=== PATIENT | female | born 1975 | race Caucasian/White ===

== ENCOUNTER 2021-08-08 15:51 | Emergency (ER) | payer BC, SELFPAY ==
--- NOTE | 2021-08-08 15:54 | ED.LOWEXIN ---
HPI - Extremity Injury (Lower) General Chief Complaint: Back Pain/Injury Stated Complaint: pain from hip to foot Time Seen by Provider: 08/08/21 15:54 Source: patient Mode of arrival: ambulatory Limitations: no limitations History of Present Illness HPI Narrative: Ms. Connors is a 45-year-old female patient presenting to the clinic today with complaints of left hip pain that is radiating down into her foot x2 weeks. She reports she has tried Advil, chiropractor, massage, and stretches without relief. Reports that the pain is worse today. Reports the pain is sharp from the left posterior hip and radiates into the left foot. Pain is worse with sitting. Most comfortable position she finds a standing. Related Data Home Medications Medication Instructions Recorded Confirmed alprazolam 1 mg tablet tablet 08/08/21 doxepin 50 mg capsule cap 08/08/21 fluoxetine 40 mg capsule cap 08/08/21 linaclotide 290 mcg capsule cap 08/08/21 (Linzess) metformin 1,000 mg tablet tablet 08/08/21 norgestimate 0.18 mg/0.215 mg/0.25 tablet 08/08/21 mg-ethinyl estradiol 25 mcg tablet (Zib-[id number]-[id number]) omeprazole 40 mg capsule,delayed cap 08/08/21 release Allergies Allergy/AdvReac Type Severity Reaction Status Date / Time latex Allergy Mild Swelling Unverified 10/09/13 15:21 erythromycin base Allergy Unknown HIVES Unverified 10/09/13 15:21 Penicillins Allergy Unknown Verified 10/09/13 15:20 prochlorperazine Allergy Unknown Verified 10/09/13 15:20 PROCHLORPERAZINE EDISYLATE AdvReac Severe CONFUSION Uncoded 10/09/13 15:20 PROCHLORPERAZINE MALEATE AdvReac Severe CONFUSION Uncoded 10/09/13 15:20 Review of Systems Review of Systems: Pertinent positives per HPI. Patient denies any fever, chills, rash, headache, visual changes, dizziness, cough, runny nose, sore throat, shortness of breath, chest pain, palpitations, nausea, vomiting, diarrhea, constipation, abdominal pain, or any urinary issues. [facility] Social History Social History Alcohol intake: never Comments At the time of my signature, I reviewed and agree with the nursing past medical, surgical, social, and family history. There is no relevant family history pertinent to the patient complaint. Exam Narrative: General: Well-developed, morbidly obese, in no apparent distress Head: Normocephalic, atraumatic. Cardio: Regular rate and rhythm, s1 and s2 normal, no murmur appreciated. Resp: Clear to auscultation bilaterally, no rhonchi, rales, wheezing or rubs. Musculoskeletal: No deformity, tender to palpation over the left SI joint, pain aggravated with sitting, no pain with flexion or extension of the left leg or internal or external rotation of the left hip, grossly normal range of motion, muscle strength strong and equal, peripheral pulse strong, no edema, no cyanosis, normal gait and station Course Course Emergency Course: Portions of this record may have been created with voice recognition software. Level of Care: Express Care Visit Vital Signs Vital signs: Vital signs reviewed MDM - Extremity Injury (Lower) MDM Narrative Medical decision making narrative: At the time of visit patient was standing in the exam room. Reports that it hurts to sit. She has pain over the left SI joint that is radiating down her leg. I suspect that the patient has left-sided sciatica with SI joint dysfunction and will treat with a course of prednisone. Toradol 60 mg IM given in the clinic today for pain. Supportive measures were discussed with the patient and she voiced understanding of discharge instructions and agrees with the treatment plan. Differential Diagnosis Differential diagnosis: Likely other (Sciatica, SI joint dysfunction, left hip injury) Discharge Plan Discharge Clinical Impression: Left sided sciatica, Sacroiliac joint dysfunction Patient Disposition: Home, Self-Care Condition: Stable Instruc
[2021-08-08 16:07] VITALS: BP 147/93; PULSE 90; RESP 16; TEMP 35.7; O2SAT 100
[2021-08-08] MEDS: KETOROLAC (*BKC) 60 MG/2 ML VIAL IM (16:27)
== END 2021-08-08 16:42 | disposition home or self-care (01) ==
PROVIDERS: Emergency Provider Nurse Practitioner Family
DX: M54.32 Sciatica, left side (principal); M53.3 Sacrococcygeal disorders, not elsewhere classified; I10 Essential (primary) hypertension; K21.9 Gastro-esophageal reflux disease without esophagitis
CPT/HCPCS: 96372; 99203; G0463; J1885

== ENCOUNTER → 2021-09-04 12:58 | Outpatient (CLI) | payer BC, SELFPAY ==
--- NOTE | ~2021-09-04 | MR_ITS ---
EXAMINATION: MR lumbar spine wo con DATE: 09/04/2021 13:37 INDICATION: Low back pain. Lumbar radiculopathy. TECHNIQUE: Magnetic resonance imaging (MRI) of the lumbar spine was performed without intravenous con trast. Sequences included sagittal T2-weighted FSE, sagittal T2-weighted FS FSE, sagittal T1-weighted FSE, and axial T2-weighted FSE. COMPARISON: Chest 2 views 04/19/2008 FINDINGS: S1 is a transitional segment. There is 3 mm anterolisthesis of L5 on S1. Vertebral body hei ghts are normal. There is mildly decreased disc height at L5-S1. The distal spinal cord signal intens ity is normal. The conus medullaris is at T12-L1. The following disc levels are specifically discusse d: L1-L2: The disc does not extend beyond the endplate margin. There is mild bilateral facet joint osteo arthritis. There is no neural foraminal stenosis. There is no central canal stenosis. L2-L3: The disc does not extend beyond the endplate margin. There is mild bilateral facet joint osteo arthritis. There is no neural foraminal stenosis. There is no central canal stenosis. L3-L4: The disc does not extend beyond the endplate margin. There is no facet joint osteoarthritis. T here is no neural foraminal stenosis. There is no central canal stenosis. L4-L5: There is a left foraminal protrusion. There is mild bilateral facet joint osteoarthritis. Ther e is mild left neural foraminal stenosis. There is no central canal stenosis. L5-S1: The disc is bulging and has an annular fissure. There is severe bilateral facet joint osteoart hritis. There is mild bilateral neural foraminal stenosis. There is mild central canal stenosis. IMPRESSION: 1. Mild lumbar spondylosis. Reviewed, dictated and finalized at location A. IMPRESSION: 1. Mild lumbar spondylosis.
== END ==
PROVIDERS: Visit Provider Nurse Practitioner Family
DX: M47.26 Other spondylosis with radiculopathy, lumbar region (principal)
CPT/HCPCS: 72148

== ENCOUNTER 2022-01-07 10:37 | Emergency (ER) | payer BC, SELFPAY ==
--- NOTE | ~2022-01-07 | CT_ITS ---
EXAMINATION: CT abdomen pelvis w con DATE: 01/07/2022 12:07 INDICATION: Left flank pain. TECHNIQUE: Computed tomography (CT) of the abdomen and pelvis was performed with 100 mL Omnipaque 350 intravenous contrast. Automated exposure control and iterative reconstruction technique were employe d. The dose-length product was 896.19 mGy-cm. COMPARISON: CT abdomen and pelvis 03/03/2004 FINDINGS: The visualized portions of the lung bases are clear without pneumonia or pleural effusion. The heart size is normal. No pericardial effusion. The liver, gallbladder, spleen, pancreas, and adre nal glands are normal. There is a 16 mm cyst in right kidney. There is a delayed left-sided contrast nephrogram. There is mild left hydronephrosis and hydroureter. There is a 6 mm stone in distal left u reter. There is a 4.3 cm cyst in left ovary, likely a follicular cyst. There is liquid stool in the c olon suggestive of diarrhea. There are no dilated loops of bowel. The appendix is normal. There are n o pathologically enlarged lymph nodes. There is no free intraperitoneal fluid. There is severe thorac ic spondylosis and mild lumbar spondylosis. IMPRESSION: 1. 6 mm stone in distal left ureter with mild left hydronephrosis and hydroureter. Reviewed, dictated and finalized at location A. IMPRESSION: 1. 6 mm stone in distal left ureter with mild left hydronephrosis and hydrouret er.
--- NOTE | ~2022-01-07 | XR_ITS ---
EXAMINATION: XR abdomen/kub 1V DATE: 01/07/2022 13:16 INDICATION: Left ureteral stone. TECHNIQUE: A supine view of the abdomen on 2 radiographs was obtained. COMPARISON: CT abdomen and pelvis 01/07/2022 FINDINGS: There are no dilated loops of bowel. There are phleboliths in the pelvis. There is contrast in the renal collecting system. There is mild left hydronephrosis and hydroureter. IMPRESSION: 1. Mild left hydronephrosis and hydroureter. Reviewed, dictated and finalized at location A.
[2022-01-07 11:09] VITALS: BP 170/92; PULSE 82; RESP 15; TEMP 36.7; O2SAT 95
[2022-01-07 11:12] LABS: Basophils Absolute Auto 0.1 K/mm3 (0.0-0.1); Basophils Percent Auto 1.3 % (0.2-1.2); Eosinophils Absolute Auto 0.3 K/mm3 (0-0.3); Eosinophils Percent Auto 2.8 % (0-4.4); Hematocrit 38.7 % (37.0-47.0); Hemoglobin 12.4 g/dL (12.0-15.0); Immature Granulocyte Absolute 0.04 K/mm3 (0.00-0.031); Immature Granulocyte Percent A 0.4 % (0-0.5); Lymphocytes Absolute Auto 2.11 K/mm3 (0.9-3.2); Lymphocytes Percent Auto 22.2 % (18.3-44.2); Mean Corpuscular Hemoglobin 28.1 pg (26-34); Mean Corpuscular Volume 87.6 fl (80-100); Mean Platelet Volume 9.6 fl (7.4-10.4); Monocytes Absolute Auto 0.7 K/mm3 (0.1-0.6); Monocytes Percent Auto 7.3 % (2.6-8.5); Neutrophils Absolute Auto 6.3 K/mm3 (1.3-6.7); Platelet Count Result 372 k/mm3 (150-375); Red Blood Count 4.42 M/mm3 (4.2-5.4); Red Cell Distribution Width 14.6 % (11.5-14.5); White Blood Count 9.5 K/mm3 (4.5-10.0)
--- NOTE | 2022-01-07 11:21 | ED.FEMALEGU ---
HPI - Female Genitourinary General Chief complaint: Urogenital-Female Stated complaint: left side pain since September Time Seen by Provider: 01/07/22 10:47 History of Present Illness HPI Narrative: Patient is a 46-year-old female here for evaluation of acute on chronic left-sided pain. Patient states that she first noticed the pain about 6 months ago, where sharp and stabbing in nature, lasted for about 3 days and then resolved without intervention. Pain returned the following week, she was seen in urgent care and diagnosed with a UTI, pain did improve with antibiotics and NSAIDs. Since then, patient has been experiencing similar type pain, coming and going with his triggers. She states the pain is possibly worse with movement of her thorax and with touching the area. The pain returned 3 days ago and has been more persistent than usual, states that she came to the ED to get answers as to what is causing it. She denies any dysuria, urgency, frequency, nausea, vomiting, hematuria. Related Data Home Medications Medication Instructions Recorded Confirmed alprazolam 1 mg tablet tablet 08/08/21 doxepin 50 mg capsule cap 08/08/21 fluoxetine 40 mg capsule cap 08/08/21 linaclotide 290 mcg capsule cap 08/08/21 (Linzess) metformin 1,000 mg tablet tablet 08/08/21 norgestimate 0.18 mg/0.215 mg/0.25 tablet 08/08/21 mg-ethinyl estradiol 25 mcg tablet (Kaj-Ms-Rrrsaxzbi) omeprazole 40 mg capsule,delayed cap 08/08/21 release Allergies Allergy/AdvReac Type Severity Reaction Status Date / Time latex Allergy Mild Swelling Verified 01/07/22 11:13 erythromycin base Allergy Unknown HIVES Verified 01/07/22 11:13 Penicillins Allergy Unknown Unknown Verified 01/07/22 11:13 prochlorperazine AdvReac Severe Confusion Verified 01/07/22 11:25 Review of Systems Review of Systems: Gen.: Denies fevers or chills Eyes: Denies eye pain or visual change ENT: Denies congestion Respiratory: Denies shortness of breath or cough CV: Denies chest pain or palpitations GI: Denies abdominal pain nausea, emesis or diarrhea denies burning, urgency, frequency or hematuria Musculoskeletal: Reports left-sided back pain. Neuro: Denies numbness, tingling, weakness or focal weakness Skin: Denies rash Except as documented, all other systems reviewed and negative PMFSH Social History Social History Alcohol intake: never Exam Narrative: APPEARANCE: Well appearing, no pain in distress, well-nourished. Head: Normocephalic and atraumatic. EYES: PERRLA/EOMI, conjunctivae clear NOSE: No nasal drainage EARS: External ear normal in appearance THROAT: Oropharynx is clear. Mucous membranes are moist. NECK: Supple. No adenopathy, no masses. RESPIRATORY: Airway patent, respirations nonlabored. Clear to auscultation bilaterally, no rales, rhonchi, wheezing. CARDIOVASCULAR: Regular rate and rhythm without murmurs, rubs, or gallops. ABDOMINAL: Normoactive bowel sounds. Soft, nontender, nondistended. No rebound tenderness or guarding. MUSCULOSKELETAL: Tender to palpation over left flank. Extremities are warm and well-perfused. Moves all extremities well. No edema. NEURO: Normal speech. No focal neurologic deficits. SKIN: No rash over flank. Skin is warm and dry. No rashes. PSYCHIATRIC: Normal affect/mood. Course Vital Signs Vital signs: Vital Signs Temperature 98.0 F 01/07/22 11:09 Pulse Rate 82 01/07/22 11:09 Respiratory Rate 15 01/07/22 11:09 Blood Pressure 170/92 H 01/07/22 11:09 Pulse Oximetry 95 01/07/22 11:09 Oxygen Delivery Room Air 01/07/22 11:09 Temperature 98.0 F 01/07/22 11:09 Pulse Rate 95 01/07/22 12:45 Respiratory Rate 18 01/07/22 12:45 Blood Pressure 150/96 H 01/07/22 12:45 Pulse Oximetry 96 01/07/22 12:45 Oxygen Delivery Room Air 01/07/22 11:09 MDM - Female Genitourinary MDM Narrative Medical decision making narrative:
[2022-01-07 11:30] LABS: Alanine Aminotransferase 21 U/L (6-35); Albumin Level 4.3 g/dL (3.5-5.1); Alkaline Phosphatase 101 U/L (38-126); Anion Gap 10 mmol/L (8-16); Aspartate Amino Transferase 24 U/L (14-36); Bilirubin,Total 0.8 mg/dL (0.2-1.3); Blood Urea Nitrogen 10 mg/dL (7-17); Calcium 8.8 mg/dL (8.4-10.2); Carbon Dioxide 26 mmol/L (22-30); Chloride 105 mmol/L (98-107); Estimated CRCL calculation 83 ml/min; Estimated Glomerular Filt Rate > 60; Glucose 109 mg/dL (65-110); Potassium 3.7 mmol/L (3.4-5.0); Sodium 141 mmol/L (137-145)
[2022-01-07] MEDS: KETOROLAC 15 MG/ML VIAL (*BKC) IV PUSH (11:50)
[2022-01-07 12:45] VITALS: BP 150/96; PULSE 95; RESP 18; O2SAT 96
[2022-01-07 12:56] LABS: Add Urine Microscopic? YES; Appearance Urine Cloudy (Clear); Bilirubin Urine Negative (Negative); Blood Urine 3+ (Negative); Color Urine Yellow (Yellow); Glucose Urine UA Negative (Negative); Ketones Urine Negative (Negative); Leukocyte Esterase Ur Negative LEU/UL (Negative); Mucus Urine Few /lpf; Nitrate Urine Negative (Negative); Protein Urine 1+ mg/dL (Negative); RBC Urine >75 /hpf (0-2); Squamous Epithelial Cell Urine Few /hpf (Few); Urobilinogen Urine Negative mg/dL (<2.0)
[2022-01-07 12:57] LABS: Specific Grav Ur > 1.060 (1.001-1.035)
== END 2022-01-07 14:14 | disposition home or self-care (01) ==
PROVIDERS: Physician Assistant; Emergency Provider Emergency Medicine
DX: N13.2 Hydronephrosis with renal and ureteral calculous obstruction (principal)
CPT/HCPCS: 36415; 74018; 74177; 80053; 81001; 81025; 85025; 96374; 99284; J1885; Q9967

== ENCOUNTER 2022-01-09 00:59 | Day surgery (SDC) | payer BC, SELFPAY ==
[2022-01-08 13:10] VITALS: BMI 41.1
--- NOTE | 2022-01-08 13:15 | PC.NURSE ---
Report to the Outpatient Waiting Room, entrance under the green pavilion located off [facility], at time 0815 on date 01/09/22. Planned Procedure Time: 1015. Time changes happen often and if your time is changed the preop area will call you the afternoon before. - You and your visitor will be asked to self-screen and do not enter if you have any COVID symptoms. - We encourage only one visitor and NO visitors under age 16 are allowed at this time. Your visitor will receive communication by the phone number that is given day of service. - The patient visitor is requested to social distance or may leave the building when not with patient due to restrictions. - A mask is required within the hospital. Patients may have clear liquids (water, carbonated beverages, clear teas, apple juice) until 3 hours prior to surgery with a maximum of 20 ounces. - No food from midnight until time of surgery Take the following medications with a SIP of water the morning of surgery: ALPRAZOLAM AND PAIN PILL IF NEEDED, FLUOXETINE Medications to discontinue per physician: N/A Date to take last dose: N/A Please no make-up, nail kosovan, hairspray, perfume, deodorant, or body powder the day of surgery. No jewelry (including any body piercings) or valuables the day of surgery, leave them at home. Please take a shower or bath the night before, or the morning of, surgery with an antibacterial soap. Wear comfortable, loose fitting clothing. - Jewelry must be removed prior to entering the operating room. Rings and piercings that are not removed may be cut off. - The hospital will not accept responsibility for valuables. - Please leave all valuables, including medications, at home the day of surgery. If you are going home after surgery, a licensed local hazmat driver must drive you home. - NO public transportation without another adult. - We recommend that an adult stay with you for 24 hours following discharge. - We also recommend that you do not drive, make important decision, drink alcoholic beverages, or take any drugs that were not prescribed by your health care provider for at least 24 hours after your discharge time. Follow any additional instructions given to you from your surgeon. If you or anyone in your household have experienced Covid symptoms in the past week, please notify your surgeon or the nurse liaison at the phone number below for possible testing. Telephone instructions given to PT - CYNTHIA WONG and asked if any additional questions and then verbalized understanding. Patient advised to call surgeon office or pre surgery nurse liaison [phone] if any additional questions.
--- NOTE | 2022-01-08 14:32 | WPDANESEPPF ---
Anes - Initial Pre Proc Eval Procedure: Operation Date: 01/09/22 10:15 Proposed Procedures p Cystoscopy, Left Ureteroscopy, Possible Left Retrograde Pyelogram, Possible Left Stone Extraction, Possible Left Stent Placement, Possible Holmium Laser Procedure - Ismael Fitch MD Date/Time: 01/08/22 14:32 Surgeon: Ismael Fitch MD Pre Op Diagnosis: left ureteral stone Patient Data Age: 46 Gender: F Height: 1.57 m Weight: 102.06 kg Allergies Allergy/AdvReac Type Severity Reaction Status Date / Time Penicillins Allergy Severe Hives Verified 01/09/22 08:59 latex Allergy Mild Other Verified 01/09/22 08:59 erythromycin base Allergy Unknown HIVES Verified 01/09/22 08:59 prochlorperazine AdvReac Severe Confusion Verified 01/09/22 08:59 Home Medications Medication Instructions Recorded Confirmed Type alprazolam 1 mg tablet 1 tablet PO BID PRN Anxiety 08/08/21 01/08/22 History doxepin 50 mg capsule 1 cap PO HS 08/08/21 01/08/22 History fluoxetine 40 mg capsule 1 cap PO DAILY 08/08/21 01/08/22 History linaclotide 290 mcg capsule 1 cap PO DAILY 08/08/21 01/08/22 History (Linzess) metformin 1,000 mg tablet 1 tablet PO DAILY PCOS 08/08/21 01/08/22 History norgestimate 0.18 mg/0.215 mg/0.25 1 tablet PO HS 08/08/21 01/08/22 History mg-ethinyl estradiol 25 mcg tablet (Yan-Mo-Dtorqpgvj) omeprazole 40 mg capsule,delayed 1 cap PO DAILY 08/08/21 01/08/22 History release hydrocodone 5 mg-acetaminophen 325 1 tablet PO Q8H PRN pain #7 tabs 01/07/22 01/08/22 Rx mg tablet tamsulosin 0.4 mg capsule (Flomax) 0.4 mg PO HS #10 caps 01/07/22 01/08/22 Rx Patient hx anesthesia problems: none Family hx anesthesia problems: none Results Review: All pre-operative results and documents have been reviewed as part of the pre-operative evaluation. [facility] Past Medical History Medical History (Updated 01/08/22 @ 14:34 by Javier Baumann MD) Anxiety Asthma Chronic GERD Interstitial cystitis Kidney stone Morbid obesity with BMI of 40.0-44.9, adult Social History Social History Smoking status: Never smoker Alcohol intake: never Substance use: never Substance use type: does not use Living arrangements: with family Spiritual care concerns: No Anes - Eval Final PreProcedure Day of Procedure 01/08/22 14:32 Patient weight: morbidly obese Heart: regular rate and rhythm Lungs: clear to auscultation and normal air movement Airway: Mallampati scale class II Neurological: alert and oriented Last oral intake: >/= 8 hours ASA classification: III Emergent: no Anesthetic plan: proceed Anesthesia type and monitoring: general LMA Results Review: All pre-operative results and documents have been reviewed as part of the pre-operative evaluation. Informed Consent: The patient's anesthetic plan and its attendant risks and benefits were discussed with the patient/family/POA. Questions were solicited and answers provided to the satisfaction of the patient/family/POA.
[2022-01-09] VITALS (9 sets, daily range): BP systolic 136–164; BP diastolic 78–99; PULSE 85–94; RESP 10–18; TEMP 36.5–36.8; O2SAT 95–100; BMI 41.2
--- NOTE | ~2022-01-09 | XR_ITS ---
EXAM: XR EXAMINATION: XR retrograde pyelo w/stent LT DATE: 01/09/2022 11:12 INDICATION: Left flank pain TECHNIQUE: 6 fluoroscopic images of the abdomen and pelvis were obtained during procedure performed angela Fitch. Radiologist was not present for the imaging or procedure. The amount of fluoroscopy smiley e used during this procedure was 0.4 minutes. COMPARISON: CT and KUB dated 01/07/2022 FINDINGS: The distal left ureteral stone is unable to be identified on the automotive electrician images. Subsequent images demo nstrate a prior enhanced along the right ureter into the collecting system at the upper pole of the r ight kidney. There is some likely residual excreted contrast in the left renal pelvis and calyces at the mid and lower kidney. Final images demonstrate placement of a left internal ureteral stent with d istal loop formed in the bladder and partially formed proximal tip in an upper pole calyx of the left kidney. IMPRESSION: 1. Placement of a left internal ureteral stent in expected position. The previously seen left uretera l stone is unable be identified. Correlate with procedure note with regard to possible stone extracti on. Reviewed, dictated and finalized at location A. IMPRESSION: 1. Placement of a left internal ureteral stent in expected position. The previo usly seen left ureteral stone is unable be identified. Correlate with procedure note with regard to possible stone extraction.
--- NOTE | 2022-01-09 06:49 | WPDHPUPDATE1 ---
History and Physical Update Update Date/Time: 01/09/22 06:49 History and Physical has been reviewed, including an updated exam of the patient. There are NO changes in the patient's condition. Risks, benefits, and alternatives have been discussed and questions answered. Patient agrees to proceed with procedure.
[2022-01-09] MEDS: LACTATED RINGERS 1,000 ML 30 ML IV CONT ×2 (09:05→12:02)
[2022-01-09] MEDS: ceFAZolin 2 GM/D5W 50 ML 2 GM/50 ML BAG IVPB (10:46)
[2022-01-09] MEDS: LIDOCAINE HCL 2% GEL UROJET 10 ML PKG MUCOUS MEM (10:55)
[2022-01-09] MEDS: KETOROLAC 30 MG/ML VIAL (*BKC) IV PUSH (11:05)
--- NOTE | 2022-01-09 11:10 | W.PM.PROC2 ---
Procedure Note - Detailed Date of Procedure 01/09/22 Pre-op Diagnosis Left ureteral stone Post-op Diagnosis Same Procedure Performed Cystoscopy, left ureteroscopy with laser lithotripsy, stone extraction, retrograde pyelogram and stent placement Surgeon Ismael Fitch MD Description of Procedure patient brought the operative suite where she was prepped draped in routine sterile fashion while in dorsal lithotomy position after the uneventful induction of a general LMA anesthetic. Cystoscopy is undertaken with a 19 F rigid cystoscope. The bladder neck and urethra normal. Bladder mucosa is normal without hyperemia. There was no intravesical foreign body or neoplasm. A 0.035 in guidewire wire is advanced into her left renal pelvis and the distal ureter was dilated with an 8 F 10 F dilator. Ureteroscopy was undertaken with a short tapered semi-rigid ureteral scope. Her left mid ureteral stone is impacted around the iliac vessels. Using a 273 micron holmium laser fiber I dusted it into tiny particles and removed the larger pieces with a 1.9 F disposable stone basket. Placed a 4.8 F variable length ureteral stent. Scopes and wires removed the patient was taken recovery room good condition Drains Yes Packing No Pathology None sent Complications No immediate complications Condition Stable
[2022-01-09] MEDS: fentaNYL CITRATE INJ (*CRX) 100 MCG/2 ML VIAL 25 MCG IV PUSH ×4 (11:50→12:05)
[2022-01-09] MEDS: HYOSCYAMINE SULFATE 0.125 MG TABLET PO (12:51)
[2022-01-09] MEDS: oxyCODONE HCL (*CRX) 5 MG TAB IR PO (13:00)
== END 2022-01-09 13:35 | disposition home or self-care (01) ==
PROVIDERS: Visit Provider Urology
PROC: (CPT 52352; principal; 2022-01-09 10:15)
DX: N20.1 Calculus of ureter (principal); K21.9 Gastro-esophageal reflux disease without esophagitis; F41.9 Anxiety disorder, unspecified; E66.01 Morbid (severe) obesity due to excess calories; Z68.41 Body mass index [BMI] 40.0-44.9, adult; Z79.84 Long term (current) use of oral hypoglycemic drugs
CPT/HCPCS: 52356; 74420; 82365; 88300; A9270; C1769; C2617; J0690; J1100; J1885; J2250; J2405; J2704; J3010; J7120; Q9966

== ENCOUNTER 2022-01-17 10:12 | Outpatient (CLI) | payer BC, SELFPAY ==
--- NOTE | ~2022-01-17 | US_ITS ---
US renal BI 01/17/2022 10:49 Procedure: Realtime transabdominal ultrasound of the kidneys and bladder. Indication: Left-sided abdomen pain Comparison: No prior studies for comparison. Findings: Renal echotexture is normal bilaterally without hydronephrosis, contour deforming mass or r enal calculus. The right kidney measures 11.7 cm and left kidney measures 12.1 cm. Bladder within no rmal limits. Incidental note is made of a 2.3 cm left ovarian cyst. Impression: 1: Unremarkable renal ultrasound. No stones, masses or hydronephrosis. 2: Left ovarian cyst measuring 2.3 cm. Reviewed, dictated and finalized at location A. Impression: 1: Unremarkable renal ultrasound. No stones, masses or hydronephrosis. 2: Left ovarian cyst measuring 2.3 cm.
== END 2022-01-17 10:13 | disposition home or self-care (01) ==
PROVIDERS: Visit Provider Urology
DX: N20.1 Calculus of ureter (principal); N83.202 Unspecified ovarian cyst, left side
CPT/HCPCS: 76775

== ENCOUNTER → 2022-12-24 13:00 | Outpatient (CLI) | payer BC, SELFPAY ==
--- NOTE | ~2022-12-24 | MM_ITS ---
EXAMINATION: MM screening kami BI w renetta HISTORY: Screening mammogram TECHNIQUE: Craniocaudal and mediolateral oblique 3-D tomosynthesis images were obtained and synthetic 2-D images were generated. CAD analysis was submitted and interpreted. COMPARISON: No prior mammogram is available for comparison at this institution. BREAST PARENCHYMAL COMPOSITION: FINDINGS: There is no evidence of suspicious mass, calcification, or architectural distortion to sugg est malignancy in either breast. There has been no suspicious interval change. IMPRESSION: 1. No mammographic evidence of malignancy. 2. Recommend routine screening mammography in one year. BI-RADS Category 1: Negative Reviewed, dictated and finalized at location A.
== END ==
PROVIDERS: PCP Obstetrics & Gynecology; Visit Provider Obstetrics & Gynecology
DX: Z12.31 Encounter for screening mammogram for malignant neoplasm of breast (principal)
CPT/HCPCS: 77063; 77067

== ENCOUNTER 2023-03-06 09:30 | Outpatient (CLI) | payer BC, SELFPAY ==
[2023-03-06 09:59] LABS: Basophils Absolute Auto 0.1 K/mm3 (0.0-0.1); Basophils Percent Auto 1.2 % (0.2-1.2); Eosinophils Absolute Auto 0.3 K/mm3 (0-0.3); Eosinophils Percent Auto 3.5 % (0-4.4); Hematocrit 38.6 % (37.0-47.0); Hemoglobin 12.2 g/dL (12.0-15.0); Immature Granulocyte Absolute 0.03 K/mm3 (0.00-0.031); Immature Granulocyte Percent A 0.4 % (0-0.5); Lymphocytes Absolute Auto 2.07 K/mm3 (0.9-3.2); Lymphocytes Percent Auto 28.1 % (18.3-44.2); Mean Corpuscular HGB Conc 31.6 g/dl (32-36); Mean Corpuscular Volume 88.7 fl (80-100); Mean Platelet Volume 9.7 fl (7.4-10.4); Monocytes Absolute Auto 0.4 K/mm3 (0.1-0.6); Monocytes Percent Auto 5.8 % (2.6-8.5); Neutrophils Absolute Auto 4.5 K/mm3 (1.3-6.7); Platelet Count Result 334 k/mm3 (150-375); Red Blood Count 4.35 M/mm3 (4.2-5.4); Red Cell Distribution Width 15.1 % (11.5-14.5); White Blood Count 7.4 K/mm3 (4.5-10.0)
== END 2023-03-06 09:31 | disposition home or self-care (01) ==
LOC: ANHSURGERY 09:34
PROVIDERS: Visit Provider Obstetrics & Gynecology
DX: R10.2 Pelvic and perineal pain (principal); Z01.818 Encounter for other preprocedural examination
CPT/HCPCS: 36415; 85025; 86850; 86900; 86901

== ENCOUNTER 2023-03-07 01:48 | Day surgery (SDC) | payer BC, SELFPAY ==
--- NOTE | 2023-03-03 07:17 | PM.IMHP ---
H&P: HPI History of Present Illness Date/Time: 03/03/23 07:17 Chief Complaint: Pelvic pain Narrative: 47-year-old female with a history of stage IV endometriosis admitted for robotic total vaginal hysterectomy and bilateral salpingo oophorectomy secondary to severe and chronic pelvic pain. She has severe dyspareunia and discomfort. She has a history of stage IV endometriosis. Risks and benefits of this procedure reviewed including but not exclusive of , aspiration pneumonia, bleeding, transfusion, perforation injury to bowel, bladder, ureters, or other internal organs with need for open laparotomy. She received the [employer] handout entitled hysterectomy as well as the [place] handout. She had all questions answered. She asked to proceed PMFSH Past Medical History Medical History Anxiety Asthma Chronic GERD Interstitial cystitis Kidney stone Morbid obesity with BMI of 40.0-44.9, adult Social History Social History Smoking status: Never smoker Alcohol intake: never Substance use: never Substance use type: does not use Living arrangements: with family Spiritual care concerns: No Meds Home Medications and Allergies Home Medications Medication Instructions Recorded Confirmed Type alprazolam 1 mg tablet 1 tablet PO BID PRN Anxiety 08/08/21 01/08/22 History doxepin 50 mg capsule 1 cap PO HS 08/08/21 01/08/22 History fluoxetine 40 mg capsule 1 cap PO DAILY 08/08/21 01/08/22 History linaclotide 290 mcg capsule 1 cap PO DAILY 08/08/21 01/08/22 History (Linzess) metformin 1,000 mg tablet 1 tablet PO DAILY PCOS 08/08/21 01/08/22 History norgestimate 0.18 mg/0.215 mg/0.25 1 tablet PO HS 08/08/21 01/08/22 History mg-ethinyl estradiol 25 mcg tablet (Hfc-Kg-Sxmdoschi) omeprazole 40 mg capsule,delayed 1 cap PO DAILY 08/08/21 01/08/22 History release hydrocodone 5 mg-acetaminophen 325 1 tablet PO Q8H PRN pain #7 tabs 01/07/22 01/08/22 Rx mg tablet ibuprofen 100 mg tablet 200 mg PO Q6H PRN pain 01/09/22 01/09/22 History ketorolac 10 mg tablet 10 mg PO Q6H 5 days #20 tabs 01/09/22 Rx sulfamethoxazole 800 1 tablet PO Q12H #6 tabs 01/09/22 Rx mg-trimethoprim 160 mg tablet Allergies Allergy/AdvReac Type Severity Reaction Status Date / Time Penicillins Allergy Severe Hives Verified 01/09/22 08:59 latex Allergy Mild Other Verified 01/09/22 08:59 erythromycin base Allergy Unknown HIVES Verified 01/09/22 08:59 prochlorperazine AdvReac Severe Confusion Verified 01/09/22 08:59 Exam Const: General: cooperative, healthy appearing and comfortable Nutritional Appearance: average body habitus Orientation/consciousness: oriented to person, oriented to place and oriented to time HENMT: Head: normal to inspection Resp: Effort & Inspection: normal respiratory effort Cardio: Rate: regular rate Rhythm: regular rhythm Heart sounds: S1 normal heart sound present and S2 normal heart sound present GI: Inspection: normal to inspection : External Female Exam: normal external appearance Speculum Exam - Vagina: normal appearance of the vagina Speculum Exam - Cervix: normal appearance of the cervix Bimanual exam- vagina & uterus: enlarged, fixed and Uterine tenderness Bimanual Exam- Adnexa, other: tender bilaterally Assessment and Plan Assessment and plan (1) Pelvic pain: Code(s): R10.2 - Pelvic and perineal pain Status: Acute Plan Robotic total vaginal hysterectomy and bilateral salpingo-oophorectomy
[2023-03-03 14:22] VITALS: BMI 43.9
--- NOTE | 2023-03-03 14:28 | PC.NURSE ---
Report to the Outpatient Waiting Room, entrance under the green pavilion located off [facility], at time 9:30 on date 03/07/23. Planned Procedure Time: 11:30. Time changes happen often and if your time is changed the preop area will call you the afternoon before. - You and your visitor will be asked to self-screen and do not enter if you have any COVID symptoms. - A mask is optional within the hospital at this time. Patients may have clear liquids (water, carbonated beverages, clear teas, apple juice) until 3 hours prior to surgery (8:30) with a maximum of 20 ounces. - No food from midnight until time of surgery Take the following medications with a SIP of water the morning of surgery: FLUOXETINE DO NOT STOP ANY OF YOUR OTHER PRESCRIPTION MEDICATIONS PRIOR TO SURGERY ?EXCEPT THE FOLLOWING Medications to discontinue per physician: VITAMINS/SUPPLEMENTS Date to take last dose: 03/03/[address] LIUDMILA FOURNIER RE: IBUPROFEN Please no make-up, nail latvian, hairspray, perfume, deodorant, or body powder the day of surgery. No jewelry (including any body piercings) or valuables the day of surgery, leave them at home. Please take a shower or bath the night before, or the morning of, surgery with an antibacterial soap. Wear comfortable, loose fitting clothing. - Jewelry must be removed prior to entering the operating room. Rings and piercings that are not removed may be cut off. - The hospital will not accept responsibility for valuables. - Please leave all valuables, including medications, at home the day of surgery. If you are going home after surgery, a licensed winch driver must drive you home. - NO public transportation without another adult if you receive anesthesia. - We recommend that an adult stay with you for 24 hours following discharge. - We also recommend that you do not drive, make important decision, drink alcoholic beverages, or take any drugs that were not prescribed by your health care provider for at least 24 hours after your discharge time. Follow any additional instructions given to you from your surgeon. If you or anyone in your household have experienced Covid symptoms in the past week, please notify your surgeon or the nurse liaison at the phone number below for possible testing. Telephone instructions given to PT - CYNTHIA WONG and asked if any additional questions and then verbalized understanding. Patient advised to call surgeon office or pre surgery nurse liaison [phone] if any additional questions.
--- NOTE | 2023-03-06 10:16 | WPDANESEPPF ---
Anes - Initial Pre Proc Eval Procedure: Operation Date: 03/07/23 11:30 Proposed Procedures p Robotic Assisted Total Vaginal Hysterectomy, with Bilateral Salpingo-oophorectomy - Tera Gipson MD Date/Time: 03/06/23 10:16 Surgeon: Tera Gipson MD Pre Op Diagnosis: enlarged uterus, pain, menorrhagia, dysmen Patient Data Age: 47 Gender: F Height: 1.57 m Weight: 108.9 kg Allergies Allergy/AdvReac Type Severity Reaction Status Date / Time Penicillins Allergy Severe Hives Verified 03/07/23 07:54 latex Allergy Mild Other Verified 03/07/23 07:54 erythromycin base Allergy Unknown HIVES Verified 03/07/23 07:54 prochlorperazine AdvReac Severe Confusion Verified 03/07/23 07:54 Home Medications Medication Instructions Recorded Confirmed Type alprazolam 1 mg tablet 1 tablet PO BID PRN Anxiety 08/08/21 03/03/23 History doxepin 50 mg capsule 1 cap PO HS 08/08/21 03/03/23 History fluoxetine 40 mg capsule 1 cap PO DAILY 08/08/21 03/03/23 History linaclotide 290 mcg capsule 1 cap PO DAILY 08/08/21 03/07/23 History (Linzess) metformin 1,000 mg tablet 1 tablet PO BID PCOS 08/08/21 03/03/23 History norgestimate 0.18 mg/0.215 mg/0.25 1 tablet PO HS 08/08/21 03/03/23 History mg-ethinyl estradiol 25 mcg tablet (Vaa-Yw-Caknjhlaa) omeprazole 40 mg capsule,delayed 1 cap PO DAILY 08/08/21 03/03/23 History release ibuprofen 100 mg tablet 200 mg PO Q6H PRN pain 01/09/22 03/03/23 History biotin 800 mcg tablet 800 mcg PO DAILY 03/03/23 03/07/23 History calcium carbonate 600 mg calcium 600 mg PO DAILY 03/03/23 03/07/23 History (1,500 mg) tablet (Calcium) cholecalciferol (vitamin D3) 125 125 mcg PO DAILY 03/03/23 03/07/23 History mcg (5,000 unit) tablet (Vitamin D3) coQ10 (ubiquinol) 200 mg capsule 200 mg PO DAILY 03/03/23 03/07/23 History elderberry fruit 350 mg capsule 350 mg PO DAILY 03/03/23 03/07/23 History gabapentin 300 mg capsule 300 mg PO HS 03/03/23 03/03/23 History multivitamin 1 tablet PO DAILY 03/03/23 03/07/23 History hydrocodone 5 mg-acetaminophen 325 1 tablet PO Q4H PRN pain #20 tabs 03/07/23 Rx mg tablet Patient hx anesthesia problems: post op nausea/vomiting Family hx anesthesia problems: none Results Review: All pre-operative results and documents have been reviewed as part of the pre-operative evaluation. [facility] Past Medical History Medical History (Updated 03/07/23 @ 08:07 by Chuck Blevins DO) Anxiety Asthma Chronic GERD Interstitial cystitis Kidney stone Morbid obesity with BMI of 40.0-44.9, adult PCOS (polycystic ovarian syndrome) Social History Social History Smoking status: Never smoker Alcohol intake: never Substance use: never Substance use type: does not use Living arrangements: with family Spiritual care concerns: No Anes - Eval Final PreProcedure Day of Procedure 03/06/23 10:16 Patient weight: morbidly obese Heart: regular rate and rhythm Lungs: clear to auscultation Airway: Mallampati scale class 1 Neurological: alert and oriented Last oral intake: 4 hours (2 sips of coffee) ASA classification: III Emergent: no Anesthetic plan: proceed Anesthesia type and monitoring: general ETT and standard monitoring Results Review: All pre-operative results and documents have been reviewed as part of the pre-operative evaluation. Informed Consent: The patient's anesthetic plan and its attendant risks and benefits were discussed with the patient/family/POA. Questions were solicited and answers provided to the satisfaction of the patient/family/POA.
[2023-03-07] VITALS (10 sets, daily range): BP systolic 129–146; BP diastolic 72–91; PULSE 67–94; RESP 14–22; TEMP 36.2–36.6; O2SAT 97–100
--- NOTE | 2023-03-07 06:26 | WPDHPUPDATE1 ---
History and Physical Update Update Date/Time: 03/07/23 06:26 History and Physical has been reviewed, including an updated exam of the patient. There are NO changes in the patient's condition. Risks, benefits, and alternatives have been discussed and questions answered. Patient agrees to proceed with procedure.
[2023-03-07] MEDS: LACTATED RINGERS 1,000 ML 30 ML IV CONT ×2 (08:16→10:50)
[2023-03-07] MEDS: ACETAMINOPHEN 500 MG TABLET 1000 MG PO (08:16)
[2023-03-07] MEDS: SCOPOLAMINE 1 MG PATCH 1 PATCH TRANSDERM (08:16)
[2023-03-07] MEDS: KETOROLAC 15 MG/ML VIAL (*BKC) IV PUSH (08:16)
[2023-03-07] MEDS: ceFAZolin 2 GM/D5W 50 ML 2 GM/50 ML BAG IVPB (09:15)
--- NOTE | 2023-03-07 10:42 | W.PM.PROC2 ---
Procedure Note - Detailed Date of Procedure 03/07/23 Pre-op Diagnosis enlarged uterus, pain, menorrhagia, dysmen Post-op Diagnosis Same Procedure Performed robotic total vaginal hysterectomy bilateral salpingo-oophorectomy Surgeon Tera Gipson MD Anesthesia General Indications this 47-year-old female with pelvic pain enlarged uterus and Findings enlarged uterus. normal appearing ovaries and Tubes Description of Procedure the patient was prepped draped in normal sterile fashion placed dorsal lithotomy position. Excellent general anesthesia weighted speculum placed in posterior fornix of vagina. Anterior lip of the cervix grasped with a single-tooth tenaculum. Uterus sounded to 11cm. Serial dilatation with fragmented dilators performed followed by passage of the 10. LISA and the 3. Cold cup. Next the 16 [place] catheter was placed in the bladder drained clear urine. A weighted was speculum was removed and gloves were changed. A supraumbilical incision made the Veress needle passed in the abdomen. Abdomen filled with CO2 gas [id number]. The 8mm trocar advanced in the abdomen. Downside visualized no injury seen. Patient placed in Trendelenburg and left and right lateral quadrant incisions made. 8mm trocars advanced in the abdomen. Doubt at of no injury seen. Right upper quadrant incision made in the 8mm trocar advanced under direct visualization assuring no injury the robot was docked. Attention was turned the counselor nurses[employer]. There fair amount of adhesions anteriorly these were sharply dissected without difficulty. The left round ligament was grasped, burned, cut. A bladder flap was formed by sharply dissecting peritoneum and cell by cell layer releasing the adhesed bladder from her previous section. This was dissected and the bladder pushed downward to the opposite round ligament which was clamped, burned, cut. Next the infundibulopelvic structure on the left was skeletonized to remove the ovary and tube. This was clamped, burned, cut and serially brought to the level of previously cut round ligament. In similar fashion removing the right ovary and tube the infundibulopelvic structure was skeletonized clamping burning cutting and reaching the previously cut round ligament. The cardinal broad ligaments on the left were then serially skeletonized clamping burning and cutting and bringing this down to the level of uterine vessels. The uterine vessels on the left were large and tortuous these were individually clamped, burned, cut. In similar fashion the cardinal broad ligaments on the right were serially skeletonized clamping burning cutting and bring these down to the level of the uterine vessels. These as well were large and tortuous. These were individually clamped, burned, cut. Excellent blanching of the uterus was noted in a colpotomy incision was made. Cervix uterus ovaries and tubes removed through the vagina. The vagina then closed with continuous running 0V lock from lateral edge to lateral edge back to the midline. Irrigation undertaken until clear. Hemostasis was assured and Custer term was placed over the raw surface area. The robot was undocked the gas removed. The incisions then closed with 4-0 Monocryl and glue. The patient was awakened went to recovery in satisfactory condition. All sponge, needle, instrument counts were correct. There were no immediate complications Estimated Blood Loss 25 Drains No Packing No Pathology Yes Complications No immediate complications Condition Stable Disposition PACU
--- NOTE | 2023-03-07 10:47 | P.DS_ITS ---
DS: Admitting Diagnosis Discharge Date 03/08/2023 Admitting Diagnosis pelvic pain DS: Discharge Diagnosis Discharge Diagnosis (1) Pelvic pain: Code(s): R10.2 - Pelvic and perineal pain Status: Acute DS: Summary Hospital Course Reason for hospitalization: patient was admitted for robotic hysterectomy and bilateral salpingo- oophorectomy Hospital Course: patient underwent robotic hysterectomy bilateral salpingo-oophorectomy on 03/07/2023. Her hospital course unremarkable. Remained afebrile. She was up, voiding without difficulty, eating regular diet, ambulating, Mony without complaints. Time Spent with Patient Time attestation: Total time spent providing and/or coordinating discharge services: Exam Const: General: cooperative, healthy appearing and comfortable Nutritional Appearance: average body habitus Orientation/consciousness: oriented to person, oriented to place and oriented to time HENMT: Head: normal to inspection Chest: Chest palpation & inspection: normal inspection of the chest Resp: Effort & Inspection: normal respiratory effort Cardio: Rate: regular rate Rhythm: regular rhythm Heart sounds: S1 normal heart sound present and S2 normal heart sound present GI: Inspection: normal to inspection and incision ( Clean dry and intact) DS: Data Data Completed and Pending Pending studies at discharge: Pending at discharge 03/07/23 10:12 Surgical [PTH] Routine Discharge Plan Discharge Patient Disposition: Home, Self-Care Discharge Instructions: Remove the Scopolamine patch that was placed behind your ear in 72 hours or less. Wash your hands after touching. Stand Alone Forms: General Discharge Instructions Follow-up/Referrals: Tera Ramirez MD [Physician] - Discharge Medications: New hydrocodone-acetaminophen 5-325 mg tablet 1 tablet PO Q4H PRN (Reason: pain) Qty: 20 0RF No Action fluoxetine 40 mg capsule 1 cap PO DAILY doxepin 50 mg capsule 1 cap PO HS alprazolam 1 mg tablet 1 tablet PO BID PRN (Reason: Anxiety) omeprazole 40 mg capsule,delayed release(DR/EC) 1 cap PO DAILY metformin 1,000 mg tablet 1 tablet PO BID Linzess 290 mcg capsule 1 cap PO DAILY Advil 100 mg Tablet 200 mg PO Q6H PRN (Reason: pain) multivitamin Tablet 1 tablet PO DAILY biotin 800 mcg Tablet 800 mcg PO DAILY calcium carbonate [Calcium 600] 600 mg calcium (1,500 mg) Tablet 600 mg PO DAILY cholecalciferol (vitamin D3) [Vitamin D3] 125 mcg (5,000 unit) Tablet 125 mcg PO DAILY coQ10 (ubiquinol) 200 mg Capsule 200 mg PO DAILY elderberry fruit 350 mg Capsule 350 mg PO DAILY gabapentin 300 mg capsule 300 mg PO HS
[2023-03-07] MEDS: fentaNYL CITRATE INJ (*CRX) 100 MCG/2 ML VIAL 25 MCG IV PUSH ×8 (11:05→11:27)
[2023-03-07] MEDS: HYDROmorphone HCL INJ (*CRX) 1 MG/ML SYR 0.5 MG IV PUSH ×4 (11:30→11:59)
--- NOTE | 2023-03-07 12:21 | PC.NURSE ---
PT arrived on unit via bed accompanied by family and taken to room 282. PT alert and awake with NC on 2 liters. 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 PT and spouse both recipients of such instructions and no barriers to learning identified at this time. PT received such instructions per one to one discussion and demonstrations. PT verbalized understanding of such care.
[2023-03-07] MEDS: KETOROLAC 30 MG/ML VIAL (*BKC) IV PUSH ×2 (12:56→19:30)
[2023-03-07] MEDS: DEXTROSE 5%/LACTATED RINGERS 1,000 ML 125 ML IV CONT (12:56)
[2023-03-07] MEDS: diphenhydrAMINE HCl INJ 50 MG/ML VIAL 25 MG IV PUSH (14:44)
[2023-03-07] MEDS: SIMETHICONE 80 MG TAB.CHEW PO (14:45)
[2023-03-07] MEDS: HYDROcodone/acetaminophen (*CRX) 5-325 MG TABLET 1 TAB PO (14:45)
[2023-03-07] MEDS: PHENAZOPYRIDINE HCL 100 MG TABLET 200 MG PO ×2 (14:52→19:30)
[2023-03-07] MEDS: DOCUSATE SODIUM 100 MG CAPSULE PO (16:48)
[2023-03-07] MEDS: HYDROcodone/acetaminophen (*CRX) 10-325 MG TABLET 1 TAB PO (16:48)
[2023-03-08] MEDS: HYDROcodone/acetaminophen (*CRX) 5-325 MG TABLET 1 TAB PO ×2 (00:28→05:08)
[2023-03-08] MEDS: DOCUSATE SODIUM 100 MG CAPSULE PO (00:28)
[2023-03-08] MEDS: IBUPROFEN 600 MG TABLET PO (05:08)
[2023-03-08 05:10] VITALS: BP 126/78; PULSE 84; RESP 16; TEMP 36.6
[2023-03-08 05:50] LABS: Basophils Absolute Auto 0.1 K/mm3 (0.0-0.1); Basophils Percent Auto 0.7 % (0.2-1.2); Eosinophils Absolute Auto 0.1 K/mm3 (0-0.3); Eosinophils Percent Auto 0.5 % (0-4.4); Hemoglobin 11.9 g/dL (12.0-15.0); Immature Granulocyte Percent A 0.6 % (0-0.5); Lymphocytes Absolute Auto 1.14 K/mm3 (0.9-3.2); Lymphocytes Percent Auto 6.9 % (18.3-44.2); Mean Corpuscular HGB Conc 31.3 g/dl (32-36); Mean Corpuscular Hemoglobin 27.5 pg (26-34); Mean Corpuscular Volume 87.8 fl (80-100); Mean Platelet Volume 9.8 fl (7.4-10.4); Monocytes Absolute Auto 0.9 K/mm3 (0.1-0.6); Monocytes Percent Auto 5.7 % (2.6-8.5); Neutrophils Percent Auto 85.6 % (45.5-73.1); Platelet Count Result 348 k/mm3 (150-375); Red Blood Count 4.33 M/mm3 (4.2-5.4); Red Cell Distribution Width 14.8 % (11.5-14.5); White Blood Count 16.4 K/mm3 (4.5-10.0)
[2023-03-08 07:00] VITALS: BP 122/79; PULSE 81; RESP 16; TEMP 36.7; O2SAT 96
[2023-03-08] MEDS: HYDROcodone/acetaminophen (*CRX) 10-325 MG TABLET 1 TAB PO (08:14)
--- NOTE | 2023-03-08 09:22 | PM.GYNPNOP ---
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 P: Home to f/u 2 weeks. 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 Tolerating diet. Voiding. Would like to go home. Exam Narrative: AVSS I/O OK ABD soft, nontender. Incisions c/d/i. EXT nontender CASTING TRUCKER - PN: Obj Data Vital Signs Vital Signs: Vital Signs - 24 hr 03/07/23 10:50 03/07/23 11:05 03/07/23 11:33 Temperature 36.2 C L Pulse Rate 89 89 Respiratory Rate 22 H 18 Blood Pressure 140/80 141/85 H Pulse Oximetry 100 100 Oxygen Delivery Simple Face Mask Simple Face Mask Nasal Cannula Oxygen Flow Rate 6 6 2 03/07/23 11:35 03/07/23 11:50 03/07/23 12:05 Temperature 36.2 C L Pulse Rate 89 89 94 Respiratory Rate 14 14 14 Blood Pressure 136/86 132/72 146/91 H Pulse Oximetry 97 100 99 Oxygen Delivery Nasal Cannula Nasal Cannula Nasal Cannula Oxygen Flow Rate 2 2 2 03/07/23 11:20 03/07/23 12:40 03/07/23 12:21 Temperature 36.4 C L Pulse Rate 89 86 86 Respiratory Rate 14 16 16 Blood Pressure 139/85 135/82 Pulse Oximetry 100 98 98 Oxygen Delivery Simple Face Mask Nasal Cannula Oxygen Flow Rate 6 2 03/07/23 19:25 03/08/23 05:10 03/08/23 07:00 Temperature 36.6 C 36.6 C 36.7 C Pulse Rate 92 84 81 Respiratory Rate 16 16 16 Blood Pressure 129/76 126/78 122/79 Pulse Oximetry 96 Oxygen Delivery Oxygen Flow Rate 03/08/23 07:00 Temperature Pulse Rate 81 Respiratory Rate 16 Blood Pressure Pulse Oximetry 96 Oxygen Delivery Room Air Oxygen Flow Rate Intake/Output Intake/Output: Intake & Output 03/05/23 03/06/23 03/07/23 03/08/23 23:59 23:59 23:59 23:59 Intake Total 2150 400 Output Total 90 800 Balance 0 -400 Meds/Results Medications: Active Medications Generic Name Dose Route Start Last Admin Trade Name Freq PRN Reason Stop Dose Admin Hydrocodone Bitart/Acetaminophen 1 tab 03/07/23 12:10 03/08/23 05:08 Hydrocodone/Acetaminophen (*Crx) 5-325 Mg Tablet PO 1 tab Q3H PRN Administration Pain Rated 5 or Less Hydrocodone Bitart/Acetaminophen 1 tab 03/07/23 12:10 03/08/23 08:14 Hydrocodone/Acetaminophen (*Crx) 10-325 Mg Tablet PO 1 tab Q3H PRN Administration Pain Rated 6 or Greater Diphenhydramine HCl 25 mg 03/07/23 13:56 03/07/23 14:44 Diphenhydramine Hcl Inj 50 Mg/Ml Vial IV PUSH 25 mg Q4H PRN Administration Itching Docusate Sodium 100 mg 03/07/23 17:00 03/08/23 00:28 Docusate Sodium 100 Mg Capsule PO 100 mg BID JYOTSNA Administration Enoxaparin Sodium 40 mg 03/08/23 09:00 Enoxaparin 40 Mg/0.4 Ml Syringe SUB-Q DAILY JYOTSNA Ibuprofen 600 mg 03/07/23 12:10 03/08/23 05:08 Ibuprofen 600 Mg Tablet PO 600 mg Q6H PRN Administration Cramping Ketorolac Tromethamine 30 mg 03/07/23 12:10 03/07/23 19:30 Ketorolac 30 Mg/Ml Vial (*Bkc) IV PUSH 03/12/23 12:09 30 mg Q6H PRN Administration Pain Rated 4-6 Naloxone HCl 0.1 mg 03/07/23 12:10 Naloxone Hcl 0.4 Mg/Ml Vial IV PUSH Q2M PRN Respiratory rate less than 10 Ondansetron HCl 4 mg 03/07/23 12:10 Ondansetron Inj 4 Mg/2 Ml Vial IV PUSH Q6H PRN Nausea And Vomiting Phenazopyridine HCl 200 mg 03/07/23 12:48 03/07/23 19:30 Phenazopyridine Hcl 100 Mg Tablet PO 200 mg TIDWM PRN Administration Bladder Spasm Simethicone 80 mg 03/07/23 12:10 03/07/23 14:45 Simethicone 80 Mg Tab.Chew PO 80 mg Q2H PRN Administration Gas Labs 03/08/23 05
== END 2023-03-08 10:30 | disposition home or self-care (01) ==
LOC: ANHSURGERY 08:31 → ANHOB2 12:12
PROVIDERS: Visit Provider Obstetrics & Gynecology
PROC: (CPT 58552; principal; 2023-03-07 09:30)
DX: D25.2 Subserosal leiomyoma of uterus (principal); N92.0 Excessive and frequent menstruation with regular cycle; N94.6 Dysmenorrhea, unspecified; R10.2 Pelvic and perineal pain; N88.8 Other specified noninflammatory disorders of cervix uteri; D25.1 Intramural leiomyoma of uterus; N83.8 Other noninflammatory disorders of ovary, fallopian tube and broad ligament; N83.01 Follicular cyst of right ovary; N83.202 Unspecified ovarian cyst, left side; Z79.84 Long term (current) use of oral hypoglycemic drugs; J45.909 Unspecified asthma, uncomplicated; F41.9 Anxiety disorder, unspecified; K21.9 Gastro-esophageal reflux disease without esophagitis; E66.01 Morbid (severe) obesity due to excess calories; Z68.41 Body mass index [BMI] 40.0-44.9, adult
CPT/HCPCS: 58552; S2900; 36415; 85025; 88307; 99199; A9270; J0330; J0690; J1100; J1170; J1200; J1885; J2250; J2405; J2704; J3010; J7030; J7120; J7121

== ENCOUNTER 2023-07-11 11:51 | Emergency (ER) | payer BC, SELFPAY ==
[2023-07-11] VITALS (7 sets, daily range): BP systolic 146–174; BP diastolic 86–105; PULSE 76–83; RESP 15–20; TEMP 36.8; O2SAT 97–100
--- NOTE | ~2023-07-11 | CT_ITS ---
EXAMINATION: CTA chest PE abdomen pel DATE: 07/11/2023 14:59 INDICATION: Left flank pain. TECHNIQUE: Computed tomography angiography (CTA) of the chest was performed with 100 mL Omnipaque-350 intravenous contrast timed to evaluate the pulmonary arteries. Coronal maximum intensity projection 3D-reconstructions were created by the technologist. Computed tomography (CT) of the abdomen and pelv is was performed with intravenous contrast. Automated exposure control and iterative reconstruction t echnique were employed. The dose-length product was 1818.67 mGy-cm. COMPARISON: CT abdomen and pelvis 01/07/2022, Ultrasound kidneys 01/17/2022 FINDINGS: CTA chest: The lungs demonstrate bilateral atelectasis. No pleural effusion. The heart size is normal . No pericardial effusion. There is no pulmonary embolus. There is severe thoracic spondylosis. CT abdomen and pelvis: The liver, gallbladder, spleen, pancreas, and adrenal glands are normal. There is an 18 mm mass in right kidney measuring soft tissue attenuation. Left kidney is normal. There are no dilated loops of bowel. The appendix is not visualized. There are no pathologically enlarged lymp h nodes. There is no free intraperitoneal fluid. There is mild lumbar spondylosis. IMPRESSION: 1. No pulmonary embolus. 2. 18 mm right kidney mass, which may be a hemorrhagic cyst or less likely a neoplasm. Abdomen CT or MRI without and with contrast is recommended. Reviewed, dictated and finalized at location A. IMPRESSION: 1. No pulmonary embolus. 2. 18 mm right kidney mass, which may be a hemorrhagic cyst or less likely a ne oplasm. Abdomen CT or MRI without and with contrast is recommended.
[2023-07-11 12:08] LABS: Appearance Urine Clear (Clear); Bilirubin Urine Negative (Negative); Blood Urine Negative (Negative); Color Urine Yellow (Yellow); Glucose Urine UA Negative (Negative); Ketones Urine Negative (Negative); Leukocyte Esterase Ur Negative LEU/UL (Negative); Nitrate Urine Negative (Negative); Protein Urine Negative (Negative); Specific Grav Ur 1.019 (1.001-1.035); Urobilinogen Urine 0.2 mg/dL (<2.0); pH Urine 5.5 (5.0-9.0)
[2023-07-11 12:11] LABS: Add Urine Microscopic? NO
--- NOTE | 2023-07-11 12:11 | ED.FEMALEGU ---
HPI - Female Genitourinary General Chief complaint: Urogenital-Female Stated complaint: left flank Time Seen by Provider: 07/11/23 12:03 History of Present Illness HPI Narrative: Patient is a 47 year old female with history of PCOS, endometriosis, s/p total hysterectomy in February 2023, on hormone replacement therapy, nephrolithiasis here with left flank pain. She states it began last night, located over her lower ribs in the left side and wraps around a bit to her lateral abdomen on the left side. She notes movement exacerbates symptoms. She rates it at an 8/10 at rest. She does note that when the symptoms began yesterday she was in [place] for a work trip, did fly back today and came to the emergency department for evaluation. Patient notes history of prior nephrolithiasis, follows with Dr. Fitch, Min has needed lithotripsy in the past. She notes that this pain feels quite different from her prior kidney stones and she typically has hematuria when these occur which she does not have now. She denies any dysuria, increased urinary frequency. She no longer has a menstrual cycle since her total hysterectomy. No prior history of PE or DVT. She is on hormone replacement therapy. No recent surgeries. She did recently travel to [place] and back. She denies any chest pain, shortness of breath, cough, congestion, fever, chills. She had a normal bowel movement today which was non bloody. She does have a history of chronic back pain with left-sided sciatica, she denies this being any worse than usual and denies any midline pain. No bowel or bladder incontinence, no saddle anesthesia. Related Data Home Medications Medication Instructions Recorded Confirmed alprazolam 1 mg tablet 1 tablet PO BID PRN Anxiety 08/08/21 03/07/23 doxepin 50 mg capsule 1 cap PO HS 08/08/21 03/07/23 fluoxetine 40 mg capsule 1 cap PO DAILY 08/08/21 03/07/23 linaclotide 290 mcg capsule 1 cap PO DAILY 08/08/21 03/07/23 (Linzess) omeprazole 40 mg capsule,delayed 1 cap PO DAILY 08/08/21 03/07/23 release ibuprofen 100 mg tablet 200 mg PO Q6H PRN pain 01/09/22 03/07/23 biotin 800 mcg tablet 800 mcg PO DAILY 03/03/23 03/07/23 calcium carbonate (Calcium 600) 600 mg PO DAILY 03/03/23 03/07/23 cholecalciferol (vitamin D3) 125 125 mcg PO DAILY 03/03/23 03/07/23 mcg (5,000 unit) tablet (Vitamin D3) coQ10 (ubiquinol) 200 mg capsule 200 mg PO DAILY 03/03/23 03/07/23 elderberry fruit 350 mg capsule 350 mg PO DAILY 03/03/23 03/07/23 gabapentin 300 mg capsule 300 mg PO HS 03/03/23 03/07/23 multivitamin 1 tablet PO DAILY 03/03/23 03/07/23 Allergies Allergy/AdvReac Type Severity Reaction Status Date / Time Penicillins Allergy Severe Hives Verified 07/11/23 11:55 latex Allergy Mild Other Verified 07/11/23 11:55 erythromycin base Allergy Unknown HIVES Verified 07/11/23 11:55 prochlorperazine AdvReac Severe Confusion Verified 07/11/23 11:55 Review of Systems Review of Systems: All systems reviewed & are unremarkable except as noted in HPI and below PMFSH Past Medical History Medical History (Updated 07/11/23 @ 17:35 by Patti Copeland MD) Anxiety Asthma Chronic GERD Interstitial cystitis Kidney stone Morbid obesity with BMI of 40.0-44.9, adult PCOS (polycystic ovarian syndrome) Social History Social History Smoking status: Never smoker Alcohol intake: never Substance use: never Substance use type: does not use Living arrangements: with family Spiritual care concerns: No Exam Narrative: GENERAL: Well-appearing, well-nourished, and in no acute distress. HEAD: Normocephalic, atraumatic. EYES: PERRLA and EOMI. ENT: Nares clear. Mucous membranes moist. NECK: Supple. CHEST: Clear to auscultation. No respiratory distress. HEART: Regular rate and rhythm. Normal peripheral pulses. ABDOMEN: Soft, nontender, nondistended. L CVA tenderness. No R CVA tenderness. EXTREMITIES: Normal range of
[2023-07-11 12:31] LABS: Basophils Absolute Auto 0.1 K/mm3 (0.0-0.1); Basophils Percent Auto 1.1 % (0.2-1.2); Eosinophils Absolute Auto 0.3 K/mm3 (0-0.3); Eosinophils Percent Auto 3.2 % (0-4.4); Hematocrit 39.2 % (37.0-47.0); Hemoglobin 12.2 g/dL (12.0-15.0); Immature Granulocyte Absolute 0.02 K/mm3 (0.00-0.031); Immature Granulocyte Percent A 0.2 % (0-0.5); Lymphocytes Absolute Auto 2.13 K/mm3 (0.9-3.2); Lymphocytes Percent Auto 26.2 % (18.3-44.2); Mean Corpuscular HGB Conc 31.1 g/dl (32-36); Mean Corpuscular Hemoglobin 26.9 pg (26-34); Mean Corpuscular Volume 86.3 fl (80-100); Mean Platelet Volume 9.9 fl (7.4-10.4); Monocytes Absolute Auto 0.5 K/mm3 (0.1-0.6); Monocytes Percent Auto 6.6 % (2.6-8.5); Neutrophils Absolute Auto 5.1 K/mm3 (1.3-6.7); Neutrophils Percent Auto 62.7 % (45.5-73.1); Platelet Count Result 322 k/mm3 (150-375); Red Blood Count 4.54 M/mm3 (4.2-5.4); Red Cell Distribution Width 14.6 % (11.5-14.5); White Blood Count 8.1 K/mm3 (4.5-10.0)
[2023-07-11 12:43] LABS: Alanine Aminotransferase 31 U/L (6-35); Albumin Level 4.3 g/dL (3.5-5.1); Alkaline Phosphatase 103 U/L (38-126); Anion Gap 5 mmol/L (4-12); Aspartate Amino Transferase 30 U/L (14-36); Bilirubin,Total 0.6 mg/dL (0.2-1.3); Blood Urea Nitrogen 13 mg/dL (7-17); Calcium 9.1 mg/dL (8.4-10.2); Carbon Dioxide 25 mmol/L (22-30); Chloride 108 mmol/L (98-107); Estimated CRCL calculation 96 ml/min; Estimated Glomerular Filt Rate > 60; Glucose 87 mg/dL (65-110); Potassium 3.9 mmol/L (3.4-5.0); Sodium 138 mmol/L (137-145)
--- NOTE | 2023-07-11 12:46 | ECG_ITS ---
SEE SCANNED COPY FOR CONFIRMED REPORT MTDD
[2023-07-11] MEDS: ONDANSETRON INJ 4 MG/2 ML VIAL IV PUSH (13:03)
[2023-07-11] MEDS: CYCLOBENZAPRINE HCL 10 MG TABLET PO (13:03)
[2023-07-11] MEDS: MORPHINE SULFATE (*CRX) 4 MG/ML INJ IV PUSH (13:03)
[2023-07-11 13:30] LABS: NT Pro B Type Natriuretic Pept 45 pg/mL (19.9-100); Troponin I < 0.012 ng/mL (0.000-0.034)
[2023-07-11 14:35] LABS: D Dimer 0.79 ug/mL (<0.48)
[2023-07-11] MEDS: KETOROLAC 15 MG/ML VIAL (*BKC) IV PUSH (15:43)
== END 2023-07-11 18:37 | disposition home or self-care (01) ==
PROVIDERS: Student in an Organized Health Care Education/Training Program; Emergency Provider Student in an Organized Health Care Education/Training Program; PCP Obstetrics & Gynecology
DX: J45.909 Unspecified asthma, uncomplicated (principal); N28.89 Other specified disorders of kidney and ureter; N30.10 Interstitial cystitis (chronic) without hematuria; E28.2 Polycystic ovarian syndrome; E66.01 Morbid (severe) obesity due to excess calories; Z68.41 Body mass index [BMI] 40.0-44.9, adult; K21.9 Gastro-esophageal reflux disease without esophagitis; F41.9 Anxiety disorder, unspecified; Z90.710 Acquired absence of both cervix and uterus; Z87.442 Personal history of urinary calculi; Z79.890 Hormone replacement therapy
CPT/HCPCS: 36415; 71275; 74177; 80053; 81003; 83880; 84484; 85025; 85380; 93005; 96374; 96375; 99284; A9270; J1885; J2270; J2405; Q9967

== ENCOUNTER 2023-07-23 09:44 | Outpatient (CLI) | payer BC, SELFPAY ==
--- NOTE | ~2023-07-23 | CT_ITS ---
EXAMINATION: CT abdomen wo/w con DATE: 07/23/2023 10:28 INDICATION: Right kidney mass. TECHNIQUE: Computed tomography (CT) of the abdomen was performed without and with 100 mL Omnipaque 35 0 intravenous contrast. Automated exposure control and iterative reconstruction technique were employ ed. The dose-length product was 1311.25 mGy-cm. COMPARISON: CT abdomen and pelvis 07/11/2023 FINDINGS: The visualized portions of the lung bases demonstrate mild atelectasis. No pleural effusion . The heart size is normal. No pericardial effusion. The liver, gallbladder, spleen, pancreas, adrena l glands, and left kidney are normal. There is a 19 mm mass in right kidney that measures 24 HU on pr econtrast images and 41 HU on postcontrast images. There is no urolithiasis. There are no dilated loo ps of bowel. There is severe thoracic spondylosis and moderate lumbar spondylosis. IMPRESSION: 1. 19 mm right kidney mass, which is indeterminate for contrast enhancement. This finding may be a he morrhagic cyst or renal cell carcinoma. Reviewed, dictated and finalized at location A. IMPRESSION: 1. 19 mm right kidney mass, which is indeterminate for contrast enhancement. Th is finding may be a hemorrhagic cyst or renal cell carcinoma.
== END 2023-07-23 09:45 ==
PROVIDERS: PCP Nurse Practitioner Family
DX: N28.89 Other specified disorders of kidney and ureter (principal)
CPT/HCPCS: 74170; Q9967

== ENCOUNTER 2023-08-09 23:17 | Emergency (ER) | payer BC, SELFPAY ==
--- NOTE | ~2023-08-09 | CT_ITS ---
EXAMINATION: CTA brain carotid DATE: 08/10/2023 01:51 INDICATION: Transient ischemic attack. TECHNIQUE: Computed tomographic angiography (CTA) of the head was performed without and with 100 mL O mnipaque-350 intravenous contrast. CTA of the neck was performed with intravenous contrast. Automated exposure control and iterative reconstruction technique were employed. The dose-length product was 1 008.24 mGy-cm. Maximum intensity projection and volume rendered 3D-reconstructions were created by brent akhtar technologist on a separate workstation. COMPARISON: None. FINDINGS: HEAD CTA: There is no intracranial hemorrhage, acute infarction, or abnormal intracranial mass lesion . The ventricles are normal in size. There is mild mucosal thickening in the paranasal sinuses. The o rbits are normal. The mastoid air cells are normal. The vertebral arteries are codominant. There is n o significant stenosis of basilar artery or the posterior cerebral arteries. The posterior communicat ing arteries are normal. There is no significant stenosis of the intracranial internal carotid arteri es or anterior or middle cerebral arteries. Anterior communicating artery is normal. There is no aneu rysm. NECK CTA: There is a 6 mm nodule in right thyroid lobe, likely not clinically significant. There are no pathologically enlarged lymph nodes. There is no significant stenosis of the vertebral arteries. T here is no significant plaque in the proximal internal carotid arteries. There is 0% stenosis of the proximal right internal carotid artery relative to normal distal artery lumen diameter (NASCET criter ia). There is 0% stenosis of the proximal left internal carotid artery relative to normal distal fernando ry lumen diameter. There is mild cervical spondylosis. IMPRESSION: 1. Normal brain. No aneurysm or significant intracranial arterial stenosis. 2. 0% stenosis of the proximal internal carotid arteries relative to normal distal artery lumen diame ters (NASCET criteria). Reviewed, dictated and finalized at location E. IMPRESSION: 1. Normal brain. No aneurysm or significant intracranial arterial stenosis. 2. 0% stenosis of the proximal internal carotid arteries relative to normal dis britney artery lumen diameters (NASCET criteria).
[2023-08-09 23:19] VITALS: BP 153/90; PULSE 87; RESP 27; TEMP 36.8; O2SAT 97
[2023-08-09 23:24] VITALS: BP 153/90; PULSE 87; RESP 27; O2SAT 98
[2023-08-09 23:31] VITALS: BP 150/91; PULSE 80; RESP 27; O2SAT 97
--- NOTE | 2023-08-09 23:31 | ECG_ITS ---
SEE SCANNED COPY FOR CONFIRMED REPORT MTDD
[2023-08-09 23:39] VITALS: BP 146/94; PULSE 81; RESP 28; O2SAT 97
[2023-08-09 23:43] VITALS: PULSE 84; O2SAT 100
[2023-08-09 23:46] VITALS: BP 147/90; PULSE 81; RESP 30; O2SAT 96
[2023-08-09 23:48] LABS: Basophils Absolute Auto 0.1 K/mm3 (0.0-0.1); Basophils Percent Auto 0.8 % (0.2-1.2); Eosinophils Absolute Auto 0.2 K/mm3 (0-0.3); Eosinophils Percent Auto 2.1 % (0-4.4); Hematocrit 39.4 % (37.0-47.0); Hemoglobin 12.7 g/dL (12.0-15.0); Immature Granulocyte Absolute 0.03 K/mm3 (0.00-0.031); Immature Granulocyte Percent A 0.3 % (0-0.5); Lymphocytes Absolute Auto 3.08 K/mm3 (0.9-3.2); Lymphocytes Percent Auto 28.6 % (18.3-44.2); Mean Corpuscular HGB Conc 32.2 g/dl (32-36); Mean Corpuscular Hemoglobin 27.2 pg (26-34); Mean Corpuscular Volume 84.4 fl (80-100); Monocytes Absolute Auto 0.9 K/mm3 (0.1-0.6); Monocytes Percent Auto 8.1 % (2.6-8.5); Neutrophils Absolute Auto 6.5 K/mm3 (1.3-6.7); Neutrophils Percent Auto 60.1 % (45.5-73.1); Platelet Count Result 324 k/mm3 (150-375); Red Blood Count 4.67 M/mm3 (4.2-5.4); White Blood Count 10.8 K/mm3 (4.5-10.0)
--- NOTE | 2023-08-09 23:53 | PC.NURSE ---
upon xray computer service technician arrival to scan patient, pt stated, I do not want the radiation due to having a ct scan not too long ago . xray computer service technician explained the benefits of having x ray preformed. pt refused xray at this time.
[2023-08-09 23:56] LABS: Alanine Aminotransferase 23 U/L (6-35); Albumin Level 4.2 g/dL (3.5-5.1); Alkaline Phosphatase 95 U/L (38-126); Anion Gap 6 mmol/L (4-12); Aspartate Amino Transferase 24 U/L (14-36); Bilirubin,Total 0.5 mg/dL (0.2-1.3); Blood Urea Nitrogen 15 mg/dL (7-17); Calcium 9.2 mg/dL (8.4-10.2); Carbon Dioxide 27 mmol/L (22-30); Chloride 108 mmol/L (98-107); Estimated CRCL calculation 76 ml/min; Estimated Glomerular Filt Rate > 60; Glucose 87 mg/dL (65-110); Potassium 3.7 mmol/L (3.4-5.0); Sodium 141 mmol/L (137-145)
[2023-08-09 23:57] LABS: Lactic Acid Reflex 0.8 mmol/L (0.7-2.0)
[2023-08-10] VITALS (7 sets, daily range): BP systolic 141–150; BP diastolic 85–97; PULSE 78–84; RESP 17–29; O2SAT 97–98
[2023-08-10 00:27] LABS: Influenza A QL RT-PCR Negative (Negative); Influenza B QL RT-PCR Negative (Negative); RSV RNA, RT-PCR Negative (Negative); SARS-CoV-2 RNA PCR Negative (Negative)
--- NOTE | 2023-08-10 00:52 | ED.WEAKNESS ---
HPI - Weakness General Chief complaint: Weakness Stated complaint: weakness Time Seen by Provider: 08/10/23 00:03 Source: patient Limitations: no limitations History of Present Illness HPI Narrative: Patient is a 47-year-old female presents to the emergency department complaining of a episode in which she could not speak and could move the lasted approximately 1 hour prior to arrival in the emergency department and has been resolved for the past approximately 30 minutes. Patient denies a history is the past. Patient states she was upstairs and family was downstairs and she woke up and felt like she could not speak or move her arms or legs. Patient denies any new or change medications. Patient also states that at that time she was feeling dizzy which is also resolved. Patient also states that she has been having intermittent bilateral lower quadrant pain and has upcoming surgery for surgical removal of a renal mass on the left side and she has been having pain in the left side which is more chronic and the pain on her right lower quadrant seems to be 1 new over the past 1-2 days. Patient denies discomfort when she pees. Patient denies nausea, vomiting, diarrhea, chest pain, difficulty breathing. patient denies history of getting a sleep study. Patient notes that when she was going to the episode she also felt like her head was numb. Related Data Home Medications Medication Instructions Recorded Confirmed linaclotide 290 mcg capsule 1 cap PO DAILY 08/08/21 07/30/23 (Linzess) omeprazole 40 mg capsule,delayed 1 cap PO DAILY 08/08/21 07/30/23 release biotin 800 mcg tablet 800 mcg PO DAILY 03/03/23 07/30/23 calcium carbonate (Calcium 600) 600 mg PO DAILY 03/03/23 07/30/23 coQ10 (ubiquinol) 200 mg capsule 200 mg PO DAILY 03/03/23 07/30/23 elderberry fruit 350 mg capsule 350 mg PO DAILY 03/03/23 07/30/23 gabapentin 300 mg capsule 300 mg PO HS 03/03/23 07/30/23 multivitamin 1 tablet PO DAILY 03/03/23 07/30/23 alprazolam 1 mg tablet 0.5 mg PO BID PRN Anxiety 07/30/23 07/30/23 doxepin 50 mg capsule 25 mg PO HS 07/30/23 07/30/23 estradiol valerate 4 ml IM 07/30/23 07/30/23 mg-testosterone enanth 90 mg/mL intramuscular oil ferrous sulfate 325 mg (65 mg 325 mg PO DAILY 07/30/23 07/30/23 iron) tablet levothyroxine 44 mcg capsule 40 mcg PO DAILY 07/30/23 07/30/23 liothyronine 5 mcg tablet 10 mcg PO DAILY 07/30/23 07/30/23 magnesium oxide 400 mg PO DAILY 07/30/23 07/30/23 meloxicam 15 mg tablet 15 mg PO DAILY 07/30/23 07/30/23 prasterone (dhea) 25 mg tablet 25 mg PO DAILY 07/30/23 07/30/23 (DHEA) progesterone micronized 200 mg 200 mg PO QHS 07/30/23 07/30/23 capsule vitamin D3 250 mcg (10,000 1 cap PO DAILY 07/30/23 07/30/23 unit)-vitamin K2 45 mcg capsule Allergies Allergy/AdvReac Type Severity Reaction Status Date / Time Penicillins Allergy Severe Hives Verified 07/30/23 09:36 latex Allergy Mild Other Verified 07/30/23 09:36 erythromycin base Allergy Unknown HIVES Verified 07/30/23 09:36 prochlorperazine AdvReac Severe Confusion Verified 07/30/23 09:36 Review of Systems Review of Systems: All systems reviewed & are unremarkable except as noted in HPI and below PMFSH Past Medical History Medical History (Updated 08/10/23 @ 04:14 by Gerson Bolivar DO) Anemia Anxiety Asthma Chronic GERD Constipation History of kidney stones Hypothyroid Interstitial cystitis Kidney stone Low back pain radiating to both legs Morbid obesity with BMI of 40.0-44.9, adult Pain, joint, multiple sites PCOS (polycystic ovarian syndrome) Recurrent kidney stones Surgical History Surgical History H/O total hysterectomy Feb 2023 History of 2000 Family History Family History Father Heart disease Sibling Alcoholism Grandparent Cancer Social History Social History (Reviewed 07/30/23 @ 09:44 by Mario
[2023-08-10] MEDS: SODIUM CHLORIDE 0.9% IV 1,000 ML 999 ML IV CONT (01:13)
[2023-08-10 01:20] LABS: Appearance Urine Clear (Clear); Bilirubin Urine Negative (Negative); Blood Urine Negative (Negative); Color Urine Yellow (Yellow); Glucose Urine UA Negative (Negative); Ketones Urine Negative (Negative); Leukocyte Esterase Ur Negative LEU/UL (Negative); Nitrate Urine Negative (Negative); Protein Urine Negative (Negative)
[2023-08-10 01:25] LABS: Specific Grav Ur 1.034 (1.001-1.035)
[2023-08-10 01:26] LABS: Add Urine Microscopic? NO
[2023-08-10 01:30] LABS: Troponin I < 0.012 ng/mL (0.000-0.034)
== END 2023-08-10 04:53 | disposition home or self-care (01) ==
PROVIDERS: Emergency Provider Student in an Organized Health Care Education/Training Program; PCP Nurse Practitioner Family
DX: R53.1 Weakness (principal); N28.89 Other specified disorders of kidney and ureter; J45.909 Unspecified asthma, uncomplicated; N30.10 Interstitial cystitis (chronic) without hematuria; E66.01 Morbid (severe) obesity due to excess calories; Z68.41 Body mass index [BMI] 40.0-44.9, adult; E28.2 Polycystic ovarian syndrome; K21.9 Gastro-esophageal reflux disease without esophagitis; F41.9 Anxiety disorder, unspecified; Z87.442 Personal history of urinary calculi; Z86.2 Personal history of diseases of the blood and blood-forming organs and certain disorders involving the immune mechanism; Z90.710 Acquired absence of both cervix and uterus; Z79.899 Other long term (current) drug therapy; R94.31 Abnormal electrocardiogram [ECG] [EKG]
CPT/HCPCS: 36415; 70496; 70498; 80053; 81003; 81025; 83605; 83735; 84443; 84484; 85025; 87637; 93005; 96360; 96361; 99284; J7030; Q9967

== ENCOUNTER 2023-12-25 16:02 | Emergency (ER) | payer BC, SELFPAY ==
--- NOTE | ~2023-12-25 | CT_ITS ---
CTA brain carotid Ordering provider: Mina Vann MD History: Persistent vertigo . Comparison: None Technique: CT angiogram head and neck was performed following timed intravenous injection of contrast . Thin slice axial images and reformatted coronal images were obtained. Three dimensional reformatted images of the brain were also obtained using a [employer] workstation. DLP: 1561.6 mGy-cm FINDINGS: HEAD: --ANTERIOR AND MIDDLE CEREBRAL ARTERIES AND BRANCHES: Normal caliber and contour. --INTERNAL CAROTID ARTERIES: No stenosis. No occlusion. --BASILAR ARTERY AND BRANCHES: Normal caliber and contour. No atheromatous disease. --POSTERIOR CEREBRAL ARTERIES: Normal caliber and contour --POSTERIOR COMMUNICATING ARTERIES: Not well visualized, likely secondary to congenital absence or sm all size. --ANEURYSM: None visualized. --BRAIN: No acute intracranial hemorrhage or suspicious mass effect. --BONES AND SUPERFICIAL SOFT TISSUES: No acute or subacute fracture within the overlying cranium. --PARANASAL SINUSES AND MASTOIDS: The paranasal sinuses are clear. The mastoid air cells are well aer ated. NECK: --RIGHT CERVICAL CAROTID SYSTEM: No stenosis is visualized within the right internal carotid artery. Percent stenosis per NASCET criteria is 0. No carotid dissection. --LEFT CERVICAL CAROTID SYSTEM: No significant stenosis. Percent stenosis per NASCET criteria is 0 N o carotid dissection. No stenosis of the cervical carotid system. --VERTEBRAL ARTERIES: Normal caliber and contour. --VISUALIZED AORTIC ARCH AND BRANCHING VESSELS: Normal caliber and contour. No significant atheromato us disease. --SOFT TISSUES: Unremarkable --CERVICAL SPINE: Straightening of the normal curvature of the cervical spine is identified. No signi ficant degenerative disease. IMPRESSION: 1. Normal CTA head and neck. Percent stenosis per NASCET criteria is 0 1. 0% stenosis of the proximal right internal carotid artery relative to normal distal artery lumen d iameter (NASCET criteria). 2. 0% stenosis of the proximal left internal carotid artery relative to normal distal artery lumen di ameter. Reviewed, dictated and finalized at location A. IMPRESSION: 1. Normal CTA head and neck. Percent stenosis per NASCET criteria is 0 1. 0% stenosis of the proximal right internal carotid artery relative to normal distal artery lumen diameter (NASCET criteria). 2. 0% stenosis of the proximal left internal carotid artery relative to normal distal artery lumen diameter.
[2023-12-25 16:09] VITALS: BP 162/114; PULSE 89; RESP 16; TEMP 36.4; O2SAT 98
[2023-12-25 17:37] LABS: Basophils Absolute Auto 0.1 K/mm3 (0.0-0.1); Basophils Percent Auto 1.1 % (0.2-1.2); Eosinophils Absolute Auto 0.3 K/mm3 (0-0.3); Eosinophils Percent Auto 3.1 % (0-4.4); Hematocrit 42.6 % (37.0-47.0); Hemoglobin 14.2 g/dL (12.0-15.0); Immature Granulocyte Absolute 0.03 K/mm3 (0.00-0.031); Immature Granulocyte Percent A 0.3 % (0-0.5); Lymphocytes Absolute Auto 2.43 K/mm3 (0.9-3.2); Lymphocytes Percent Auto 23.8 % (18.3-44.2); Mean Corpuscular HGB Conc 33.3 g/dl (32-36); Mean Corpuscular Hemoglobin 29.3 pg (26-34); Mean Corpuscular Volume 87.8 fl (80-100); Mean Platelet Volume 9.9 fl (7.4-10.4); Monocytes Absolute Auto 0.7 K/mm3 (0.1-0.6); Monocytes Percent Auto 6.4 % (2.6-8.5); Neutrophils Absolute Auto 6.7 K/mm3 (1.3-6.7); Neutrophils Percent Auto 65.3 % (45.5-73.1); Platelet Count Result 307 k/mm3 (150-375); Red Blood Count 4.85 M/mm3 (4.2-5.4); Red Cell Distribution Width 13.9 % (11.5-14.5); White Blood Count 10.2 K/mm3 (4.5-10.0)
[2023-12-25] MEDS: MECLIZINE HCL 25 MG TABLET 50 MG PO (17:58)
[2023-12-25 18:01] LABS: Alanine Aminotransferase 28 U/L (6-35); Albumin Level 4.2 g/dL (3.5-5.1); Alkaline Phosphatase 102 U/L (38-126); Anion Gap 9 mmol/L (4-12); Aspartate Amino Transferase 26 U/L (14-36); Bilirubin,Total 0.5 mg/dL (0.2-1.3); Blood Urea Nitrogen 13 mg/dL (7-17); Calcium 9.1 mg/dL (8.4-10.2); Carbon Dioxide 26 mmol/L (22-30); Chloride 107 mmol/L (98-107); Estimated CRCL calculation 83 ml/min; Estimated Glomerular Filt Rate > 60; Glucose 114 mg/dL (65-110); Sodium 142 mmol/L (137-145)
--- NOTE | 2023-12-25 19:19 | ED.DIZZY ---
HPI - Dizziness General Chief Complaint: Dizziness Stated Complaint: vertigo Time Seen by Provider: 12/25/23 16:31 Source: patient Mode of arrival: ambulatory Limitations: no limitations History of Present Illness HPI Narrative: This is a 48-year-old female, with history of vertigo for the past 3 weeks, presents emergency department stating her symptoms not improved and have somewhat worsened. The patient states he was seen by primary care provider who diagnosed BPPV and prescribed her on meclizine. She does states despite taking 25 mg she has not had any improvement. She denies weakness/ numbness, change/loss of vision/hearing and has no other complaints at this time. Related Data Home Medications Medication Instructions Recorded Confirmed omeprazole 40 mg capsule,delayed 1 cap PO DAILY 08/08/21 10/29/23 release biotin 800 mcg tablet 800 mcg PO DAILY 03/03/23 10/29/23 calcium carbonate (Calcium 600) 600 mg PO DAILY 03/03/23 10/29/23 coQ10 (ubiquinol) 200 mg capsule 200 mg PO DAILY 03/03/23 10/29/23 elderberry fruit 350 mg capsule 350 mg PO DAILY 03/03/23 10/29/23 multivitamin 1 tablet PO DAILY 03/03/23 10/29/23 estradiol valerate 4 ml IM 07/30/23 10/29/23 mg-testosterone enanth 90 mg/mL intramuscular oil ferrous sulfate 325 mg (65 mg 325 mg PO DAILY 07/30/23 10/29/23 iron) tablet levothyroxine 44 mcg capsule 40 mcg PO DAILY 07/30/23 10/29/23 liothyronine 5 mcg tablet 10 mcg PO DAILY 07/30/23 10/29/23 prasterone (dhea) 25 mg tablet 25 mg PO DAILY 07/30/23 10/29/23 (DHEA) progesterone micronized 200 mg 200 mg PO QHS 07/30/23 10/29/23 capsule vitamin D3 250 mcg (10,000 1 cap PO DAILY 07/30/23 10/29/23 unit)-vitamin K2 45 mcg capsule turmeric PO 10/29/23 10/29/23 Allergies Allergy/AdvReac Type Severity Reaction Status Date / Time Penicillins Allergy Severe Hives Verified 12/25/23 16:13 erythromycin base Allergy Unknown HIVES Verified 12/25/23 16:13 prochlorperazine AdvReac Severe Confusion Verified 12/25/23 16:13 Review of Systems Review of Systems: All systems reviewed & are unremarkable except as noted in HPI and below PMFSH Past Medical History Medical History Anemia Anxiety Asthma Chronic GERD Constipation History of kidney stones Hypothyroid Interstitial cystitis Kidney stone Low back pain radiating to both legs Low back pain radiating to left lower extremity Morbid obesity with BMI of 40.0-44.9, adult Pain, joint, multiple sites PCOS (polycystic ovarian syndrome) Recurrent kidney stones Thoracic back pain Vertigo Surgical History Surgical History H/O total hysterectomy Feb 2023 History of 2000 Family History Family History Father Heart disease Sibling Alcoholism Grandparent Cancer Social History Social History Smoking status: Never smoker Alcohol intake: never Substance use: never Substance use type: does not use Living arrangements: with family Spiritual care concerns: No Exam Narrative: GENERAL: Well-developed, well-nourished, and in no acute distress. HEAD: Normocephalic, atraumatic. EYES: PERRLA and EOMI. ENT: Nares clear, no rhinorrhea or epistaxis. Mucous membranes moist. Oropharynx without tonsillar hypertrophy exudate or other lesions. Mild bulging of the left TM. Right TM pearly jackson and nonbulging. NECK: Supple. CHEST: Clear to auscultation. No respiratory distress. No wheezes rales or rhonchi HEART: Regular rate and rhythm. No murmur heard. Normal peripheral pulses. ABDOMEN: Soft, nontender, nondistended, normal active bowel sounds. EXTREMITIES: Normal range of motion. No edema. SKIN: Warm, dry, no rash. NEURO: Alert and oriented x3. No focal deficit. Moving all 4 limbs spontaneously. Sensation
[2023-12-25 19:27] VITALS: BP 162/89; PULSE 90; RESP 16; TEMP 36.7; O2SAT 97
== END 2023-12-25 19:29 | disposition home or self-care (01) ==
PROVIDERS: Emergency Provider Preventive Medicine Aerospace Medicine; PCP Nurse Practitioner Family
DX: R42 Dizziness and giddiness (principal); J45.909 Unspecified asthma, uncomplicated; E66.01 Morbid (severe) obesity due to excess calories; Z68.41 Body mass index [BMI] 40.0-44.9, adult; E28.2 Polycystic ovarian syndrome; K21.9 Gastro-esophageal reflux disease without esophagitis; Z87.442 Personal history of urinary calculi; Z86.2 Personal history of diseases of the blood and blood-forming organs and certain disorders involving the immune mechanism; Z90.710 Acquired absence of both cervix and uterus; Z79.899 Other long term (current) drug therapy
CPT/HCPCS: 36415; 70496; 70498; 80053; 85025; 99284; A4565; A9270; Q9967

== ENCOUNTER 2023-12-29 15:18 | Outpatient (CLI) | payer BC, SELFPAY ==
--- NOTE | ~2023-12-29 | MM_ITS ---
EXAMINATION: MM screening kami BI w renetta HISTORY: Screening TECHNIQUE: Craniocaudal and mediolateral oblique 3-D tomosynthesis images were obtained and synthetic 2-D images were generated. CAD analysis was submitted and interpreted. COMPARISON: 12/24/2022 BREAST PARENCHYMAL COMPOSITION: Not dense: There are scattered areas of fibroglandular density. FINDINGS: There is no evidence of suspicious mass, calcification, or architectural distortion to sugg est malignancy in either breast. There has been no suspicious interval change. IMPRESSION: 1. No mammographic evidence of malignancy. 2. Recommend routine screening mammography in one year. BI-RADS Category 1: Negative Reviewed, dictated and finalized at location B.
== END 2023-12-29 15:19 | disposition home or self-care (01) ==
LOC: MICIMG 15:19
PROVIDERS: PCP Nurse Practitioner Family; Visit Provider Obstetrics & Gynecology
DX: Z12.31 Encounter for screening mammogram for malignant neoplasm of breast (principal)
CPT/HCPCS: 77063; 77067

== ENCOUNTER 2024-01-14 14:44 | Outpatient (CLI) | payer BC, SELFPAY ==
--- NOTE | ~2024-01-14 | MR_ITS ---
EXAMINATION: MR brain/brain stem wo/w con DATE: 01/14/2024 INDICATION: Multiple sclerosis. TECHNIQUE: Magnetic resonance imaging (MRI) of the brain and brainstem was performed without and with 20 mL MultiHance intravenous contrast. COMPARISON: Head CT 12/25/2023 FINDINGS: There is no intracranial hemorrhage, acute infarction, or abnormal intracranial mass lesion . There is a focus of increased T2-weighted signal intensity in the right frontal lobe deep white mat ter, which is normal as an isolated finding. The ventricles are normal in size. The orbits are normal . There is mild mucosal thickening in sphenoid sinus. The mastoid air cells are normal. IMPRESSION: 1. Normal aging brain. Reviewed, dictated and finalized at location B. IMPRESSION: 1. Normal aging brain.
== END 2024-01-14 14:45 | disposition home or self-care (01) ==
LOC: ANHIMG 14:47
PROVIDERS: PCP Nurse Practitioner Family; Visit Provider Psychiatry & Neurology Neurology
DX: G35 Multiple sclerosis (principal)
CPT/HCPCS: 70553; A9577

== ENCOUNTER 2024-01-24 07:40 | Outpatient (CLI) | payer BC, SELFPAY ==
--- NOTE | ~2024-01-24 | MR_ITS ---
EXAMINATION: MR cervical spine wo con DATE: 01/24/2024 08:15 INDICATION: Neck pain. Dizziness and giddiness. TECHNIQUE: Magnetic resonance imaging (MRI) of the cervical spine was performed without intravenous c ontrast. COMPARISON: None FINDINGS: Alignment is normal. Vertebral body heights and intervertebral disc heights are normal. The spinal cord signal intensity is normal. The following disc levels are specifically discussed: C2-C3: The disc does not extend beyond the endplate margin. There is no uncovertebral joint osteoarth ritis. There is mild right facet joint osteoarthritis. There is no neural foraminal stenosis. There i s no central canal stenosis. C3-C4: The disc does not extend beyond the endplate margin. There is no uncovertebral joint osteoarth ritis. There is no facet joint osteoarthritis. There is no neural foraminal stenosis. There is no balbina tral canal stenosis. C4-C5: The disc does not extend beyond the endplate margin. There is no uncovertebral joint osteoarth ritis. There is mild left facet joint osteoarthritis. There is no neural foraminal stenosis. There is no central canal stenosis. C5-C6: The disc does not extend beyond the endplate margin. There is mild bilateral uncovertebral bernadette nt osteoarthritis. There is mild right and moderate left facet joint osteoarthritis. There is no neur al foraminal stenosis. There is no central canal stenosis. C6-C7: There is a central protrusion. There is no uncovertebral joint osteoarthritis. There is mild b ilateral facet joint osteoarthritis. There is no neural foraminal stenosis. There is no central canal stenosis. C7-T1: The disc does not extend beyond the endplate margin. There is no uncovertebral joint osteoarth ritis. There is severe right and moderate left facet joint osteoarthritis. There is mild right neural foraminal stenosis. There is no central canal stenosis. IMPRESSION: 1. Mild cervical spondylosis. Reviewed, dictated and finalized at location A. DESIGNER
== END 2024-01-24 07:41 | disposition home or self-care (01) ==
PROVIDERS: PCP Nurse Practitioner Family; Visit Provider Nurse Practitioner Family
DX: M47.812 Spondylosis without myelopathy or radiculopathy, cervical region (principal); R42 Dizziness and giddiness
CPT/HCPCS: 72141

== ENCOUNTER 2024-02-11 16:15 | Outpatient (CLI) | payer BC, SELFPAY ==
--- NOTE | ~2024-02-11 | XR_ITS ---
XR shoulder RT min 2V Ordering provider: Shalom Adan MD History: . M25.511 - Pain in right shoulder . Comparison: None. FINDINGS: BONES: No acute fracture or dislocation. A bone island seen in the humeral head area. JOINT SPACES: The acromioclavicular joint is normal. The glenohumeral joint shows cystic changes in t he glenoid cavity suggestive of degenerative changes. SOFT TISSUES: Normal. IMPRESSION: No acute osseous abnormality right shoulder. Mild osteoarthritic changes. Reviewed, dictated and finalized at location A. 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
--- NOTE | ~2024-02-11 | XR_ITS ---
XR sacroiliac joints min 3V Ordering provider: Shalom Adan MD History: . M46.1 - Sacroiliitis, not elsewhere classified . Comparison: None. FINDINGS: BONES: Attempt of of sacralization of L5 with pseudoarthrosis process on the left side. No acute frac ture or dislocation. Sclerotic lesion most likely bone island seen in the right iliac bone near to th e acetabulum. Degenerative changes of the spine. JOINTS: The bilateral sacroiliac joint spaces appear well maintained. No bony fusion of the sacroilia c joints or bony erosions. SOFT TISSUES: Unremarkable. IMPRESSION: NO ACUTE OSSEOUS ABNORMALITY. NORMAL SACROILIAC JOINTS. Reviewed, dictated and finalized at location A. GER DIVISION
--- NOTE | ~2024-02-11 | XR_ITS ---
XR hip BI 2V w AP pelvis Ordering provider: Shalom Adan MD History: . M46.1 - Sacroiliitis, not elsewhere classified . Comparison: The FINDINGS: BONES: No acute fracture or dislocation. HIP JOINT SPACES: Normal. SACROILIAC JOINT SPACES/LUMBAR SPINE: The sacroiliac joint spaces are normal. Mild degenerative boucher es of the visualized lower lumbar spine. Attempt of sacralization of L5 with left pseudoarthrosis. PUBIC SYMPHYSIS: Normal. SOFT TISSUES: Normal. IMPRESSION: No acute osseous abnormality of the bilateral hips and pelvis. Reviewed, dictated and finalized at location A. DRY OPERATOR FINISHING
== END 2024-02-11 16:16 | disposition home or self-care (01) ==
PROVIDERS: PCP Nurse Practitioner Family; Visit Provider Anesthesiology Pain Medicine
DX: M19.011 Primary osteoarthritis, right shoulder (principal); M46.1 Sacroiliitis, not elsewhere classified
CPT/HCPCS: 72202; 73030; 73521

== ENCOUNTER 2024-04-19 00:47 | Day surgery (SDC) | payer BC, SELFPAY ==
[2024-04-07 13:13] VITALS: BMI 42.5
--- NOTE | 2024-04-07 13:21 | PC.NURSE ---
Addendum entered by Harinder Alcala RN 04/07/24 13:34: Informed patient since this is a local procedure that she may drive herself if she wishes. Original Note: Report to the Outpatient Waiting Room, entrance under the green pavilion located off [facility], at time _1145_ on date _[id number]_. Planned Procedure Time: _1245_.? Time changes happen often and if your time is changed the preop area will call you the afternoon before. - You and your visitor will be asked to self-screen and do not enter if you have any COVID symptoms. Please call surgeon if you need to reschedule. - A mask is optional within the hospital at this time. Ok for light breakfast. Nothing to eat or drink after 1045. Take only the following medications with a SIP of water on the morning of surgery: ___All medications OK.____ DO NOT STOP ANY OF YOUR OTHER PRESCRIPTION MEDICATIONS PRIOR TO SURGERY EXCEPT THE FOLLOWING Medications to discontinue per physician ___Follow pain clinic instructions regarding Meloxicam. Date to take last dose Please no make-up, nail chinese, hairspray, perfume, deodorant, or body powder the day of surgery.? No jewelry (including any body piercings) or valuables the day of surgery, leave them at home.? Please take a shower or bath the night before, or the morning of, surgery with an antibacterial soap.? Wear comfortable, loose fitting clothing.? - Jewelry must be removed prior to entering the operating room.? Rings and piercings that are not removed may be cut off. - The hospital will not accept responsibility for valuables.? - Please leave all valuables, including medications, at home the day of surgery. If you are going home after surgery, a licensed service parts driver must drive you home.? - NO public transportation without another adult if you receive anesthesia. - We recommend that an adult stay with you for 24 hours following discharge. - We also recommend that you do not drive, make important decision, drink alcoholic beverages, or take any drugs that were not prescribed by your health care provider for at least 24 hours after your discharge time. Follow any additional instructions given to you from your surgeon. Telephone instructions given to __Sana___and asked if any additional questions and then verbalized understanding. Patient advised to call surgeon office or pre surgery nurse liaison [phone] if any additional questions.
--- NOTE | ~2024-04-19 | XR_ITS ---
EXAMINATION: XR fluoroscopy no charge DATE: 04/19/2024 12:40 CORN SHELLER OPERATOR INDICATION: BILATERAL L3, L4, L5 MEDIAL BRANCH/DORSAL RAMUS BLOCK . TECHNIQUE: 5 fluoroscopic images of the lumbar spine were obtained during bilateral L3-L5 medial bran ch/dorsal ramus block, performed by Shalom Adan MD. I was not present during the procedure. Fluo roscopy exposure time was 51.5 seconds. Air Kerma 41.806 mGy. DAP 8.2877 mGym2. COMPARISON: None FINDINGS/IMPRESSION: Fluoroscopic documentation of bilateral L3-L5 medial branch/dorsal ramus block. Please refer to the o perative note for complete procedural details . Reviewed, dictated and finalized at location K. SHELLER OPERATOR
--- OUTSIDE RECORDS SUMMARY | 2024-04-19 00:52 | XMS_ITS | Clinical Summary ---
Author Organization [facility] Address [address] [place] [address] Care Team Providers Care Hand Inserter Operator Name Role Phone Kishan Eden FLORENCIA Primary Care Provider [phone] Allergies Active Allergy Reactions Criticality Noted Date Comments Erythromycin Urticaria,Edema Medium 10/30/2021 Penicillins Urticaria,Hives Medium 10/30/2021 Prochlorperazine Other (See comments),Unknown Low 10/30/2021 Agitation, restless Medications meloxicam (MOBIC) 15 mg tablet Take 1 tablet (15 mg total) by mouth nightly 4 Active ALPRAZolam (XANAX) 0.5 mg tablet Take 2 tablets (1 mg total) by mouth nightly as needed for sleep 4 Active ferrous sulfate 325 mg (65 mg of elemental iron) tablet Take 1 tablet (325 mg total) by mouth every morning 4 Active gabapentin (NEURONTIN) 300 mg capsuleIndicati ons:Neuropathic Pain Take 1 capsule (300 mg total) by mouth Medrol Dose Pack Scheduling ONLY 4 Active Linzess 290 mcg capsule Take 1 capsule (290 mcg total) by mouth every morning 2 Active magnesium oxide (MAG-OX) 400 mg (241.3 mg elemental magnesium) tablet Take 1 tablet (400 mg total) by mouth daily after dinner 4 Active omeprazole (PriLOSEC) 40 mg capsule Take 1 capsule (40 mg total) by 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 before breakfast 2 Active coenzyme [id number] E 100-5 mg-unit capsule Take 100 mg by mouth every morning Active albuterol HFA (PROVENTIL HFA,VENTOLIN HFA,PROAIR HFA) 90 mcg/actuation inhaler Inhale as needed for shortness of breath or wheezing Active doxepin (SINEquan) 25 mg capsuleIndicati ons:sleep Take 1 capsule (25 mg total) by mouth nightly Active BIOTIN ORAL Take by mouth every morning Active cholecalciferol , vitD3,/vit K2 (VITAMIN D3-VITAMIN K2 ORAL) Take by mouth every morning Active ELDERBERRY FRUIT ORAL Take by mouth every morning Active multivitamin tabletIndicatio ns:Vitamin Deficiency Prevention Take 1 tablet by mouth every morning Active calcium carbonate (CALCIUM 600 ORAL) Take by mouth every morning Active omega-3 fatty acids-fish oil 300-1,000 mg capsule Take 2 capsules (2 g total) by mouth every morning Active UNABLE TO FIND Apply topically every morning Estradiol/ Testosterone cream Active PROGESTERONE MICRONIZED ORAL Take by mouth nightly Active UNABLE TO FIND Take by mouth every morning T3/ T4 Liothy/Levothy Active acetaminophen (TylenoL) 325 mg tablet Take 2 tablets (650 mg total) by mouth every 6 (six) hours as needed for pain Active polyethylene glycol (MIRALAX) 17 gram/dose bulk powder Take 17 g by mouth daily for 10 days 170 g 4 Active naloxone (NARCAN) 4 mg/actuation spray,non-aeros ol Administer 1 spray into affected nostril(s) as needed for opioid reversal or respiratory depression Call 911. Administer a single spray in one nostril. Repeat every 3 minutes as needed if no or minimal response. 1 each 1 4 Active Active Problems Problem Noted Date Diagnosed Date Thyroid nodule 08/22/2023 Right renal mass 08/15/2023 Renal mass, right 08/14/2023 Renal mass 07/25/2023 Surgical History Surgery Date Site/Laterality Comments HYSTERECTOMY SECTION KIDNEY STONE SURGERY Medical History Medical History Date Comments Kidney stone Sleep disorder Interstitial cystitis PONV (postoperative nausea and vomiting) GERD (gastroesophageal reflux disease) Family History Medical History Relation Name Comments Anesthesia problems Neg Hx Social History Tobacco Use Types Packs/Day Years Used Date Smoking Tobacco: Never Tobacco Cessation:Counseling Given: Not Answered AUDIT-C Answer Date Recorded Q1: How often do you have a drink containing alcohol? Never 08/14/2023 Q2: How many drinks containi ng alcohol do you have on a typical day when you are drinking? Patient does not drink Q3: How often do you have si x or more drinks on one occasion? Never 08/14/2023 Personal Safety Answer Date Recorded Have you ever been in or are you currently in a harmful physical or emotional relationship or is someone making you feel afraid or unsafe? 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 Gender Identity Not on file Sexual Orientation Not on file Obstetrics History Last Filed Vital Signs Vital Sign Reading Time Taken Comments Blood Pressure 132/75 08/15/2023 8:19 AM CDT Pulse 65 08/15/2023 8:19 AM CDT Temperature 36.4 ??C (97.6 ??F) 08/15/2023 8:19 AM CD T Respiratory Rate 18 08/15/2023 8:19 AM CDT Oxygen Saturation 98% 08/15/2023 8:19 AM CDT Inhaled Oxygen Concentration - - Weight 103.5 kg (228 lb 3.2 oz) 08/14/2023 5:33 AM CDT Height 158.8 cm (5' 2.5 ) 08/14/2023 5:33 AM CDT Body Mass Index 41.07 08/14/2023 5:33 AM CDT Plan of Treatment Health Maintenance Due Date Last Done Comments Breast Cancer Screening-Mammogram 1973 Colon Cancer Screening-Colonoscopy 1973 Depression Screening 1973 Hepatitis C Screening 1973 DTaP/Tdap/Td Vaccine (1 - Tdap) 1984 Hepatitis B Screening 10/15/1991 Regular Well Visit/Exam 18-64 10/15/1991 Zoster Vaccine (1 of 2) 10/15/2023 Influenza Vaccine (#1) 2023 Pneumococcal vaccine <65 Aged Out No longer eligible based on patient's age to complete this topic Insurance BLUE ACCESS OOS BLUE ACCESS OOS Advance Directives For more information, please contact: [phone] * Full Code (Latest Code Status on File) Date Activated Date Inactivated Comments 08/14/2023 11:04 AM 08/15/2023 3:19 PM Care Teams Hand Inserter Operator Relationship Specialty Start Date End Date Eden Holley NP [address] [id number] PCP - General Family Medicine 07/25/23
--- OUTSIDE RECORDS SUMMARY | 2024-04-19 00:52 | XMS_ITS | Referral Summary ---
Author Organization [facility] Address [address] [place] [address] Care Team Providers Care Automation/Controls Manager Name Role Phone Kishan Eden FLORENCIA Primary Care Provider [phone] Allergies Active Allergy Reactions Criticality Noted Date [...] 1 capsule (40 mg total) by mouth efficiency clerk before breakfast 2 Active coenzyme [id number] E 100-5 mg-unit capsule Take 100 mg [...] Renal mass, right 08/14/2023 Renal mass 07/25/2023 Social History Tobacco Use Types Packs/Day Years Used Date Smoking Tobacco: Never Tobacco Cessation:Counseling Given: Not Answered AUDIT-C Answer Date Recorded Q1: How often do you have a drink containing alcohol? Never 08/14/2023 Q2: How many drinks containi ng alcohol do you have on a typical day when you are drinking? 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
--- OUTSIDE RECORDS SUMMARY | 2024-04-19 00:52 | XMS_ITS | Patient Health Summary ---
Author Organization [facility] Address [address] [place] [address] Care Team Providers Care Gas Leak Inspector Helper Name Role Phone Tera Bernard MD Unavailable [phone] Eden Holley APRN-MECHANICAL REPAIR WORKER Primary Care Provider Note from [facility],non-owned Affiliates and Associated Physician Practices is amultiple site organization consisting of ambulatory clinics and hospital sitesin [place], [place], [place] and [place]. This disclosure is being madepursuant to the Care Everywhere program and may not contain all information available regarding this patient. Last updated 17.[facility] Allergies * Prochlorperazine(Other) * Erythromycin(Urticaria) -Medium Criticality * Penicillins(Urticaria) -Medium Criticality Medications * Be aware that medications may not be up to date on this document. Alwaysverify current medications with the patient. * Linzess 290 MCG capsule(Started 10/10/2021) Take 1 (one) capsule by mouth once daily * ALPRAZolam (Xanax) 1 MG tablet(Started 04/04/2023) Take 1 (one) tablet by mouth at bedtime * Magnesium Oxide -Mg Supplement 400 (240 Mg) MG(Started 05/30/2023) Take 1 (one) tablet by mouth once daily * omeprazole (PriLOSEC) 40 MG capsule Take 1 (one) capsule by mouth every morning * Coenzyme Q10 (CoQ10) 100 MG Take 100 (one hundred) mg by mouth once daily * gabapentin (Neurontin) 300 MG capsule(Started 07/17/2023) Take 1 (one) capsule by mouth at bedtime 1 refill by 07/16/2024 * doxepin (SINEquan) 25 MG capsule Take 1 (one) capsule by mouth once daily * cyclobenzaprine (Flexeril) 10 MG tablet(Started 02/05/2024) Take 1 (one) tablet by mouth at bedtime * meclizine (Antivert) 25 MG tablet(Started 12/15/2023) Take 1 (one) tablet by mouth 2 times daily as needed For dizziness. * Vitamin D-Vitamin K (VITAMIN K2-VITAMIN D3 PO) * Thyroid (LEVOTHYROXINE-LIOTHYRONINE PO) * PROGESTERONE-DHEA cream 120-10 MG/GM CREA compound Apply to affected area once daily * kchuobu-iohdfnzra-hokyczvrwkqk (Biest With Testosterone) 0.125-0.5mg/mL cmpd cream Apply to affected area once daily * TURMERIC PO * GLUTATHIONE PO * meloxicam (Mobic) 15 MG tablet(Started 02/19/2024) Take 1 (one) tablet by mouth at bedtime * escitalopram (Lexapro) 10 MG tablet(Started 03/04/2024) Take 1 (one) tablet by mouth once daily * predniSONE (Deltasone) 5 MG tablet(Started 03/26/2024) Please take 15 mg PO x 5 days, 10 mg PO x 5 days and 5 mg PO x 5 days Active Problems Problem Noted Date Diagnosed Date Contact dermatitis 03/04/2024 Gastritis 03/04/2024 Insomnia 03/04/2024 Mood disorder 03/04/2024 Thyroid nodule 08/22/2023 Renal mass 07/25/2023 Social History Tobacco Use Types Packs/Day Years Used Date Smoking Tobacco: Never Smokeless Tobacco: Never PHQ-2 Answer Date Recorded Patient Health Questionnaire-2 Score 0 10/20/2023 Sex and Gender Information Value Date Recorded Sex Assigned at Not on file Gender Identity Not on file Sexual Orientation Not on file Last Filed Vital Signs Vital Sign Reading Time Taken Comments Blood Pressure 122/76 02/19/2024 9:46 AM [facility] Pulse 86 02/19/2024 9:46 AM [facility] Temperature - - Respiratory Rate 18 10/20/2023 2:51 PM CDT Oxygen Saturation 96% 10/20/2023 2:51 PM CDT Inhaled Oxygen Concentration - - Weight 106.1 kg (234 lb) 03/04/2024 10:56 AM [facility] Height 157.5 cm (5' 2 ) 03/04/2024 10:56 AM [facility] Body Mass Index 42.8 03/04/2024 10:56 AM [facility] Procedures * DNA ANTIBODY DOUBLE STRANDED(Performed 03/16/2024) Performed for Iron deficiency, Neuropathy, Osteoarthritis of multiple joints, unspecified osteoarthritis type, Medication monitoring encounter, Polyarthralgia, Fibromyalgia, Myofascial pain * COMPLEMENT C3 C4 PANEL(Performed 03/16/2024) Performed for Iron deficiency, Neuropathy, Osteoarthritis of multiple joints, unspecified osteoarthritis type, Medication monitoring encounter, Polyarthralgia, Fibromyalgia, Myofascial pain * SS-A/SS-B (SJOGREN'S) ANTIBODY PANEL(Performed 03/16/2024) Performed for Iron deficiency, Neuropathy, Osteoarthritis of multiple joints, unspecified osteoarthritis type, Medication monitoring encounter, Polyarthralgia, Fibromyalgia, Myofascial pain * FERRITIN(Performed 03/16/2024) Performed for Iron deficiency, Neuropathy, Osteoarthritis of multiple joints, unspecified osteoarthritis type, Medication monitoring encounter, Polyarthralgia, Fibromyalgia, Myofascial pain * IRON + TIBC PANEL(Performed 03/16/2024) Performed for Iron deficiency, Neuropathy, Osteoarthritis of multiple joints, unspecified osteoarthritis type, Medication monitoring encounter, Polyarthralgia, Fibromyalgia, Myofascial pain * C-REACTIVE PROTEIN(Performed 03/16/2024) Performed for Iron deficiency, Neuropathy, Osteoarthritis of multiple joints, unspecified osteoarthritis type, Medication monitoring encounter, Polyarthralgia, Fibromyalgia, Myofascial pain * ERYTHROCYTE SEDIMENTATION RATE(Performed 03/16/2024) Performed for Iron deficiency, Neuropathy, Osteoarthritis of multiple joints, unspecified osteoarthritis type, Medication monitoring encounter, Polyarthralgia, Fibromyalgia, Myofascial pain * COMPREHENSIVE METABOLIC PANEL(Performed 03/16/2024) Performed for Iron deficiency, Neuropathy, Osteoarthritis of multiple joints, unspecified osteoarthritis type, Medication monitoring encounter, Polyarthralgia, Fibromyalgia, Myofascial pain * CBC W AUTO DIFFERENTIAL(Performed 03/16/2024) Performed for Iron deficiency, Neuropathy, Osteoarthritis of multiple joints, unspecified osteoarthritis type, Medication monitoring encounter, Polyarthralgia, Fibromyalgia, Myofascial pain * DE REMOVE CERUMEN IMPACTED W INSTR BAYRON(Performed 03/04/2024) Performed for Bilateral impacted cerumen * AUDIOLOGY/TYMPANOMETRY ORDER(Performed 03/03/2024) * MRI THORACIC SPINE WO CONTRAST(Performed 10/28/2023) Performed for Polyarthralgia, Neuropathy, Osteoarthritis of multiple joints, unspecified osteoarthritis type, Medication monitoring encounter, Iron deficiency, Myofascial pain, Fibromyalgia * MRI LUMBAR SPINE WO CONTRAST(Performed 10/28/2023) Performed for Polyarthralgia, Neuropathy, Osteoarthritis of multiple joints, unspecified osteoarthritis type, Medication monitoring encounter, Iron deficiency, Myofascial pain, Fibromyalgia * C-REACTIVE PROTEIN(Performed 09/25/2023) * CBC W AUTO DIFFERENTIAL(Performed 09/25/2023) * ERYTHROCYTE SEDIMENTATION RATE(Performed 09/25/2023) * COMPREHENSIVE METABOLIC PANEL(Performed 09/25/2023) * IRON + TIBC PANEL(Performed 09/25/2023) * CYCLIC CITRULLINATED PEPTIDE(CCP) AB IGG(Performed 06/19/2023) Performed for Polyarthralgia, Elevated sedimentation rate, Other fatigue, Myofascial pain, Lumbar radicular pain * IRON + TIBC PANEL(Performed 06/19/2023) Performed for Polyarthralgia, Elevated sedimentation rate, Other fatigue, Myofascial pain, Lumbar radicular pain * FERRITIN(Performed 06/19/2023) Performed for Polyarthralgia, Elevated sedimentation rate, Other fatigue, Myofascial pain, Lumbar radicular pain * OMAYRA BLOOD SCREEN W/REFLEX TITER(Performed 06/19/2023) Performed for Polyarthralgia, Elevated sedimentation rate, Other fatigue, Myofascial pain, Lumbar radicular pain * RHEUMATOID FACTOR BLOOD QUANTITATIVE(Performed 06/19/2023) Performed for Polyarthralgia, Elevated sedimentation rate, Other fatigue, Myofascial pain, Lumbar radicular pain * VITAMIN D 25-HYDROXY(Performed 06/19/2023) Performed for Polyarthralgia, Elevated sedimentation rate, Other fatigue, Myofascial pain, Lumbar radicular pain * URIC ACID BLOOD(Performed 06/19/2023) Performed for Polyarthralgia, Elevated sedimentation rate, Other fatigue, Myofascial pain, Lumbar radicular pain * CK BLOOD(Performed 06/19/2023) Performed for Polyarthralgia, Elevated sedimentation rate, Other fatigue, Myofascial pain, Lumbar radicular pain * ERYTHROCYTE SEDIMENTATION RATE(Performed 06/19/2023) Performed for Polyarthralgia, Elevated sedimentation rate, Other fatigue, Myofascial pain, Lumbar radicular pain * C-REACTIVE PROTEIN(Performed 06/19/2023) Performed for Polyarthralgia, Elevated sedimentation rate, Other fatigue, Myofascial pain, Lumbar radicular pain * COMPREHENSIVE METABOLIC PANEL(Performed 06/19/2023) Performed for Polyarthralgia, Elevated sedimentation rate, Other fatigue, Myofascial pain, Lumbar radicular pain * CBC W AUTO DIFFERENTIAL(Performed 06/19/2023) Performed for Polyarthralgia, Elevated sedimentation rate, Other fatigue, Myofascial pain, Lumbar radicular pain * XR THORACIC SPINE 2VW(Performed 06/19/2023) Performed for Polyarthralgia, Elevated sedimentation rate, Other fatigue, Myofascial pain, Lumbar radicular pain * XR LUMBAR SPINE 2 OR 3VW(Performed 06/19/2023) Performed for Polyarthralgia, Elevated sedimentation rate, Other fatigue, Myofascial pain, Lumbar radicular pain * XR HAND BILAT 3VW OR MORE(Performed 06/19/2023) Performed for Polyarthralgia, Elevated sedimentation rate, Other fatigue, Myofascial pain, Lumbar radicular pain * URINALYSIS W/MICROSCOPIC NO CULTURE(Performed 10/31/2021) Performed for Dysuria, Cervical cancer screening * PAP IMAGE-GUIDED W HPV(Performed 10/30/2021) Performed for Cervical cancer screening * HPV DETECTION HIGH RISK LOY(Performed 10/30/2021) Performed for Cervical cancer screening * CULTURE URINE(Performed 10/30/2021) Performed for Dysuria Results * C-REACTIVE PROTEIN (CRP) (03/16/2024 1:46 PM [facility]) Only the most recent of3 resultswithin the time period is included. C-Reactive Protein 5.6 <8.0 mg/L [facility] Comment: Test Performed at: [employer] [facility] [address] ??[id number] MIREYA CATALAN MD Blood BLOOD SPECIMEN / Unknown 03/16/2024 1:46 PM [facility] 03/16/2024 1:53 PM [facility] Terrie Lancaster TECHNOLOGY INTERN-MECHANICAL REPAIR WORKER LAB - CHEMI STRY ORDERABLES Performing Organization Address [facility] de Phone Number [facility] [phone] [place] [id number] * SS-A/SS-B (SJOGREN'S) ANTIBODY PANEL (03/16/2024 1:46 PM [facility]) Sjogren's Antibodies (SSA) <1.0 NEG <1.0 NEG AI [facility] Sjogren's Antibodies (SSB) <1.0 NEG <1.0 NEG AI [facility] Comment: Test Performed at: [employer] [address] [place] [address] ??[phone] MIREYA CATALAN MD Blood BLOOD SPECIMEN / Unknown 03/16/2024 1:46 PM [facility] 03/16/2024 1:53 PM [facility] Terrie Lancaster TECHNOLOGY INTERN-MECHANICAL REPAIR WORKER LAB - CHEMI STRY ORDERABLES Performing Organization Address [facility] de Phone Number [place] [phone] * DNA ANTIBODY DOUBLE STRANDED (03/16/2024 1:46 PM [facility]) dsDNA Antibody <1 IU/mL [facility] Comment: ? IU/mL ? Interpretation ? < or = 4 ?Negative ? 5-9 ? Indeterminate ? > or = 10 ?? Positive Test Performed at: [employer] [address] [place] [address] ??[phone] MIREYA CATALAN MD Blood BLOOD SPECIMEN / Unknown 03/16/2024 1:46 PM [facility] 03/16/2024 1:53 PM [facility] Terrie Khanjohn Lancaster APRN-[facility] LAB - HEMAT OLOGY ORDERABLES Performing Organization Address [facility] Co de Phone Number [address] [address] * (ABNORMAL) SED RATE AUTO (ESR) (03/16/2024 1:46 PM [facility]) Only the most recent of3 resultswithin the time period is included. Pathologist [facility] Erythrocyte Sedimentation Rate Westergren 22(H) < OR = 20 mm/h [facility] Comment: Test Performed at: [employer] ??[id number] MIREYA CATALAN MD Blood BLOOD SPECIMEN / Unknown 03/16/2024 1:46 PM [facility] 03/16/2024 1:53 PM [facility] Terrie Khanjohn Lancaster [facility] LAB - HEMAT OLOGY ORDERABLES Performing Organization Address [facility] de Phone Number [address] [address] * CBC WITH DIFFERENTIAL (03/16/2024 1:46 PM [facility]) Only the most recent of3 resultswithin the time period is included. White Blood Cell Count 8.3 3.8 - 10.8 Thousand/u L [facility] RBC 4.80 3.80 - 5.10 Million/uL [facility] Hemoglobin 14.1 11.7 - 15.5 g/dL [facility] Hematocrit 43.3 35.0 - 45.0 % [facility] MCV 90.2 80.0 - 100.0 fL [facility] MCH 29.4 27.0 - 33.0 pg [facility] MCHC 32.6 32.0 - 36.0 g/dL [facility] Comment: For adults, a slight decrease in the calculated MCHC value (in the range of 30 to 32 g/dL) is most likely not clinically significant; however, it should be interpreted with caution in correlation with other red cell parameters and the patient's clinical condition. RDW 12.9 11.0 - 15.0 % [facility] Platelet Count 331 140 - 400 Thousand/u L [facility] MPV 10.2 7.5 - 12.5 fL [facility] Neutrophil Absolute 5154 1500 - 7800 cells/uL [facility] Lymphocytes Absolute 2108 850 - 3900 cells/uL [facility] Absolute Monocytes 730 200 - 950 cells/uL [facility] Eosinophils Absolute 199 15 - 500 cells/uL [facility] Basophils Absolute 108 0 - 200 cells/uL [facility] Granulocytes % 62.1 % [facility] Lymphocytes % 25.4 % [facility] Monocytes % 8.8 % [facility] Eosinophils % 2.4 % [facility] Basophils % 1.3 % [facility] Comment: Test Performed at: [employer] ??[phone] MIREYA CATALAN MD Blood BLOOD SPECIMEN / Unknown 03/16/2024 1:46 PM [facility] 03/16/2024 1:53 PM [facility] Terrie Lancaster TECHNOLOGY INTERN-MECHANICAL REPAIR WORKER LAB - HEMAT OLOGY ORDERABLES [address] [address] * COMPREHENSIVE METABOLIC PANEL (03/16/2024 1:46 PM [facility]) Only the most recent of3 resultswithin the time period is included. Glucose 87 65 - 99 mg/dL [facility] Comment: ? Fasting reference interval BUN 18 7 - 25 mg/dL [facility] Creatinine 0.72 0.50 - 1.03 mg/dL [facility] eGFR by Cystatin C 102 > OR = 60 mL/min/1. 73m2 [facility] BUN/Creatinine Ratio SEE NOTE: 6 (calc) [facility] Comment: ?? Not Reported: BUN and Creatinine are within ?? reference range. ? Sodium 142 135 - 146 mmol/L [facility] Potassium 4.5 3.5 - 5.3 mmol/L [facility] Chloride 106 98 - 110 mmol/L [facility] CO2 27 20 - 32 mmol/L [facility] Calcium 9.4 8.6 - 10.4 mg/dL [facility] Protein Total 6.9 6.1 - 8.1 g/dL [facility] Albumin 4.3 3.6 - 5.1 g/dL [facility] Globulin Total 2.6 1.9 - 3.7 g/dL (calc) [facility] Albumin/Globulin Ratio 1.7 1.0 - 2.5 (calc) [facility] Bilirubin Total 0.4 0.2 - 1.2 mg/dL [facility] Alkaline Phosphatase 117 37 - 153 U/L [facility] AST 16 10 - 35 U/L [facility] ALT 19 6 - 29 U/L [facility] Comment: Test Performed at: [employer] ??[phone] MIREYA CATALAN MD Blood BLOOD SPECIMEN / Unknown 03/16/2024 1:46 PM [facility] 03/16/2024 1:53 PM [facility] Terrie Lancaster APRN-MECHANICAL REPAIR WORKER LAB - CHEMI STRY ORDERABLES Performing Organization Address [facility] de Phone Number [address] [address] * IRON + TIBC PANEL (03/16/2024 1:46 PM [facility]) Only the most recent of3 resultswithin the time period is included. Pathologist [facility] Iron 70 45 - 160 mcg/dL [facility] TIBC 362 250 - 450 mcg/dL (calc) [facility] % Saturation 19 16 - 45 % (calc) [facility] Comment: Test Performed at: [employer] [facility] [place], [place] ??[phone] MIREYA CATALAN MD Blood BLOOD SPECIMEN / Unknown 03/16/2024 1:46 PM [facility] 03/16/2024 1:53 PM [facility] Terrie Lancaster APRNMECHANICAL REPAIR WORKER LAB - CHEMI STRY ORDERABLES Performing Organization Address [facility] Co de Phone Number [address] [address] * (ABNORMAL) COMPLEMENT C3 C4 PANEL (03/16/2024 1:46 PM [facility]) Pathologist [facility] Complement C3 205(H) 83 - 193 mg/dL [facility] Complement C4 34 15 - 57 mg/dL [facility] Comment: Test Performed at: [employer] [facility] [place] [place] ??[phone] MIREYA CATALAN MD Blood BLOOD SPECIMEN / Unknown 03/16/2024 1:46 PM [facility] 03/16/2024 1:53 PM [facility] Terrie Lancaster APRN-MECHANICAL REPAIR WORKER LAB - CHEMI STRY ORDERABLES Performing Organization Address [facility] de Phone Number [facility] [phone] [place] [phone] * FERRITIN (03/16/2024 1:46 PM [facility]) Only the most recent of2 resultswithin the time period is included. Ferritin 35 16 - 232 ng/mL [facility] Comment: Test Performed at: [employer] [facility] ??[phone] MIREYA CATALAN MD Blood BLOOD SPECIMEN / Unknown 03/16/2024 1:46 PM [facility] 03/16/2024 1:53 PM [facility] Terrie Lancaster APRN-MECHANICAL REPAIR WORKER LAB - CHEMI STRY ORDERABLES Performing Organization Address [facility] de Phone Number [facility] [phone] [place] [address] * DE REMOVE CERUMEN IMPACTED W INSTR BAYRON (03/04/2024 2:02 PM [facility]) Narrative Tatianna Stovall APRN-MECHANICAL REPAIR WORKER - 03/04/2024 2:02 PM [facility] Tatianna Stovall APRN-MAURILIO ? 03/04/2024 ??2:03 PM Procedure: Bilateral Micro-otoscopy Indication: Cerumen impaction Procedure Note: Verbal consent for the procedure was obtained. Patient was placed under the ear microscope and bilateral ear(s) examined. All cerumen and excess hair was removed using a combination of cerumen loops, suction,and alligator forceps. Findings: After the cerumen was removed, the ear canal was normal and the tympanic membrane on the left had normal landmarks and mobility. ??The right had normal landmarks and mobility. Tatianna Stovall APRN-MECHANICAL REPAIR WORKER PROCEDURE/MINOR SURGICAL ORDERABLES * AUDIOLOGY/TYMPANOMETRY ORDER (03/03/2024 12:25 PM [facility]) Radha Rapp Amanuel AUDIOLOGY SERVICES O RDERABLES * MRI Thoracic Spine Wo Contrast (10/28/2023 4:13 PM CDT) Anatomical Region Laterality Modality Chest Magnetic Resonan ce 10/28/2023 4:34 PM CDT Impressions 10/28/2023 4:50 PM CDT IMPRESSION: Multilevel degenerative disc and joint disease without evidence of high-grade central canal or neural foraminal stenosis. > Interpreting Provider: Jerome Turcios MD on 10/28/2023 4:50 PM Narrative 10/28/2023 4:50 PM CDT PROCEDURE: ??MRI THORACIC SPINE WO CONTRAST DATE/TIME OF EXAM: ??10/28/2023 4:13 PM CLINICAL INFORMATION: None relevant/not provided if blank. Indication: M25.50: Pain in unspecified joint G62.9: Polyneuropathy, unspecified M15.9: Polyosteoarthritis, unspecified Z51.81: Encounter for therapeutic drug level monitoring E61.1: Iron deficiency M79.18: Myalgia, other site M79.7: Fibromyalgia Additional History: COMPARISON: Radiographs performed 06/19/2023 TECHNIQUE: Thoracic spine MRI was performed without contrast. FINDINGS: The vertebral alignment is normal. The vertebral body heights are maintained. Other than multilevel Modic endplate changes, the marrow signal intensity is within normal limits. No cord signal abnormality is identified. Multilevel degenerative disc disease with at most mild central canal stenosis. Mild multilevel facet osteoarthritis. No high-grade neural foraminal stenoses are identified. Procedure Note Jerome Turcios MD - 10/28/2023 PROCEDURE: MRI THORACIC SPINE WO CONTRAST DATE/TIME OF EXAM: 10/28/2023 4:13 PM CLINICAL INFORMATION: None relevant/not provided if blank. Indication: M25.50: Pain in unspecified joint G62.9: Polyneuropathy, unspecified M15.9: Polyosteoarthritis, unspecified Z51.81: Encounter for therapeutic drug level monitoring E61.1: Iron deficiency M79.18: Myalgia, other site M79.7: Fibromyalgia Additional History: COMPARISON: Radiographs performed 06/19/2023 TECHNIQUE: Thoracic spine MRI was performed without contrast. FINDINGS: The vertebral alignment is normal. The vertebral body heights are maintained. Other than multilevel Modic endplate changes, the marrowsignal intensity is within normal limits. No cord signal abnormality is identified. Multilevel degenerative disc disease with at most mildcentral canal stenosis. Mild multilevel facet osteoarthritis. No high-gradeneural foraminal stenoses are identified. IMPRESSION: Multilevel degenerative disc and joint disease without evidence of high-grade central canal or neural foraminal stenosis. > Interpreting Provider: Jerome Turcios MD on 10/28/2023 4:50 PM Keyshawn Mota MD MR ORDERABLES * MRI Lumbar Spine Wo Contrast (10/28/2023 4:10 PM CDT) Anatomical Region Laterality Modality Spine Magnetic Resonan ce 10/28/2023 4:38 PM CDT Impressions 10/28/2023 4:46 PM CDT IMPRESSION: 1. Multilevel degenerative disc and joint disease, as detailed above. Please note the counting scheme including a partially lumbarized S1 segment. 2. Marrow edema in the left L5 inferior articular process where there is severe facet osteoarthritis, and without definite pars defect (though this would be better evaluated by CT). 3. Right renal posttreatment changes, otherwise not well evaluated. > Interpreting Provider: Jerome Turcios MD on 10/28/2023 4:46 PM Narrative 10/28/2023 4:46 PM CDT PROCEDURE: ??MRI LUMBAR SPINE WO CONTRAST DATE/TIME OF EXAM: ??10/28/2023 4:11 PM CLINICAL INFORMATION: None relevant/not provided if blank. Indication: M25.50: Pain in unspecified joint G62.9: Polyneuropathy, unspecified M15.9: Polyosteoarthritis, unspecified Z51.81: Encounter for therapeutic drug level monitoring E61.1: Iron deficiency M79.18: Myalgia, other site M79.7: Fibromyalgia Additional History: COMPARISON: None. TECHNIQUE: Lumbar spine MRI was performed without contrast. FINDINGS: There are 6 nonrib-bearing lumbar type vertebral bodies, the most caudal of which will be considered a partially lumbarized S1 segment. There is grade 1 anterolisthesis of L5 on S1. Vertebral bodies are normal in height without evidence of compression fractures. Marrow signal intensity is normal. The conus medullaris terminates at the level of L1 and the distal spinal cord signal intensity is normal. Multilevel disc desiccation and height loss. Right interpolar renal scarring/posttreatment changes, otherwise not well evaluated due to technique. L1-L2: There is no disc bulge. There is no central canal stenosis. There is no facet osteoarthritis. There is no neural foraminal stenosis. L2-L3: There is no disc bulge. There is no central canal stenosis. There is mild facet osteoarthritis. There is no neural foraminal stenosis. L3-L4: There is no disc bulge. There is no central canal stenosis. There is mild facet osteoarthritis. There is no neural foraminal stenosis. L4-L5: There is minimal diffuse disc bulge. There is no central canal stenosis. There is mild facet osteoarthritis. There is no neural foraminal stenosis. L5-S1: There is diffuse disc bulge and ligamentum flavum thickening. There is no central canal stenosis. There is severe facet osteoarthritis with edema in the inferior articular process of L5 on the left on image 3 of series 501. There is moderate neural foraminal stenosis. Procedure Note Jerome Turcios MD - 10/28/2023 PROCEDURE: MRI LUMBAR SPINE WO CONTRAST DATE/TIME OF EXAM: 10/28/2023 4:11 PM CLINICAL INFORMATION: None relevant/not provided if blank. Indication: M25.50: Pain in unspecified joint G62.9: Polyneuropathy, unspecified M15.9: Polyosteoarthritis, unspecified Z51.81: Encounter for therapeutic drug level monitoring E61.1: Iron deficiency M79.18: Myalgia, other site M79.7: Fibromyalgia Additional History: COMPARISON: None. TECHNIQUE: Lumbar spine MRI was performed without contrast. FINDINGS: There are 6 nonrib-bearing lumbar type vertebral bodies, the most caudalof which will be considered a partially lumbarized S1 segment. There isgrade 1 anterolisthesis of L5 on S1. Vertebral bodies are normal in height without evidence of compression fractures. Marrow signal intensity is normal. The conus medullaris terminates at the level of L1 and thedistal spinal cord signal intensity is normal. Multilevel disc desiccation and height loss. Right interpolar renal scarring/posttreatment changes, otherwise not well evaluated due to technique. L1-L2: There is no disc bulge. There is no central canal stenosis. Thereis no facet osteoarthritis. There is no neural foraminal stenosis. L2-L3: There is no disc bulge. There is no central canal stenosis. Thereis mild facet osteoarthritis. There is no neural foraminal stenosis. L3-L4: There is no disc bulge. There is no central canal stenosis. Thereis mild facet osteoarthritis. There is no neural foraminal stenosis. L4-L5: There is minimal diffuse disc bulge. There is no central canal stenosis. There is mild facet osteoarthritis. There is no neuralforaminal stenosis. L5-S1: There is diffuse disc bulge and ligamentum flavum thickening.There is no central canal stenosis. There is severe facet osteoarthritis with edema in the inferior articular process of L5 on the left on image 3 of series 501. There is moderate neural foraminal stenosis. IMPRESSION: 1. Multilevel degenerative disc and joint disease, as detailed above. Please note the counting scheme including a partially lumbarized S1 segment. 2. Marrow edema in the left L5 inferior articular process where there is severe facet osteoarthritis, and without definite pars defect (thoughthis would be better evaluated by CT). 3. Right renal posttreatment changes, otherwise not well evaluated. > Interpreting Provider: Jerome Turcios MD on 10/28/2023 4:46 PM Keyshawn Mota MD MR ORDERABLES * CYCLIC CITRULLINATED PEPTIDE(CCP) AB IGG (06/19/2023 2:58 PM CDT) Pathologist [facility] Cyclic Citrullinated Peptide Antibody IgG <16 UNITS [facility] Comment: Reference Range Negative: ?<20 Weak Positive: ? 20-39 Moderate Positive: ?? 40-59 Strong Positive: ? >59 Test Performed at: [facility] [address] [place], [place] ??[phone] MIREYA CATALAN MD Blood BLOOD SPECIMEN / Unknown 06/19/2023 2:58 PM CDT 06/19/2023 2:58 PM CDT Keyshawn Mota MD LAB - CHEMISTRY DAMARI HUBER [facility] Organization Address City/State/ZIP Co de Phone Number [facility] [employer] [address] [place] [address] * URIC ACID BLOOD (06/19/2023 2:55 PM CDT) [facility] Uric Acid 2.9 2.5 - 7.0 mg/dL [facility] Comment: Therapeutic target for gout patients: <6.0 mg/dL ?? Test Performed at: [employer] [address] [place], [place] ??[address] MIREYA CATALAN MD Blood BLOOD SPECIMEN / Unknown 06/19/2023 2:55 PM CDT 06/19/2023 2:56 PM CDT Keyshawn Mota MD LAB - CHEMISTRY ORDE IVONNENÉSTOR Performing Organization Address [facility]/ZIP Co de Phone Number [facility] [address] [place] [address] * RHEUMATOID FACTOR BLOOD QUANTITATIVE (06/19/2023 2:55 PM CDT) [facility] Rheumatoid Factor <14 <14 IU/mL [facility] Comment: Test Performed at: [facility] [address] [place] [address] ??[phone] MIREYA CATALAN MD Blood BLOOD SPECIMEN / Unknown 06/19/2023 2:55 PM CDT 06/19/2023 2:56 PM CDT Keyshawn Mota MD LAB - CHEMISTRY ORDE MAYO Performing Organization Address [facility]/ZIP Co de Phone Number [facility] [phone] [place] [address] * OMAYRA BLOOD SCREEN W/REFLEX TITER (06/19/2023 2:55 PM CDT) [facility] OMAYRA Screen NEGATIVE NEGATIVE [facility] Comment: OMAYRA IFA is a first line screen for detecting the presence of up to approximately 150 autoantibodies in various autoimmune diseases. A negative OMAYRA IFA result suggests an OMAYRA-associated autoimmune disease is not present at this time, but is not definitive. If there is high clinical suspicion for Sjogren's syndrome, testing for anti-SS-A/Ro antibody should be considered. Anti-Bel-1 antibody should be considered for clinically suspected inflammatory myopathies. AC-0: Negative International Consensus on OMAYRA Patterns (https://doi.org/10.1515/hbsi-5344-1729) For additional information, please refer to http://ezeep.Brisk.io/faq/TMK302 (This link is being provided for informational/ educational purposes only.) ?? Test Performed at: [facility] [address] [place] ??[phone] MIREYA CATALAN MD Blood BLOOD SPECIMEN / Unknown 06/19/2023 2:55 PM CDT 06/19/2023 2:56 PM CDT Keyshawn Mota MD LAB - CHEMISTRY DAMARI HUBER [facility] [address] [place] [address] * VITAMIN D 25-HYDROXY (06/19/2023 2:55 PM CDT) Pathologist [facility] Vitamin D, 25 Hydroxy 69 30 - 100 ng/mL [facility] Comment: Vitamin D Status ? 25-OH Vitamin D: Deficiency: ?<20 ng/mL Insufficiency: ? 20 - 29 ng/mL Optimal: ? > or = 30 ng/mL For 25-OH Vitamin D testing on patients on D2-supplementation and patients for whom quantitation of D2 and D3 fractions is required, the QuestAssureD() 25-OH VIT D, (D2,D3), LC/MS/MS is recommended: order code 67430 (patients >2yrs). See Note 1 Note 1 For additional information, please refer to http://ezeep.Brisk.io/faq/VXY987 (This link is being provided for informational/ educational purposes only.) Test Performed at: [facility] [address] [place], [place] ??[address] MIREYA CATALAN MD Blood BLOOD SPECIMEN / Unknown 06/19/2023 2:55 PM CDT 06/19/2023 2:56 PM CDT Keyshawn Mota MD LAB - CHEMISTRY DAMARI HUBER Performing Organization Address City/[facility]/ZIP Co de Phone Number [facility] [address] [place] [address] * CK BLOOD (06/19/2023 2:55 PM CDT) CK 84 29 - 143 U/L [facility] Comment: Test Performed at: [employer] [facility] [address] [place], [place] ??[address] MIREYA CATALAN MD Blood BLOOD SPECIMEN / Unknown 06/19/2023 2:55 PM CDT 06/19/2023 2:56 PM CDT Keyshawn Mota MD LAB - CHEMISTRY DAMARI HUBER Performing Organization Address [facility] Co de Phone Number [facility] [address] [place] [address] * XR HAND BILAT 3VW OR MORE (06/19/2023 2:45 PM CDT) Anatomical Region Laterality Modality Upper Extremity, Wrist / Hand Ra diographic Imaging 06/19/2023 3:48 PM CDT Narrative 06/19/2023 3:52 PM CDT PROCEDURE(s): XR LUMBAR SPINE 2 OR 3VW, XR HAND BILAT 3VW OR MORE; DATE AND TIME OF EXAM(s): 06/19/2023 2:46 PM; LOCATION: [facility] INDICATION(s): M25.50: Pain in unspecified joint R70.0: Elevated erythrocyte sedimentation rate R53.83: Other fatigue M79.18: Myalgia, other site M54.16: Radiculopathy, lumbar region COMPARISON(s): None available. Findings/Impression: Lumbar: 5 nonrib-bearing lumbar segments in the lumbosacral transitional segment considered to be partially lumbarized S1. Per to the at the S1 transverse process which pseudoarticulating within the remaining sacral ala. 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 There is no compression fracture. No aggressive bone or endplate destruction. Moderate disc space narrowing at L5-S1 with milder disc disease elsewhere. There is advanced lower lumbar facet arthropathy. Paraspinous soft tissues are unremarkable. Bilateral hands: No acute fracture or dislocation is identified. There is normal mineralization. Joint spaces are maintained. No hypertrophic or erosive abnormality is identified. The soft tissues are unremarkable. > Interpreting Provider: Bennie Sandoval DO on 06/19/2023 3:52 PM Procedure Note OctaviaBennie de leon - 06/19/2023 PROCEDURE(s): XR LUMBAR SPINE 2 OR 3VW, XR HAND BILAT 3VW OR MORE; DATEAND TIME OF EXAM(s): 06/19/2023 2:46 PM; LOCATION: [facility] INDICATION(s): M25.50: Pain in unspecified joint R70.0: Elevated erythrocyte sedimentation rate R53.83: Other fatigue M79.18: Myalgia, other site M54.16: Radiculopathy, lumbar region COMPARISON(s): None available. Findings/Impression: Lumbar: 5 nonrib-bearing lumbar segments in the lumbosacral transitional segment considered to be partially lumbarized S1. Per to the at the I7quxedpcxuh process which pseudoarticulating within the remaining sacral ala. Suspected L5 spondylolysis with grade 1 L5-S1 spondylolisthesisestimated at 10 mm. There is no compression fracture. No aggressive bone orendplate destruction. Moderate disc space narrowing at L5-S1 with milder disc diseaseelsewhere. There is advanced lower lumbar facet arthropathy. Paraspinous softtissues are unremarkable. Bilateral hands: No acute fracture or dislocation is identified. There is normal mineralization. Joint spaces are maintained. No hypertrophic or erosive abnormality is identified. The soft tissues are unremarkable. > Interpreting Provider: Bennie Sandoval DO on 06/19/2023 3:52 PM Keyshawn Mota MD DIAGNOSTIC IMAGING O RDERABLES * XR LUMBAR SPINE 2 OR 3VW (06/19/2023 2:45 PM CDT) Anatomical Region Laterality Modality Spine Radiographic Glenna ging 06/19/2023 3:48 PM CDT Narrative 06/19/2023 3:52 PM CDT PROCEDURE(s): XR LUMBAR SPINE 2 OR 3VW, XR HAND BILAT 3VW OR MORE; DATE AND TIME OF EXAM(s): 06/19/2023 2:46 PM; LOCATION: [facility] INDICATION(s): M25.50: Pain in unspecified joint R70.0: Elevated erythrocyte sedimentation rate R53.83: Other fatigue M79.18: Myalgia, other site M54.16: Radiculopathy, lumbar region COMPARISON(s): None available. Findings/Impression: Lumbar: 5 nonrib-bearing lumbar segments in the lumbosacral transitional segment considered to be partially lumbarized S1. Per to the at the S1 transverse process which pseudoarticulating within the remaining sacral ala. 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 There is no compression fracture. No aggressive bone or endplate destruction. Moderate disc space narrowing at L5-S1 with milder disc disease elsewhere. There is advanced lower lumbar facet arthropathy. Paraspinous soft tissues are unremarkable. Bilateral hands: No acute fracture or dislocation is identified. There is normal mineralization. Joint spaces are maintained. No hypertrophic or erosive abnormality is identified. The soft tissues are unremarkable. > Interpreting Provider: Bennie Sandoval DO on 06/19/2023 3:52 PM Procedure Note Bennie Sandoval DO - 06/19/2023 PROCEDURE(s): XR LUMBAR SPINE 2 OR 3VW, XR HAND BILAT 3VW OR MORE; DATEAND TIME OF EXAM(s): 06/19/2023 2:46 PM; LOCATION: [facility] INDICATION(s): M25.50: Pain in unspecified joint R70.0: Elevated erythrocyte sedimentation rate R53.83: Other fatigue M79.18: Myalgia, other site M54.16: Radiculopathy, lumbar region COMPARISON(s): None available. Findings/Impression: Lumbar: 5 nonrib-bearing lumbar segments in the lumbosacral transitional segment considered to be partially lumbarized S1. Per to the at the [id number] process which pseudoarticulating within the remaining sacral ala. Suspected L5 spondylolysis with grade 1 L5-S1 spondylolisthesisestimated at 10 mm. There is no compression fracture. No aggressive bone orendplate destruction. Moderate disc space narrowing at L5-S1 with milder disc diseaseelsewhere. There is advanced lower lumbar facet arthropathy. Paraspinous softtissues are unremarkable. Bilateral hands: No acute fracture or dislocation is identified. There is normal mineralization. Joint spaces are maintained. No hypertrophic or erosive abnormality is identified. The soft tissues are unremarkable. > Interpreting Provider: Bennie Sandoval DO on 06/19/2023 3:52 PM Keyshawn Mota MD DIAGNOSTIC IMAGING O RDERABLES * XR THORACIC SPINE 2VW (06/19/2023 2:45 PM CDT) Anatomical Region Laterality Modality Spine Radiographic Glenna ging 06/19/2023 2:49 PM CDT Impressions 06/19/2023 2:50 PM CDT IMPRESSION: No compression or other fracture deformity Disc space narrowing and osteophytosis in the mid thoracic spine > Interpreting Provider: Shayy Alba MD on 06/19/2023 2:50 PM Narrative 06/19/2023 2:50 PM CDT PROCEDURE: ??XR THORACIC SPINE 2VW DATE/TIME OF EXAM: ??06/19/2023 2:46 PM CLINICAL INFORMATION: None relevant/not provided if blank. Indication: M25.50: Pain in unspecified joint R70.0: Elevated erythrocyte sedimentation rate R53.83: Other fatigue M79.18: Myalgia, other site M54.16: Radiculopathy, lumbar region Additional History: COMPARISON: None. FINDINGS: Alignment of the thoracic spine is normal. No compression or other fracture deformity is seen. There is disc space narrowing and osteophytosis in the mid thoracic spine. Paraspinous soft tissues are unremarkable. Procedure Note Shayy lAba MD - 06/19/2023 PROCEDURE: XR THORACIC SPINE 2VW DATE/TIME OF EXAM: 06/19/2023 2:46 PM CLINICAL INFORMATION: None relevant/not provided if blank. Indication: M25.50: Pain in unspecified joint R70.0: Elevated erythrocyte sedimentation rate R53.83: Other fatigue M79.18: Myalgia, other site M54.16: Radiculopathy, lumbar region Additional History: COMPARISON: None. FINDINGS: Alignment of the thoracic spine is normal. No compression or otherfracture deformity is seen. There is disc space narrowing and osteophytosis inthe mid thoracic spine. Paraspinous soft tissues are unremarkable. IMPRESSION: No compression or other fracture deformity Disc space narrowing and osteophytosis in the mid thoracic spine > Interpreting Provider: Shayy Alba MD on 06/19/2023 2:50 PM Keyshawn Mota MD DIAGNOSTIC IMAGING O RDERABLES * (ABNORMAL) URINALYSIS W/MICROSCOPIC NO CULTURE (10/31/2021 4:00 AM CDT) Color UA DARK YELLOW YELLOW [facility] Appearance TURBID(A) CLEAR [facility] Specific Merritt UA 1.027 1.001 - 1.035 [facility] pH UA 5.5 5.0 - 8.0 [facility] Glucose UA NEGATIVE NEGATIVE [facility] Bilirubin UA NEGATIVE NEGATIVE [facility] Ketone UA TRACE(A) NEGATIVE [facility] Blood UA NEGATIVE NEGATIVE [facility] Protein UA TRACE(A) NEGATIVE [facility] Nitrite UA NEGATIVE NEGATIVE [facility] Leukocyte UA TRACE(A) NEGATIVE [facility] WBC UA 0-5 < OR = 5 /HPF [facility] RBC UA 0-2 < OR = 2 /HPF [facility] Epithelial Cell UA NONE SEEN < OR = 5 /HPF [facility] Bacteria UA NONE SEEN NONE SEEN /HPF [facility] Amorphous UA MODERATE(A) NONE OR FEW /HPF [facility] Hyaline Casts NONE SEEN NONE SEEN /LPF [facility] Comment: NO COLLECTION DATE RECEIVED. WE HAVE USED THE DATE THE SPECIMEN WAS RECEIVED BY THIS LABORATORY THE COLLECTION DATE. IF THIS IS INCORRECT, PLEASE CONTACT CLIENT SERVICES. PHONE NUMBER: [phone] Test Performed at: [facility] ??[address] MIREYA CATALAN MD Urine URINE SPECIMEN OBTAINED BY CLEAN CATCH PROCEDURE / Unknown 10/30/2021 11:46 PM CDT Jovita Arteaga MD LAB - URINALYSIS O RDERABLES [address] [address] * HPV DETECTION HIGH RISK LOY (10/30/2021 11:31 AM CDT) High Risk Human Papilloma Result Not detected Not detected 11/02/2021 4:49 PM CDT [facility] High Risk Human Papilloma Interp 11/02/2021 4:49 PM CDT [facility] Comment:High Risk Human Narinder lloma Virus was Not Detected. Pathology/Cytolo gy VAGINA AND CERVIX, CS / Unknown 10/30/2021 11:31 AM CDT 10/31/2021 12:13 PM CDT Narrative [facility] - 11/02/2021 4:49 PM CDT Nucleic acid isolated from the specimen was analyzed with a nucleic acid amplification test (FDA approved Gen-Probe HPV Assay) to detect high risk human papilloma virus (Types: 16, 18, 31, 33, 35, 39, 45, 51, 52, 56, 58, 59, 66, and 68). ??The reference range is Not Detected . Comment: These test results should not be used as the sole basis for clinical assessment and treatment of patients. ??These results should always be correlated with other available data (cytology, histology, and clinical information). Jovita Arteaga MD LAB - MICROBIOLOGY ORDERABLES Performing Organization Address City/State/[facility] Co de Phone Number [facility] [address] [phone] * PAP IMAGE-GUIDED W HPV (10/30/2021 11:31 AM CDT) Case Report Gynecologic Cytology Report ? Case: [id number] ? Authorizing Provider: ??Jovita Arteaga MD ?Collected: ? 10/30/2021 11:31 AM ? Ordering Location: ? [facility] ? Received: ?10/31/2021 12:13 PM ? Gynecology and Women's ? Health ? First Screen: ?Terry Forrester ? Specimen: ?THINPREP - IMAGE GUIDED, Cervicovaginal ? 11/05/2021 9:19 AM CDT [facility] LMP 10/15/21 11/05/2021 9:19 AM CDT [facility] Menstrual Status Oral Contraceptives 11/05/2021 9:19 AM CDT [facility] Specimen Adequacy Satisfactory for evaluation, endocervical/trans formation zone component absent. 11/05/2021 9:19 AM CDT [facility] Categorization Negative for intraepithelial lesion or malignancy. 11/05/2021 9:19 AM CDT [facility] Interpretation INSTITUTIONAL ASSET MANAGER Negative for intraepithelial lesion or malignancy. 11/05/2021 9:19 AM CDT [facility] Pap Footnote The Pap Smear is a screening test. False positive and false negative results occur. Negative results do not preclude abnormalities, thus clinical correlation is required. This specimen was evaluated by the ThinPrep Imaging System along with an additional manual rescreening by a director of entertainment and/or pathologist. 11/05/2021 9:19 AM CDT [facility] Embedded Images 9:19 AM CDT [facility] Pathology/Cytolo gy VAGINA AND CERVIX, CS / Unknown 10/30/2021 11:31 AM CDT 10/31/2021 12:13 PM CDT Jovita Arteaga MD LAB - PATHOLOGY/CY TOLOGY ORDERABLES Performing Organization Address [facility]/ZIP Co de Phone Number [facility] [address] [place], [place] [address] [phone] * CULTURE URINE (10/30/2021 11:16 AM CDT) Culture [facility] Comment: ??CULTURE, URINE, ROUTINE ?Micro Number: ?[id number] ??Test Status: ? Final ??Specimen Source: ?? Urine ??Specimen Quality: ??Adequate ??Result: ?No Growth Test Performed at: [facility] ??[phone] MIREYA CATALAN MD Urine URINE SPECIMEN OBTAINED BY CLEAN CATCH PROCEDURE / Unknown 10/30/2021 11:16 AM CDT 10/31/2021 2:37 AM CDT Jovita Arteaga MD LAB - MICROBIOLOGY ORDERABLES [address] [address] Care Teams Gas Leak Inspector Helper Relationship Specialty Start Date End Date Eden Holley, TECHNOLOGY INTERN-MECHANICAL REPAIR WORKER [address] [place] [address] PCP - General Nurse Practitioner 10/20/23 Tera Bernard MD [address] [place] [address] Obstetrics and Gynecology 06/19/23
--- OUTSIDE RECORDS SUMMARY | 2024-04-19 00:52 | XMS_ITS | Encounter Summary ---
Author Organization [facility] Address [address] [facility] [place] [address] Care Team Providers Care Dry Yard Worker Name Role Phone Tera Bernard MD Unavailable [phone] Eden Holley APRN-HERB DIGGER Primary Care Provider Reason for Visit * Reason Onset Date Comments Procedure Prior Auth Request 04/13/2024 CT Thoracic Spine Encounter Details Date Type Department Care Team (Late st Contact Info) Description 04/13/2024 Telephone [facility] - Rheumatology [address] [facility] [address] [place] [address] [place] [address] [facility]NOTE 3[facility] [address] [place] [address] Procedure Prior Auth Request (CT Thoracic Spine ) Social History Tobacco Use Types Packs/Day Years Used Date Smoking Tobacco: Never Smokeless Tobacco: Never PHQ-2 Answer Date Recorded Patient Health Questionnaire-2 Score 0 10/20/2023 Sex and Gender Information Value Date Recorded Sex Assigned at Not on file Gender Identity Not on file Sexual Orientation Not on file documented as of this encounter Miscellaneous Notes * Telephone Encounter - Alisson Leach - 04/15/2024 1:32 PM CST Spoke to patient and informed her to cancel the currently scheduled CT scan and we will continue towork on the PA. Will attempt to reach that number received online with [employer] for the [facility] plans #[phone]. Facility is [address], [address] Tax ID# [id number] NPI# [id number] LER GUIDE * Telephone Encounter - Alisson Leach - 04/15/2024 11:59 AM CST Images from the original note were not included. Ran benefits through [employer] and this is what was received back: Shows NO PA required for in network facilities. Attempted to perform PA through [employer] and the PA request was Automatically cancelled. Imported to Media LER GUIDE * Telephone Encounter - Leilani Lopez RN - 04/15/2024 9:05 AM CST Call placed to pt insurance company twice, hold times were 29 min and 30 min, unable to speak with anyone. Calls placed to [employer] [phone], [facility] [phone] , Outside [facility] [phone] and [employer] [phone]. CPT code does not work with [employer]. [place] automatedlines all saying to submit under [employer] web site. Call place to pt, informed of the above, will escalate to Alisson Chang for assistance. LER GUIDE * Telephone Encounter - Leilani Lopez RN - 04/15/2024 8:47 AM CST Received call from triage, pt calling upset regarding PA for CT Scan that is schedule today. Informed pt that we will call her insurance and attempt to obtain today, we need the name, address,Tax Id and NPI number for the scheduled facility in order to submit the PA. Pt verbalized understanding, but is upset this hasn't been done as the order was placed 04/09/24. LER GUIDE * Telephone Encounter - Brooklyn Nuñez - 04/14/2024 9:08 AM CST This needs to be done by 3:00 pm today LER GUIDE * Telephone Encounter - Alisson Leach - 04/13/2024 11:49 AM CST Patient is going to [facility] for [facility] Scan of Spine and they require us to get the PA for the procedure. Patient has number to get the information from facility for the PA # [phone]. Will need to to bet PA for CT scan done and is scheduled 04/15/24 due to having a Spinal block the following Friday. LER GUIDE documented in this encounter Plan of Treatment Upcoming Encounters Date Type Department Care Team (Late st Contact Info) Description 05/06/2024 8:30 AM TODDLER GUIDE Office Visit [facility] [place] [address] [facility] , [address] [place] [phone] Sonali Alexander THIRD SHIFT LIEUTENANT-HERB DIGGER [address] [facility] [place] [address] [place] [phone] 06/03/2024 9:30 AM CDT Office Visit [facility] - ENT [address] , [address] [address] Tatianna Stovall THIRD SHIFT LIEUTENANT-HERB DIGGER [address] [address] 06/21/2024 9:30 AM CDT Office Visit [facility] - Rheumatology [address] [place] [address] Terrie Lancaster APRN-HERB DIGGER [address] [place], [place] [id number] documented as of this encounter Visit Diagnoses Not on filedocumented in this encounter Care Teams Dry Yard Worker Relationship Specialty Start Date End Date Eden Holley, THIRD SHIFT LIEUTENANT-HERB DIGGER [address] [place] [phone] PCP - General Nurse Practitioner 10/20/23 Tera Bernard MD [address] [place], [place] [id number] Obstetrics and Gynecology 06/19/23 documented as of this encounter
--- OUTSIDE RECORDS SUMMARY | 2024-04-19 00:52 | XMS_ITS | Clinical Summary ---
Author Organization [facility] Address [address] [place] [address]. [place], [place] [id number] [place] [address] Care Team Providers Care Data Systems Manager Name Role Phone Unavailable Primary Care Provider Unavailabl e Social History Tobacco Use Types Packs/Day Years Used Date Smoking Tobacco: Never Assessed Comments Unknown Sex and Gender Information Value Date Recorded Sex Assigned at Not on file Legal Sex Female 7:16 PM CDT Gender Identity Not on file Sexual Orientation Not on file Plan of Treatment Health Maintenance Due Date Last Done Comments Cervical Cancer Screening Pa p Smear (Age 30 to 64) Every 3 Years 1973 Colorectal Cancer Screening Colonoscopy (10 Years) 1973 Annual Physical 1976 Hepatitis C 10/15/1991 DTaP, Tdap and Td Vaccines ( 1 - Tdap) 1992 Hepatitis B Vaccines (1 of 3 - 19+ 3-dose series) 1992 Cervical Cancer Screening Pa p with HPV Testing (Age 30 to 64) Every 5 Years 10/15/2003 Cervical Cancer Screening with HPV 10/15/2003 Mammogram Screening 2013 Zoster Vaccines (1 of 2) 10/15/2023 COVID-19 Vaccine ( - 2023-2 5 season) 2023 Influenza Adult (#1) 2023 Meningococcal B Vaccine Aged Out No l onger eligible based on patient's age to complete this topic Meningococcal Vaccine Aged Out No carleen radhames eligible based on patient's age to complete this topic Pneumococcal Vaccine: Pediat rics (0 to 5 Years) and At-Risk Patients (6 to 64 Years) Aged Out No longer eligible b ased on patient's age to complete this topic RSV Immunizations Under 20 Months Aged Out No longer eligible based on patient's age to complete this topic
--- OUTSIDE RECORDS SUMMARY | 2024-04-19 00:52 | XMS_ITS | Data Portability ---
Author Organization [place] - [facility], autoContract Address [address] [place] [address] Care Team Providers Care Hospital Admissions Officer Name Role Phone MYNOR ENGLE Primary Care Provider LAMBERTO VAUGHAN Wire Tester Assessment Encounter Date Assessment Date Assessment LastModified by Organization Details LastModified Time 02/22/2016 02/22/2016 Patient with patchy localized pruritic dermatitis symptoms, etiology unclear as to whether allergy playing a role. [email or web address] Not available 02/03/2019 13:56:09 02/26/2016 02/26/2016 Patient with patchy pruritic dermatitis symptoms, etiology unclear; here for allergy patch testing. Labs pending. kstabile Not available 02/03/2019 14:00:07 02/28/2016 02/28/2016 Patient with pruritic dermatitis symptoms, etiology unclear although positive patch results at 48 hours to fragrance and lanolin suggests contact allergy playing a role if clinically correlated. Otherwise lab results unremarkable to food, environmental panels along with negative latex thyroid studies. kstabile Not available 02/03/2019 14:06:52 02/29/2016 02/29/2016 Patient with localized pruritic dermatitis symptoms, etiology unclear although positive test result (fragrance and lanolin) indicates contact allergy playing a role if clinically correlated. kstabile Not available 02/03/2019 14:13:05 Plan of Treatment Reminders Order Date Submit Date Provider Last Modified By Organization Details Last Modified Time Details Appointments None record ed. Lab None record ed. Referral None record ed. Procedures None record ed. Surgeries None record ed. Imaging None record ed. Medication Orders None record ed. Patient TargetsNo targets recorded. Patient Instructions Encounter Date Encounter Id Patient Instructions Last Modified By Organization Details Last Modified Time 02/22/2016 [id number] Diagnosis and treatment discussed with patient. Recommend allergy testing to a panel of foods/env to help establish diagnosis and guide treatment; unable to perform skin testing due to current use of antihistamines (on nightly dose of doxepin for sleep) so will order lab tests for above. Given her previous history of certain metals (costume jewelry) giving rash problems advised that allergy patch testing available to help identify if current skin rashes related to identifiable contactant(70 item test). Lastly, advised that skin rashes can develop from adverse drug reaction in some people however allergy tests not available except in some select cases (penicillins for example). kstabile Not available 02/03/2019 14:20:01 02/26/2016 [id number] The patches applied to your back will help provide specific information regarding the substance(s) that could be the source of your repeated rash. In order for the test to be accurate the patches need to stay dry and stay in place for 48 hours at which time they will be removed at the follow up visit. Avoid direct sun exposure to patches. If some of the areas began to itch during this time the patches must not be scratched as it could interfere with ability to determine results. A second follow up visit at 72 hours will be needed (and possibly a 3rd visit the following week) since a positive result may take place after the patches are removed. With the exception of oral steroids like medrol or prednisone taken recently, medications will not affect test results. Please call us during office hours if you have any questions or concerns. kstabile Not available 02/26/2016 11:09:04 Patch testing to a panel of common contact allergens was recommended to help establish diagnosis and guide treatment. Testing procedure was reviewed with patient including leaving adhesive test panels on skin for 48 hours and keeping them dry. Patient advised that at least 2 follow up days would be needed to read and remove patch test panels(48 hours later) and read again at 72 hours. Patch testing to a panel of contact allergens was applied. kstabile Not available 02/03/2019 14:00:22 02/28/2016 [id number] Reviewed lab results and patch test reading at 48 hours with patient who was advised of positive patch reaction to fragrance mix and amerchol (lanolin); avoidance of these products and reading product labels was advised. Keep follow up appointment tomorrow for final reading at 72 hours. kstabile Not available 02/03/2019 14:04:32 02/29/2016 [id number] Patch testing to a panel of common contact allergens was performed with results read at 48, 72 hours. Test results were reviewed with the patient Written info provided regarding avoidance of fragrance and lanolin (read labels). Vanicream products recommended. Lastly advised tests at this time (those that are negative) do not preclude future development of allergic sensitivities. Follow up with dermatology if rash changes/worsens despite avoidance measures. kstabile Not available 02/03/2019 14:16:48 Reason for Referral None Reported. Results Created Date Observation Date Name Description Value Unit Range Abnormal Flag Note LastModifiedBy Organization Detail LastModifiedTime 02/22/20 16 02/22/2016 aller gy panel , serum or plasm a mulberry (T70) IgE <0.35 kU/L 0-0.35 normal Not Available [address], [address], 02/26/2016 14:06:08 02/22/20 16 02/22/2016 aller gy panel , serum or plasm a oak (T7) IgE <0.35 kU/L 0-0.35 normal Not Available [address], [address], 02/26/2016 14:06:08 02/22/20 16 02/22/2016 aller gy panel , serum or plasm a bermuda grass (g2) IgE <0.35 kU/L 0-0.35 normal Not Available [address], [address], 02/26/2016 14:06:08 02/22/20 16 02/22/2016 aller gy panel , serum or plasm a sammi grass (g6) IgE <0.35 kU/L 0-0.35 normal Not Available [address], [address], 02/26/2016 14:06:08 02/22/20 16 02/22/2016 aller gy panel , serum or plasm a common ragweed weed <0.35 kU/L 0-0.35 normal Not Available [address], [address], 02/26/2016 14:06:08 02/22/20 16 02/22/2016 aller gy panel , serum or plasm a mugwort (W6) IgE <0.35 kU/L 0-0.35 normal Not Available [address], [address], 02/26/2016 14:06:08 02/22/20 16 02/22/2016 aller gy panel , serum or plasm a rough pigweed (W14) IgE <0.35 kU/L 0-0.35 normal Not Available [address], [address], 02/26/2016 14:06:08 02/22/20 16 02/22/2016 aller gy panel , serum or plasm a dermatophago ides farinae <0.35 kU/L 0-0.35 normal Not Available [address], [address], 02/26/2016 14:06:08 02/22/20 16 02/22/2016 aller gy panel , serum or plasm a CAT epithel. <0.35 kU/L 0-0.35 normal Not Available [address], [address], 02/26/2016 14:06:08 02/22/20 16 02/22/2016 aller gy panel , serum or plasm a dog dander (E5) IgE <0.35 kU/L 0-0.35 normal Not Available [address], [address], 02/26/2016 14:06:08 02/22/20 16 02/22/2016 aller gy panel , serum or plasm a cockroach (I6) IgE <0.35 kU/L 0-0.35 normal Not Available [facility] - [address], [address], 02/26/2016 14:06:08 02/22/20 16 02/22/2016 aller gy panel , serum or plasm a penicillium notatum (M1) <0.35 kU/L 0-0.35 normal Not Available [facility] - [address], [address], 02/26/2016 14:06:08 02/22/20 16 02/22/2016 aller gy panel , serum or plasm a cladosporium herbarum(M2) IgE <0.35 kU/L 0-0.35 normal Not Available [facility] - [address], [address], 02/26/2016 14:06:08 02/22/20 16 02/22/2016 aller gy panel , serum or plasm a aspergillus fumigatus (M3 <0.35 kU/L 0-0.35 normal Not Available [facility] - [address], [address], 02/26/2016 14:06:08 02/22/20 16 02/22/2016 aller gy panel , serum or plasm a alternaria alternata (M6) <0.35 kU/L 0-0.35 normal Not Available [facility] - [address], [address], 02/26/2016 14:06:08 02/22/20 16 02/22/2016 aller gy panel , serum or plasm a maple (box eleder)(T1)I gE <0.35 kU/L 0-0.35 normal Not Available [address], [address], 02/26/2016 14:06:08 02/22/20 16 02/22/2016 aller gy panel , serum or plasm a birch (T3) IgE <0.35 kU/L 0-0.35 normal Not Available [facility] - [address], [address], 02/26/2016 14:06:08 02/22/20 16 02/22/2016 aller gy panel , serum or plasm a mountain cedar (T6) IgE <0.35 kU/L 0-0.35 normal Not Available [facility] - [address], [address], 02/26/2016 14:06:08 02/22/20 16 02/22/2016 aller gy panel , serum or plasm a elm (T8) IgE <0.35 kU/L 0-0.35 normal Not Available [facility] - [address], [address], 02/26/2016 14:06:08 02/22/20 16 02/22/2016 aller gy panel , serum or plasm a walnut tree (T10) IgE <0.35 kU/L 0-0.35 normal Not Available [facility] - [address], [address], 02/26/2016 14:06:08 02/22/20 16 02/22/2016 aller gy panel , serum or plasm a sycamore (T11) IgE <0.35 kU/L 0-0.35 normal Not Available [facility] - [address], [address], 02/26/2016 14:06:08 02/22/20 16 02/22/2016 aller gy panel , serum or plasm a cottonwood (T14) IgE <0.35 kU/L 0-0.35 normal Not Available [facility] - [address], [address], 02/26/2016 14:06:08 02/22/20 16 02/22/2016 aller gy panel , serum or plasm a white pati (T15) IgE <0.35 kU/L 0-0.35 normal Not Available [facility] - [address], [address], 02/26/2016 14:06:08 02/22/20 16 02/22/2016 aller gy panel , serum or plasm a D. pteronys sinus(D1) IgE <0.35 kU/L 0-0.35 normal Not Available [facility] - [address], [address], 02/26/2016 14:06:08 02/22/20 16 02/22/2016 aller gy panel , serum or plasm a sheep sorrel (W18) IgE <0.35 kU/L 0-0.35 normal Not Available [address], [address], 02/26/2016 14:06:08 02/22/20 16 02/22/2016 aller gy panel , serum or plasm a mouse ur prot (E72) IgE <0.35 kU/L 0-0.35 normal Not Available [address], [address], 02/26/2016 14:06:08 02/22/20 16 02/22/2016 aller gy panel , serum or plasm a total IgE 7.61 kU/L 0-25.0 normal Not Available [facility] - [address], [address], 02/26/2016 14:06:08 02/22/20 16 02/22/2016 food aller gen panel , serum egg white (F1) IgE <0.35 kU/L 0-0.35 normal Not Available [address], [address], 02/26/2016 14:06:09 02/22/20 16 02/22/2016 food aller gen panel , serum milk (F2) IgE <0.35 kU/L 0-0.35 normal Not Available [address], [address], 02/26/2016 14:06:09 02/22/20 16 02/22/2016 food aller gen panel , serum codfish (F3) IgE <0.35 kU/L 0-0.35 normal Not Available [address], [address], 02/26/2016 14:06:09 02/22/20 16 02/22/2016 food aller gen panel , serum wheat (F4) IgE <0.35 kU/L 0-0.35 normal Not Available [address], [address], 02/26/2016 14:06:09 02/22/20 16 02/22/2016 food aller gen panel , serum maize / corn (F8) IgE <0.35 kU/L 0-0.35 normal Not Available [address], [address], 02/26/2016 14:06:09 02/22/20 16 02/22/2016 food aller gen panel , serum sesame seed (F10) IgE <0.35 kU/L 0-0.35 normal Not Available [address], [address], 02/26/2016 14:06:09 02/22/20 16 02/22/2016 food aller gen panel , serum peanut (F13) IgE <0.35 kU/L 0-0.35 normal Not Available [address], [address], 02/26/2016 14:06:09 02/22/20 16 02/22/2016 food aller gen panel , serum soybean (F14) IgE <0.35 kU/L 0-0.35 normal Not Available [address], [address], 02/26/2016 14:06:09 02/22/20 16 02/22/2016 food aller gen panel , serum shrimp (F24) IgE <0.35 kU/L 0-0.35 normal Not Available [address], [address], 02/26/2016 14:06:09 02/22/20 16 02/22/2016 food aller gen panel , serum walnut (F256) IgE <0.35 kU/L 0-0.35 normal Not Available [address], [address], 02/26/2016 14:06:09 02/22/20 16 02/22/2016 food aller gen panel , serum scallop (F338) IgE <0.35 kU/L 0-0.35 normal Speci fic IgE(k U/L) Level Class <0.35 Absen t/Und etect able 0 0.35- 0.70 Low 1 0.71- 3.50 Moder ate 2 3.51- 17.5 High 3 17.6- 50.0 Very High 4 51.0- 100.0 Very High 5 >100. 0 Very High 6 Not Available [address], [address], 02/26/2016 14:06:09 02/22/20 16 02/22/2016 food aller gen panel , serum salmon (F41) IgE <0.35 kU/L 0-0.35 normal Not Available [address], [address], 02/26/2016 14:06:09 02/22/20 16 02/22/2016 food aller gen panel , serum tuna (F40) IgE <0.35 kU/L 0-0.35 normal Not Available [facility] - [address], [address], 02/26/2016 14:06:09 02/22/20 16 02/22/2016 food aller gen panel , serum hazelnut(F17 ) IgE <0.35 kU/L 0-0.35 normal Not Available [address], [address], 02/26/2016 14:06:09 02/22/20 16 02/22/2016 food aller gen panel , serum cashew nut(F202) IgE <0.35 normal Not Available [address], [address], 02/26/2016 14:06:09 02/22/20 16 02/22/2016 food aller gen panel , serum almond (F20)IgE <0.35 0-0.35 normal Not Available [address], [address], 02/26/2016 14:06:09 02/22/20 16 02/22/2016 thyro globu henry Ab, serum thyroglobuli n IgG Ab <20.0 IU/mL <=40.0 normal Not Available [address], [address], 02/26/2016 14:06:10 02/22/20 16 02/22/2016 thyro id perox idase (tpo) Ab, serum thyroid peroxidase antibody <10.0 IU/mL <35 normal Not Available [address], [address], 02/26/2016 14:06:10 02/22/20 16 02/22/2016 TSH, ultra -sens itive , serum TSH,3rd generation 1.038 uIU/m L 0.35-5 .50 normal Pregn shay: First Trime ster: 0.30- 4.50 uIU/m L Secon d Trime ster: 0.50- 4.60 uIU/m L Third Trime ster: 0.80- 5.20 uIU/m L Not Available [facility] - [address], [address], 02/26/2016 14:06:11 02/22/20 16 02/22/2016 latex (H.br azili ensis ) latex (H.brazilien sis) <0.35 kU/L 0-0.35 normal Not Available [facility] [address] [place] [address], [address], 02/26/2016 14:06:11 Result Notes None recorded. Problems Name Problem SNOMED Code Status Onset Date Resolution Date Notes Provider Name and Address Organization Details Recorded Time Contact dermatitis 13980773 Active as per history rita Wilde MD [address] [place] [address] Rd,[address], [address], [facility] 6 12:30:40 Polycystic ovaries Active Todd Wilde MD [address] [place] [address] Rd,[facility], [place], [address], [facility] 6 12:32:31 Gastritis 3705825 Active Todd Wilde MD [address] [place] [address] Rd,[facility] [address], [place], [address], [facility] 6 12:32:49 Mood disorder 19157494 Active Todd Wilde MD [address] [place] [address] Rd,[facility] [address], [place], [address], [facility] 6 12:32:58 Insomnia 886942961 Active Todd Wilde MD [address] [place] [address] Rd,[address], [address], [facility] 6 12:33:08 Problem Notes None recorded. Procedures Surgical History Date Name Laterality Status Provider Name and Address Organization Details Recorded Time 02/29/2016 Patch Test completed Todd Wilde MD [address] [facility] [address],[facility] [address], [address], [facility] 02/03/2019 14:10:42 02/28/2016 Patch Test completed Todd Wilde MD [address] [place] [address] Rd,[facility] [address], [place], [address], [facility] 02/03/2019 14:02:31 02/26/2016 Patch Test completed Todd Wilde MD [address],[facility] [address], [place], [address], [facility] 02/03/2019 13:58:56 Imaging Results None recorded. Procedure Notes None recorded. Medical Equipment None Reported. Allergies Allergen ID Allergen Name Allergen Category Reaction Reaction Severity Criticality Documentation Date Start Date Code Code System Note Provider Name and Address Organization Details Recorded Time 6270 Product containin g penicilli n and antibioti c (product) medicatio n hives Not available Not available 02/22/2016 55893 05 SNOMED Todd Wilde MD [address] [place] [address] Rd,[facility] [address], [place], [address], [facility] 6 13:49:54 6271 erythromy yuly medicatio n edema Not available Not available 02/22/2016 4053 RxNorm Todd Wilde MD [address] [place] [address] Rd,[facility] [address], [address], [facility] 6 13:50:03 6272 Compazine medicatio n Not available Not available Not available 02/22/2016 32109 6 RxNorm Todd Wilde MD [address],[facility] [address], [address], [facility] 6 13:50:12 Medications Name Sig Start Date Stop Date Status Note LastModified by Organization Details LastModified Time fluoxetine 40 mg capsule TAKE ONE CAPSULE BY MOUTH ONE TIME DAILY active Not Available Not Available No t Available doxepin 50 mg capsule TAKE ONE CAPSULE BY MOUTH EVERY DAY active Not Available Not Available No t Available alprazolam 1 mg tablet TAKE ONE TABLET BY MOUTH AT BEDTIME NEEDED active Not Available Not Available No t Available phentermine 37.5 mg tablet TAKE ONE TABLET BY MOUTH EVERY MORNING 10/03 completed Not Available Not Available Not Available omeprazole 40 mg capsule,del ayed release TAKE ONE CAPSULE BY MOUTH EVERY MORNING active Not Available Not Available No t Available pantoprazol e 40 mg tablet,kong yed release 02/03 completed Not Available Not Available Not Available metformin 1,000 mg tablet TAKE ONE TABLET BY MOUTH TWICE A DAY WITH MEAL(S) active Not Available Not Available No t Available hydrocortis one 2.5 % topical cream 09/03 completed Not Available Not Available Not Available prednisone 5 mg tablets in a dose pack 02/13 completed Not Available Not Available Not Available polyethylen e glycol 3350 17 gram/dose oral powder USE 34 GM TWO TIMES A DAY DIRECTED 12/17 completed Not Available Not Available Not Available Jublia 10 % topical solution with applicator BALAJI TO AFFECTED NAILS QD FOR 48 WKS 06/03 completed Not Available Not Available Not Available Vitals Date Recorded Body height Body weight Body mass index (BMI) Heart rate Oxygen saturation Oxygen saturation in Arterial blood by Pulse oximetry Respiratory rate Body temperature Systolic blood pressure Diastolic blood pressure Provider Name and Address Organization Details Last Updated DateTime 6 157.48 cm 79356.5 4 g 39.7 kg/m2 74 /min 99 % 99 % 14 /min 98.5 [degF] 122 mm[Hg] 75 mm[Hg] Todd Wilde MD [address] [facility],[address], [address] 6 18:10:01 Date Recorded Body height Body weight Body mass index (BMI) Heart rate Respiratory rate Systolic blood pressure Diastolic blood pressure Provider Name and Address Organization Details Last Updated DateTime 6 157.48 cm 65274.5 4 g 39.7 kg/m2 78 /min 14 /min 124 mm[Hg] 77 mm[Hg] Todd Wilde MD [address] [facility],[address], [place], [address] 6 11:08:28 Date Recorded Body height Body weight Body mass index (BMI) Heart rate Respiratory rate Systolic blood pressure Diastolic blood pressure Provider Name and Address Organization Details Last Updated DateTime 6 157.48 cm 24790.5 4 g 39.7 kg/m2 70 /min 14 /min 122 mm[Hg] 75 mm[Hg] Todd Wilde MD [address], [place], [address] 6 18:00:22 Date Recorded Body height Body weight Body mass index (BMI) Heart rate Respiratory rate Systolic blood pressure Diastolic blood pressure Provider Name and Address Organization Details Last Updated DateTime 6 157.48 cm 61166.5 4 g 39.7 kg/m2 76 /min 14 /min 121 mm[Hg] 74 mm[Hg] Todd Wilde MD [address], [place], [address] 6 17:03:26 Social History Question Answer Notes LastModified by Organizat ion Details LastModified Time Tobacco Smoking Status Never Smoker Todd Wilde MD [address], [place], [address], [facility] 02/03/2019 13:29:39 What Is Your Level Of Alcohol Consumption? None Information not available 02/03/2019 Animal Exposure? 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 No Information not available 02/03/2019 How Much Tobacco Do You Smoke? No Information not available 02/03/2019 Sex: Unknown Functional Status None recorded. Mental Status None recorded. Family History Relationship Description Onset Age of this Age Resolved Age Notes LastModified by Organization Details LastModified Time Mother Disorder of thyroid gland kstabile Not available 2018 13:29:28 Medical History Condition Response Kidney Stones Y Reflux/GERD Y Sleep Disorder Y Gynecological HistoryNo gynecological history recorded. Obstetrics History GPAL:G 0 P 0 0 0 0 Past Encounters Encounter ID Performer Location Encounter Start Date Encounter Closed Date Diagnosis/Indication Diagnosis SNOMED-CT Code Diagnosis ICD10 Code Diagnosis Note [id number] Todd Wilde MD Main Office [address] [place] [address] 9 02/22/2016 13:38:18 02/22/2016 14:35:44 Contact dermatitis 76316707 L23.9 Urticaria 627882894 L50. 8 Pruritic disorder 383298 002 L20.89 [id number] Todd Wilde MD Main Office [address] [place] [address] 9 02/26/2016 10:01:03 02/26/2016 10:53:35 Contact dermatitis 71875026 L23.9 Urticaria 838057031 L50. 8 Pruritic disorder 313577 002 L20.89 [id number] Todd Wilde MD Main Office [address] [place] [address] 9 02/28/2016 16:43:04 02/28/2016 17:08:34 Contact dermatitis 88678528 L23.9 [id number] Todd Wilde MD Main Office [address] [place] [address] 9 02/29/2016 16:38:37 02/29/2016 17:02:08 Contact dermatitis 53434119 L23.9 Health Concerns Section Related Observation LastModified by Organization Detai ls LastModified Time None Recorded Concern Status LastModified by Organization Details LastModified Time None Recorded Advance Directives Directive None Recorded Payers Encounter Date Sequence Insurance Name Policy Number Policy Laurent Covered Member ID Laurent Member ID Guarantor Name 02/22/2016 1 [place] [id number] Giancarlo Connors [id number] Sana Connors 02/26/2016 1 [place] [id number] Giancarlo Connors [id number] Sana Connors 02/28/2016 1 [place] [id number] Giancarlo Connors [id number] Sana Connors 02/29/2016 1 [place] [id number] Giancarlo Connors [id number] 21 Sana Connors Notes Date Note Type Note Provider Name and Address Organization Details Recorded Time 02/22/2016 text/html Patient describe s ongoing problems with localized pruritic rashes over the last year characterized as redness on face (today along sides of nose and behind ears) and concerned if allergy playing a role. Rashes can affect eyelids and she has seen a shipmaster who recommended using Cetaphil and to discontinue using nail lithuanian. Upon review no apparent relationship to seasonal exposures or pets. At one time she developed hive-like rash last year while using Splenda which she discontinued; no apparent association with food with current symptoms which can occur randomly. No new medications or use of new OTC supplements or vitamins. Upon review she recalls having localized rashes in past to certain jewelry (costume type) and avoids. No past childhood eczema or past testing. Todd Wilde MD [address] [place] [address] Rd,[address], [place], [address], [facility] 02/03/2019 14:20:16 02/26/2016 text/html Patient went to lab for blood tests; here for contact allergy patch testing. Todd Wilde MD [address], [place], [address], [facility] 02/03/2019 14:18:46 02/28/2016 text/html Some mild itch a t patch test area; here for 48 hour reading of contact allergy test and review lab result. Todd Wilde MD [address], [place], [address], [facility] 02/03/2019 14:18:09 02/29/2016 text/html Here for 72 hour patch reading; itchy at a couple areas on test sites. Todd Wilde MD [address], [place], [address], [facility] 02/03/2019 14:17:28 OBGyn Episode No OBEpisode recorded.
--- OUTSIDE RECORDS SUMMARY | 2024-04-19 00:52 | XMS_ITS | Referral Summary ---
Author Organization [facility] Address [address] [place] [address] Care Team Providers Care Jacquard Loom Heddles Tier Name Role Phone Tera Bernard MD Unavailable Eden Holley Primary Care Provider Source Comments [facility],non-owned Affiliates and Associated Physician Practices is amultiple site organization consisting of ambulatory clinics and hospital sitesin [place], [place], [place] and [place]. This disclosure is being madepursuant to the Care Everywhere program and may not contain all information available regarding this patient. Last updated 17.[facility] Encounters Date Type Department Care Team Description 04/13/2024 Telephone [facility] - Rheumatology [id number] [place] [address] Keyshawn Mota MD Procedure Prior Auth Request (CT Thoracic Spine ) 04/09/2024 Telephone [facility]ology [address] [place] [address] Terrie Lancaster APRN-CNP General 03/16/2024 Telephone [facility] - [facility]umatology [address] [place], [place] [id number] Terrie Lancaster APRN-CNP Order 03/13/2024 Refill [facility] - ENT [address] [place] [phone] Tatianna Stovall APRN-CNP Refill Request 03/04/2024 Travel 03/04/2024 10:45 AM GRADE TEACHER Office Visit [facility] - ENT [address] [place] [address] Tatianna Stovall APRN-CNP Bilateral impacted cerumen (Primary Dx); Dizziness; Vestibular migraine 02/27/2024 Travel 02/27/2024 3:00 PM GRADE TEACHER Testing Visit [facility] - ENT [address] [place] [address] Radha Rapp AuD Examination of ears and hearing 02/25/2024 [place]phone [facility] [place] [address] [address] [place] [address] Sonali Alexander APRN-MAURILIO Referral 02/19/2024 9:30 AM GRADE TEACHER Office Visit [facility] - Rheumatology [address] [place] [address] Terrie Lancaster APRN-CNP Polyarthralgia (Primary Dx); Iron deficiency; Neuropathy; Osteoarthritis of multiple joints, unspecified osteoarthritis type; Medication monitoring encounter; Generalized abdominal pain; Abdominal bloating; Myofascial pain; Fibromyalgia from Last 3 Months Allergies Active Allergy Reactions Criticality Noted Date Comments Prochlorperazine Other 10/30/2021 Agitation, restless Erythromycin Urticaria Medium 10/30/2021 Penicillins Urticaria Medium 10/30/2021 Medications * Be aware that medications may not be up to date on this document. Alwaysverify current medications with the patient. Medication Sig Dispensed Refills Start Date End Date Status Linzess 290 MCG capsule Take 1 (one) capsule by mouth once daily 10/10/2021 Active ALPRAZolam (Xanax) 1 MG tablet Take 1 (one) tablet by mouth at bedtime 04/04/2023 Active Magnesium Oxide -Mg Supplement 400 (240 Mg) MG Take 1 (one) tablet by mouth once daily 05/30/2023 Active omeprazole (PriLOSEC) 40 MG capsule Take 1 (one) capsule by mouth every morning Active Coenzyme Q10 (CoQ10) 100 MG Take 100 (one hundred) mg by mouth once daily Active gabapentin (Neurontin) 300 MG capsuleIndications:Iro n deficiency,Neuropathy, Osteoarthritis of multiple joints, unspecified osteoarthritis type,Medication monitoring encounter Take 1 (one) capsule by mouth at bedtime 90 capsule 1 07/17/2023 Active doxepin (SINEquan) 25 MG capsule Take 1 (one) capsule by mouth once daily Active cyclobenzaprine (Flexeril) 10 MG tablet Take 1 (one) tablet by mouth at bedtime 02/05/2024 Active meclizine (Antivert) 25 MG tablet Take 1 (one) tablet by mouth 2 times daily as needed For dizziness. 12/15/2023 Active Vitamin D-Vitamin K (VITAMIN K2-VITAMIN D3 PO) Active Thyroid (LEVOTHYROXINE-LIOTHYR ONINE PO) Active PROGESTERONE-DHEA cream 120-10 MG/GM CREA compound Apply to affected area once daily Active ynzezkg-flsxibwlq-tyfk osterone (Biest With Testosterone) 0.125-0.5mg/mL cmpd cream Apply to affected area once daily Active TURMERIC PO Active GLUTATHIONE PO Active meloxicam (Mobic) 15 MG tabletIndications:Iron deficiency,Neuropathy, Osteoarthritis of multiple joints, unspecified osteoarthritis type,Medication monitoring encounter Take 1 (one) tablet by mouth at bedtime 90 tablet 02/19/2024 Active escitalopram (Lexapro) 10 MG tablet Take 1 (one) tablet by mouth once daily 30 tablet 03/04/2024 Active predniSONE (Deltasone) 5 MG tablet Please take 15 mg PO x 5 days, 10 mg PO x 5 days and 5 mg PO x 5 days 30 tablet 03/26/2024 Active Active Problems Problem Noted Date Diagnosed Date Contact dermatitis 03/04/2024 Overview (03/04/2024): as per history costume jewelry Gastritis 03/04/2024 Insomnia 03/04/2024 Mood disorder 03/04/2024 [...] Comments Blood Pressure 122/76 02/19/2024 9:46 AM GRADE TEACHER Pulse 86 02/19/2024 9:46 AM GRADE TEACHER Temperature - - Respiratory Rate 18 10/20/2023 2:51 PM CDT Oxygen Saturation 96% 10/20/2023 2:51 PM CDT Inhaled Oxygen Concentration - - Weight 106.1 kg (234 lb) 03/04/2024 10:56 AM GRADE TEACHER Height 157.5 cm (5' 2 ) 03/04/2024 10:56 AM GRADE TEACHER Body Mass Index 42.8 03/04/2024 10:56 AM GRADE TEACHER Plan of Treatment Upcoming Encounters Date Type Department Care Team (Late st Contact Info) Description 05/06/2024 8:30 AM GRADE TEACHER Office [place] [facility] [place] [address] [address] [place] [phone] Sonali Alexander, FEED CRUSHER-CONSUMER LOAN SPECIALIST [address] [facility] [address] [place] [phone] 06/03/2024 9:30 AM CDT Office Visit [facility] - ENT [address] , [address] [address] Tatianna Stovall, FEED CRUSHER-CONSUMER LOAN SPECIALIST [address] [address] 06/21/2024 9:30 AM CDT Office Visit [facility] - Rheumatology [address] [place] [id number] Terrie Lancaster, FEED CRUSHER-CONSUMER LOAN SPECIALIST [address] [place] [address] Procedures Procedure Name Priority Date/Time Associated Diagnosis Comments DNA ANTIBODY DOUBLE STRANDED Routine 03/16/2024 1:46 PM GRADE TEACHER Iron deficiency Neuropathy Osteoarthritis of multiple joints, unspecified osteoarthritis type Medication monitoring encounter Polyarthralgia Fibromyalgia Myofascial pain COMPLEMENT C3 C4 PANEL Routine 03/16/2024 1:46 PM GRADE TEACHER Iron deficiency Neuropathy Osteoarthritis of multiple joints, unspecified osteoarthritis type Medication monitoring encounter Polyarthralgia Fibromyalgia Myofascial pain SS-A/SS-B (SJOGREN'S) ANTIBODY PANEL Routine 03/16/2024 1:46 PM GRADE TEACHER Iron deficiency Neuropathy Osteoarthritis of multiple joints, unspecified osteoarthritis type Medication monitoring encounter Polyarthralgia Fibromyalgia Myofascial pain FERRITIN Routine 03/16/2024 1:46 PM GRADE TEACHER Iron deficiency Neuropathy Osteoarthritis of multiple joints, unspecified osteoarthritis type Medication monitoring encounter Polyarthralgia Fibromyalgia Myofascial pain IRON + TIBC PANEL Routine 03/16/2024 1:4 6 PM GRADE TEACHER Iron deficiency Neuropathy Osteoarthritis of multiple joints, unspecified osteoarthritis type Medication monitoring encounter Polyarthralgia Fibromyalgia Myofascial pain C-REACTIVE PROTEIN Routine 03/16/2024 1: 46 PM GRADE TEACHER Iron deficiency Neuropathy Osteoarthritis of multiple joints, unspecified osteoarthritis type Medication monitoring encounter Polyarthralgia Fibromyalgia Myofascial pain ERYTHROCYTE SEDIMENTATION RATE Routine 03/16/2024 1:46 PM GRADE TEACHER Iron deficiency Neuropathy Osteoarthritis of multiple joints, unspecified osteoarthritis type Medication monitoring encounter Polyarthralgia Fibromyalgia Myofascial pain COMPREHENSIVE METABOLIC PANEL Routine 03/16/2024 1:46 PM GRADE TEACHER Iron deficiency Neuropathy Osteoarthritis of multiple joints, unspecified osteoarthritis type Medication monitoring encounter Polyarthralgia Fibromyalgia Myofascial pain CBC W AUTO DIFFERENTIAL Routine 03/16/2024 1:46 PM GRADE TEACHER Iron deficiency Neuropathy Osteoarthritis of multiple joints, unspecified osteoarthritis type Medication monitoring encounter Polyarthralgia Fibromyalgia Myofascial pain SC REMOVE CERUMEN IMPACTED W INSTR BAYRON Routine 03/04/2024 2:02 PM GRADE TEACHER Bilateral impacted cerumen AUDIOLOGY/TYMPANOMETR Y ORDER Routine 03/03/2024 12:25 PM GRADE TEACHER HPV DETECTION HIGH RISK LOY Routine 10/30/2021 11:31 AM CDT Cervical cancer screening from Last 3 Months or Most Recently Relevant to Health Maintenance Results * C-REACTIVE PROTEIN (CRP) (03/16/2024 1:46 PM GRADE TEACHER) C-Reactive Protein 5.6 <8.0 mg/L [facility] Comment: Test Performed at: [facility] (Closed) [place] [address] [place], [place] ??[phone] MIREYA CATALAN MD Blood BLOOD SPECIMEN / Unknown 03/16/2024 1:46 PM GRADE TEACHER 03/16/2024 1:53 PM GRADE TEACHER Terrie Lancaster FEED CRUSHER-CONSUMER LOAN SPECIALIST LAB - CHEMI Rebel MonkeyY ORDERABLES Performing Organization Address [facility] de Phone Number [facility] [address] [place] [address] * SS-A/SS-B (SJOGREN'S) ANTIBODY PANEL (03/16/2024 1:46 PM GRADE TEACHER) Sjogren's Antibodies (SSA) <1.0 NEG <1.0 NEG AI [facility] Sjogren's Antibodies (SSB) <1.0 NEG <1.0 NEG AI [facility] Comment: Test Performed at: [facility] (Closed) [place] [address] [place], [place] ??[phone] MIREYA CATALAN MD Blood BLOOD SPECIMEN / Unknown 03/16/2024 1:46 PM GRADE TEACHER 03/16/2024 1:53 PM GRADE TEACHER Terrie Lancaster FEED CRUSHER-Comecer LAB - CHEMI Ethonova ORDERABLES Performing Organization Address [facility] de Phone Number [facility] [id number] [place] [address] * DNA ANTIBODY DOUBLE STRANDED (03/16/2024 1:46 PM GRADE TEACHER) dsDNA Antibody <1 IU/mL [facility] Comment: ? IU/mL ? Interpretation ? < or = 4 ?Negative ? 5-9 ? Indeterminate ? > or = 10 ?? Positive Test Performed at: [facility] (Closed) [facility] [address] [place], [place] ??[phone] MIREYA CATALAN MD Blood BLOOD SPECIMEN / Unknown 03/16/2024 1:46 PM GRADE TEACHER 03/16/2024 1:53 PM GRADE TEACHER Terrie CANO LAB - HEMAT OLOGY ORDERABLES Performing Organization Address [facility] de Phone Number [address] [address] * (ABNORMAL) SED RATE AUTO (ESR) (03/16/2024 1:46 PM GRADE TEACHER) Pathologist [facility] Erythrocyte Sedimentation Rate Westergren 22(H) < OR = 20 mm/h [facility] Comment: Test Performed at: [facility] (Closed)[address] ??[phone] MIREYA CATALAN MD Blood BLOOD SPECIMEN / Unknown 03/16/2024 1:46 PM GRADE TEACHER 03/16/2024 1:53 PM GRADE TEACHER Terrie CANO LAB - HEMAT OLOGY ORDERABLES Performing Organization Address [facility] de Phone Number [address] [address] * CBC WITH DIFFERENTIAL (03/16/2024 1:46 PM GRADE TEACHER) Pathologist [facility] White Blood Cell Count 8.3 3.8 - [...] 1.3 % [facility] Comment: Test Performed at: [facility] (Closed)[address] ??[phone] MIREYA CATALAN MD Blood BLOOD SPECIMEN / Unknown 03/16/2024 1:46 PM GRADE TEACHER 03/16/2024 1:53 PM GRADE TEACHER Terrie Lancaster FEED CRUSHER-CONSUMER LOAN SPECIALIST LAB - HEMAT OLOGY ORDERABLES [address] [address] * COMPREHENSIVE METABOLIC PANEL (03/16/2024 1:46 PM GRADE TEACHER) Glucose 87 65 - 99 mg/dL [facility] Comment: ? Fasting reference interval BUN 18 7 - 25 mg/dL [facility] Creatinine 0.72 0.50 - 1.03 mg/dL [facility] eGFR by Cystatin C 102 > OR = 60 mL/min/1. 73m2 [facility] BUN/Creatinine Ratio SEE NOTE: (calc) [facility] Comment: ?? Not Reported: BUN [...] 29 U/L [facility] Comment: Test Performed at: [facility] (Closed)[address] ??[phone] MIREYA CATALAN MD Blood BLOOD SPECIMEN / Unknown 03/16/2024 1:46 PM GRADE TEACHER 03/16/2024 1:53 PM GRADE TEACHER Terrie Lancaster APRN-CONSUMER LOAN SPECIALIST LAB - CHEMI STRY ORDERABLES Performing Organization Address [facility] Co de Phone Number [address] [address] * IRON + TIBC PANEL (03/16/2024 1:46 PM GRADE TEACHER) Pathologist [facility] Iron 70 45 - 160 mcg/dL [facility] TIBC 362 250 - 450 mcg/dL (calc) [facility] % Saturation 19 16 - 45 % (calc) [facility] Comment: Test Performed at: [facility] (Closed) [address] ??[phone] MIREYA CATALAN MD Blood BLOOD SPECIMEN / Unknown 03/16/2024 1:46 PM GRADE TEACHER 03/16/2024 1:53 PM GRADE TEACHER Terrie Lancaster FEED CRUSHER-CONSUMER LOAN SPECIALIST LAB - CHEMI STRY ORDERABLES Performing Organization Address [facility] Co de Phone Number [address] [address] * (ABNORMAL) COMPLEMENT C3 C4 PANEL (03/16/2024 1:46 PM GRADE TEACHER) Pathologist [facility] Complement C3 205(H) 83 - 193 mg/dL [facility] Complement C4 34 15 - 57 mg/dL [facility] Comment: Test Performed at: [facility] (Closed) [facility] [address] [place], [place] ??[phone] MIREYA CATALAN MD Blood BLOOD SPECIMEN / Unknown 03/16/2024 1:46 PM GRADE TEACHER 03/16/2024 1:53 PM GRADE TEACHER Terrie Lancaster FEED CRUSHER-CONSUMER LOAN SPECIALIST LAB - CHEMI STRY ORDERABLES Performing Organization Address [facility] [place] [address] * FERRITIN (03/16/2024 1:46 PM GRADE TEACHER) Ferritin 35 16 - 232 ng/mL [facility] Comment: Test Performed at: [facility] [address] [place], [place] ??[phone] MIREYA CATALAN MD Blood BLOOD SPECIMEN / Unknown 03/16/2024 1:46 PM GRADE TEACHER 03/16/2024 1:53 PM GRADE TEACHER Terrie Rebeccajohn Lancaster APRN-CONSUMER LOAN SPECIALIST LAB - CHEMI STRY ORDERABLES Performing Organization Address [facility] [place] [address] * SC REMOVE CERUMEN IMPACTED W INSTR BAYRON (03/04/2024 2:02 PM GRADE TEACHER) Narrative Tatianna Stovall APRN-CONSUMER LOAN SPECIALIST - 03/04/2024 2:02 PM GRADE TEACHER Tatianna Stovall APRN-MAURILIO ? 03/04/2024 ??2:03 PM [...] had normal landmarks and mobility. Tatianna Stovall APRN-CONSUMER LOAN SPECIALIST PROCEDURE/MINOR SURGICAL ORDERABLES * AUDIOLOGY/TYMPANOMETRY ORDER (03/03/2024 12:25 PM GRADE TEACHER) Radha Dionte Amanuel [facility] * HPV DETECTION HIGH RISK LOY (10/30/2021 11:31 AM CDT) High Risk Human Papilloma Result Not detected Not detected 11/02/2021 4:49 PM CDT [facility] High Risk Human Papilloma Interp 11/02/2021 4:49 PM CDT [facility] Comment:High Risk Human Narinder lloma Virus was Not Detected. Pathology/Cytolo gy VAGINA AND CERVIX, CS / Unknown 10/30/2021 11:31 AM CDT 10/31/2021 12:13 PM CDT Narrative [facility] PATH[facility]Y LAB - 11/02/2021 4:49 PM [...] Jovita Arteaga MD LAB - MICROBIOLOGY ORDERABLES [facility]Y LAB [address] [id number] [phone] from Last 3 Months or Most Recently Relevant to Health Maintenance Care Teams Jacquard Loom Heddles Tier Relationship Specialty Start Date End Date Eden Holley, FEED CRUSHER-CONSUMER LOAN SPECIALIST [address] [place] [phone] PCP - General Nurse Practitioner 10/20/23 Tera Bernard MD [address] [place] [address] Obstetrics and Gynecology 06/19/23
--- OUTSIDE RECORDS SUMMARY | 2024-04-19 00:52 | XMS_ITS | Clinical Summary ---
Author Organization [facility] Address [address] [place] [address] Care Team Providers Care Engraved Roller Inspector Name Role Phone Tera Bernard MD Unavailable [phone] Eden Holley APRN-VISION REHABILITATION THERAPIST Primary Care Provider Source Comments [facility],non-owned Affiliates and Associated Physician Practices is amultiple site organization consisting of ambulatory clinics and hospital sitesin [place], [place], [place] and [place]. This disclosure is being madepursuant to the Care Everywhere program and may not contain all information available regarding this patient. Last updated 17.[facility] Allergies Active Allergy Reactions Criticality Noted Date [...] Apply to affected area once daily Active yjmoheq-guxzednmq-elhw osterone (Biest With Testosterone) 0.125-0.5mg/mL cmpd cream [...] 03/04/2024 Thyroid nodule 08/22/2023 Renal mass 07/25/2023 Encounters Date Type Department Care Team Description 04/13/2024 Telephone [facility] - Rheumatology [address] [facility] [employer] [address] [address] Keyshawn Mota MD Procedure Prior Auth Request (CT Thoracic Spine ) 04/09/2024 Telephone [facility] - Rhe[facility]ology [id number] [address] [place] [address] Terrie Lancaster APRN-CNP General 03/16/2024 Telephone [facility] - Rheumatology [address] [place] [address] [address] [place] [address] Terrie Lancaster APRN-MAURILIO Order 03/13/2024 Refill [facility] - ENT [address] [place] [phone] Tatianna Stovall, LEARNING DEVELOPMENT SPECIALIST-VISION REHABILITATION THERAPIST Refill Request 03/04/2024 10:45 AM MICROBIOLOGY INSTRUCTOR Office Visit [facility] - ENT [address] [place] [address] Tatianna Stovall, LEARNING DEVELOPMENT SPECIALIST-MAURILIO Bilateral impacted cerumen (Primary Dx); Dizziness; Vestibular migraine 03/04/2024 Travel 02/27/2024 3:00 PM MICROBIOLOGY INSTRUCTOR Testing Visit [facility] - ENT [address] [place] [address] Radha Rapp AuD Examination of ears and hearing 02/27/2024 Travel 02/25/2024 Telephone [facility] [address] [place] [phone] Sonali Alexander, LEARNING DEVELOPMENT SPECIALIST-VISION REHABILITATION THERAPIST Referral 02/19/2024 9:30 AM MICROBIOLOGY INSTRUCTOR Office Visit [facility] - Rheumatology [address] [place] [address] [address] [place] [address] Terrie Lancaster APRN-MAURILIO Polyarthralgia (Primary Dx); Iron deficiency; Neuropathy; Osteoarthritis of multiple joints, unspecified osteoarthritis type; Medication monitoring encounter; Generalized abdominal pain; Abdominal bloating; Myofascial pain; Fibromyalgia from Last 3 Months Family History Medical History Relation Name Comments Cancer Maternal Great-Grandmother ? sales analyst Relation Name Status Comments Maternal Great-Grandmother Alive Social History Tobacco Use Types Packs/Day Years [...] Comments Blood Pressure 122/76 02/19/2024 9:46 AM MICROBIOLOGY INSTRUCTOR Pulse 86 02/19/2024 9:46 AM MICROBIOLOGY INSTRUCTOR Temperature - - Respiratory Rate 18 10/20/2023 2:51 PM CDT Oxygen Saturation 96% 10/20/2023 2:51 PM CDT Inhaled Oxygen Concentration - - Weight 106.1 kg (234 lb) 03/04/2024 10:56 AM MICROBIOLOGY INSTRUCTOR Height 157.5 cm (5' 2 ) 03/04/2024 10:56 AM MICROBIOLOGY INSTRUCTOR Body Mass Index 42.8 03/04/2024 10:56 AM MICROBIOLOGY INSTRUCTOR Plan of Treatment Upcoming Encounters Date Type Department Care Team (Late st Contact Info) Description 05/06/2024 8:30 AM MICROBIOLOGY INSTRUCTOR Office Visit [facility] [place] [address] [facility], [address] [place] [phone] Sonali Alexander, LEARNING DEVELOPMENT SPECIALIST-VISION REHABILITATION THERAPIST [address] [facility] [address] [place] [phone] 06/03/2024 9:30 AM CDT Office Visit [facility] - ENT [address], [address] [address] Tatianna Stovall LEARNING DEVELOPMENT SPECIALIST-VISION REHABILITATION THERAPIST [address] [facility] [address] [place] [address] 06/21/2024 9:30 AM CDT Office Visit [facility] - Rheumatology [address] [facility] [address] [place] [address] Terrie Lancaster LEARNING DEVELOPMENT SPECIALIST-VISION REHABILITATION THERAPIST [address] [facility] [address] [place] [address] Health Maintenance Due Date Last Done Comments COLOGUARD (AGES 45-75) - COL ON CA SCREENING 1973 COLON MONITORING 1973 COLONOSCOPY - COLON CA SCREENING 1973 CT COLONOGRAPHY - COLON CA SCREENING 1973 Colorectal Cancer Screening 1973 FIT - COLON CA SCREENING 1973 FLEX SIG - COLON CA SCREENING 1973 LIPID TESTING 1973 HIV SCREENING 1988 HEPATITIS C SCREENING 10/10/1991 DTAP/TDAP/TD VACCINES (1 - Tdap) 1992 HEPATITIS B VACCINE (1 of 3 - 19+ 3-dose series) 1992 PNEUMOCOCCAL VACCINE 50+ (1 of 1 - PCV) 10/15/2023 ZOSTER VACCINE (1 of 2) 10/15/2023 COVID-19 VACCINE (1 - 2023-2 5 season) 2023 INFLUENZA VACCINE (#1) 2023 DEPRESSION SCREENING 03/17/2024 10/20/2023 MAMMOGRAM 07/25/2025 07/26/2023 PAP with HPV 10/30/2026 10/30/2021 SCREENING FOR DIABETES 03/16/2027 , 09/25/2023, 06/19/2023 HIB VACCINE Aged Out No longer eligi ble based on patient's age to complete this topic HPV VACCINE Aged Out No longer eligi ble based on patient's age to complete this topic MENINGOCOCCAL (Group B) VACCINE Aged Out No longer eligible b ased on patient's age to complete this topic MENINGOCOCCAL VACCINE Aged Out No carleen radhames eligible based on patient's age to complete this topic Procedures Procedure Name Priority Date/Time Associated Diagnosis Comments DNA ANTIBODY DOUBLE STRANDED Routine 03/16/2024 1:46 PM MICROBIOLOGY INSTRUCTOR Iron deficiency Neuropathy Osteoarthritis of multiple joints, unspecified osteoarthritis type Medication monitoring encounter Polyarthralgia Fibromyalgia Myofascial pain COMPLEMENT C3 C4 PANEL Routine 03/16/2024 1:46 PM MICROBIOLOGY INSTRUCTOR Iron deficiency Neuropathy Osteoarthritis of multiple joints, unspecified osteoarthritis type Medication monitoring encounter Polyarthralgia Fibromyalgia Myofascial pain SS-A/SS-B (SJOGREN'S) ANTIBODY PANEL Routine 03/16/2024 1:46 PM MICROBIOLOGY INSTRUCTOR Iron deficiency Neuropathy Osteoarthritis of multiple joints, unspecified osteoarthritis type Medication monitoring encounter Polyarthralgia Fibromyalgia Myofascial pain FERRITIN Routine 03/16/2024 1:46 PM MICROBIOLOGY INSTRUCTOR Iron deficiency Neuropathy Osteoarthritis of multiple joints, unspecified osteoarthritis type Medication monitoring encounter Polyarthralgia Fibromyalgia Myofascial pain IRON + TIBC PANEL Routine 03/16/2024 1:4 6 PM MICROBIOLOGY INSTRUCTOR Iron deficiency Neuropathy Osteoarthritis of multiple joints, unspecified osteoarthritis type Medication monitoring encounter Polyarthralgia Fibromyalgia Myofascial pain C-REACTIVE PROTEIN Routine 03/16/2024 1: 46 PM MICROBIOLOGY INSTRUCTOR Iron deficiency Neuropathy Osteoarthritis of multiple joints, unspecified osteoarthritis type Medication monitoring encounter Polyarthralgia Fibromyalgia Myofascial pain ERYTHROCYTE SEDIMENTATION RATE Routine 03/16/2024 1:46 PM MICROBIOLOGY INSTRUCTOR Iron deficiency Neuropathy Osteoarthritis of multiple joints, unspecified osteoarthritis type Medication monitoring encounter Polyarthralgia Fibromyalgia Myofascial pain COMPREHENSIVE METABOLIC PANEL Routine 03/16/2024 1:46 PM MICROBIOLOGY INSTRUCTOR Iron deficiency Neuropathy Osteoarthritis of multiple joints, unspecified osteoarthritis type Medication monitoring encounter Polyarthralgia Fibromyalgia Myofascial pain CBC W AUTO DIFFERENTIAL Routine 03/16/2024 1:46 PM MICROBIOLOGY INSTRUCTOR Iron deficiency Neuropathy Osteoarthritis of multiple joints, unspecified osteoarthritis type Medication monitoring encounter Polyarthralgia Fibromyalgia Myofascial pain [place] REMOVE CERUMEN IMPACTED W INSTR BAYRON Routine 03/04/2024 2:02 PM MICROBIOLOGY INSTRUCTOR Bilateral impacted cerumen AUDIOLOGY/TYMPANOMETR Y ORDER Routine 03/03/2024 12:25 PM MICROBIOLOGY INSTRUCTOR HPV DETECTION HIGH RISK LOY Routine 10/30/2021 11:31 AM CDT Cervical cancer screening from Last 3 Months or Most Recently Relevant to Health Maintenance Results * C-REACTIVE PROTEIN (CRP) (03/16/2024 1:46 PM MICROBIOLOGY INSTRUCTOR) C-Reactive Protein 5.6 <8.0 mg/L [facility] Comment: Test Performed at: [email or web address] [place] [address] [place] ??[phone] MIREYA CATALAN MD Blood BLOOD SPECIMEN / Unknown 03/16/2024 1:46 PM MICROBIOLOGY INSTRUCTOR 03/16/2024 1:53 PM MICROBIOLOGY INSTRUCTOR Terrie Lancaster LEARNING DEVELOPMENT SPECIALIST-VISION REHABILITATION THERAPIST LAB - [employer] ORDERABLES Performing Organization Address [facility] Phone Number [address] [address] * SS-A/SS-B (SJOGREN'S) ANTIBODY PANEL (03/16/2024 1:46 PM MICROBIOLOGY INSTRUCTOR) Sjogren's Antibodies (SSA) <1.0 NEG <1.0 NEG AI [facility] Sjogren's Antibodies (SSB) <1.0 NEG <1.0 NEG AI [facility] Comment: Test Performed at: [email or web address] [place], [place] ??[phone] MIREYA CATALAN MD Blood BLOOD SPECIMEN / Unknown 03/16/2024 1:46 PM MICROBIOLOGY INSTRUCTOR 03/16/2024 1:53 PM MICROBIOLOGY INSTRUCTOR Terrie Lancaster LEARNING DEVELOPMENT SPECIALIST-VISION REHABILITATION THERAPIST LAB [employer] ORDERABLES Performing Organization Address [facility] Phone Number [address] [address] * DNA ANTIBODY DOUBLE STRANDED (03/16/2024 1:46 PM MICROBIOLOGY INSTRUCTOR) Pathologist [facility] dsDNA Antibody <1 IU/mL [facility] Comment: ? IU/mL ? Interpretation ? < or = 4 ?Negative ? 5-9 ? Indeterminate ? > or = 10 ?? Positive Test Performed at: [email or web address] [place], [place] ??[phone] MIREYA CATALAN MD Blood BLOOD SPECIMEN / Unknown 03/16/2024 1:46 PM MICROBIOLOGY INSTRUCTOR 03/16/2024 1:53 PM MICROBIOLOGY INSTRUCTOR Terrie Lancaster [facility]EBL[facility] LAB - HEMAT OLOGY ORDERABLES Performing Organization Address [facility] Co de Phone Number [address] [address] * (ABNORMAL) SED RATE AUTO (ESR) (03/16/2024 1:46 PM MICROBIOLOGY INSTRUCTOR) Pathologist [facility] Erythrocyte Sedimentation Rate Westergren 22(H) < OR = 20 mm/h [facility] Comment: Test Performed at: [email or web address] ??[phone] MIREYA CATALAN MD Blood BLOOD SPECIMEN / Unknown 03/16/2024 1:46 PM MICROBIOLOGY INSTRUCTOR 03/16/2024 1:53 PM MICROBIOLOGY INSTRUCTOR Terrie Lancaster [facility] LAB - HEMAT OLOGY ORDERABLES Performing Organization Address [facility] Co de Phone Number [address] [address] * CBC WITH DIFFERENTIAL (03/16/2024 1:46 PM MICROBIOLOGY INSTRUCTOR) Pathologist [facility] White Blood Cell Count 8.3 3.8 - [...] 1.3 % [facility] Comment: Test Performed at: [email or web address] ??[phone] MIREYA CATALAN MD Blood BLOOD SPECIMEN / Unknown 03/16/2024 1:46 PM MICROBIOLOGY INSTRUCTOR 03/16/2024 1:53 PM MICROBIOLOGY INSTRUCTOR Terrie Lancaster LEARNING DEVELOPMENT SPECIALIST-VISION REHABILITATION THERAPIST LAB - HEMAT OLOGY ORDERABLES [address] [address] * COMPREHENSIVE METABOLIC PANEL (03/16/2024 1:46 PM MICROBIOLOGY INSTRUCTOR) Glucose 87 65 - 99 mg/dL [facility] Comment: ? Fasting reference interval BUN 18 7 - 25 mg/dL [facility] Creatinine 0.72 0.50 - 1.03 mg/dL [facility] eGFR by Cystatin C 102 > OR = 60 mL/min/1. 73m2 [facility] BUN/Creatinine Ratio SEE NOTE: - (calc) [facility] Comment: ?? Not Reported: BUN [...] 29 U/L [facility] Comment: Test Performed at: [email or web address] ??[phone] MIREYA CATALAN MD Blood BLOOD SPECIMEN / Unknown 03/16/2024 1:46 PM MICROBIOLOGY INSTRUCTOR 03/16/2024 1:53 PM MICROBIOLOGY INSTRUCTOR Terrie Fernandez Anisha ESPARZAN-VISION REHABILITATION THERAPIST LAB - CHEMI STRY ORDERABLES Performing Organization Address [facility]/ZIP Co de Phone Number [address] [address] * IRON + TIBC PANEL (03/16/2024 1:46 PM MICROBIOLOGY INSTRUCTOR) Iron 70 45 - 160 mcg/dL [facility] TIBC 362 250 - 450 mcg/dL (calc) [facility] % Saturation 19 16 - 45 % (calc) [facility] Comment: Test Performed at: [email or web address] [place], [place] ??[phone] MIREYA CATALAN MD Blood BLOOD SPECIMEN / Unknown 03/16/2024 1:46 PM MICROBIOLOGY INSTRUCTOR 03/16/2024 1:53 PM MICROBIOLOGY INSTRUCTOR Terrie Rebecca Lancaster APRN-VISION REHABILITATION THERAPIST LAB - CHEMI STRY ORDERABLES Performing Organization Address [facility] Co de Phone Number [address] [address] * (ABNORMAL) COMPLEMENT C3 C4 PANEL (03/16/2024 1:46 PM MICROBIOLOGY INSTRUCTOR) Complement C3 205(H) 83 - 193 mg/dL [facility] Complement C4 34 15 - 57 mg/dL [facility] Comment: Test Performed at: [employer] [id number] [place], [place] ??[phone] MIREYA CATALAN MD Blood BLOOD SPECIMEN / Unknown 03/16/2024 1:46 PM MICROBIOLOGY INSTRUCTOR 03/16/2024 1:53 PM MICROBIOLOGY INSTRUCTOR Terrie Lancaster APRN-VISION REHABILITATION THERAPIST LAB - CHEMI STRY ORDERABLES Performing Organization Address [facility]/ZIP Co de Phone Number [facility] [address] [place] [address] * FERRITIN (03/16/2024 1:46 PM MICROBIOLOGY INSTRUCTOR) Ferritin 35 16 - 232 ng/mL [facility] Comment: Test Performed at: [email or web address] [place] [address] [facility] [place] ??[phone] MIREYA CATALAN MD Blood BLOOD SPECIMEN / Unknown 03/16/2024 1:46 PM MICROBIOLOGY INSTRUCTOR 03/16/2024 1:53 PM MICROBIOLOGY INSTRUCTOR Terrie Lancaster LEARNING DEVELOPMENT SPECIALIST-VISION REHABILITATION THERAPIST LAB - CHEMI STRY ORDERABLES Performing Organization Address [facility] Co de Phone Number [facility] [address] [place] [address] * [place] REMOVE CERUMEN IMPACTED W INSTR BAYRON (03/04/2024 2:02 PM MICROBIOLOGY INSTRUCTOR) Narrative Tatianna Stovall APRN-CNP - 03/04/2024 2:02 PM MICROBIOLOGY INSTRUCTOR Tatianna Stovall APRN-CNP ? 03/04/2024 ??2:03 PM Procedure: Bilateral Micro-otoscopy [...] had normal landmarks and mobility. Tatianna Stovall APRN-VISION REHABILITATION THERAPIST PROCEDURE/MINOR SURGICAL ORDERABLES * AUDIOLOGY/TYMPANOMETRY ORDER (03/03/2024 12:25 PM MICROBIOLOGY INSTRUCTOR) [employer] O RDERABLES * HPV DETECTION HIGH RISK LOY (10/30/2021 11:31 AM CDT) High Risk Human Papilloma Result Not detected Not detected 11/02/2021 4:49 PM CDT [facility] High Risk Human Papilloma Interp 11/02/2021 4:49 PM CDT [facility] Comment:High Risk Human Narinder lloma Virus was Not Detected. Pathology/Cytolo gy VAGINA AND CERVIX, CS / Unknown 10/30/2021 11:31 AM CDT 10/31/2021 12:13 PM CDT Narrative [facility] - 11/02/2021 4:49 PM [...] LAB - MICROBIOLOGY ORDERABLES Performing Organization Address City/State/[facility] Co de Phone Number [facility] LAB [address] [facility] [phone] from Last 3 Months or Most Recently Relevant to Health Maintenance Care Teams Engraved Roller Inspector Relationship Specialty Start Date End Date Eden Holley, LEARNING DEVELOPMENT SPECIALIST-VISION REHABILITATION THERAPIST [address] [phone] PCP - General Nurse Practitioner 10/20/23 Tera Bernard MD [address] [facility] [address] [place] [address] Obstetrics and Gynecology 06/19/23
[2024-04-19 12:14] VITALS: BP 149/101; PULSE 77; TEMP 36.1; O2SAT 95; BMI 42.0
--- NOTE | 2024-04-19 12:27 | P.HP_ITS ---
History of Present Illness History of Present Illness Consent: Risks, benefits, and alternatives have been discussed and questions answered. Patient agrees to proceed with procedure. Chief complaint: spondylosis w/o radiculopathy lumbosacral region, Narrative: Sana Connors is a 48 year old female with chronic, recalcitrant and disabling bilateral lumbosacral back pain secondary to degenerative spondylosis with failure to respond to aggressive conservative measures including PT, oral and topical analgesics, opioid and nonopioid analgesics, rest, time and activity/behavioral modification over the past 1-2 years who presents for diagnostic/prognostic medial branch blocks of the bilateral L3, L4, L5 medial branches/dorsal ramus(#1) addressing the bilateral L4-5, L5-S1 facet joints under fluoroscopic guidance and with contrast control. Review of Systems Review of Systems: Patient denies any new infectious, allergic, cardiopulmonary, neurologic or co nstitutional symptoms or changes in activity tolerance or exercise capacity including new or progressive SOB/MORIN, peripheral edema, productive cough, dysuria, nausea/vomiting, diarrhea, weight change, fevers/chills/night sweats, new or progressive neurologic deficit, cognitive or mood changes since last seen, except as documented in the HPI. All systems reviewed & are unremarkable except as noted in HPI and below PMFSH Past Medical History Medical History Myalgia Otitis media Elevated BP without diagnosis of hypertension Pain of toe of left foot Ataxia Vertigo Thoracic back pain Low back pain radiating to left lower extremity Hypothyroid Constipation Pain, joint, multiple sites Low back pain radiating to both legs Anemia Recurrent kidney stones History of kidney stones PCOS (polycystic ovarian syndrome) Morbid obesity with BMI of 40.0-44.9, adult Anxiety Interstitial cystitis Chronic GERD Asthma Kidney stone Surgical History Surgical History H/O total hysterectomy Feb 2023 History of 2000 Family History Family History Father Heart disease Sibling Alcoholism Grandparent Cancer Social History Social History Smoking status: Never smoker Alcohol intake: never Substance use: never Substance use type: does not use Do You Feel Safe in your Home?: Yes Lack of Transportation: No Lack of Food: Never True Current Housing: I Have Housing Concerned About Future Housing: No Difficulty Paying Gas/Electric Bills: No Difficulty Paying for Meds: No Currently Unemployed: No Education: High School Diploma/GED Difficulty w/ Childcare or Family Care: No Living arrangements: with family Spiritual care concerns: No Meds Home Medications and Allergies Home Medications ?Medication ?Instructions ?Recorded ?Confirmed ?Type levothyroxine 44 mcg capsule 40 mcg PO DAILY 07/30/23 04/07/24 History vitamin D3 250 mcg (10,000 1 cap PO DAILY 07/30/23 04/07/24 History unit)-vitamin K2 45 mcg capsule gabapentin 300 mg capsule 300 mg PO HS #90 caps 10/29/23 04/07/24 Rx linaclotide 290 mcg capsule 290 mcg PO DAILY #90 caps 10/29/23 04/07/24 Rx (Linzess) meclizine 25 mg tablet 25 mg PO BID PRN dizziness #60 tabs 12/15/23 04/07/24 Rx alprazolam 1 mg tablet 0.5 mg (1/2 x 1 mg) PO BID PRN 02/05/24 04/07/24 Rx Anxiety #60 tabs cyclobenzaprine 10 mg tablet 5 - 10 mg (0.5 - 1 x 10 mg) PO BID 02/05/24 04/07/24 Rx PRN muscle spasm #60 tabs doxepin 25 mg capsule 25 mg PO QHS #90 caps 02/05/24 04/07/24 Rx omeprazole 40 mg capsule,delayed 40 mg PO BID #180 caps 02/05/24 04/07/24 Rx release coQ10 (ubiquinol) 200 mg capsule 100 mg PO DAILY 02/23/24 04/07/24 History meloxicam 15 mg tablet 15 mg PO DAILY 02/23/24 04/07/24 History progesterone micronized 200 mg 350 mg PO DAILY 02/23/24 04/07/24 History capsule Boswellia kai extract 307 mg 614 mg PO BID 04/05/24 04/07/24 History tablet catalyn 3 cap PO DAILY 04/07/24 04/07/24 History estradiol 1 mg/gram (0.1 %) 1 packet topical DAILY 04/07/24 04/07/24 History transdermal gel packet melatonin 5 mg capsule 5 mg PO HS 04/07/24 04/07/24 History turmeric 400 mg capsule 800 mg PO DAILY 04/07/24 04/07/24 History Allergies Allergy/AdvReac Type Severity Reaction Status Date / Time Penicillins Allergy Severe Hives Verified 04/07/24 13:00 erythromycin base Allergy Unknown HIVES Verified 04/07/24 13:00 prochlorperazine AdvReac Severe Confusion Verified 04/07/24 13:00 Vital Signs Vital Signs - 24 hr 04/19/24 12:14 Temperature 97 F L Pulse Rate 77 Blood Pressure 149/101 H Pulse Oximetry 95 Oxygen Delivery Room Air Exam Narrative: The patient's physical exam is essentially unchanged from prior examination on 02/10/24. Specifically, patient demonstrates normal lung capacity, tidal volume and respiratory rate without wheezes, crackles, rales or rubs. Heart rate and rhythm are regular without murmurs, gallops or rubs. No JVD. Pulses 2+ globally without increasing peripheral edema. AAOx3 with no evidence of confusion, intox ication or altered mental state, NC/AT without acute distress or altered consciousness. Speech, cognition, mood, insight and judgment at baseline and within normal limits. Assessment and Plan Assessment and plan (1) Lumbosacral spondylosis: Code(s): M47.817 - Spondylosis without myelopathy or radiculopathy, lumbosacral region Status: Acute Assessment and Plan: Proceed as planned with diagnostic/prognostic medial branch blocks of the bilateral L3, L4, L5 medial branches/dorsal ramus(#1) addressing the bilateral L4-5, L5-S1 facet joints under fluoroscopic guidance and with contrast control. (2) Dorsalgia of lumbosacral region: Code(s): M54.50 - Low back pain, unspecified Status: Acute (3) Chronic pain: Code(s): G89.29 - Other chronic pain Status: Acute
--- NOTE | 2024-04-19 12:29 | WPDHPUPDATE1 ---
History and Physical Update Update Date/Time: 04/19/24 12:29 History and Physical has been reviewed, including an updated exam of the patient. There are NO changes in the patient's condition. Risks, benefits, and alternatives have been discussed and questions answered. Patient agrees to proceed with procedure.
--- NOTE | 2024-04-19 12:30 | P.OP_ITS ---
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 (4 levels blocked). Surgeon Shalom Adan MD Environment Friendly Landscape Designer None. Anesthesia Local Description of Procedure INFORMED CONSENT: Risks, benefits and alternatives to the procedure were discussed in detail with the patient who expressed explicit understanding and consent to proceed. Patient was informed verbally and in written form regarding the risks associated with the procedure including the low risk of serious infection, bleeding/bruising, allergic reaction, nerve or organ injury, paralysis, procedural site pain or discomfort, worsening pain and/or mobility, failure to treat and/or disfigurement. The patient expressed explicit understanding and consent to proceed. All materials required for the procedure were available prior to procedure start. Site and side were marked prior to procedure and confirmed in the presence of the patient. PROCEDURE IN DETAIL: The patient was brought to the procedural suite and placed in the prone position. Patient was made comfortable with use of pillows under the head/chest, hips and ankles. Skin overlying the injection site on the affected side(s) was prepared broadly with ChloraPrep applicator and draped in a sterile manner. Aseptic technique was used throughout. The endplates of the vertebral bodies at the site(s) of interest were aligned in the AP view. Ips ilateral oblique angulation was utilized to optimize visualization of the intersection between the superior articulating process and transverse process at each target site. Local anesthesia was established by infiltration with approximately 5 mL of 1% lidocaine via a 1-1/2 inch 27-gauge needle. A 25-gauge 5.0 inch Quincke spinal needle was advanced until the needle tip contacted periosteum at the target site, right L3. Lateral view was utilized to confirm the appropriate placement of the needle tip just anterior to the facet line and superior to the pedicle. In the Lateral view, 0.25 mL of Omnipaque 300 contrast medium was injected after negative aspiration for CSF, blood or other bodily fluid, showing appropriate extra-articular spread of contrast without evidence of intravascular, foraminal or intrathecal placement. A 0.5 mL solution of 0.5% PF bupivacaine was injected after negative repeat aspiration. Appropriate spread of the injectate was confirmed with washout of previously injected contrast. No parasthesias were elicited. Needle was removed completely intact without difficulty. The same exact procedure was repeated for all remaining levels on the ipsilateral side, right L4, L5 medial branches/dorsal ramus, modified as necessary to accommodate for the new target location with identical findings and results and no evidence of complication. The same exact procedure was repeated for all remaining levels on the contralateral side, left L3, L4, L5 medial branches/dorsal ramus, modified as necessary to accommodate for the new target location with identical findings and results and no evidence of complication. Images were saved and documented in the patient chart. Patient's skin was cleaned and sterile bandage applied. The patient tolerated the procedure well. The patient was transported to the recovery area in stable condition where they were observed for an appropriate amount of time prior to discharge, without evidence of complication. Patient was instructed on the appropriate completion of a pain diary over the next 12-24 hours. The patient was instructed to avoid excessive activity for the next 48 hours, including climbing and frequent use of stairs. Showers only for 48 hours. They were instructed not to drive or operate heavy machinery for 24 hours. They are to monitor for severe headaches, fevers, chills, night sweats, erythema/swelling at the site or any other signs of infection, bleeding/bruising, bowel or bladder changes as well as new pain, weakness or numbness in the upper or lower extremity. Should they notice these changes, they are instructed to call our office immediately or report directly to the nearest Emergency Department if no answer or if after posted office hours. COMPLICATIONS: None COMMENTS: None CONTRAST WASTED: 28.5mL Omnipaque 300. Complications No immediate complications Condition Stable Disposition Same day [facility] Billing Surgery - Charge Forward: Surgery Billing
[2024-04-19 12:45] VITALS: BP 156/92; PULSE 63; RESP 16; O2SAT 100
[2024-04-19] MEDS: BUPivacaine HCL 0.5% PF 30 ML VIAL INFILTRATE (12:48)
[2024-04-19 12:50] VITALS: BP 153/92; PULSE 70; RESP 16; O2SAT 100
[2024-04-19 12:55] VITALS: BP 150/93; PULSE 70; RESP 16; O2SAT 100
[2024-04-19 13:07] VITALS: BP 150/100; PULSE 77; RESP 16; O2SAT 100
== END 2024-04-19 13:25 | disposition home or self-care (01) ==
PROVIDERS: PCP Nurse Practitioner Family; Visit Provider Anesthesiology Pain Medicine
PROC: (CPT 64493; principal; 2024-04-19 12:45)
DX: M47.817 Spondylosis without myelopathy or radiculopathy, lumbosacral region (principal); G89.29 Other chronic pain; R03.0 Elevated blood-pressure reading, without diagnosis of hypertension; E03.9 Hypothyroidism, unspecified; D64.9 Anemia, unspecified; Z87.442 Personal history of urinary calculi; E28.2 Polycystic ovarian syndrome; F41.9 Anxiety disorder, unspecified; K21.9 Gastro-esophageal reflux disease without esophagitis; J45.909 Unspecified asthma, uncomplicated; Z98.890 Other specified postprocedural states; Z80.9 Family history of malignant neoplasm, unspecified; Z82.49 Family history of ischemic heart disease and other diseases of the circulatory system
CPT/HCPCS: 64493; 64494; 64495; 99199; Q9965

== ENCOUNTER 2024-05-21 14:48 | Emergency (ER) | payer BC, SELFPAY ==
--- NOTE | ~2024-05-21 | CT_ITS ---
CT abdomen pelvis w con Ordering provider: Sandra Barbosa APRN History: 48 years Female with . hx kidney cancer, R flank pain . Comparison: July 23, 2023 Technique: CT abdomen and pelvis with IV and without oral contrast. Automated exposure control and it erative reconstruction technique were employed. The dose-length product was 1010.15 mGy-cm. 100 mL Om nipaque 350 was given IV. Findings: VISUALIZED LOWER CHEST: Focal areas of groundglass appearance are seen in the right lung base which m ay be atelectasis versus focal pneumonia. UPPER ABDOMINAL ORGANS: Liver: Normal. Gallbladder: Normal. Spleen: Normal. Stomach/duodenum: Normal. Pancreas: Normal. Adrenals: Normal. Kidneys: No definite enhancing masses seen. Postoperative changes seen in the right kidney midpole. PELVIC ORGANS: The bladder is normal. BOWEL AND MESENTERY: Colon: No evidence of diverticulitis.. Appendix is not demonstrated. Small Bowel: Normal. No obstruction. Peritoneum/mesentery: No free air or free fluid. No mesenteric lymphadenopathy. RETROPERITONEUM: Normal aorta. No retroperitoneal lymphadenopathy. MUSCULOSKELETAL: Superficial soft tissues: The superficial soft tissues are normal. Bones: Age appropriate degenerative changes of the spine. Sclerotic area seen in the right acetabulum most likely benign. Follow-up advised. IMPRESSION: 1. No evidence of recurrence seen in the right kidney. Postoperative changes are seen in the right k idney midpole. 2. No evidence of appendicitis, diverticulitis or intestinal obstruction. Reviewed, dictated and finalized at location A. AIR CONDITIONING MECHANIC IMPRESSION: 1. No evidence of recurrence seen in the right kidney. Postoperative changes a re seen in the right kidney midpole. 2. No evidence of appendicitis, diverticulitis or intestinal obstruction.
--- OUTSIDE RECORDS SUMMARY | 2024-05-21 14:51 | XMS_ITS | Encounter Summary ---
Author Organization [facility] Address [address] [facility] [place] [address] Care Team Providers Care Senior Java Web Developer Name Role Phone Tera Bernard MD Unavailable [phone] Eden Holley APRN-HOME HEALTH OCCUPATIONAL THERAPIST Primary Care Provider Reason for Visit * Reason Onset Date Comments Procedure Prior Auth Request 04/13/2024 CT Thoracic Spine Encounter Details Date Type Department Care Team (Late st Contact Info) Description 04/13/2024 Telephone [facility] - Rheumatology [id number] [address] [place] [address] [facility] [address] [place] [address] Procedure Prior Auth Request (CT [...] * Telephone Encounter - Alisson Leach - 04/29/2024 5:13 PM CST Attempted to contact [facility] again and sat on phone for another 45 min with no answer. Attempted to reach patient and LM informing patient that we are having much trouble getting through to someone to help with the online PA because we can not get it through our [employer] login. Recommended to the patient to call her insurance and put in a Grievance with the insurance carrier regarding the issues we are having with getting approval. ER TENDER * Telephone Encounter - Megan Suarez. - 04/29/2024 2:45 PM CST Patient would appreciate a call back. ER TENDER * Telephone Encounter - Megan Suarez. - 04/26/2024 2:41 PM CST Patient is calling back about the status. Please call patient ER TENDER * Telephone Encounter - Alisson Leach - 04/19/2024 11:16 AM CST Attempted to reach number with [employer]ity and spoke to Mary 15 min on hold. Was trying to figure out the issue and then was sent to the line to do a survey like the call was completed which it was not. Will attempt to call again at a later time. ER TENDER * Telephone Encounter - Alisson Leach - 04/15/2024 1:32 PM CST Spoke to patient and informed her to cancel the currently scheduled CT scan and we will continue towork on the PA. Will attempt to reach that number received online with [employer] for the [facility] plans #[phone]. Facility is [place] [address] [place] [address], [facility] Tax ID# [id number] NPI# [id number] ER TENDER * Telephone Encounter - Alisson Leach - 04/15/2024 11:59 AM CST Images from the original note were not included. Ran benefits through [employer] and this is what was received back: Shows NO PA required for in network facilities. Attempted to perform PA through [employer] and the PA request was Automatically cancelled. Imported to Media ER TENDER * Telephone Encounter - Leilani Lopez RN - 04/15/2024 9:05 AM CST Call placed to pt insurance company twice, hold times were 29 min and 30 min, unable to speak with anyone. Calls placed to Kelton Manuel [phone], [employer] [phone] , [employer] [place] [phone] and [employer] [phone]. CPT code does not work with [employer]. Kelton automatedlines all saying to submit under [employer] web site. Call place to pt, informed of the above, will escalate to Alisson Chang for assistance. ER TENDER * Telephone Encounter - Leilani Lopez RN [...] done as the order was placed 04/09/24. ER TENDER * Telephone Encounter - Brooklyn Nuñez - 04/14/2024 9:08 AM CST This needs to be done by 3:00 pm today ER TENDER * Telephone Encounter - Alisson Leach - 04/13/2024 11:49 AM CST Patient is going to [facility] for Ct Scan of Spine and they require us to get the PA for the procedure. Patient has number to get the information from facility for the PA # [phone]. Will need to to bet PA for CT scan done and is scheduled 04/15/24 due to having a Spinal block the following Friday. ER TENDER documented in this encounter Plan of Treatment Upcoming Encounters Date Type Department Care Team (Late st Contact Info) Description 06/03/2024 9:30 AM CDT Office Visit [facility] - ENT [address], [facility] [address] [place] [address] Tatianna Stovall, SOLID WASTE MANAGER-HOME HEALTH OCCUPATIONAL THERAPIST [address] [facility] [address] [place] [address] 06/21/2024 9:30 AM CDT Office Visit [facility] - Rheumatology [address] [facility] [address] [place] [address] Terrie Lancaster, SOLID WASTE MANAGER-HOME HEALTH OCCUPATIONAL THERAPIST [address] [facility] [address] [place], [place] [id number] 07/22/2024 9:00 AM CDT Office [place] [facility] [place] [address] [facility], [facility] [address] [place] [address] Sonali Alexander, SOLID WASTE MANAGER-HOME HEALTH OCCUPATIONAL THERAPIST [id number] [place] [address] documented as of this encounter Visit Diagnoses Not on filedocumented in this encounter Care Teams Senior Java Web Developer Relationship Specialty Start Date End Date Eden Holley, SOLID WASTE MANAGER-HOME HEALTH OCCUPATIONAL THERAPIST [address] [facility] [address] [place] [address] PCP - General Nurse Practitioner 10/20/23 Tera Bernard MD [address] [place] [address] Obstetrics and Gynecology 06/19/23 documented as of this encounter
--- OUTSIDE RECORDS SUMMARY | 2024-05-21 14:51 | XMS_ITS | Patient Health Record ---
Author Organization [facility] Address [address] [address] Care Team Providers Care Internet Researcher Name Role Phone Yasir Ward MD Primary Care Provider Elia Fournier MD, Beau Unavailable [phone] Allergies Allergen (clinical drug ingredient) Drug/Non Drug Allergy documented on EMR Reaction Allergy Type Onset Date Status PCN (uncoded) Unknown Allergy Active Reason For Referral No Information Medications Medication SIG (Take, Route, Frequency, Duration) Notes Start Date End Date Status metFORMIN HCl *please review f or potential update for e-prescription and drug interaction check* Active Linzess 290 MCG TAKE ONE CAPSULE BY MOUTH ONE TIME DAILY for 30 Active Omeprazole 40 MG 1 capsule Orally Once a day Active Xanax *please review f or potential update for e-prescription and drug interaction check* Active Linzess 145 MCG 1 capsule Orally Once a day for 30 day(s) 07/29/2018 Active Problems Problem Type SNOMED Code ICD Code Onset Dates Problem Status W/U Status Risk Notes Problem 18250452 Chronic idiopathic constipation (K59.04) Active confirmed Plan Of Treatment No Information Insurance Providers Payer Name Payer Address Payer Phone Subscriber Number Group Number Insured Name Patient Relationship to Insured Coverage Start Date Coverage End Date [facility] [employer] PPO [address] [place], [place] [id number] Giancarlo Connors Spouse - patient is the spouse of the insured Medical (General) History Medical History History ICD Code PCOS GERD Surgical History Surgery Date(Month/Year) cystoscopy for kidney stones Section hemorrhoidectomy
--- OUTSIDE RECORDS SUMMARY | 2024-05-21 14:51 | XMS_ITS | Clinical Summary ---
Author Organization [facility] Address [address] [facility] [place] [address] Care Team Providers Care Cable Television Installer Name Role Phone Tera Bernard MD Unavailable [phone] Eden Holley APRN-RECREATION FACILITY MANAGER Primary Care Provider Source Comments [facility],non-owned Affiliates and Associated Physician Practices is amultiple site organization consisting of ambulatory clinics and hospital sitesin [place], [place], [place] and [place]. This disclosure is being madepursuant to the Care Everywhere program and may not contain all information available regarding this patient. Last updated 17.[facility] Allergies Active Allergy Reactions Criticality Noted [...] Apply to affected area once daily Active itsdasb-rxxqybpwc-nlmz osterone (Biest With Testosterone) 0.125-0.5mg/mL cmpd cream [...] Type Department Care Team Description 04/13/2024 Telephone [facility] - Rheumatology [address] [facility] [place] [address] [address] Keyshawn Mota MD Procedure Prior Auth Request (CT Thoracic Spine ) 04/09/2024 Telephone [facility] - Rheumatology [address] [address] [place] [address] Terrie Lancaster APRN-MAURILIO General 03/16/2024 Telephone [facility] - [facility]ology [address] [facility] [address] [place] [address] Terrie Lancaster APRN-RECREATION FACILITY MANAGER Order 03/13/2024 Refill [facility] - ENT [address] [place] [address] Tatianna Stovall, LAB CLERK-RECREATION FACILITY MANAGER Refill Request 03/04/2024 10:45 AM ANALYTICAL CHEMIST Office Visit [facility] - ENT [address] [place] [address] Tatianna Stovall, LAB CLERK-MAURILIO Bilateral impacted cerumen (Primary Dx); Dizziness; Vestibular migraine 03/04/2024 Travel 02/27/2024 3:00 PM ANALYTICAL CHEMIST Testing Visit [facility] - ENT [address] [place] [address] Radha Rapp AuD Examination of ears and hearing 02/27/2024 Travel 02/25/2024 Telephone [facility] [place] [address] Kevin Morse, [facility] [address] [place] [id number] Sonali Alexander, LAB CLERK-RECREATION FACILITY MANAGER Referral from Last 3 Months Family History Medical History Relation Name Comments Cancer Maternal Great-Grandmother ? stock pitcher Relation Name Status Comments Maternal Great-Grandmother Alive [...] Comments Blood Pressure 122/76 02/19/2024 9:46 AM ANALYTICAL CHEMIST Pulse 86 02/19/2024 9:46 AM ANALYTICAL CHEMIST Temperature - - Respiratory Rate 18 10/20/2023 2:51 PM CDT Oxygen Saturation 96% 10/20/2023 2:51 PM CDT Inhaled Oxygen Concentration - - Weight 106.1 kg (234 lb) 03/04/2024 10:56 AM ANALYTICAL CHEMIST Height 157.5 cm (5' 2 ) 03/04/2024 10:56 AM ANALYTICAL CHEMIST Body Mass Index 42.8 03/04/2024 10:56 AM ANALYTICAL CHEMIST Plan of Treatment Upcoming Encounters Date Type Department Care Team (Late st Contact Info) Description 06/03/2024 9:30 AM CDT Office Visit [facility] - ENT [address] [place] [address] Tatianna Stovall, LAB CLERK-RECREATION FACILITY MANAGER [address] [place] [address] 06/21/2024 9:30 AM CDT Office Visit [facility] - Rheumatology [address] [facility] [address] [place] [address] Terrie Lancaster LAB CLERK-RECREATION FACILITY MANAGER [address] [facility] [address] [place], [place] [id number] 07/22/2024 9:00 AM CDT Office [place] [facility] [place] [address] [facility] [place] [address] Sonali Alexander, LAB CLERK-RECREATION FACILITY MANAGER [address] [facility] [address] [place] [address] Health Maintenance Due Date Last Done Comments [...] ANTIBODY DOUBLE STRANDED Routine 03/16/2024 1:46 PM ANALYTICAL CHEMIST Iron deficiency Neuropathy Osteoarthritis of multiple joints, unspecified osteoarthritis type Medication monitoring encounter Polyarthralgia Fibromyalgia Myofascial pain COMPLEMENT C3 C4 PANEL Routine 03/16/2024 1:46 PM ANALYTICAL CHEMIST Iron deficiency Neuropathy Osteoarthritis of multiple joints, unspecified osteoarthritis type Medication monitoring encounter Polyarthralgia Fibromyalgia Myofascial pain SS-A/SS-B (SJOGREN'S) ANTIBODY PANEL Routine 03/16/2024 1:46 PM ANALYTICAL CHEMIST Iron deficiency Neuropathy Osteoarthritis of multiple joints, unspecified osteoarthritis type Medication monitoring encounter Polyarthralgia Fibromyalgia Myofascial pain FERRITIN Routine 03/16/2024 1:46 PM ANALYTICAL CHEMIST Iron deficiency Neuropathy Osteoarthritis of multiple joints, unspecified osteoarthritis type Medication monitoring encounter Polyarthralgia Fibromyalgia Myofascial pain IRON + TIBC PANEL Routine 03/16/2024 1:4 6 PM ANALYTICAL CHEMIST Iron deficiency Neuropathy Osteoarthritis of multiple joints, unspecified osteoarthritis type Medication monitoring encounter Polyarthralgia Fibromyalgia Myofascial pain C-REACTIVE PROTEIN Routine 03/16/2024 1: 46 PM ANALYTICAL CHEMIST Iron deficiency Neuropathy Osteoarthritis of multiple joints, unspecified osteoarthritis type Medication monitoring encounter Polyarthralgia Fibromyalgia Myofascial pain ERYTHROCYTE SEDIMENTATION RATE Routine 03/16/2024 1:46 PM ANALYTICAL CHEMIST Iron deficiency Neuropathy Osteoarthritis of multiple joints, unspecified osteoarthritis type Medication monitoring encounter Polyarthralgia Fibromyalgia Myofascial pain COMPREHENSIVE METABOLIC PANEL Routine 03/16/2024 1:46 PM ANALYTICAL CHEMIST Iron deficiency Neuropathy Osteoarthritis of multiple joints, unspecified osteoarthritis type Medication monitoring encounter Polyarthralgia Fibromyalgia Myofascial pain CBC W AUTO DIFFERENTIAL Routine 03/16/2024 1:46 PM ANALYTICAL CHEMIST Iron deficiency Neuropathy Osteoarthritis of multiple joints, unspecified osteoarthritis type Medication monitoring encounter Polyarthralgia Fibromyalgia Myofascial pain NM REMOVE CERUMEN IMPACTED W INSTR BAYRON Routine 03/04/2024 2:02 PM ANALYTICAL CHEMIST Bilateral impacted cerumen AUDIOLOGY/TYMPANOMETR Y ORDER Routine 03/03/2024 12:25 PM ANALYTICAL CHEMIST HPV DETECTION HIGH RISK LOY Routine 10/30/2021 11:31 AM CDT Cervical cancer screening from Last 3 Months or Most Recently Relevant to Health Maintenance Results * C-REACTIVE PROTEIN (CRP) (03/16/2024 1:46 PM ANALYTICAL CHEMIST) C-Reactive Protein 5.6 <8.0 mg/L [facility] Comment: Test Performed at: [facility] [place] [address] [place] [address] MIREYA CATALAN MD Blood BLOOD SPECIMEN / Unknown 03/16/2024 1:46 PM ANALYTICAL CHEMIST 03/16/2024 1:53 PM ANALYTICAL CHEMIST Terrierina Lancaster LAB CLERK-RECREATION FACILITY MANAGER LAB - CHEMI STRY ORDERABLES [facility] [address] [place] [address] * SS-A/SS-B (SJOGREN'S) ANTIBODY PANEL (03/16/2024 1:46 PM ANALYTICAL CHEMIST) Pathologist [facility] Sjogren's Antibodies (SSA) <1.0 NEG <1.0 NEG AI [facility] Sjogren's Antibodies (SSB) <1.0 NEG <1.0 NEG AI [facility] Comment: Test Performed at: [facility] [address] [facility] [place] [address] MIREYA CATALAN MD Blood BLOOD SPECIMEN / Unknown 03/16/2024 1:46 PM ANALYTICAL CHEMIST 03/16/2024 1:53 PM ANALYTICAL CHEMIST Terrie CANO LAB - CHEMI STRY ORDERABLES Performing Organization Address [facility] Co de Phone Number [address] [address] * DNA ANTIBODY DOUBLE STRANDED (03/16/2024 1:46 PM ANALYTICAL CHEMIST) Pathologist [facility] dsDNA Antibody <1 IU/mL [facility] Comment: IU/mL Interpretation < or = 4 Negative 5-9 Indeterminate > or = 10 Positive Test Performed at: [facility] [address] [facility] [place] [address] MIREYA CATALAN MD Blood BLOOD SPECIMEN / Unknown 03/16/2024 1:46 PM ANALYTICAL CHEMIST 03/16/2024 1:53 PM ANALYTICAL CHEMIST Terrie CANO LAB - HEMAT OLOGY ORDERABLES Performing Organization Address [facility] Co de Phone Number [address] [address] * (ABNORMAL) SED RATE AUTO (ESR) (03/16/2024 1:46 PM ANALYTICAL CHEMIST) Pathologist [facility] Erythrocyte Sedimentation Rate Westergren 22(H) < OR = 20 mm/h [facility] Comment: Test Performed at: [facility] [address] MIREYA CATALAN MD Blood BLOOD SPECIMEN / Unknown 03/16/2024 1:46 PM ANALYTICAL CHEMIST 03/16/2024 1:53 PM ANALYTICAL CHEMIST Terrie Lancastre LAB CLERK-RECREATION FACILITY MANAGER LAB - HEMAT OLOGY ORDERABLES Performing Organization Address [facility]/ZIP Co de Phone Number [address] [address] * CBC WITH DIFFERENTIAL (03/16/2024 1:46 PM ANALYTICAL CHEMIST) White Blood Cell Count 8.3 3.8 - [...] 1.3 % [facility] Comment: Test Performed at: [facility] [address] MIREYA CATALAN MD Blood BLOOD SPECIMEN / Unknown 03/16/2024 1:46 PM ANALYTICAL CHEMIST 03/16/2024 1:53 PM ANALYTICAL CHEMIST Terrie Lancaster LAB CLERK-RECREATION FACILITY MANAGER LAB - HEMAT OLOGY ORDERABLES Performing Organization Address [facility] Co de Phone Number [address] [address] * COMPREHENSIVE METABOLIC PANEL (03/16/2024 1:46 PM ANALYTICAL CHEMIST) Glucose 87 65 - 99 mg/dL [facility] Comment: Fasting reference interval BUN 18 7 - 25 mg/dL [facility] Creatinine 0.72 0.50 - 1.03 mg/dL [facility] eGFR by Cystatin C 102 > OR = 60 mL/min/1. 73m2 [facility] BUN/Creatinine Ratio SEE NOTE: 6 - 22 (calc) [facility] Comment: Not Reported: BUN and Creatinine are within reference range. Sodium 142 135 - 146 mmol/L [facility] [...] 29 U/L [facility] Comment: Test Performed at: [facility] [address] MIREYA CATALAN MD Blood BLOOD SPECIMEN / Unknown 03/16/2024 1:46 PM ANALYTICAL CHEMIST 03/16/2024 1:53 PM ANALYTICAL CHEMIST Terrie Lancaster LAB CLERK-RECREATION FACILITY MANAGER LAB - CHEMI STRY ORDERABLES [address] [address] * IRON + TIBC PANEL (03/16/2024 1:46 PM ANALYTICAL CHEMIST) Pathologist [facility] Iron 70 45 - 160 mcg/dL [facility] TIBC 362 250 - 450 mcg/dL (calc) [facility] % Saturation 19 16 - 45 % (calc) [facility] Comment: Test Performed at: [facility] [place] [address] [place] [address] MIREYA CATALAN MD Blood BLOOD SPECIMEN / Unknown 03/16/2024 1:46 PM ANALYTICAL CHEMIST 03/16/2024 1:53 PM ANALYTICAL CHEMIST Terrie Lancaster LAB CLERK-RECREATION FACILITY MANAGER LAB - CHEMI STRY ORDERABLES Performing Organization Address [facility] Co de Phone Number [facility] [id number] [place], [place] [id number] * (ABNORMAL) COMPLEMENT C3 C4 PANEL (03/16/2024 1:46 PM ANALYTICAL CHEMIST) Pathologist [facility] Complement C3 205(H) 83 - 193 mg/dL [facility] Complement C4 34 15 - 57 mg/dL [facility] Comment: Test Performed at: [facility] [address] MIREYA CATALAN MD Blood BLOOD SPECIMEN / Unknown 03/16/2024 1:46 PM ANALYTICAL CHEMIST 03/16/2024 1:53 PM ANALYTICAL CHEMIST Terrie Lancaster LAB CLERK-RECREATION FACILITY MANAGER LAB - CHEMI STRY ORDERABLES Performing Organization Address [facility] [place] [address] * FERRITIN (03/16/2024 1:46 PM ANALYTICAL CHEMIST) Pathologist [facility] Ferritin 35 16 - 232 ng/mL [facility] Comment: Test Performed at: [facility] [employer] [place] [place] [address] MIREYA CATALAN MD Blood BLOOD SPECIMEN / Unknown 03/16/2024 1:46 PM ANALYTICAL CHEMIST 03/16/2024 1:53 PM ANALYTICAL CHEMIST Terrie Lancaster LAB CLERK-RECREATION FACILITY MANAGER LAB - CHEMI STRY ORDERABLES Performing Organization Address [facility] [place] [address] * NM REMOVE CERUMEN IMPACTED W INSTR BAYRON (03/04/2024 2:02 PM ANALYTICAL CHEMIST) Narrative Tatianna Stovall APRN-RECREATION FACILITY MANAGER - 03/04/2024 2:02 PM ANALYTICAL CHEMIST Tatianna Stovall APRN-RECREATION FACILITY MANAGER 03/04/2024 2:03 PM Procedure: Bilateral Micro-otoscopy Indication: Cerumen impaction [...] the left had normal landmarks and mobility. The right had normal landmarks and mobility. Tatianna Stovall LAB CLERK-RECREATION FACILITY MANAGER PROCEDURE/MINOR SURGICAL ORDERABLES * AUDIOLOGY/TYMPANOMETRY ORDER (03/03/2024 12:25 PM ANALYTICAL CHEMIST) [facility] * HPV DETECTION HIGH RISK LOY (10/30/2021 11:31 AM CDT) High Risk Human Papilloma Result Not detected Not detected 11/02/2021 4:49 PM CDT [facility] High Risk Human Papilloma Interp 11/02/2021 4:49 PM CDT [facility] Comment:High Risk Human Narinder [...] 52, 56, 58, 59, 66, and 68). The reference range is Not Detected . Comment: These test results should not be used as the sole basis for clinical assessment and treatment of patients. These results should always be correlated with other available data (cytology, histology, and clinical information). Jovita Arteaga MD LAB - MICROBIOLOGY ORDERABLES [facility] [address] [place], [place] [id number] [place] [address] from Last 3 Months or Most Recently Relevant to Health Maintenance Care Teams Cable Television Installer Relationship Specialty Start Date End Date Eden Holley, LAB CLERK-RECREATION FACILITY MANAGER [address] [facility] [address] [place] [address] PCP - General Nurse Practitioner 10/20/23 Tera Bernard MD [address] [place], [place] [id number] Obstetrics and Gynecology 06/19/23
--- OUTSIDE RECORDS SUMMARY | 2024-05-21 14:51 | XMS_ITS | Clinical Summary ---
Author Organization [facility] Address [address] [place] [address] Care Team Providers Care Pharmacist Technician Name Role Phone Unavailable Primary Care Provider [...] Vaccines (1 of 2) 10/15/2023 COVID-19 Vaccine (2023-2 5 season) 2023 Influenza Adult (#1) 2023 [...]
--- OUTSIDE RECORDS SUMMARY | 2024-05-21 14:51 | XMS_ITS | Referral Summary ---
Author Organization [facility] Address [address] [place] [address] Care Team Providers Care Furniture Inspector Name Role Phone Tear Bernard MD Unavailable [phone] Eden Holley Primary Care Provider Source Comments [facility],non-owned Affiliates and Associated Physician Practices is amultiple site organization consisting of ambulatory clinics and hospital sitesin [place], [place], [place] and [place]. This disclosure is being madepursuant to the Care Everywhere program and may not contain all information available regarding this patient. Last updated 17.[facility] Encounters Date Type Department Care Team Description 04/13/2024 Telephone [facility] - Rheumatology [address] [place] [address] Keyshawn Mota MD Procedure Prior Auth Request (CT Thoracic Spine ) 04/09/2024 Telephone [facility] - Rheumatology [address] [place] [address] Terrie Lancaster APRN-CNP General 03/16/2024 Telephone [facility] - Rheumatology [address] [place], [place] [id number] Terrie Lancaster APRN-CNP Order 03/13/2024 Refill [facility] - ENT [address] [place] [id number] Tatianna Stovall APRN-CNP Refill Request 03/04/2024 Travel 03/04/2024 10:45 AM TECHNICAL TRAINER Office Visit [facility] - ENT [address] [place] [address] Tatianna Stovall APRN-MAURILIO Bilateral impacted cerumen (Primary Dx); Dizziness; Vestibular migraine 02/27/2024 Travel 02/27/2024 3:00 PM TECHNICAL TRAINER Testing Visit [facility] - ENT [address] [place] [address] Radha Rapp AuD Examination of ears and hearing 02/25/2024 [place]phone [facility] [place] [address] [address] [place] [address] Sonali Alexander APRN-MAURILIO Referral from Last 3 Months Allergies Active Allergy [...] Apply to affected area once daily Active dhqdyyw-xolalpttw-phcz osterone (Biest With Testosterone) 0.125-0.5mg/mL cmpd cream [...] Comments Blood Pressure 122/76 02/19/2024 9:46 AM TECHNICAL TRAINER Pulse 86 02/19/2024 9:46 AM TECHNICAL TRAINER Temperature - - Respiratory Rate 18 10/20/2023 2:51 PM CDT Oxygen Saturation 96% 10/20/2023 2:51 PM CDT Inhaled Oxygen Concentration - - Weight 106.1 kg (234 lb) 03/04/2024 10:56 AM TECHNICAL TRAINER Height 157.5 cm (5' 2 ) 03/04/2024 10:56 AM TECHNICAL TRAINER Body Mass Index 42.8 03/04/2024 10:56 AM TECHNICAL TRAINER Plan of Treatment Upcoming Encounters Date Type Department Care Team (Late st Contact Info) Description 06/03/2024 9:30 AM CDT Office Visit [facility] - ENT [address] [place] [address] Tatianna Stovall, SWITCHBOARD RECEPTIONIST-ELECTRONIC INDUSTRIAL CONTROLS MECHANIC [address] [place] [address] 06/21/2024 9:30 AM CDT Office Visit [facility] - Rheumatology [address] [place] [address] Terrie Lancaster SWITCHBOARD RECEPTIONIST-ELECTRONIC INDUSTRIAL CONTROLS MECHANIC [address] [place] [address] 07/22/2024 9:00 AM CDT [place] [facility] [place] [address] [address] [place] [address] Sonali Alexander, SWITCHBOARD RECEPTIONIST-ELECTRONIC INDUSTRIAL CONTROLS MECHANIC [address] [place] [address] Procedures Procedure Name Priority Date/Time Associated Diagnosis Comments DNA ANTIBODY DOUBLE STRANDED Routine 03/16/2024 1:46 PM TECHNICAL TRAINER Iron deficiency Neuropathy Osteoarthritis of multiple joints, unspecified osteoarthritis type Medication monitoring encounter Polyarthralgia Fibromyalgia Myofascial pain COMPLEMENT C3 C4 PANEL Routine 03/16/2024 1:46 PM TECHNICAL TRAINER Iron deficiency Neuropathy Osteoarthritis of multiple joints, unspecified osteoarthritis type Medication monitoring encounter Polyarthralgia Fibromyalgia Myofascial pain SS-A/SS-B (SJOGREN'S) ANTIBODY PANEL Routine 03/16/2024 1:46 PM TECHNICAL TRAINER Iron deficiency Neuropathy Osteoarthritis of multiple joints, unspecified osteoarthritis type Medication monitoring encounter Polyarthralgia Fibromyalgia Myofascial pain FERRITIN Routine 03/16/2024 1:46 PM TECHNICAL TRAINER Iron deficiency Neuropathy Osteoarthritis of multiple joints, unspecified osteoarthritis type Medication monitoring encounter Polyarthralgia Fibromyalgia Myofascial pain IRON + TIBC PANEL Routine 03/16/2024 1:4 6 PM TECHNICAL TRAINER Iron deficiency Neuropathy Osteoarthritis of multiple joints, unspecified osteoarthritis type Medication monitoring encounter Polyarthralgia Fibromyalgia Myofascial pain C-REACTIVE PROTEIN Routine 03/16/2024 1: 46 PM TECHNICAL TRAINER Iron deficiency Neuropathy Osteoarthritis of multiple joints, unspecified osteoarthritis type Medication monitoring encounter Polyarthralgia Fibromyalgia Myofascial pain ERYTHROCYTE SEDIMENTATION RATE Routine 03/16/2024 1:46 PM TECHNICAL TRAINER Iron deficiency Neuropathy Osteoarthritis of multiple joints, unspecified osteoarthritis type Medication monitoring encounter Polyarthralgia Fibromyalgia Myofascial pain COMPREHENSIVE METABOLIC PANEL Routine 03/16/2024 1:46 PM TECHNICAL TRAINER Iron deficiency Neuropathy Osteoarthritis of multiple joints, unspecified osteoarthritis type Medication monitoring encounter Polyarthralgia Fibromyalgia Myofascial pain CBC W AUTO DIFFERENTIAL Routine 03/16/2024 1:46 PM TECHNICAL TRAINER Iron deficiency Neuropathy Osteoarthritis of multiple joints, unspecified osteoarthritis type Medication monitoring encounter Polyarthralgia Fibromyalgia Myofascial pain NC REMOVE CERUMEN IMPACTED W INSTR BAYRON Routine 03/04/2024 2:02 PM TECHNICAL TRAINER Bilateral impacted cerumen AUDIOLOGY/TYMPANOMETR Y ORDER Routine 03/03/2024 12:25 PM TECHNICAL TRAINER HPV DETECTION HIGH RISK LOY Routine 10/30/2021 11:31 AM CDT Cervical cancer screening from Last 3 Months or Most Recently Relevant to Health Maintenance Results * C-REACTIVE PROTEIN (CRP) (03/16/2024 1:46 PM TECHNICAL TRAINER) C-Reactive Protein 5.6 <8.0 mg/L [facility] Comment: Test Performed at: [facility] [place] [address] [address] MIREYA CATALAN MD Blood BLOOD SPECIMEN / Unknown 03/16/2024 1:46 PM TECHNICAL TRAINER 03/16/2024 1:53 PM TECHNICAL TRAINER Terrie Rebecca Lancaster APRN-ELECTRONIC INDUSTRIAL CONTROLS MECHANIC LAB - CHEMI STRY ORDERABLES Performing Organization Address [facility] Co de Phone Number [facility] [phone] [place] [address] * SS-A/SS-B (SJOGREN'S) ANTIBODY PANEL (03/16/2024 1:46 PM TECHNICAL TRAINER) Sjogren's Antibodies (SSA) <1.0 NEG <1.0 NEG AI [facility] Sjogren's Antibodies (SSB) <1.0 NEG <1.0 NEG AI [facility] Comment: Test Performed at: [facility] [place] [address] MIREYA CATALAN MD Blood BLOOD SPECIMEN / Unknown 03/16/2024 1:46 PM TECHNICAL TRAINER 03/16/2024 1:53 PM TECHNICAL TRAINER Terrie Lancaster APRN-ELECTRONIC INDUSTRIAL CONTROLS MECHANIC LAB - CHEMI STRY ORDERABLES Performing Organization Address [facility] [place] [address] * DNA ANTIBODY DOUBLE STRANDED (03/16/2024 1:46 PM TECHNICAL TRAINER) dsDNA Antibody <1 IU/mL [facility] Comment: IU/mL Interpretation < or = 4 Negative 5-9 Indeterminate > or = 10 Positive Test Performed at: [facility] [address] MIREYA CATALAN MD Blood BLOOD SPECIMEN / Unknown 03/16/2024 1:46 PM TECHNICAL TRAINER 03/16/2024 1:53 PM TECHNICAL TRAINER Terrie Lancaster APRN-ELECTRONIC INDUSTRIAL CONTROLS MECHANIC LAB - HEMAT OLOGY ORDERABLES Performing Organization Address [facility] Co de Phone Number [address] [address] * (ABNORMAL) SED RATE AUTO (ESR) (03/16/2024 1:46 PM TECHNICAL TRAINER) Pathologist [facility] Erythrocyte Sedimentation Rate Westergren 22(H) < OR = 20 mm/h [facility] Comment: Test Performed at: [facility] [address] MIREYA CATALAN MD Blood BLOOD SPECIMEN / Unknown 03/16/2024 1:46 PM TECHNICAL TRAINER 03/16/2024 1:53 PM TECHNICAL TRAINER Terrie Lancaster SWITCHBOARD RECEPTIONIST-ELECTRONIC INDUSTRIAL CONTROLS MECHANIC LAB - HEMAT OLOGY ORDERABLES [address] [address] * CBC WITH DIFFERENTIAL (03/16/2024 1:46 PM TECHNICAL TRAINER) [facility] White Blood Cell Count 8.3 3.8 - [...] 1.3 % [facility] Comment: Test Performed at: [facility] [address] MIREYA CATALAN MD Blood BLOOD SPECIMEN / Unknown 03/16/2024 1:46 PM TECHNICAL TRAINER 03/16/2024 1:53 PM TECHNICAL TRAINER Terrie Rebecca Lancaster APRN-ELECTRONIC INDUSTRIAL CONTROLS MECHANIC LAB - HEMAT OLOGY ORDERABLES Performing Organization Address [facility] Co de Phone Number [facility] [address] [place] [address] * COMPREHENSIVE METABOLIC PANEL (03/16/2024 1:46 PM TECHNICAL TRAINER) Pathologist [facility] Glucose 87 65 - 99 mg/dL [facility] [...] 29 U/L [facility] Comment: Test Performed at: [facility] [address] [place] [address] MIREYA CATALAN MD Blood BLOOD SPECIMEN / Unknown 03/16/2024 1:46 PM TECHNICAL TRAINER 03/16/2024 1:53 PM TECHNICAL TRAINER Terrie Rebecca Lancaster APRN-ELECTRONIC INDUSTRIAL CONTROLS MECHANIC LAB - CHEMI STRY ORDERABLES Performing Organization Address [facility]/[place] [address] * IRON + TIBC PANEL (03/16/2024 1:46 PM TECHNICAL TRAINER) Pathologist [facility] Iron 70 45 - 160 mcg/dL [facility] TIBC 362 250 - 450 mcg/dL (calc) [facility] % Saturation 19 16 - 45 % (calc) [facility] Comment: Test Performed at: [facility] [address] [facility] [place] [address] MIREYA CATALAN MD Blood BLOOD SPECIMEN / Unknown 03/16/2024 1:46 PM TECHNICAL TRAINER 03/16/2024 1:53 PM TECHNICAL TRAINER Terrie AGUSTINELECTRONIC INDUSTRIAL CONTROLS MECHANIC LAB - CHEMI STRY ORDERABLES Performing Organization Address [facility] [place] [address] * (ABNORMAL) COMPLEMENT C3 C4 PANEL (03/16/2024 1:46 PM TECHNICAL TRAINER) [facility] Complement C3 205(H) 83 - 193 mg/dL [facility] Complement C4 34 15 - 57 mg/dL [facility] Comment: Test Performed at: [facility] [address] [employer] [place] [address] MIREYA CATALAN MD Blood BLOOD SPECIMEN / Unknown 03/16/2024 1:46 PM TECHNICAL TRAINER 03/16/2024 1:53 PM TECHNICAL TRAINER Terrie CANO LAB - CHEMI STRY ORDERABLES Performing Organization Address City/[facility] Co de Phone Number [place] [phone] * FERRITIN (03/16/2024 1:46 PM TECHNICAL TRAINER) Pathologist [facility] Ferritin 35 16 - 232 ng/mL [facility] Comment: Test Performed at: [facility] [place] [address] MIREYA CATALAN MD Blood BLOOD SPECIMEN / Unknown 03/16/2024 1:46 PM TECHNICAL TRAINER 03/16/2024 1:53 PM TECHNICAL TRAINER Terrie Lancaster [facility] LAB - CHEMI STRY ORDERABLES [facility] [address] [place] [address] * NC REMOVE CERUMEN IMPACTED W INSTR BAYRON (03/04/2024 2:02 PM TECHNICAL TRAINER) Narrative Tatianna Stovall, RACHAEL - 03/04/2024 2:02 PM TECHNICAL TRAINER Tatianna Stovall APRN-CNP 03/04/2024 2:03 PM Procedure: Bilateral Micro-otoscopy Indication: [...] had normal landmarks and mobility. Tatianna Stovall SWITCHBOARD [facility] PROCEDURE/MINOR SURGICAL ORDERABLES * AUDIOLOGY/TYMPANOMETRY ORDER (03/03/2024 12:25 PM TECHNICAL TRAINER) [facility] O RDERABLES * HPV DETECTION HIGH RISK LOY (10/30/2021 11:31 AM CDT) High Risk Human Papilloma Result Not detected Not detected 11/02/2021 4:49 PM CDT [facility] High Risk Human Papilloma Interp 11/02/2021 4:49 PM CDT [facility] Comment:High Risk Human Narinder lloma Virus was Not Detected. Pathology/Cytolo gy VAGINA AND CERVIX, CS / Unknown 10/30/2021 11:31 AM CDT 10/31/2021 12:13 PM CDT Narrative [facility] - 11/02/2021 4:49 [...] Arteaga MD LAB - MICROBIOLOGY ORDERABLES [facility] [address] [facility] [place] [address], [facility] [phone] from Last 3 Months or Most Recently Relevant to Health Maintenance Care Teams Furniture Inspector Relationship Specialty Start Date End Date Eden Holley, SWITCHBOARD RECEPTIONIST-ELECTRONIC INDUSTRIAL CONTROLS MECHANIC [address] [address] [place] [id number] PCP - General Nurse Practitioner 10/20/23 Tera Bernard MD [address] [place], [place] [id number] Obstetrics and Gynecology 06/19/23
--- OUTSIDE RECORDS SUMMARY | 2024-05-21 14:51 | XMS_ITS | Patient Health Summary ---
Author Organization [facility] Address [address] [place] [address] Care Team Providers Care County Attorney Name Role Phone Tera Bernard MD Unavailable [phone] Eden Holley APRN-DIRECTOR DATA MANAGEMENT Primary Care Provider Note from [facility],non-owned Affiliates and Associated Physician Practices is amultiple site organization consisting of ambulatory clinics and hospital sitesin [place], [place], [place] and [place]. This disclosure is being madepursuant to the Care Everywhere program and may not contain all information available regarding this patient. Last updated 17.[facility] Allergies * Prochlorperazine(Other) * Erythromycin(Urticaria) -Medium Criticality [...] Apply to affected area once daily * xiignts-qzvnpoouw-xfpjjutevczn (Biest With Testosterone) 0.125-0.5mg/mL cmpd cream Apply [...] Comments Blood Pressure 122/76 02/19/2024 9:46 AM BOTTLE HOUSE QUALITY CONTROL TECHNICIAN Pulse 86 02/19/2024 9:46 AM BOTTLE HOUSE QUALITY CONTROL TECHNICIAN Temperature - - Respiratory Rate 18 10/20/2023 2:51 PM CDT Oxygen Saturation 96% 10/20/2023 2:51 PM CDT Inhaled Oxygen Concentration - - Weight 106.1 kg (234 lb) 03/04/2024 10:56 AM BOTTLE HOUSE QUALITY CONTROL TECHNICIAN Height 157.5 cm (5' 2 ) 03/04/2024 10:56 AM BOTTLE HOUSE QUALITY CONTROL TECHNICIAN Body Mass Index 42.8 03/04/2024 10:56 AM BOTTLE HOUSE QUALITY CONTROL TECHNICIAN Procedures * DNA ANTIBODY DOUBLE STRANDED(Performed 03/16/2024) [...] monitoring encounter, Polyarthralgia, Fibromyalgia, Myofascial pain * NE REMOVE CERUMEN IMPACTED W INSTR BAYRON(Performed 03/04/2024) [...] * C-REACTIVE PROTEIN (CRP) (03/16/2024 1:46 PM BOTTLE HOUSE QUALITY CONTROL TECHNICIAN) Only the most recent of3 resultswithin the time period is included. C-Reactive Protein 5.6 <8.0 mg/L [facility] Comment: Test Performed at: [facility] [place] [address] [place] [address] MIREYA CATALAN MD Blood BLOOD SPECIMEN / Unknown 03/16/2024 1:46 PM BOTTLE HOUSE QUALITY CONTROL TECHNICIAN 03/16/2024 1:53 PM BOTTLE HOUSE QUALITY CONTROL TECHNICIAN Terrie Lancaster LINDA-DIRECTOR DATA MANAGEMENT LAB - CHEMI STRY ORDERABLES Performing Organization Address [facility] Co de Phone Number [place] [phone] * SS-A/SS-B (SJOGREN'S) ANTIBODY PANEL (03/16/2024 1:46 PM BOTTLE HOUSE QUALITY CONTROL TECHNICIAN) Sjogren's Antibodies (SSA) <1.0 NEG <1.0 NEG AI [facility] Sjogren's Antibodies (SSB) <1.0 NEG <1.0 NEG AI [facility] Comment: Test Performed at: [place] [address] MIREYA CATALAN MD Blood BLOOD SPECIMEN / Unknown 03/16/2024 1:46 PM BOTTLE HOUSE QUALITY CONTROL TECHNICIAN 03/16/2024 1:53 PM BOTTLE HOUSE QUALITY CONTROL TECHNICIAN Terrierina Fernandez Anisha MCKEON-DIRECTOR DATA MANAGEMENT LAB - CHEMI STRY ORDERABLES Performing Organization Address [facility] [place] [address] * DNA ANTIBODY DOUBLE STRANDED (03/16/2024 1:46 PM BOTTLE HOUSE QUALITY CONTROL TECHNICIAN) dsDNA Antibody <1 IU/mL [facility] Comment: IU/mL Interpretation < or = 4 Negative 5-9 Indeterminate > or = 10 Positive Test Performed at: [facility] [place] [address] MIREYA CATALAN MD Blood BLOOD SPECIMEN / Unknown 03/16/2024 1:46 PM BOTTLE HOUSE QUALITY CONTROL TECHNICIAN 03/16/2024 1:53 PM BOTTLE HOUSE QUALITY CONTROL TECHNICIAN Terrie Fernandez Anisha MCKEON-DIRECTOR DATA MANAGEMENT LAB - HEMAT OLOGY ORDERABLES Performing Organization Address [facility] [place] [address] * (ABNORMAL) SED RATE AUTO (ESR) (03/16/2024 1:46 PM BOTTLE HOUSE QUALITY CONTROL TECHNICIAN) Only the most recent of3 resultswithin the time period is included. Erythrocyte Sedimentation Rate Westergren 22(H) < OR = 20 mm/h [facility] Comment: Test Performed at: [facility] [address] [address] MIREYA CATALAN MD Blood BLOOD SPECIMEN / Unknown 03/16/2024 1:46 PM BOTTLE HOUSE QUALITY CONTROL TECHNICIAN 03/16/2024 1:53 PM BOTTLE HOUSE QUALITY CONTROL TECHNICIAN Terrie Lancaster QUANTITATIVE RESEARCHER-DIRECTOR DATA MANAGEMENT LAB - HEMAT OLOGY ORDERABLES [address] [address] * CBC WITH DIFFERENTIAL (03/16/2024 1:46 PM BOTTLE HOUSE QUALITY CONTROL TECHNICIAN) Only the most recent of3 resultswithin the [...] 1.3 % [facility] Comment: Test Performed at: [facility] [address] MIREYA CATALAN MD Blood BLOOD SPECIMEN / Unknown 03/16/2024 1:46 PM BOTTLE HOUSE QUALITY CONTROL TECHNICIAN 03/16/2024 1:53 PM BOTTLE HOUSE QUALITY CONTROL TECHNICIAN Terrie Lancaster QUANTITATIVE RESEARCHER-DIRECTOR DATA MANAGEMENT LAB - HEMAT OLOGY ORDERABLES [address] [address] * COMPREHENSIVE METABOLIC PANEL (03/16/2024 1:46 PM BOTTLE HOUSE QUALITY CONTROL TECHNICIAN) Only the most recent of3 resultswithin the [...] 29 U/L [facility] Comment: Test Performed at: [facility] [address] MIREYA CATALAN MD Blood BLOOD SPECIMEN / Unknown 03/16/2024 1:46 PM BOTTLE HOUSE QUALITY CONTROL TECHNICIAN 03/16/2024 1:53 PM BOTTLE HOUSE QUALITY CONTROL TECHNICIAN Terrie Lancaster QUANTITATIVE RESEARCHER-DIRECTOR DATA MANAGEMENT LAB - CHEMI STRY ORDERABLES Performing Organization Address [facility] [place] [address] * IRON + TIBC PANEL (03/16/2024 1:46 PM BOTTLE HOUSE QUALITY CONTROL TECHNICIAN) Only the most recent of3 resultswithin the time period is included. Iron 70 45 - 160 mcg/dL [facility] TIBC 362 250 - 450 mcg/dL (calc) [facility] % Saturation 19 16 - 45 % (calc) [facility] Comment: Test Performed at: re3D eriQoo [facility] ([place]) [place] [address] MIREYA CATALAN MD Blood BLOOD SPECIMEN / Unknown 03/16/2024 1:46 PM BOTTLE HOUSE QUALITY CONTROL TECHNICIAN 03/16/2024 1:53 PM BOTTLE HOUSE QUALITY CONTROL TECHNICIAN Terrie Lancaster QUANTITATIVE RESEARCHER-Mixertech LAB - CHEMI STRY ORDERABLES Performing Organization Address [facility] [place] [address] * (ABNORMAL) COMPLEMENT C3 C4 PANEL (03/16/2024 1:46 PM BOTTLE HOUSE QUALITY CONTROL TECHNICIAN) Pathologist [facility] Complement C3 205(H) 83 - 193 mg/dL [facility] Complement C4 34 15 - 57 mg/dL [facility] Comment: Test Performed at: [facility] [place] [address] MIREYA CATALAN MD Blood BLOOD SPECIMEN / Unknown 03/16/2024 1:46 PM BOTTLE HOUSE QUALITY CONTROL TECHNICIAN 03/16/2024 1:53 PM BOTTLE HOUSE QUALITY CONTROL TECHNICIAN Terrie Lancaster QUANTITATIVE RESEARCHER-[employer]er[employer] LAB - CHEMI STRY ORDERABLES Performing Organization Address [facility] [place] [address] * FERRITIN (03/16/2024 1:46 PM BOTTLE HOUSE QUALITY CONTROL TECHNICIAN) Only the most recent of2 resultswithin the time period is included. Pathologist [facility] Ferritin 35 16 - 232 ng/mL [facility] Comment: Test Performed at: re3D eriQoo [place] [address] MIREYA CATALAN MD Blood BLOOD SPECIMEN / Unknown 03/16/2024 1:46 PM BOTTLE HOUSE QUALITY CONTROL TECHNICIAN 03/16/2024 1:53 PM BOTTLE HOUSE QUALITY CONTROL TECHNICIAN Terrie Lancaster QUANTITATIVE RESEARCHER-DIRECTOR DATA MANAGEMENT LAB - CHEMI STRY ORDERABLES [facility] [address] [place] [address] * NE REMOVE CERUMEN IMPACTED W INSTR BAYRON (03/04/2024 2:02 PM BOTTLE HOUSE QUALITY CONTROL TECHNICIAN) Narrative Tatianna Stovall APRN-CNP - 03/04/2024 2:02 PM BOTTLE HOUSE QUALITY CONTROL TECHNICIAN Tatianna Stovall APRN-CNP 03/04/2024 2:03 PM Procedure: [...] had normal landmarks and mobility. Tatianna Stovall APRN-DIRECTOR DATA MANAGEMENT PROCEDURE/MINOR SURGICAL ORDERABLES * AUDIOLOGY/TYMPANOMETRY ORDER (03/03/2024 12:25 PM BOTTLE HOUSE QUALITY CONTROL TECHNICIAN) [facility] AUDIOLOGY SERVICES O RDERABLES * MRI Thoracic [...] PM Narrative 10/28/2023 4:50 PM CDT PROCEDURE: MRI THORACIC SPINE WO CONTRAST DATE/TIME [...] PM Narrative 10/28/2023 4:46 PM CDT PROCEDURE: MRI LUMBAR SPINE WO CONTRAST DATE/TIME [...] PEPTIDE(CCP) AB IGG (06/19/2023 2:58 PM CDT) [facility] Cyclic Citrullinated Peptide Antibody IgG <16 UNITS [facility] Comment: Reference Range Negative: <20 Weak Positive: 20-39 Moderate Positive: 40-59 Strong Positive: >59 Test Performed at: [place] [address] MIREYA CATALAN MD Blood BLOOD SPECIMEN / Unknown 06/19/2023 2:58 PM CDT 06/19/2023 2:58 PM CDT Keyshawn Mota MD LAB - CHEMISTRY ORDRyan UHBER Performing Organization Address [facility] Co de Phone Number [facility] [address] [place] [address] * URIC ACID BLOOD (06/19/2023 2:55 PM CDT) [facility] Uric Acid 2.9 2.5 - 7.0 mg/dL [facility] Comment: Therapeutic target for gout patients: <6.0 mg/dL Test Performed at: [facility] NOE [facility] [place] [address] MIREYA CATALAN MD Blood BLOOD SPECIMEN / Unknown 06/19/2023 2:55 PM CDT 06/19/2023 2:56 PM CDT Keyshawn Mota MD LAB - CHEMISTRY ORDRyan HUBER Performing Organization Address [facility] Co de Phone Number [facility] [address] [place] [address] * RHEUMATOID FACTOR BLOOD QUANTITATIVE (06/19/2023 2:55 PM CDT) [facility] Rheumatoid Factor <14 <14 IU/mL [facility] Comment: Test Performed at: iPointer JOR[place] AAmazonSaji [address] [place] [address] MIREYA CATALAN MD Blood BLOOD SPECIMEN / Unknown 06/19/2023 2:55 PM CDT 06/19/2023 2:56 PM CDT Keyshawn Mota MD LAB - CHEMISTRY DAMARI HUBER Performing Organization Address [facility] de Phone Number [facility] [address] [place] [address] * OMAYRA BLOOD SCREEN W/REFLEX TITER (06/19/2023 2:55 PM CDT) [facility] OMAYRA Screen NEGATIVE NEGATIVE [facility] Comment: OMAYRA [...] AC-0: Negative International Consensus on OMAYRA Patterns (https://doi.org/10.1515/gwen-5883-6671) For additional information, please refer to http://education.Chasm.io (formerly Wahooly).Massive Analytic/faq/GSM853 (This link is being provided for informational/ educational purposes only.) Test Performed at: iPointer JORGE ABloggerce Quintin [place] [address] MIREYA CATALAN MD Blood BLOOD SPECIMEN / Unknown 06/19/2023 2:55 PM CDT 06/19/2023 2:56 PM CDT Keyshawn Mota MD LAB - CHEMISTRY DAMARI HUBER Performing Organization Address [facility] Co de Phone Number [facility] [address] [place] [address] * VITAMIN D 25-HYDROXY (06/19/2023 2:55 PM CDT) [facility] Vitamin D, 25 Hydroxy 69 30 - 100 ng/mL [facility] Comment: Vitamin D Status 25-OH Vitamin D: Deficiency: <20 ng/mL Insufficiency: 20 - 29 ng/mL Optimal: > or = 30 ng/mL For 25-OH Vitamin D testing on patients on D2-supplementation and patients for whom quantitation of D2 and D3 fractions is required, the QuestAssureD(TM) 25-OH VIT D, (D2,D3), LC/MS/MS is recommended: order code 63630 (patients >2yrs). See Note 1 Note 1 For additional information, please refer to http://education.[place]/faq/KWX741 (This link is being provided for informational/ educational purposes only.) Test Performed at: [place] Sign[place]HAN [place] [facility]Gas [address] MIREYA CATALAN MD Blood BLOOD SPECIMEN / Unknown 06/19/2023 2:55 PM CDT 06/19/2023 2:56 PM CDT Keyshawn Mota MD LAB - CHEMISTRY DAMARI HUBER Performing Organization Address [facility] Co de Phone Number [facility] [address] [place] [address] * CK BLOOD (06/19/2023 2:55 PM CDT) CK 84 29 - 143 U/L [facility] Comment: Test Performed at: [facility] [place] [address] MIREYA CATALAN MD Blood BLOOD SPECIMEN / Unknown 06/19/2023 2:55 PM CDT 06/19/2023 2:56 PM CDT Keyshawn Mota MD LAB - CHEMISTRY DAMARI HUBER Performing Organization Address [facility] Co de Phone Number [facility] [address] [place] [address] * XR HAND BILAT 3VW OR MORE (06/19/2023 2:45 PM CDT) Anatomical Region Laterality Modality Upper Extremity, Wrist / Hand Ra diographic Imaging 06/19/2023 3:48 PM CDT Narrative 06/19/2023 3:52 PM CDT PROCEDURE(s): XR LUMBAR SPINE 2 OR 3VW, XR HAND BILAT 3VW OR MORE; DATE AND TIME OF EXAM(s): 06/19/2023 2:46 PM; LOCATION: [facility] INDICATION(s): M25.50: Pain in unspecified joint [...] TIME OF EXAM(s): 06/19/2023 2:46 PM; LOCATION: [facility] INDICATION(s): M25.50: Pain in unspecified joint R70.0: Elevated erythrocyte sedimentation rate R53.83: Other fatigue M79.18: Myalgia, other site M54.16: Radiculopathy, lumbar region COMPARISON(s): None available. Findings/Impression: Lumbar: 5 nonrib-bearing lumbar segments in the lumbosacral transitional segment considered to be partially lumbarized S1. Per to the at the M3znailbvvjv process which pseudoarticulating within the remaining sacral [...] TIME OF EXAM(s): 06/19/2023 2:46 PM; LOCATION: [facility] INDICATION(s): M25.50: Pain in unspecified joint [...] TIME OF EXAM(s): 06/19/2023 2:46 PM; LOCATION: [facility] INDICATION(s): M25.50: Pain in unspecified joint R70.0: Elevated erythrocyte sedimentation rate R53.83: Other fatigue M79.18: Myalgia, other site M54.16: Radiculopathy, lumbar region COMPARISON(s): None available. Findings/Impression: Lumbar: 5 nonrib-bearing lumbar segments in the lumbosacral transitional segment considered to be partially lumbarized S1. Per to the at the X7wtkgkpbjzy process which pseudoarticulating within the remaining sacral [...] PM Narrative 06/19/2023 2:50 PM CDT PROCEDURE: XR THORACIC SPINE 2VW DATE/TIME OF [...] soft tissues are unremarkable. Procedure Note Shayy Alba MD - 06/19/2023 PROCEDURE: XR THORACIC SPINE [...] YELLOW [facility] Appearance TURBID(A) CLEAR [facility] Specific [place] UA 1.027 1.001 - 1.035 [facility] pH [...] INCORRECT, PLEASE CONTACT CLIENT SERVICES. PHONE NUMBER: [phone] Test Performed at: [facility] [address] MIREYA CATALAN MD Urine URINE SPECIMEN OBTAINED BY CLEAN CATCH PROCEDURE / Unknown 10/30/2021 11:46 PM CDT Jovita Arteaga MD LAB - URINALYSIS O RDERABLES Performing Organization Address [facility] Co de Phone Number [facility] [address] [place] [address] * HPV DETECTION HIGH RISK LOY (10/30/2021 11:31 AM CDT) High Risk Human Papilloma Result Not detected Not detected 11/02/2021 4:49 PM CDT [facility] High Risk Human Papilloma Interp 11/02/2021 4:49 PM CDT [facility] Comment:High Risk Human Narinder lloma Virus was Not Detected. Pathology/Cytolo gy VAGINA AND CERVIX, CS / Unknown 10/30/2021 11:31 AM CDT 10/31/2021 12:13 PM CDT Narrative [facility] - 11/02/2021 4:49 PM CDT [...] LAB - MICROBIOLOGY ORDERABLES Performing Organization Address [facility]/ZIP Co de Phone Number [facility] [place], [place] [address] [place] [address] * PAP IMAGE-GUIDED W HPV (10/30/2021 11:31 AM CDT) Case Report Gynecologic Cytology Report Case: [id number] Authorizing Provider: Jovita Arteaga MD Collected: 10/30/2021 11:31 AM Ordering Location: [facility] Obstetrics Received: 10/31/2021 12:13 PM [facility] Screen: Terry Forrester Specimen: THINPREP - IMAGE GUIDED, Cervicovaginal 11/05/2021 9:19 AM CDT [facility] LMP 10/15/21 11/05/2021 9:19 AM CDT [facility] Menstrual Status Oral Contraceptives 11/05/2021 9:19 AM CDT [facility] Specimen Adequacy Satisfactory for evaluation, endocervical/trans formation zone component absent. 11/05/2021 9:19 AM CDT [facility] Categorization Negative for intraepithelial lesion or malignancy. 11/05/2021 9:19 AM CDT [facility] Interpretation LONG TERM CARE PHARMACIST Negative for intraepithelial lesion or malignancy. 11/05/2021 9:19 AM CDT [facility] Pap Footnote The Pap Smear is a screening test. False positive and false negative results occur. Negative results do not preclude abnormalities, thus clinical correlation is required. This specimen was evaluated by the ThinPrep Imaging System along with an additional manual rescreening by a media marketing manager and/or pathologist. 11/05/2021 9:19 AM CDT [facility] Embedded Images 9:19 AM CDT [facility] Pathology/Cytolo gy VAGINA AND CERVIX, CS / Unknown 10/30/2021 11:31 AM CDT 10/31/2021 12:13 PM CDT Jovita Arteaga MD LAB - PATHOLOGY/CY TOLOGY ORDERABLES [facility] [address] [phone] * CULTURE URINE (10/30/2021 11:16 AM CDT) Culture [facility] Comment: CULTURE, URINE, ROUTINE Micro Number: [id number] Test Status: Final Specimen Source: Urine Specimen Quality: Adequate Result: No Growth Test Performed at: [place] [address] [place] [address] MIREYA CATALAN MD Urine URINE SPECIMEN OBTAINED BY CLEAN CATCH PROCEDURE / Unknown 10/30/2021 11:16 AM CDT 10/31/2021 2:37 AM CDT Jovita Arteaga MD LAB - MICROBIOLOGY ORDERABLES [place] [id number] [place] [address] Care Teams County Attorney Relationship Specialty Start Date End Date Eden Holley, QUANTITATIVE RESEARCHER-DIRECTOR DATA MANAGEMENT [address] [facility] [address] [facility] [address] [place] [id number] PCP - General Nurse Practitioner 10/20/23 Tera Bernard MD [address] [place] [address] Obstetrics and Gynecology 06/19/23
--- OUTSIDE RECORDS SUMMARY | 2024-05-21 14:52 | XMS_ITS | Patient Health Record ---
Author Organization [facility] [place], [facility] Address [address] [place] [address] Care Team Providers Care Restaurant Kitchen Manager Name Role Phone Jessica Avila Primary Care Provider ALLERGIES Allergen (clinical drug ingredient) Drug/Non Drug Allergy documented on EMR Reaction Allergy Type Onset Date Status erythromycin Erythromycin Unknown Drug Allergy A ctive penicillin Unknown Drug Allergy Active Compazine Unknown Drug Allergy Active Clindamycin Unknown Drug Allergy Activ e REASON FOR REFERRAL No Information MEDICATIONS Medication SIG (Take, Route, Frequency, Duration) Notes Start Date End Date Status Linzess Active metFORMIN HCl 1000mg Active Nystatin 334464 UNIT/GM 1 application Ex ternally Twice a day for 10 days 10/19/2019 Active Norgestim-Eth Estrad Triphasic 0.18/0.215/0.25 MG-25 MCG 1 tablet Orally Once a day for 30 days Active Doxepin HCl Active PROzac Active SOCIAL HISTORY Tobacco Use: Social History Observation Description Date Details (start date - stop date) Never Smoker NA - NA Sex Assigned At : Social History Observation Description Sex Assigned At Unknown Alcohol Structured Question Answer Notes Did you have a drink containing alcohol in the p ast year? No Points 0 Interpretation Negative Smoking Question Answer Notes Are you a: non smoker PROBLEMS Problem Type ICD Code Onset Dates Problem Status W/U Status Risk SNOMED Code Notes Problem Morbid (severe) obesity due to excess calories (E66.01) Active confirmed 48849325484503 Problem Cervical high risk human papillomavirus (HPV) DNA test positive (R87.810) Active confirmed 578469365 Problem Body mass index (BMI) 40.0-44.9, adult (Z68.41) Active confirmed 740795881 Problem Menorrhagia with regular cycle (N92.0) Active confirmed 547192650 Problem Endometriosis (N80.9) Active confirmed 645086720 Problem PCO (polycystic ovaries) (E28.2) Active confirmed 621268419 Problem Dysmenorrhea (N94.6) Active confirmed 125666544 PLAN OF TREATMENT Pending Test Test Name Order Date Screening Mammography Bilateral 02/25/20 19 Screening Mammography Bilateral 03/23/19 21 cervical biopsy 04/26/2019 ECC 04/26/2019 Surepath w/Reflex HPV High Risk if ASCU or CHACHO 02/24/2019 Transvaginal Pelvic and Transabdominal U ltrasounds 02/24/2019 Insurance Providers Payer Name Payer Address Payer Phone Subscriber Number Group Number Insured Name Patient Relationship to Insured Coverage Start Date Coverage End Date [facility] [address] [place] [address] [id number] Sana Connors Self - patient is the insured 9 MEDICAL (GENERAL) HISTORY Medical History History ICD Code PCO endometriosis, biopsy proven interstitail cystitis kidney stones Surgical History Surgery Date(Month/Year) D&C x3 c/section 2000
--- OUTSIDE RECORDS SUMMARY | 2024-05-21 14:52 | XMS_ITS | Clinical Summary ---
Author Organization [facility] Address [address] [place] [address] Care Team Providers Care Email Marketing Specialist Name Role Phone Kishan Eden FLORENCIA Primary Care Provider [phone] Allergies Active Allergy Reactions Criticality Noted Date [...] 1 capsule (40 mg total) by mouth roll hauler before breakfast 2 Active coenzyme H65-ddxgwhe E 100-5 mg-unit capsule Take 100 mg [...] on file Legal Sex Female 10:22 PM MANAGER REGISTRATION Gender Identity Not on file Sexual Orientation Not on file Obstetrics History Last Filed Vital Signs Vital Sign Reading Time Taken Comments Blood Pressure 132/75 08/15/2023 8:19 AM CDT Pulse 65 08/15/2023 8:19 AM CDT Temperature 36.4 C (97.6 F) 08/15/2023 8:19 AM CDT Respiratory Rate 18 08/15/2023 8:19 AM CDT [...] complete this topic Insurance BLUE ACCESS OOS Cardback ACCESS OOS Advance Directives For more information, please contact: [phone] * Full Code (Latest Code Status on File) Date Activated Date Inactivated Comments 08/14/2023 11:04 AM 08/15/2023 3:19 PM Care Teams Email Marketing Specialist Relationship Specialty Start Date End Date Eden Holley NP [address] [address] PCP - General Family Medicine 07/25/23
--- OUTSIDE RECORDS SUMMARY | 2024-05-21 14:52 | XMS_ITS | Referral Summary ---
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 [address] [place] [address] PCP - General Family Medicine 07/25/23
[2024-05-21 14:53] VITALS: BP 163/111; PULSE 127; RESP 25; TEMP 36.6; O2SAT 98
--- NOTE | 2024-05-21 17:10 | ECG_ITS ---
Test Date: 2024-05-21 19:32:40 Measurements Intervals [place] Rate: 93 P: 34 [place]: 150 QRS: -14 QRSD: 83 T: 30 QT: 346 QTc: 430 Interpretive Statements SINUS RHYTHM LOW QRS VOLTAGE IN PRECORDIAL LEADS [QRS DEFLECTION < 1.0 mV IN CHEST LEADS] POOR R-WAVE PROGRESSION ABNORMAL ECG No previous ECG available for comparison Electronically Signed On 05-22-2024 15:39:16 CHIEF INFORMATICS OFFICER by Jerome Ortiz M.D.
--- NOTE | 2024-05-21 17:12 | ED.BACK ---
HPI - Back Pain/Injury General Chief Complaint: Back Pain/Injury <Sandra McdermottWale Barbosa, AUDIO TAPE LIBRARIAN - Last Filed: 05/21/24 17:14> Stated Complaint: right flank pain <Sandraserina Barbosa, AUDIO TAPE LIBRARIAN - Last Filed: 05/21/24 17:14> Time Seen by Provider: 05/21/24 17:00 <Sandra McdermottWale Barbosa, AUDIO TAPE LIBRARIAN - Last Filed: 05/21/24 17:14> Focused HPI: Patient is a 48-year-old female who presents to the ER with right flank pain this started approximately 2 days ago. She reports she has a history of kidney cancer and had a partial nephrectomy approximately 1 year ago. Over the past 24 hours patient endorses headache, significant right flank pain that radiates to her back. Patient denies any recent fevers, blood in her urine, chest pain, shortness of breath. She endorses a history hysterectomy, partial nephrectomy, high blood pressure. GENERAL: Well-appearing, well-nourished, and in mild distress d/t pain. HEAD: Normocephalic, atraumatic. CHEST: Clear to auscultation. ?No respiratory distress. + CVA tenderness HEART: Regular rate and rhythm.? NEURO: ?Alert and oriented x3. Patient screened in triage and initial orders placed.? ?Additional care and disposition to be based upon?diagnostic testing and treatment. <Sandra McdermottWale Barbosa, AUDIO TAPE LIBRARIAN - Last Filed: 05/21/24 17:14> Focused HPI: Patient is a 48-year-old female who presents to the ER with right flank pain this started approximately 2 days ago. She reports she has a history of kidney cancer and had a partial nephrectomy approximately 1 year ago. Over the past 24 hours patient endorses headache, significant right flank pain that radiates to her back. Patient denies any recent fevers, blood in her urine, chest pain, shortness of breath. She endorses a history hysterectomy, partial nephrectomy, high blood pressure. GENERAL: Well-appearing, well-nourished, and in mild distress d/t pain. HEAD: Normocephalic, atraumatic. CHEST: Clear to auscultation. ?No respiratory distress. + CVA tenderness HEART: Regular rate and rhythm.? NEURO: ?Alert and oriented x3. Patient screened in triage and initial orders placed.? ?Additional care and disposition to be based upon?diagnostic testing and treatment. <Candice Joyce PA-C - Last Filed: 05/22/24 02:29> Source: patient <Candice Joyce PA-C - Last Filed: 05/22/24 02:29> Mode of arrival: ambulatory <Candice Joyce PA-C - Last Filed: 05/22/24 02:29> Limitations: no limitations <Candice Joyce PA-C - Last Filed: 05/22/24 02:29> History of Present Illness HPI Narrative: Agree with above HPI. Does note urinary frequency, denies dysuria or hematuria. Has not taken anything for pain. Does take meloxicam daily. States she is currently being worked up for an autoimmune disorder and has chronic pain daily. <Candice Joyce PA-C - Last Filed: 05/22/24 02:29> Related Data Home Medications: Home Medications ?Medication ?Instructions ?Recorded ?Confirmed ?Last Taken ?Type vitamin D3 250 mcg (10,000 1 cap PO DAILY 07/30/23 04/07/24 Unknown History unit)-vitamin K2 45 mcg capsule coQ10 (ubiquinol) 200 mg capsule 100 mg PO DAILY 02/23/24 04/07/24 Unknown History meloxicam 15 mg tablet 15 mg PO DAILY 02/23/24 04/07/24 Unknown History progesterone micronized 200 mg 350 mg PO DAILY 02/23/24 04/07/24 Unknown History capsule Boswellia kai extract 307 mg 614 mg PO BID 04/05/24 04/07/24 Unknown History tablet catalyn 3 cap PO DAILY 04/07/24 04/07/24 Unknown History estradiol 1 mg/gram (0.1 %) 1 packet topical DAILY 04/07/24 04/07/24 Unknown History transdermal gel packet melatonin 5 mg capsule 5 mg PO HS 04/07/24 04/07/24 Unknown History turmeric 400 mg capsule 800 mg PO DAILY 04/07/24 04/07/24 Unknown History <Sandra Barbosa APRN - Last Filed: 05/21/24 17:14> Allergies/Adverse Reactions: Allergies Allergy/AdvReac Type Severity Reaction Status Date / Time Penicillins Allergy Severe Hives Verified 05/21/24 15:00 erythromycin base Allergy Unknown HIVES Verified 05/21/24 15:00 prochlorperazine AdvReac Severe Confusion Verified 05/21/24 15:00 <Sandra Barbosa APRN - Last Filed: 05/21/24 17:14> Review of Systems Review of Systems: All systems reviewed & are unremarkable except as noted in HPI. <Candice Joyce PA-C - Last Filed: 05/22/24 02:29> All systems reviewed & are unremarkable except as noted in HPI and below <Candice Joyce PA-C - Last Filed: 05/22/24 02:29> [facility] Past Medical History Medical History: Medical History Myalgia Otitis media Elevated BP without diagnosis of hypertension Pain of toe of left foot Ataxia Vertigo Thoracic back pain Low back pain radiating to left lower extremity Hypothyroid Constipation Pain, joint, multiple sites Low back pain radiating to both legs Anemia Recurrent kidney stones History of kidney stones PCOS (polycystic ovarian syndrome) Morbid obesity with BMI of 40.0-44.9, adult Anxiety Interstitial cystitis Chronic GERD Asthma Kidney stone <Sandra Barbosa APRN - Last Filed: 05/21/24 17:14> Surgical History Surgical History: Surgical History H/O total hysterectomy Feb 2023 History of 2000 <Sandra Barbosa APRN - Last Filed: 05/21/24 17:14> Family History Family History: Family History Father Heart disease Sibling Alcoholism Grandparent Cancer <Sandra Barbosa APRN - Last Filed: 05/21/24 17:14> Social History Social History: Social History Smoking status: Never smoker Alcohol intake: never Substance use: never Substance use type: does not use Do You Feel Safe in your Home?: Yes Lack of Transportation: No Lack of Food: Never True Current Housing: I Have Housing Concerned About Future Housing: No Difficulty Paying Gas/Electric Bills: No Difficulty Paying for Meds: No Currently Unemployed: No Education: High School Diploma/GED Difficulty w/ Childcare or Family Care: No Living arrangements: with family Spiritual care concerns: No <Sandra Barbosa, LINDA - Last Filed: 05/21/24 17:14> Exam Narrative: GENERAL: Well appearing, morbidly obese with BMI of 41.9, non-toxic, in no acute distress. HEAD: Normocephalic, atraumatic. RESPIRATORY: Airway patent, respirations nonlabored. Clear to auscultation bilaterally, no rales, rhonchi, wheezing. CARDIOVASCULAR: Regular rate and rhythm without murmurs, rubs, or gallops. ABDOMINAL: Soft, tenderness to palpation along right lateral abdomen/flank region. Nondistended. Normoactive BS. MUSCULOSKELETAL: Moves all extremities. No gross deformities. SKIN: Warm, dry, normal color. NEURO: A&O X3. Speech clear. PSYCHIATRIC: Appropriate mood and affect. Normal interaction. <Candice Joyce PA-C - Last Filed: 05/22/24 02:29> Course Vital Signs Vital signs: Vital Signs Temperature 97.9 F 05/21/24 14:53 Pulse Rate 127 H 05/21/24 14:53 Respiratory Rate 25 H 05/21/24 14:53 Blood Pressure 163/111 H 05/21/24 14:53 Pulse Oximetry 98 05/21/24 14:53 Oxygen Delivery Room Air 05/21/24 14:53 Temperature 97.9 F 05/21/24 14:53 Pulse Rate 80 05/22/24 01:29 Respiratory Rate 18 05/22/24 01:29 Blood Pressure 136/88 05/22/24 01:29 Pulse Oximetry 100 05/22/24 01:29 Oxygen Delivery Room Air 05/21/24 14:53 <Sandra Barbosa, LINDA - Last Filed: 05/21/24 17:14> Vital Signs Temperature 97.9 F 05/21/24 14:53 Pulse Rate 127 H 05/21/24 14:53 Respiratory Rate 25 H 05/21/24 14:53 Blood Pressure 163/111 H 05/21/24 14:53 Pulse Oximetry 98 05/21/24 14:53 Oxygen Delivery Room Air 05/21/24 14:53 Temperature 97.9 F 05/21/24 14:53 Pulse Rate 80 05/22/24 01:29 Respiratory Rate 18 05/22/24 01:29 Blood Pressure 136/88 05/22/24 01:29 Pulse Oximetry 100 05/22/24 01:29 Oxygen Delivery Room Air 05/21/24 14:53 <Candice Joyce PA-C - Last Filed: 05/22/24 02:29> MDM - Back Pain/Injury MDM Narrative Medical decision making narrative: Patient presented to ED with right flank pain over the past couple days. History of right-sided partial nephrectomy last year. Patient was initially tachycardic and tachypneic upon arrival. This was improved by the time of my evaluation. Patient was still reporting mild pain, but declined pain medicine. Cbc with blood cell count of 10.7. This appears consistent with previous records. CMP is unremarkable. Stable kidney function. Creatinine today 0.7. UA is clear, no signs of infection. CT scan of abdomen/pelvis was obtained and showing stable postoperative changes of right kidney, no recurrence of mass, no other significant findings. Patient was updated on lab and imaging results. She feels very reassured by the workup. Was most concerned that the mass had returned. Feel she is safe for discharge home at this time with outpatient follow-up. Discussed further management of pain at home. Recommended close follow-up with PCP for further evaluation. Given return precautions. Discharged in stable condition. <Candice Joyce PA-C - Last Filed: 05/22/24 02:29> Medical Records Attestation: I reviewed the patient's medical records. <Candice Joyce PA-C - Last Filed: 05/22/24 02:29> Lab Data Attestation: I reviewed the patient's lab results. <Candice Joyce PA-C - Last Filed: 05/22/24 02:29> Result diagrams: 05/21/24 18:19 05/21/24 18:19 <Sandra Barbosa APRN - Last Filed: 05/21/24 17:14> Labs: Lab Results 05/21/24 05/22/24 Range/Units 18:19 00:01 WBC 10.7 H (4.5-10.0) K/mm3 RBC 5.06 (4.2-5.4) M/mm3 Hgb 15.0 (12.0-15.0) g/dL Hct 45.8 (37.0-47.0) % MCV 90.5 (80-100) fl MCH 29.6 (26-34) pg MCHC 32.8 (32-36) g/dl RDW 13.8 (11.5-14.5) % Plt Count 280 (150-375) k/mm3 MPV 9.5 (7.4-10.4) fl Immature Gran % (Auto) 0.5 (0-0.5) % Neut % (Auto) 62.6 (45.5-73.1) % Lymph % (Auto) 25.0 (18.3-44.2) % [place] % (Auto) 8.4 (2.6-8.5) % Eos % (Auto) 2.5 (0-4.4) % Baso % (Auto) 1.0 (0.2-1.2) % Lymph # (Auto) 2.67 (0.9-3.2) K/mm3 [place] # (Auto) 0.9 H (0.1-0.6) K/mm3 Eos # (Auto) 0.3 (0-0.3) K/mm3 Baso # (Auto) 0.1 (0.0-0.1) K/mm3 Abs Immat Gran (auto) 0.05 H (0.00-0.031) K/mm3 Absolute Neuts (auto) 6.7 (1.3-6.7) K/mm3 Absolute Nucleated RBC 0.000 (0.0-0.012) K/mm3 Nucleated RBC % 0.0 (0.0-0.2) % PT 12.6 (11.1-14.7) Seconds INR 0.9 APTT 22.2 L (22.3-36.8) Seconds Sodium 143 (137-145) mmol/L Potassium 4.0 (3.4-5.0) mmol/L Chloride 106 (98-107) mmol/L Carbon Dioxide 29 (22-30) mmol/L Anion Gap 8 (4-12) mmol/L BUN 18 H (7-17) mg/dL Creatinine 0.73 (0.7-1.0) mg/dL Estim Creat Clear Calc 90 ml/min Estimated GFR > 60 (59 - ) Glucose 109 (65-110) mg/dL Calcium 9.9 (8.4-10.2) mg/dL Total Bilirubin 0.6 (0.2-1.3) mg/dL AST 23 (14-36) U/L ALT 27 (6-35) U/L Alkaline Phosphatase 90 (38-126) U/L Troponin I < 0.012 (0.000-0.034) ng/mL Total Protein 8.0 (6.3-8.2) g/dL Albumin 4.7 (3.5-5.1) g/dL Urine Color Yellow (Yellow) Urine Appearance Clear (Clear) Urine pH 5.0 (5.0-9.0) Ur Specific [place] > 1.045 H (1.001-1.035) Urine Protein Negative (Negative) mg/dL Urine Glucose (UA) Negative (Negative) mg/dL Urine Ketones Negative (Negative) mg/dL Ur Blood (Man) Negative (Negative) Urine Nitrate Negative (Negative) Urine Bilirubin Negative (Negative) Urine Urobilinogen 0.2 (<2.0) mg/dL Leukocyte Esterase Rfl Negative (Negative) [place]/UL <Sandra Micheline Barbosa, AUDIO TAPE LIBRARIAN - Last Filed: 05/21/24 17:14> Lab Results 05/21/24 05/22/24 Range/Units 18:19 00:01 WBC 10.7 H (4.5-10.0) K/mm3 RBC 5.06 (4.2-5.4) M/mm3 Hgb 15.0 (12.0-15.0) g/dL Hct 45.8 (37.0-47.0) % MCV 90.5 (80-100) fl MCH 29.6 (26-34) pg MCHC 32.8 (32-36) g/dl RDW 13.8 (11.5-14.5) % Plt Count 280 (150-375) k/mm3 MPV 9.5 (7.4-10.4) fl Immature Gran % (Auto) 0.5 (0-0.5) % Neut % (Auto) 62.6 (45.5-73.1) % Lymph % (Auto) 25.0 (18.3-44.2) % [place] % (Auto) 8.4 (2.6-8.5) % Eos % (Auto) 2.5 (0-4.4) % Baso % (Auto) 1.0 (0.2-1.2) % Lymph # (Auto) 2.67 (0.9-3.2) K/mm3 [place] # (Auto) 0.9 H (0.1-0.6) K/mm3 Eos # (Auto) 0.3 (0-0.3) K/mm3 Baso # (Auto) 0.1 (0.0-0.1) K/mm3 Abs Immat Gran (auto) 0.05 H (0.00-0.031) K/mm3 Absolute Neuts (auto) 6.7 (1.3-6.7) K/mm3 Absolute Nucleated RBC 0.000 (0.0-0.012) K/mm3 Nucleated RBC % 0.0 (0.0-0.2) % PT 12.6 (11.1-14.7) Seconds INR 0.9 APTT 22.2 L (22.3-36.8) Seconds Sodium 143 (137-145) mmol/L Potassium 4.0 (3.4-5.0) mmol/L Chloride 106 (98-107) mmol/L Carbon Dioxide 29 (22-30) mmol/L Anion Gap 8 (4-12) mmol/L BUN 18 H (7-17) mg/dL Creatinine 0.73 (0.7-1.0) mg/dL Estim Creat Clear Calc 90 ml/min Estimated GFR > 60 (59 - ) Glucose 109 (65-110) mg/dL Calcium 9.9 (8.4-10.2) mg/dL Total Bilirubin 0.6 (0.2-1.3) mg/dL AST 23 (14-36) U/L ALT 27 (6-35) U/L Alkaline Phosphatase 90 (38-126) U/L Troponin I < 0.012 (0.000-0.034) ng/mL Total Protein 8.0 (6.3-8.2) g/dL Albumin 4.7 (3.5-5.1) g/dL Urine Color Yellow (Yellow) Urine Appearance Clear (Clear) Urine pH 5.0 (5.0-9.0) Ur Specific [place] > 1.045 H (1.001-1.035) Urine Protein Negative (Negative) mg/dL Urine Glucose (UA) Negative (Negative) mg/dL Urine Ketones Negative (Negative) mg/dL Ur Blood (Man) Negative (Negative) Urine Nitrate Negative (Negative) Urine Bilirubin Negative (Negative) Urine Urobilinogen 0.2 (<2.0) mg/dL Leukocyte Esterase Rfl Negative (Negative) [place]/UL <Candice Joyce PA-C - Last Filed: 05/22/24 02:29> Imaging Data Attestation: I personally reviewed and interpreted this imaging study as follows: <Candice Joyce PA-C - Last Filed: 05/22/24 02:29> Radiologist's impression: ITS Impressions Abdomen/Pelvis CT 05/21/24 19:04 IMPRESSION: 1. No evidence of recurrence seen in the right kidney. Postoperative changes are seen in the right kidney midpole. 2. No evidence of appendicitis, diverticulitis or intestinal obstruction. <LATOYA Mcclain Last Filed: 05/22/24 02:29> Discharge Plan Discharge Clinical Impression: Right flank pain, History of partial nephrectomy <Sandra Barbosa APRN - Last Filed: 05/21/24 17:14> Patient Disposition: Home, Self-Care <Sandra Barbosa APRN - Last Filed: 05/21/24 17:14> Condition: Stable <Sandra Barbosa APRN - Last Filed: 05/21/24 17:14> Instructions: Antibiotic Form, Acute Low Back Pain (ED), Flank Pain (ED) <Sandra Barbosa APRN - Last Filed: 05/21/24 17:14> Additional Instructions: Continue Tylenol as needed for pain. Continue home medications. Follow-up with your primary care doctor for further evaluation. Return to the ED if you experience worsening or severe pain, difficulty urinating, blood in urine, unable to keep down food or drink, persistent fevers, or any other symptoms of concern. <Sandra Barbosa APRN - Last Filed: 05/21/24 17:14> Patient Language: Andorran <Sandra Barbosa APRN - Last Filed: 05/21/24 17:14> Prescriptions: No Action vitamin D3-vitamin K2 250 mcg (10,000 unit)-45 mcg capsule 1 cap PO DAILY progesterone micronized 200 mg capsule 350 mg PO DAILY gabapentin 300 mg capsule 300 mg PO HS Qty: 90 3RF Patient Comments: Says is taking bid. Linzess 290 mcg capsule 290 mcg PO DAILY Qty: 90 3RF omeprazole 40 mg capsule,delayed release(DR/EC) 40 mg PO BID Qty: 180 3RF Patient Comments: Says only takes once a day. cyclobenzaprine 10 mg tablet 5 - 10 mg PO BID PRN (Reason: muscle spasm) Qty: 60 5RF alprazolam 1 mg tablet 0.5 mg PO BID PRN (Reason: Anxiety) Qty: 60 5RF Patient Comments: Says takes at night to sleep. doxepin 25 mg capsule 25 mg PO QHS Qty: 90 3RF meloxicam 15 mg tablet 15 mg PO DAILY Boswellia kai extract 307 mg tablet 614 mg PO BID coQ10 (ubiquinol) 200 mg capsule 100 mg PO DAILY estradiol 1 mg/gram (0.1 %) gel in packet 1 packet topical DAILY catalyn 3 cap PO DAILY turmeric 400 mg capsule 800 mg PO DAILY melatonin 5 mg capsule 5 mg PO HS meclizine 25 mg tablet 25 mg PO BID PRN (Reason: dizziness) Qty: 60 5RF losartan 50 mg tablet 50 mg PO DAILY Qty: 30 5RF <Sandra Barbosa APRN - Last Filed: 05/21/24 17:14> Follow-up/Referrals: UNKNOWN,DOCTOR [Primary Care Provider] - <Sandra Barbosa APRN - Last Filed: 05/21/24 17:14> Time of Disposition: 01:11 <Sandra Barbosa APRN - Last Filed: 05/21/24 17:14> 01:11 <Candice Joyce PA-C - Last Filed: 05/22/24 02:29>
--- NOTE | 2024-05-21 17:49 | PC.NURSE ---
Patient did not answer for vital signs
[2024-05-21 18:27] LABS: Basophils Absolute Auto 0.1 K/mm3 (0.0-0.1); Eosinophils Absolute Auto 0.3 K/mm3 (0-0.3); Eosinophils Percent Auto 2.5 % (0-4.4); Hematocrit 45.8 % (37.0-47.0); Immature Granulocyte Absolute 0.05 K/mm3 (0.00-0.031); Immature Granulocyte Percent A 0.5 % (0-0.5); Lymphocytes Absolute Auto 2.67 K/mm3 (0.9-3.2); Mean Corpuscular HGB Conc 32.8 g/dl (32-36); Mean Corpuscular Hemoglobin 29.6 pg (26-34); Mean Corpuscular Volume 90.5 fl (80-100); Mean Platelet Volume 9.5 fl (7.4-10.4); Monocytes Absolute Auto 0.9 K/mm3 (0.1-0.6); Monocytes Percent Auto 8.4 % (2.6-8.5); Neutrophils Absolute Auto 6.7 K/mm3 (1.3-6.7); Neutrophils Percent Auto 62.6 % (45.5-73.1); Platelet Count Result 280 k/mm3 (150-375); Red Blood Count 5.06 M/mm3 (4.2-5.4); Red Cell Distribution Width 13.8 % (11.5-14.5); White Blood Count 10.7 K/mm3 (4.5-10.0)
[2024-05-21 18:36] LABS: Alanine Aminotransferase 27 U/L (6-35); Albumin Level 4.7 g/dL (3.5-5.1); Alkaline Phosphatase 90 U/L (38-126); Anion Gap 8 mmol/L (4-12); Aspartate Amino Transferase 23 U/L (14-36); Bilirubin,Total 0.6 mg/dL (0.2-1.3); Blood Urea Nitrogen 18 mg/dL (7-17); Calcium 9.9 mg/dL (8.4-10.2); Carbon Dioxide 29 mmol/L (22-30); Chloride 106 mmol/L (98-107); Estimated CRCL calculation 90 ml/min; Estimated Glomerular Filt Rate > 60; Glucose 109 mg/dL (65-110); Sodium 143 mmol/L (137-145)
[2024-05-21 18:39] LABS: INR 0.9; Partial Thromboplastin Time 22.2 Seconds (22.3-36.8); Prothrombin Time 12.6 Seconds (11.1-14.7)
[2024-05-21 18:48] LABS: Troponin I < 0.012 ng/mL (0.000-0.034)
[2024-05-21 22:52] VITALS: BP 152/104; PULSE 88
--- OUTSIDE RECORDS SUMMARY | 2024-05-21 23:05 | XMS_ITS | Encounter Summary ---
Author Organization [facility] Address [address] [place] [address] Care Team Providers Care Supervisor Chassis Assembly Name Role Phone Tera Bernard MD Unavailable [phone] Eden Holley APRN-DIE KEEPER Primary Care Provider Reason for Visit * Reason Onset Date Comments Procedure Prior Auth Request 04/13/2024 CT Thoracic Spine Encounter Details Date Type Department Care Team (Late st Contact Info) Description 04/13/2024 Telephone [facility] - Rheumatology [id number] [address] [place] [address] [facility] [address] [place] [address] Procedure Prior Auth Request (CT [...] 04/29/2024 5:13 PM CST Attempted to contact [facility] again and sat on phone for another 45 min with no answer. Attempted to reach patient and LM informing patient that we are having much trouble getting through to someone to help with the online PA because we can not get it through our [employer] login. Recommended to the patient to call her insurance and put in a Grievance with the insurance carrier regarding the issues we are having with getting approval. DATION CONSULTANT * Telephone Encounter - Megan Suarez. - 04/29/2024 2:45 PM CST Patient would appreciate a call back. DATION CONSULTANT * Telephone Encounter - Megan Suarez. - 04/26/2024 2:41 PM CST Patient is calling back about the status. Please call patient DATION CONSULTANT * Telephone Encounter - Alisson Leach - 04/19/2024 11:16 AM CST Attempted to reach number with availity and spoke to Mary 15 min on hold. Was trying to figure out the issue and then was sent to the line to do a survey like the call was completed which it was not. Will attempt to call again at a later time. DATION CONSULTANT * Telephone Encounter - Alisson Leach - 04/15/2024 1:32 PM CST Spoke to patient and informed her to cancel the currently scheduled CT scan and we will continue towork on the PA. Will attempt to reach that number received online with [employer] for the [employer] [facility] plans #[phone]. Facility is [place] [id number] [place] [address], [facility] Tax ID# [id number] NPI# [id number] DATION CONSULTANT * Telephone Encounter - Alisson Leach - 04/15/2024 11:59 AM CST Images from the original note were not included. Ran benefits through [employer] and this is what was received back: Shows NO PA required for in network facilities. Attempted to perform PA through [employer] and the PA request was Automatically cancelled. Imported to Media DATION CONSULTANT * Telephone Encounter - Leilani Lopez RN - 04/15/2024 9:05 AM CST Call placed to pt insurance company twice, hold times were 29 min and 30 min, unable to speak with anyone. Calls placed to [employer] Manuel [phone], [employer] [phone] , [employer] [place] [phone] and [employer] [phone]. CPT code does not work with [employer]. [place] automatedlines all saying to submit under [employer] web site. Call place to pt, informed of the above, will escalate to Alisson Chang for assistance. DATION CONSULTANT * Telephone Encounter - Leilani Lopez RN [...] done as the order was placed 04/09/24. DATION CONSULTANT * Telephone Encounter - Brooklyn Nuñez - 04/14/2024 9:08 AM CST This needs to be done by 3:00 pm today DATION CONSULTANT * Telephone Encounter - Alisson Leach - 04/13/2024 11:49 AM CST Patient is going to [facility] for Ct Scan of Spine and they require us to get the PA for the procedure. Patient has number to get the information from facility for the PA # [phone]. Will need to to bet PA for CT scan done and is scheduled 04/15/24 due to having a Spinal block the following Friday. DATION CONSULTANT documented in this encounter Plan of Treatment Upcoming Encounters Date Type Department Care Team (Late st Contact Info) Description 06/03/2024 9:30 AM CDT Office Visit [facility] - ENT [address], [facility] [address] [place] [address] Tatianna Stovall, ESTATE CONSERVATOR-DIE KEEPER [address] [facility] [address] [place] [address] 06/21/2024 9:30 AM CDT Office Visit [facility] Medical [facility] - Rheumatology [address] [facility] [address] [place] [address] Terrie Lancaster, ESTATE CONSERVATOR-DIE KEEPER [id number] [facility] [address] [place], [place] [id number] 07/22/2024 9:00 AM CDT Office Visit [facility] [place] [address] [facility], [facility] [address] [place] [address] Sonali Alexander, ESTATE CONSERVATOR-DIE KEEPER [id number] [place] [id number] documented as of this encounter Visit Diagnoses Not on filedocumented in this encounter Care Teams Supervisor Chassis Assembly Relationship Specialty Start Date End Date Eden Holley, ESTATE CONSERVATOR-DIE KEEPER [address] [facility] [address] [place] [address] PCP - General Nurse Practitioner 10/20/23 Tera Bernard MD [address] [place] [address] Obstetrics and Gynecology 06/19/23 documented as of this encounter
--- OUTSIDE RECORDS SUMMARY | 2024-05-21 23:05 | XMS_ITS | Patient Health Summary ---
Author Organization [facility] Address [address] [place] [address] Care Team Providers Care Marriage And Family Teacher Name Role Phone Tera Bernard MD Unavailable [phone] Eden Holley APRN-SALES AMBASSADOR Primary Care Provider Note from [facility],non-owned Affiliates and Associated Physician Practices is amultiple site organization consisting of ambulatory clinics and hospital sitesin [place], [place], [place] and [place]. This disclosure is being madepursuant to the Care Everywhere program and may not contain all information available regarding this patient. Last updated 17.[facility] Allergies * Prochlorperazine(Other) * Erythromycin(Urticaria) [...] Apply to affected area once daily * ojbsakx-piuympfwu-thwtjpkrzzdg (Biest With Testosterone) 0.125-0.5mg/mL cmpd cream Apply [...] Comments Blood Pressure 122/76 02/19/2024 9:46 AM POWDER LOADER Pulse 86 02/19/2024 9:46 AM POWDER LOADER Temperature - - Respiratory Rate 18 10/20/2023 2:51 PM CDT Oxygen Saturation 96% 10/20/2023 2:51 PM CDT Inhaled Oxygen Concentration - - Weight 106.1 kg (234 lb) 03/04/2024 10:56 AM POWDER LOADER Height 157.5 cm (5' 2 ) 03/04/2024 10:56 AM POWDER LOADER Body Mass Index 42.8 03/04/2024 10:56 AM POWDER LOADER Procedures * DNA ANTIBODY DOUBLE STRANDED(Performed 03/16/2024) [...] monitoring encounter, Polyarthralgia, Fibromyalgia, Myofascial pain * ME REMOVE CERUMEN IMPACTED W INSTR BAYRON(Performed 03/04/2024) [...] * C-REACTIVE PROTEIN (CRP) (03/16/2024 1:46 PM POWDER LOADER) Only the most recent of3 resultswithin the time period is included. C-Reactive Protein 5.6 <8.0 mg/L [facility] Comment: Test Performed at: [employer] [place] [address] [address] MIREYA CATALAN MD Blood BLOOD SPECIMEN / Unknown 03/16/2024 1:46 PM POWDER LOADER 03/16/2024 1:53 PM POWDER LOADER Terrie Lancaster LINDA-SALES AMBASSADOR LAB - CHEMI STRY ORDERABLES Performing Organization Address [facility] Co de Phone Number [place] [phone] * SS-A/SS-B (SJOGREN'S) ANTIBODY PANEL (03/16/2024 1:46 PM POWDER LOADER) Sjogren's Antibodies (SSA) <1.0 NEG <1.0 NEG AI [facility] Sjogren's Antibodies (SSB) <1.0 NEG <1.0 NEG AI [facility] Comment: Test Performed at: [place] [address] MIREYA CATALAN MD Blood BLOOD SPECIMEN / Unknown 03/16/2024 1:46 PM POWDER LOADER 03/16/2024 1:53 PM POWDER LOADER Terrierina Fernandez Anisha MCKEON-SALES AMBASSADOR LAB - CHEMI STRY ORDERABLES Performing Organization Address [facility] [place] [address] * DNA ANTIBODY DOUBLE STRANDED (03/16/2024 1:46 PM POWDER LOADER) dsDNA Antibody <1 IU/mL [facility] Comment: IU/mL Interpretation < or = 4 Negative 5-9 Indeterminate > or = 10 Positive Test Performed at: [facility] [address] MIREYA CATALAN MD Blood BLOOD SPECIMEN / Unknown 03/16/2024 1:46 PM POWDER LOADER 03/16/2024 1:53 PM POWDER LOADER Terrie Fernandez Anisha MCKEON-SALES AMBASSADOR LAB - HEMAT OLOGY ORDERABLES Performing Organization Address [facility] [place] [address] * (ABNORMAL) SED RATE AUTO (ESR) (03/16/2024 1:46 PM POWDER LOADER) Only the most recent of3 resultswithin the time period is included. Erythrocyte Sedimentation Rate Westergren 22(H) < OR = 20 mm/h [facility] Comment: Test Performed at: [facility] [employer] [address] MIREYA CATALAN MD Blood BLOOD SPECIMEN / Unknown 03/16/2024 1:46 PM POWDER LOADER 03/16/2024 1:53 PM POWDER LOADER Terrie Lancaster CLINICAL SERVICES ASSISTANT-SALES AMBASSADOR LAB - HEMAT OLOGY ORDERABLES [address] [address] * CBC WITH DIFFERENTIAL (03/16/2024 1:46 PM POWDER LOADER) Only the most recent of3 resultswithin the [...] 1.3 % [facility] Comment: Test Performed at: [employer] [address] MIREYA CATALAN MD Blood BLOOD SPECIMEN / Unknown 03/16/2024 1:46 PM POWDER LOADER 03/16/2024 1:53 PM POWDER LOADER Terrie Lancaster CLINICAL SERVICES ASSISTANT-SALES AMBASSADOR LAB - HEMAT OLOGY ORDERABLES [address] [address] * COMPREHENSIVE METABOLIC PANEL (03/16/2024 1:46 PM POWDER LOADER) Only the most recent of3 resultswithin the [...] 29 U/L [facility] Comment: Test Performed at: [employer] [address] MIREYA CATALAN MD Blood BLOOD SPECIMEN / Unknown 03/16/2024 1:46 PM POWDER LOADER 03/16/2024 1:53 PM POWDER LOADER Terrie Lancaster CLINICAL SERVICES ASSISTANT-SALES AMBASSADOR LAB - CHEMI STRY ORDERABLES Performing Organization Address [facility] [place] [address] * IRON + TIBC PANEL (03/16/2024 1:46 PM POWDER LOADER) Only the most recent of3 resultswithin the time period is included. Iron 70 45 - 160 mcg/dL [facility] TIBC 362 250 - 450 mcg/dL (calc) [facility] % Saturation 19 16 - 45 % (calc) [facility] Comment: Test Performed at: [employer] [facility] [place] [address] MIREYA CATALAN MD Blood BLOOD SPECIMEN / Unknown 03/16/2024 1:46 PM POWDER LOADER 03/16/2024 1:53 PM POWDER LOADER Terrie Lancaster CLINICAL SERVICES ASSISTANT-[employer] LAB - CHEMI STRY ORDERABLES Performing Organization Address [facility] [place] [address] * (ABNORMAL) COMPLEMENT C3 C4 PANEL (03/16/2024 1:46 PM POWDER LOADER) Pathologist [facility] Complement C3 205(H) 83 - 193 mg/dL [facility] Complement C4 34 15 - 57 mg/dL [facility] Comment: Test Performed at: [employer] [facility] [address] MIREYA CATALAN MD Blood BLOOD SPECIMEN / Unknown 03/16/2024 1:46 PM POWDER LOADER 03/16/2024 1:53 PM POWDER LOADER Terrie Lancaster CLINICAL SERVICES ASSISTANT-[employer] LAB - CHEMI STRY ORDERABLES Performing Organization Address [facility] [place] [address] * FERRITIN (03/16/2024 1:46 PM POWDER LOADER) Only the most recent of2 resultswithin the time period is included. Pathologist [facility] Ferritin 35 16 - 232 ng/mL [facility] Comment: Test Performed at: [employer] [place] [address] MIREYA CATALAN MD Blood BLOOD SPECIMEN / Unknown 03/16/2024 1:46 PM POWDER LOADER 03/16/2024 1:53 PM POWDER LOADER Terrie Lancaster CLINICAL SERVICES ASSISTANT-SALES AMBASSADOR LAB - CHEMI STRY ORDERABLES [facility] [address] [place] [address] * ME REMOVE CERUMEN IMPACTED W INSTR BAYRON (03/04/2024 2:02 PM POWDER LOADER) Narrative Tatianna Stoavll APRN-CNP - 03/04/2024 2:02 PM POWDER LOADER Tatianna Stovall APRN-CNP 03/04/2024 2:03 PM Procedure: [...] had normal landmarks and mobility. Tatianna Stovall APRN-SALES AMBASSADOR PROCEDURE/MINOR SURGICAL ORDERABLES * AUDIOLOGY/TYMPANOMETRY ORDER (03/03/2024 12:25 PM POWDER LOADER) [employer] AUDIOLOGY SERVICES O RDERABLES * [...] PEPTIDE(CCP) AB IGG (06/19/2023 2:58 PM CDT) [facility] Cyclic Citrullinated Peptide Antibody IgG <16 UNITS [email or web address] Comment: Reference Range Negative: <20 Weak Positive: 20-39 Moderate Positive: 40-59 Strong Positive: >59 Test Performed at: [place] [address] MIREYA CATALAN MD Blood BLOOD SPECIMEN / Unknown 06/19/2023 2:58 PM CDT 06/19/2023 2:58 PM CDT Keyshawn Mota MD LAB - CHEMISTRY ORDRyan HUBER Performing Organization Address [facility] Co de Phone Number [facility] [address] [place] [address] * URIC ACID BLOOD (06/19/2023 2:55 PM CDT) [facility] Uric Acid 2.9 2.5 - 7.0 mg/dL [facility] Comment: Therapeutic target for gout patients: <6.0 mg/dL Test Performed at: [facility] [address] MIREYA CATALAN MD Blood BLOOD SPECIMEN / Unknown 06/19/2023 2:55 PM CDT 06/19/2023 2:56 PM CDT Keyshawn Mota MD LAB - CHEMISTRY ORDRyan HUBER Performing Organization Address [facility] Co de Phone Number [facility] [address] [place] [address] * RHEUMATOID FACTOR BLOOD QUANTITATIVE (06/19/2023 2:55 PM CDT) [facility] Rheumatoid Factor <14 <14 IU/mL [facility] Comment: Test Performed at: [employer] JOR[place] ATendyne HoldingsSaji [address] [place] [address] MIREYA CATALAN MD Blood BLOOD SPECIMEN / Unknown 06/19/2023 2:55 PM CDT 06/19/2023 2:56 PM CDT Keyshawn Mota MD LAB - CHEMISTRY DAMARI HUBER Performing Organization Address [facility] de Phone Number [facility] [address] [place] [address] * OMAYRA BLOOD SCREEN W/REFLEX TITER (06/19/2023 2:55 PM CDT) [facility] OMAYRA Screen NEGATIVE NEGATIVE [facility] Comment: OMAYRA [...] AC-0: Negative International Consensus on OMAYRA Patterns (https://doi.org/10.1515/ulqv-7135-8820) For additional information, please refer to http://education.TheSedge.org.HopsFrom[place].com/faq/DBM497 (This link is being provided for informational/ educational purposes only.) Test Performed at: [employer] [place] [employer] [place] [address] MIREYA CATALAN MD Blood BLOOD SPECIMEN / Unknown 06/19/2023 2:55 PM CDT 06/19/2023 2:56 PM CDT Keyshawn Mota MD LAB - CHEMISTRY DAMARI HUBER Performing Organization Address [facility] Co de Phone Number [facility] [address] [place] [address] * VITAMIN D 25-HYDROXY (06/19/2023 2:55 PM CDT) [facility] Vitamin D, 25 Hydroxy 69 30 - 100 ng/mL [facility] Comment: Vitamin D Status 25-OH Vitamin D: Deficiency: <20 ng/mL Insufficiency: 20 - 29 ng/mL Optimal: > or = 30 ng/mL For 25-OH Vitamin D testing on patients on D2-supplementation and patients for whom quantitation of D2 and D3 fractions is required, the QuestAssureD(TM) 25-OH VIT D, (D2,D3), LC/MS/MS is recommended: order code 95012 (patients >2yrs). See Note 1 Note 1 For additional information, please refer to http://education.Arriendas.cl/faq/RGE491 (This link is being provided for informational/ educational purposes only.) Test Performed at: [facility] [address] MIREYA CATALAN MD Blood BLOOD SPECIMEN / Unknown 06/19/2023 2:55 PM CDT 06/19/2023 2:56 PM CDT Keyshawn Mota MD LAB - CHEMISTRY DAMARI HUBER Performing Organization Address [facility] Co de Phone Number [email or web address] [phone] [place] [address] * CK BLOOD (06/19/2023 2:55 PM CDT) CK 84 29 - 143 U/L [email or web address] Comment: Test Performed at: [facility] [place] [address] MIREYA CATALAN MD Blood BLOOD SPECIMEN / Unknown 06/19/2023 2:55 PM CDT 06/19/2023 2:56 PM CDT Keyshawn Mota MD LAB - CHEMISTRY DAMARI HUBER Performing Organization Address [facility] Co de Phone Number [email or web address] [phone] [place] [address] * XR HAND BILAT 3VW OR MORE (06/19/2023 2:45 PM CDT) Anatomical Region Laterality Modality Upper Extremity, Wrist / Hand Ra diographic Imaging 06/19/2023 3:48 PM CDT Narrative 06/19/2023 3:52 PM CDT PROCEDURE(s): XR LUMBAR SPINE 2 OR 3VW, XR HAND BILAT 3VW OR MORE; DATE AND TIME OF EXAM(s): 06/19/2023 2:46 PM; LOCATION: [facility] INDICATION(s): M25.50: Pain in unspecified joint [...] TIME OF EXAM(s): 06/19/2023 2:46 PM; LOCATION: [facility] INDICATION(s): M25.50: Pain in unspecified joint R70.0: Elevated erythrocyte sedimentation rate R53.83: Other fatigue M79.18: Myalgia, other site M54.16: Radiculopathy, lumbar region COMPARISON(s): None available. Findings/Impression: Lumbar: 5 nonrib-bearing lumbar segments in the lumbosacral transitional segment considered to be partially lumbarized S1. Per to the at the M7geuvzgeooa process which pseudoarticulating within the remaining sacral [...] TIME OF EXAM(s): 06/19/2023 2:46 PM; LOCATION: [facility] INDICATION(s): M25.50: Pain in unspecified joint [...] TIME OF EXAM(s): 06/19/2023 2:46 PM; LOCATION: [facility] INDICATION(s): M25.50: Pain in unspecified joint R70.0: Elevated erythrocyte sedimentation rate R53.83: Other fatigue M79.18: Myalgia, other site M54.16: Radiculopathy, lumbar region COMPARISON(s): None available. Findings/Impression: Lumbar: 5 nonrib-bearing lumbar segments in the lumbosacral transitional segment considered to be partially lumbarized S1. Per to the at the R4mydkzaljon process which pseudoarticulating within the remaining sacral [...] YELLOW [facility] Appearance TURBID(A) CLEAR [facility] Specific [place] UA 1.027 1.001 - 1.035 [facility] pH [...] INCORRECT, PLEASE CONTACT CLIENT SERVICES. PHONE NUMBER: [phone] Test Performed at: [employer] [address] MIREYA CATALAN MD Urine URINE SPECIMEN OBTAINED BY CLEAN CATCH PROCEDURE / Unknown 10/30/2021 11:46 PM CDT Jovita Arteaga MD LAB - URINALYSIS O RDERABLES Performing Organization Address [facility] Co de Phone Number [email or web address] [address] [place] [address] * HPV DETECTION HIGH RISK LOY (10/30/2021 11:31 AM CDT) High Risk Human Papilloma Result Not detected Not detected 11/02/2021 4:49 PM CDT [facility] High Risk Human Papilloma Interp 11/02/2021 4:49 PM CDT [facility] Comment:High Risk Human [...] LAB - MICROBIOLOGY ORDERABLES Performing Organization Address [facility]/ZIP Co de Phone Number [facility] [place], [place] [id number] [place] [address] * PAP IMAGE-GUIDED W HPV (10/30/2021 11:31 AM CDT) Case Report Gynecologic Cytology Report Case: [id number] Authorizing Provider: Jovita Arteaga MD Collected: 10/30/2021 11:31 AM Ordering Location: [facility] Obstetrics Received: 10/31/2021 12:13 PM Gynecology and [...] 9:19 AM CDT [facility] Interpretation [employer] [facility] CONSULT[facility] Negative for intraepithelial lesion or malignancy. 11/05/2021 9:19 AM CDT [facility] Pap Footnote The Pap Smear is a screening test. False positive and false negative results occur. Negative results do not preclude abnormalities, thus clinical correlation is required. This specimen was evaluated by the ThinPrep Imaging System along with an additional manual rescreening by a high school admissions representative and/or pathologist. 11/05/2021 9:19 AM CDT [facility] Embedded Images 9:19 AM CDT [facility] Pathology/Cytolo gy VAGINA AND CERVIX, CS / Unknown 10/30/2021 11:31 AM CDT 10/31/2021 12:13 PM CDT Jovita Arteaga MD LAB - PATHOLOGY/CY TOLOGY ORDERABLES [facility] [address] [phone] * CULTURE URINE (10/30/2021 11:16 AM CDT) Culture [facility] Comment: CULTURE, URINE, ROUTINE Micro Number: [id number] Test Status: Final Specimen Source: Urine Specimen Quality: Adequate Result: No Growth Test Performed at: [facility] Systems[facility] [address] [place] [address] MIREYA CATALAN MD Urine URINE SPECIMEN OBTAINED BY CLEAN CATCH PROCEDURE / Unknown 10/30/2021 11:16 AM CDT 10/31/2021 2:37 AM CDT Jovita Arteaga MD LAB - MICROBIOLOGY ORDERABLES [place] [phone] [place] [address] Care Teams Marriage And Family Teacher Relationship Specialty Start Date End Date Eden Holley, CLINICAL SERVICES ASSISTANT-SALES AMBASSADOR [address] [facility] [place] [facility] [address] [facility] [place] [id number] PCP - General Nurse Practitioner 10/20/23 Tera Bernard MD [address] [place] [address] Obstetrics and Gynecology 06/19/23
--- OUTSIDE RECORDS SUMMARY | 2024-05-21 23:05 | XMS_ITS | Data Portability ---
Author Organization [place] - [facility], autoContract Address [address] [place] [address] Care Team Providers Care Medical Office Receptionist Name Role Phone MYNOR ENGLE Primary Care Provider LAMBERTO VAUGHAN Project Technician Assessment Encounter Date Assessment Date Assessment LastModified [...] By Organization Details Last Modified Time 02/22/2016 [id number] Diagnosis and treatment discussed with patient. Recommend [...] example). [email or web address] Not available 02/03/2019 14:20:01 02/26/2016 [id number] The patches applied to your back will [...] applied. [email or web address] Not available 02/03/2019 14:00:22 02/28/2016 [id number] Reviewed lab results and patch test reading at 48 hours with patient who was advised of positive patch reaction to fragrance mix and amerchol (lanolin); avoidance of these products and reading product labels was advised. Keep follow up appointment tomorrow for final reading at 72 hours. [email or web address] Not available 02/03/2019 14:04:32 02/29/2016 [id number] Patch testing to a panel of common [...] IgE <0.35 kU/L 0-0.35 normal Not Available [address], [address], 02/26/2016 14:06:08 02/22/20 16 02/22/2016 aller gy panel , serum or plasm a oak (T7) IgE <0.35 kU/L 0-0.35 normal Not Available [address], [address], 02/26/2016 14:06:08 02/22/20 16 02/22/2016 aller gy panel , serum or plasm a bermuda grass (g2) IgE <0.35 kU/L 0-0.35 normal Not Available [address], [address], 02/26/2016 14:06:08 02/22/20 16 02/22/2016 aller gy panel , serum or plasm a sammi grass (g6) IgE <0.35 kU/L 0-0.35 normal Not Available [address], [address], 02/26/2016 14:06:08 02/22/20 16 02/22/2016 aller gy panel , serum or plasm a common ragweed weed <0.35 kU/L 0-0.35 normal Not Available [address], [address], 02/26/2016 14:06:08 02/22/20 16 02/22/2016 aller gy panel , serum or plasm a mugwort (W6) IgE <0.35 kU/L 0-0.35 normal Not Available [address], [address], 02/26/2016 14:06:08 02/22/20 16 02/22/2016 aller gy panel , serum or plasm a rough pigweed (W14) IgE <0.35 kU/L 0-0.35 normal Not Available [address], [address], 02/26/2016 14:06:08 02/22/20 16 02/22/2016 aller gy panel , serum or plasm a dermatophago ides farinae <0.35 kU/L 0-0.35 normal Not Available [address], [address], 02/26/2016 14:06:08 02/22/20 16 02/22/2016 aller gy panel , serum or plasm a CAT epithel. <0.35 kU/L 0-0.35 normal Not Available [address], [address], 02/26/2016 14:06:08 02/22/20 16 02/22/2016 aller gy panel , serum or plasm a dog dander (E5) IgE <0.35 kU/L 0-0.35 normal Not Available [address], [address], 02/26/2016 14:06:08 02/22/20 16 02/22/2016 aller gy panel , serum or plasm a cockroach (I6) IgE <0.35 kU/L 0-0.35 normal Not Available [facility] [address], [address], 02/26/2016 14:06:08 02/22/20 16 02/22/2016 aller gy panel , serum or plasm a penicillium notatum (M1) <0.35 kU/L 0-0.35 normal Not Available [facility] - [address], [address], 02/26/2016 14:06:08 02/22/20 16 02/22/2016 aller gy panel , serum or plasm a cladosporium herbarum(M2) IgE <0.35 kU/L 0-0.35 normal Not Available [facility] - [address], [address], 02/26/2016 14:06:08 02/22/20 16 02/22/2016 aller gy panel , serum or plasm a aspergillus fumigatus (M3 <0.35 kU/L 0-0.35 normal Not Available [facility] - [address], [address], 02/26/2016 14:06:08 02/22/20 16 02/22/2016 aller gy panel , serum or plasm a alternaria alternata (M6) <0.35 kU/L 0-0.35 normal Not Available [facility] - [address], [address], 02/26/2016 14:06:08 02/22/20 16 02/22/2016 aller gy panel , serum or plasm a maple (box eleder)(T1)I gE <0.35 kU/L 0-0.35 normal Not Available [address], [address], 02/26/2016 14:06:08 02/22/20 16 02/22/2016 aller gy panel , serum or plasm a birch (T3) IgE <0.35 kU/L 0-0.35 normal Not Available [facility] [address], [address], 02/26/2016 14:06:08 02/22/20 16 02/22/2016 aller gy panel , serum or plasm a mountain cedar (T6) IgE <0.35 kU/L 0-0.35 normal Not Available [facility] [address], [address], 02/26/2016 14:06:08 02/22/20 16 02/22/2016 aller gy panel , serum or plasm a elm (T8) IgE <0.35 kU/L 0-0.35 normal Not Available [facility] - [address], [address], 02/26/2016 14:06:08 02/22/20 16 02/22/2016 aller gy panel , serum or plasm a walnut tree (T10) IgE <0.35 kU/L 0-0.35 normal Not Available [facility] - [address], [address], 02/26/2016 14:06:08 02/22/20 16 02/22/2016 aller gy panel , serum or plasm a sycamore (T11) IgE <0.35 kU/L 0-0.35 normal Not Available [facility] [address], [address], 02/26/2016 14:06:08 02/22/20 16 02/22/2016 aller gy panel , serum or plasm a cottonwood (T14) IgE <0.35 kU/L 0-0.35 normal Not Available [facility] [address], [address], 02/26/2016 14:06:08 02/22/20 16 02/22/2016 aller gy panel , serum or plasm a white pati (T15) IgE <0.35 kU/L 0-0.35 normal Not Available [facility] [address], [address], 02/26/2016 14:06:08 02/22/20 16 02/22/2016 aller gy panel , serum or plasm a D. pteronys sinus(D1) IgE <0.35 kU/L 0-0.35 normal Not Available [facility] [address], [address], 02/26/2016 14:06:08 02/22/20 16 02/22/2016 aller gy panel , serum or plasm a sheep sorrel (W18) IgE <0.35 kU/L 0-0.35 normal Not Available [address], [address], 02/26/2016 14:06:08 02/22/20 16 02/22/2016 aller gy panel , serum or plasm a mouse ur prot (E72) IgE <0.35 kU/L 0-0.35 normal Not Available [address], [address], 02/26/2016 14:06:08 02/22/20 16 02/22/2016 aller gy panel , serum or plasm a total IgE 7.61 kU/L 0-25.0 normal Not Available [facility] - [address], [address], 02/26/2016 14:06:08 02/22/20 16 02/22/2016 food aller gen panel , serum egg white (F1) IgE <0.35 kU/L 0-0.35 normal Not Available [address], [address], 02/26/2016 14:06:09 02/22/20 16 02/22/2016 food aller gen panel , serum milk (F2) IgE <0.35 kU/L 0-0.35 normal Not Available [address], [address], 02/26/2016 14:06:09 02/22/20 16 02/22/2016 food aller gen panel , serum codfish (F3) IgE <0.35 kU/L 0-0.35 normal Not Available [address], [address], 02/26/2016 14:06:09 02/22/20 16 02/22/2016 food aller gen panel , serum wheat (F4) IgE <0.35 kU/L 0-0.35 normal Not Available [address], [address], 02/26/2016 14:06:09 02/22/20 16 02/22/2016 food aller gen panel , serum maize / corn (F8) IgE <0.35 kU/L 0-0.35 normal Not Available [address], [address], 02/26/2016 14:06:09 02/22/20 16 02/22/2016 food aller gen panel , serum sesame seed (F10) IgE <0.35 kU/L 0-0.35 normal Not Available [address], [address], 02/26/2016 14:06:09 02/22/20 16 02/22/2016 food aller gen panel , serum peanut (F13) IgE <0.35 kU/L 0-0.35 normal Not Available [address], [address], 02/26/2016 14:06:09 02/22/20 16 02/22/2016 food aller gen panel , serum soybean (F14) IgE <0.35 kU/L 0-0.35 normal Not Available [address], [address], 02/26/2016 14:06:09 02/22/20 16 02/22/2016 food aller gen panel , serum shrimp (F24) IgE <0.35 kU/L 0-0.35 normal Not Available [address], [address], 02/26/2016 14:06:09 02/22/20 16 02/22/2016 food aller gen panel , serum walnut (F256) IgE <0.35 kU/L 0-0.35 normal Not Available [address], [address], 02/26/2016 14:06:09 02/22/20 16 02/22/2016 food aller gen panel , serum scallop (F338) IgE <0.35 kU/L 0-0.35 normal Speci fic IgE(k U/L) Level Class <0.35 Absen t/Und etect able 0 0.35- 0.70 Low 1 0.71- 3.50 Moder ate 2 3.51- 17.5 High 3 17.6- 50.0 Very High 4 51.0- 100.0 Very High 5 >100. 0 Very High 6 Not Available [address], [address], 02/26/2016 14:06:09 02/22/20 16 02/22/2016 food aller gen panel , serum salmon (F41) IgE <0.35 kU/L 0-0.35 normal Not Available [address], [address], 02/26/2016 14:06:09 02/22/20 16 02/22/2016 food aller gen panel , serum tuna (F40) IgE <0.35 kU/L 0-0.35 normal Not Available [facility] - [address], [address], 02/26/2016 14:06:09 02/22/20 16 02/22/2016 food aller gen panel , serum hazelnut(F17 ) IgE <0.35 kU/L 0-0.35 normal Not Available [address], [address], 02/26/2016 14:06:09 02/22/20 16 02/22/2016 food aller gen panel , serum cashew nut(F202) IgE <0.35 normal Not Available [address], [address], 02/26/2016 14:06:09 02/22/20 16 02/22/2016 food aller gen panel , serum almond (F20)IgE <0.35 0-0.35 normal Not Available [address], [address], 02/26/2016 14:06:09 02/22/20 16 02/22/2016 thyro globu henry Ab, serum thyroglobuli n IgG Ab <20.0 IU/mL <=40.0 normal Not Available [address], [address], 02/26/2016 14:06:10 02/22/20 16 02/22/2016 thyro id perox idase (tpo) Ab, serum thyroid peroxidase antibody <10.0 IU/mL <35 normal Not Available [address], [address], 02/26/2016 14:06:10 02/22/20 16 02/22/2016 TSH, ultra -sens itive , serum TSH,3rd generation 1.038 uIU/m L 0.35-5 .50 normal Pregn shay: First Trime ster: 0.30- 4.50 uIU/m L Secon d Trime ster: 0.50- 4.60 uIU/m L Third Trime ster: 0.80- 5.20 uIU/m L Not Available [facility] - [address], [address], 02/26/2016 14:06:11 02/22/20 16 02/22/2016 latex (H.br azili ensis ) latex (H.brazilien sis) <0.35 kU/L 0-0.35 normal Not Available [facility] [address] [place] [address], [address], 02/26/2016 14:06:11 Result Notes None recorded. Problems Name Problem SNOMED Code Status Onset Date Resolution Date Notes Provider Name and Address Organization Details Recorded Time Contact dermatitis 12404883 Active as per history rita Wilde MD [address] [place] [address] Rd,[address], [address], [facility] 6 12:30:40 Polycystic ovaries Active Todd Wilde MD [address] [place] [address] Rd,[facility], [place], [address], [facility] 6 12:32:31 Gastritis 8754127 Active Todd Wilde MD [address] [place] [address] Rd,[facility] [address], [place], [address], [facility] 6 12:32:49 Mood disorder 08150523 Active Todd Wilde MD [address] [place] [address] Rd,[facility] [address], [place], [address], [facility] 6 12:32:58 Insomnia 217094727 Active Todd Wilde MD [address] [place] [address] Rd,[address], [address], [facility] 6 12:33:08 Problem Notes None recorded. Procedures Surgical History Date Name Laterality Status Provider Name and Address Organization Details Recorded Time 02/29/2016 Patch Test completed Todd Wilde MD [address] [place] [address] Rd,[facility] [address], [address], [facility] 02/03/2019 14:10:42 02/28/2016 Patch Test completed Todd Wilde MD [address] [place] [address] Rd,[facility], [place], [address], [facility] 02/03/2019 14:02:31 02/26/2016 Patch Test completed Todd Wilde MD [address] [facility] [address] [facility] [address],[facility], [place], [address], [facility] 02/03/2019 13:58:56 Imaging Results None recorded. Procedure Notes None recorded. Medical Equipment None Reported. Allergies Allergen ID Allergen Name Allergen Category Reaction Reaction Severity Criticality Documentation Date Start Date Code Code System Note Provider Name and Address Organization Details Recorded Time 6270 Product containin g penicilli n (product) medicatio n hives Not available Not available 02/22/2016 60620 8001 SNOMED Todd Wilde MD [address] [place] [address] Rd,[facility], [place], [address], [facility] 6 13:49:54 6271 erythromy yuly medicatio n edema Not available Not available 02/22/2016 4053 RxNorm Todd Wilde MD [address] [place] [address] Rd,[facility] [address], [address], [facility] 6 13:50:03 6272 Compazine medicatio n Not available Not available Not available 02/22/2016 05456 6 RxNorm Todd Wilde MD [address] [place] [address] Rd,[facility] [address], [address], [facility] 6 13:50:12 Medications [...] Details Last Updated DateTime 6 157.48 cm 92965.5 4 g 39.7 kg/m2 74 /min 99 % 99 % 14 /min 98.5 [degF] 122 mm[Hg] 75 mm[Hg] Todd Wilde MD [address] [facility] [address], [place], [address] [place] [address] [facility] 6 18:10:01 Date Recorded Body height Body weight Body mass index (BMI) Heart rate Respiratory rate Systolic blood pressure Diastolic blood pressure Provider Name and Address Organization Details Last Updated DateTime 6 157.48 cm 07530.5 4 g 39.7 kg/m2 78 /min 14 /min 124 mm[Hg] 77 mm[Hg] Todd Wilde MD [address] [facility],[address], [place], [address] 9[facility] 6 11:08:28 Date Recorded Body height Body weight Body mass index (BMI) Heart rate Respiratory rate Systolic blood pressure Diastolic blood pressure Provider Name and Address Organization Details Last Updated DateTime 6 157.48 cm 58866.5 4 g 39.7 kg/m2 70 /min 14 /min 122 mm[Hg] 75 mm[Hg] Todd Wilde MD [address], [place], [address], [facility] 6 18:00:22 Date Recorded Body height Body weight Body mass index (BMI) Heart rate Respiratory rate Systolic blood pressure Diastolic blood pressure Provider Name and Address Organization Details Last Updated DateTime 6 157.48 cm 72694.5 4 g 39.7 kg/m2 76 /min 14 /min 121 mm[Hg] 74 mm[Hg] Todd Wilde MD [address], [place], [address], [facility] 6 17:03:26 Social History Question Answer Notes LastModified by Organizat ion Details LastModified Time Tobacco Smoking Status Never Smoker Todd Wilde MD [address], [place], [address], [facility] 02/03/2019 13:29:39 What [...] Information not available 02/03/2019 Years Living In [place] Since 2011 Information not available 02/03/2019 Marital [...] SNOMED-CT Code Diagnosis ICD10 Code Diagnosis Note [id number] Todd Wilde MD Main Office [address] [place] [address] 9 02/22/2016 13:38:18 02/22/2016 14:35:44 Contact dermatitis 34112561 L23.9 Urticaria 467357099 L50. 8 Pruritic disorder 190105 002 L20.89 [id number] Todd Wilde MD Main Office [address] [place] [address] 9 02/26/2016 10:01:03 02/26/2016 10:53:35 Contact dermatitis 11029758 L23.9 Urticaria 690731768 L50. 8 Pruritic disorder 081993 002 L20.89 [id number] Todd Wilde MD Main Office [address] [place] [address] 9 02/28/2016 16:43:04 02/28/2016 17:08:34 Contact dermatitis 82823479 L23.9 [id number] Todd Wilde MD Main Office [address] [place] [address] 9 02/29/2016 16:38:37 02/29/2016 17:02:08 Contact dermatitis 53264797 L23.9 Health Concerns Section Related Observation LastModified by Organization Detai ls LastModified Time None Recorded Concern Status LastModified by Organization Details LastModified Time None Recorded Advance Directives Directive None Recorded Payers Encounter Date Sequence Insurance Name Policy Number Policy Laurent Covered Member ID Laurent Member ID Guarantor Name 02/22/2016 1 [place] [id number] Giancarlo Connors [id number] Sana Connors 02/26/2016 1 [place] [id number] Giancarlo Connors [id number] Sana Connors 02/28/2016 1 [place] [id number] Giancarlo Connors [id number] Sana Connors 02/29/2016 1 [place] [id number] Giancarlo Connors [id number] 21 Sana Connors Notes Date Note Type Note Provider Name and Address Organization Details Recorded Time 02/22/2016 text/html Patient describe s ongoing problems with localized pruritic rashes over the last year characterized as redness on face (today along sides of nose and behind ears) and concerned if allergy playing a role. Rashes can affect eyelids and she has seen a group fitness instructor who recommended using Cetaphil and to discontinue using nail estonian. Upon review no apparent relationship to seasonal [...] eczema or past testing. Todd Wilde MD [address], [place], [address], [facility] 02/03/2019 14:20:16 02/26/2016 text/html Patient went to lab for blood tests; here for contact allergy patch testing. Todd Wilde MD [address], [place], [address], [facility] 02/03/2019 14:18:46 02/28/2016 text/html Some mild itch a t patch test area; here for 48 hour reading of contact allergy test and review lab result. Todd Wilde MD [address], [place], [address], [facility] 02/03/2019 14:18:09 02/29/2016 text/html Here for 72 hour patch reading; itchy at a couple areas on test sites. Todd Wilde MD [address], [place], [address], [facility] 02/03/2019 14:17:28 OBGyn Episode No OBEpisode recorded.
--- OUTSIDE RECORDS SUMMARY | 2024-05-21 23:05 | XMS_ITS | Referral Summary ---
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 [address] [place] [address] PCP - General Family Medicine 07/25/23
--- OUTSIDE RECORDS SUMMARY | 2024-05-21 23:05 | XMS_ITS | Clinical Summary ---
Author Organization [facility] Address [address] [place] [address] Care Team Providers Care Isotope Technologist Name Role Phone Unavailable Primary Care Provider [...]
--- OUTSIDE RECORDS SUMMARY | 2024-05-21 23:05 | XMS_ITS | Clinical Summary ---
Author Organization [facility] Address [address] [facility] [place] [address] Care Team Providers Care Hazardous Waste Remover Name Role Phone Tera Bernard MD Unavailable [phone] Eden Holley APRN-CHILDCARE TEACHER Primary Care Provider Source Comments [facility],non-owned Affiliates and Associated Physician Practices is amultiple site organization consisting of ambulatory clinics and hospital sitesin [place], [place], [place] and [place]. This disclosure is being madepursuant to the Care Everywhere program and may not contain all information available regarding this patient. Last updated 17.[facility] Allergies Active Allergy Reactions Criticality Noted Date [...] Apply to affected area once daily Active adydrnx-iwegttacu-yxpk osterone (Biest With Testosterone) 0.125-0.5mg/mL cmpd cream [...] Type Department Care Team Description 04/13/2024 Telephone [facility] - Rheumatology [id number] [facility] [employer]its [address] [address] Keyshawn Mota MD Procedure Prior Auth Request (CT Thoracic Spine ) 04/09/2024 Telephone [facility] - Rheumatology [address] [address] [place] [address] Terrie Lancaster APRN-MAURILIO General 03/16/2024 Telephone [facility] - Rheumatology [address] [facility] [address] [place] [address] Terrie Lancaster APRN-CHILDCARE TEACHER Order 03/13/2024 Refill [facility] - ENT [address] [place] [address] Tatianna Stovall, HAND PROFILER-CHILDCARE TEACHER Refill Request 03/04/2024 10:45 AM [employer] Office Visit [facility] - ENT [address] [place] [address] Tatianna Stovall, HAND PROFILER-MAURILIO Bilateral impacted cerumen (Primary Dx); Dizziness; Vestibular migraine 03/04/2024 Travel 02/27/2024 3:00 PM [employer] Testing Visit [facility] - ENT [address] [place] [address] Radha Rapp AuD Examination of ears and hearing 02/27/2024 Travel 02/25/2024 Telephone [facility] [address] Kevin Morse, [facility] [address] [place] [address] Sonali Alexander, HAND PROFILER-CHILDCARE TEACHER Referral from Last 3 Months Family History Medical History Relation Name Comments Cancer Maternal Great-Grandmother ? primary care coordinator Relation Name Status Comments Maternal Great-Grandmother Alive [...] Comments Blood Pressure 122/76 02/19/2024 9:46 AM [employer] Pulse 86 02/19/2024 9:46 AM [employer] Temperature - - Respiratory Rate 18 10/20/2023 2:51 PM CDT Oxygen Saturation 96% 10/20/2023 2:51 PM CDT Inhaled Oxygen Concentration - - Weight 106.1 kg (234 lb) 03/04/2024 10:56 AM [employer] Height 157.5 cm (5' 2 ) 03/04/2024 10:56 AM [employer] Body Mass Index 42.8 03/04/2024 10:56 AM [employer] Plan of Treatment Upcoming Encounters Date Type Department Care Team (Late st Contact Info) Description 06/03/2024 9:30 AM CDT Office Visit [facility] - ENT [address] [place] [address] Tatianna Stovall, HAND PROFILER-CHILDCARE TEACHER [address] [place] [address] 06/21/2024 9:30 AM CDT Office Visit [facility] - Rheumatology [address] [facility] [address] [place] [address] Terrie Lancaster HAND PROFILER-CHILDCARE TEACHER [address] [facility] [address] [place], [place] [id number] 07/22/2024 9:00 AM CDT Office [place] [facility] [place] [address] [facility] [place] [address] Sonali Alexander, HAND PROFILER-CHILDCARE TEACHER [address] [facility] [address] [place] [address] Health Maintenance Due Date Last [...] ANTIBODY DOUBLE STRANDED Routine 03/16/2024 1:46 PM [employer] Iron deficiency Neuropathy Osteoarthritis of multiple joints, unspecified osteoarthritis type Medication monitoring encounter Polyarthralgia Fibromyalgia Myofascial pain COMPLEMENT C3 C4 PANEL Routine 03/16/2024 1:46 PM [employer] Iron deficiency Neuropathy Osteoarthritis of multiple joints, unspecified osteoarthritis type Medication monitoring encounter Polyarthralgia Fibromyalgia Myofascial pain SS-A/SS-B (SJOGREN'S) ANTIBODY PANEL Routine 03/16/2024 1:46 PM [employer] Iron deficiency Neuropathy Osteoarthritis of multiple joints, unspecified osteoarthritis type Medication monitoring encounter Polyarthralgia Fibromyalgia Myofascial pain FERRITIN Routine 03/16/2024 1:46 PM [employer] Iron deficiency Neuropathy Osteoarthritis of multiple joints, unspecified osteoarthritis type Medication monitoring encounter Polyarthralgia Fibromyalgia Myofascial pain IRON + TIBC PANEL Routine 03/16/2024 1:4 6 PM [employer] Iron deficiency Neuropathy Osteoarthritis of multiple joints, unspecified osteoarthritis type Medication monitoring encounter Polyarthralgia Fibromyalgia Myofascial pain C-REACTIVE PROTEIN Routine 03/16/2024 1: 46 PM [employer] Iron deficiency Neuropathy Osteoarthritis of multiple joints, unspecified osteoarthritis type Medication monitoring encounter Polyarthralgia Fibromyalgia Myofascial pain ERYTHROCYTE SEDIMENTATION RATE Routine 03/16/2024 1:46 PM [employer] Iron deficiency Neuropathy Osteoarthritis of multiple joints, unspecified osteoarthritis type Medication monitoring encounter Polyarthralgia Fibromyalgia Myofascial pain COMPREHENSIVE METABOLIC PANEL Routine 03/16/2024 1:46 PM [employer] Iron deficiency Neuropathy Osteoarthritis of multiple joints, unspecified osteoarthritis type Medication monitoring encounter Polyarthralgia Fibromyalgia Myofascial pain CBC W AUTO DIFFERENTIAL Routine 03/16/2024 1:46 PM [employer] Iron deficiency Neuropathy Osteoarthritis of multiple joints, unspecified osteoarthritis type Medication monitoring encounter Polyarthralgia Fibromyalgia Myofascial pain PA REMOVE CERUMEN IMPACTED W INSTR BAYRON Routine 03/04/2024 2:02 PM [employer] Bilateral impacted cerumen AUDIOLOGY/TYMPANOMETR Y ORDER Routine 03/03/2024 12:25 PM [employer] HPV DETECTION HIGH RISK LOY Routine 10/30/2021 11:31 AM CDT Cervical cancer screening from Last 3 Months or Most Recently Relevant to Health Maintenance Results * C-REACTIVE PROTEIN (CRP) (03/16/2024 1:46 PM [employer]) C-Reactive Protein 5.6 <8.0 mg/L [facility] Comment: Test Performed at: [facility] [place] [address] [place] [address] MIREYA CATALAN MD Blood BLOOD SPECIMEN / Unknown 03/16/2024 1:46 PM [employer] 03/16/2024 1:53 PM [employer] Terrierina Lancaster HAND PROFILER-CHILDCARE TEACHER LAB - CHEMI STRY ORDERABLES [facility] [address] [place] [address] * SS-A/SS-B (SJOGREN'S) ANTIBODY PANEL (03/16/2024 1:46 PM [employer]) Pathologist [facility] Sjogren's Antibodies (SSA) <1.0 NEG <1.0 NEG AI [facility] Sjogren's Antibodies (SSB) <1.0 NEG <1.0 NEG AI [facility] Comment: Test Performed at: [facility] [address] [facility] [place] [address] MIREYA CATALAN MD Blood BLOOD SPECIMEN / Unknown 03/16/2024 1:46 PM [employer] 03/16/2024 1:53 PM [employer] Terrie CANO LAB - CHEMI STRY ORDERABLES Performing Organization Address [facility] Co de Phone Number [address] [address] * DNA ANTIBODY DOUBLE STRANDED (03/16/2024 1:46 PM [employer]) Pathologist [facility] dsDNA Antibody <1 IU/mL [facility] Comment: IU/mL Interpretation < or = 4 Negative 5-9 Indeterminate > or = 10 Positive Test Performed at: [facility] [address] [facility] [place] [address] MIREYA CATALAN MD Blood BLOOD SPECIMEN / Unknown 03/16/2024 1:46 PM [employer] 03/16/2024 1:53 PM [employer] Terrie CANO LAB - HEMAT OLOGY ORDERABLES Performing Organization Address [facility] Co de Phone Number [address] [address] * (ABNORMAL) SED RATE AUTO (ESR) (03/16/2024 1:46 PM [employer]) Pathologist [facility] Erythrocyte Sedimentation Rate Westergren 22(H) < OR = 20 mm/h [facility] Comment: Test Performed at: [facility] [address] MIREYA CATALAN MD Blood BLOOD SPECIMEN / Unknown 03/16/2024 1:46 PM [employer] 03/16/2024 1:53 PM [employer] Terrie Lancaster HAND PROFILER-CHILDCARE TEACHER LAB - HEMAT OLOGY ORDERABLES Performing Organization Address [facility]/ZIP Co de Phone Number [address] [address] * CBC WITH DIFFERENTIAL (03/16/2024 1:46 PM [employer]) White Blood Cell Count 8.3 3.8 - [...] 1.3 % [facility] Comment: Test Performed at: [facility] [address] MIREYA CATALAN MD Blood BLOOD SPECIMEN / Unknown 03/16/2024 1:46 PM [employer] 03/16/2024 1:53 PM [employer] Terrie Lancaster HAND PROFILER-CHILDCARE TEACHER LAB - HEMAT OLOGY ORDERABLES Performing Organization Address [facility] Co de Phone Number [address] [address] * COMPREHENSIVE METABOLIC PANEL (03/16/2024 1:46 PM [employer]) Glucose 87 65 - 99 mg/dL [facility] [...] 29 U/L [facility] Comment: Test Performed at: [facility] [address] MIREYA CATALAN MD Blood BLOOD SPECIMEN / Unknown 03/16/2024 1:46 PM [employer] 03/16/2024 1:53 PM [employer] Terrie Lancaster HAND PROFILER-CHILDCARE TEACHER LAB - CHEMI STRY ORDERABLES [address] [address] * IRON + TIBC PANEL (03/16/2024 1:46 PM [employer]) Pathologist [facility] Iron 70 45 - 160 mcg/dL [facility] TIBC 362 250 - 450 mcg/dL (calc) [facility] % Saturation 19 16 - 45 % (calc) [facility] Comment: Test Performed at: [facility] [place] [address] [place] [address] MIREYA CATALAN MD Blood BLOOD SPECIMEN / Unknown 03/16/2024 1:46 PM [employer] 03/16/2024 1:53 PM [employer] Terrie Lancaster HAND PROFILER-CHILDCARE TEACHER LAB - CHEMI STRY ORDERABLES Performing Organization Address [facility] Co de Phone Number [facility] [id number] [place], [place] [id number] * (ABNORMAL) COMPLEMENT C3 C4 PANEL (03/16/2024 1:46 PM [employer]) Pathologist [facility] Complement C3 205(H) 83 - 193 mg/dL [facility] Complement C4 34 15 - 57 mg/dL [facility] Comment: Test Performed at: [facility] [address] [place] [address] MIREYA CATALAN MD Blood BLOOD SPECIMEN / Unknown 03/16/2024 1:46 PM [employer] 03/16/2024 1:53 PM [employer] Terrie Lancaster HAND PROFILER-CHILDCARE TEACHER LAB - CHEMI STRY ORDERABLES Performing Organization Address [facility] [place] [address] * FERRITIN (03/16/2024 1:46 PM [employer]) Pathologist [facility] Ferritin 35 16 - 232 ng/mL [facility] Comment: Test Performed at: [facility] [place] [address] MIREYA CATALAN MD Blood BLOOD SPECIMEN / Unknown 03/16/2024 1:46 PM [employer] 03/16/2024 1:53 PM [employer] Terrie Lancaster HAND PROFILER-CHILDCARE TEACHER LAB - CHEMI STRY ORDERABLES Performing Organization Address [facility] [place] [address] * PA REMOVE CERUMEN IMPACTED W INSTR BAYRON (03/04/2024 2:02 PM [employer]) Narrative Tatianna Stovall APRN-CHILDCARE TEACHER - 03/04/2024 2:02 PM [employer] Tatianna Stovall APRN-CHILDCARE TEACHER 03/04/2024 2:03 PM Procedure: Bilateral Micro-otoscopy Indication: [...] had normal landmarks and mobility. Tatianna Stovall HAND PROFILER-CHILDCARE TEACHER PROCEDURE/MINOR SURGICAL ORDERABLES * AUDIOLOGY/TYMPANOMETRY ORDER (03/03/2024 12:25 PM [employer]) [facility] LORENZOERAMARIA DE JESUS * HPV DETECTION HIGH RISK LOY (10/30/2021 11:31 AM CDT) High Risk Human Papilloma Result Not detected Not detected 11/02/2021 4:49 PM CDT [facility] High Risk Human Papilloma Interp 11/02/2021 4:49 PM CDT [facility] Comment:High Risk Human Narinder lloma Virus was Not Detected. Pathology/Cytolo gy VAGINA AND CERVIX, CS / Unknown 10/30/2021 11:31 AM CDT 10/31/2021 12:13 PM CDT Narrative [facility] - 11/02/2021 4:49 PM CDT [...] Jovita Arteaga MD LAB - MICROBIOLOGY ORDERABLES [facility] [address] [place], [place] [id number] [place] [address] from Last 3 Months or Most Recently Relevant to Health Maintenance Care Teams Hazardous Waste Remover Relationship Specialty Start Date End Date Eden Holley, HAND PROFILER-CHILDCARE TEACHER [address] [facility] [address] [place] [address] PCP - General Nurse Practitioner 10/20/23 Tera Bernard MD [address] [place], [place] [id number] Obstetrics and Gynecology 06/19/23
--- OUTSIDE RECORDS SUMMARY | 2024-05-21 23:05 | XMS_ITS | Clinical Summary ---
Author Organization [facility] Address [address] [place] [address] Care Team Providers Care Pre Kindergarten Teacher Name Role Phone Kishan Eden FLORENCIA Primary Care Provider [phone] Allergies Active Allergy Reactions Criticality Noted Date [...] 1 capsule (40 mg total) by mouth basic sciences dean before breakfast 2 Active coenzyme [id number] 100-5 mg-unit capsule Take 100 mg [...] on file Legal Sex Female 10:22 PM ELECTROPHYSIOLOGY TECH Gender Identity Not on file Sexual Orientation [...] complete this topic Insurance BLUE ACCESS OOS [employer] ACCESS OOS Advance Directives For more information, please contact: [phone] * Full Code (Latest Code Status on File) Date Activated Date Inactivated Comments 08/14/2023 11:04 AM 08/15/2023 3:19 PM Care Teams Pre Kindergarten Teacher Relationship Specialty Start Date End Date Eden Holley NP [address] [address] PCP - General Family Medicine 07/25/23
--- OUTSIDE RECORDS SUMMARY | 2024-05-21 23:05 | XMS_ITS | Referral Summary ---
Author Organization [facility] Address [address] [place] [address] Care Team Providers Care Bone Char Puller Name Role Phone Tera Bernard MD Unavailable [phone] Eden Holley Primary Care Provider Source Comments [facility],non-owned Affiliates and Associated Physician Practices is amultiple site organization consisting of ambulatory clinics and hospital sitesin [place], [place], [place] and [place]. This disclosure is being madepursuant to the Care Everywhere program and may not contain all information available regarding this patient. Last updated 17.[facility] Encounters Date Type Department Care Team Description 04/13/2024 Telephone [facility] - Rheumatology [address] [place] [address] Keyshawn Mota MD Procedure Prior Auth Request (CT Thoracic Spine ) 04/09/2024 Telephone [facility] - Rheumatology [address] [place] [address] Terrie Lancaster APRN-CNP General 03/16/2024 Telephone [facility] - Rheumatology [address] [place], [place] [id number] Terrie Lancaster APRN-CNP Order 03/13/2024 Refill [facility] - ENT [address] [place] [id number] Tatianna Stovall APRN-CNP Refill Request 03/04/2024 Travel 03/04/2024 10:45 AM BIOINFORMATICS TEAM MEMBER Office Visit [facility] - ENT [address] [place] [address] Tatianna Stovall APRN-MAURILIO Bilateral impacted cerumen (Primary Dx); Dizziness; Vestibular migraine 02/27/2024 Travel 02/27/2024 3:00 PM BIOINFORMATICS TEAM MEMBER Testing Visit [facility] - ENT [address] [place] [address] Radha Rapp AuD Examination of ears and hearing 02/25/2024 Telephone [facility] [place] [address] [address] [place] [address] Sonali Alexander APRN-MAURILIO Referral from [...] Apply to affected area once daily Active wvnmcaf-xthyspfjd-dmti osterone (Biest With Testosterone) 0.125-0.5mg/mL cmpd cream [...] Comments Blood Pressure 122/76 02/19/2024 9:46 AM BIOINFORMATICS TEAM MEMBER Pulse 86 02/19/2024 9:46 AM BIOINFORMATICS TEAM MEMBER Temperature - - Respiratory Rate 18 10/20/2023 2:51 PM CDT Oxygen Saturation 96% 10/20/2023 2:51 PM CDT Inhaled Oxygen Concentration - - Weight 106.1 kg (234 lb) 03/04/2024 10:56 AM BIOINFORMATICS TEAM MEMBER Height 157.5 cm (5' 2 ) 03/04/2024 10:56 AM BIOINFORMATICS TEAM MEMBER Body Mass Index 42.8 03/04/2024 10:56 AM BIOINFORMATICS TEAM MEMBER Plan of Treatment Upcoming Encounters Date Type Department Care Team (Late st Contact Info) Description 06/03/2024 9:30 AM CDT Office Visit [facility] - ENT [address] [place] [address] Tatianna Stovall, DISTRICT CLAIMS MANAGER-JOB PLACEMENT COUNSELOR [address] [place] [address] 06/21/2024 9:30 AM CDT Office Visit [facility] - Rheumatology [address] [place] [address] Terrie Lancaster DISTRICT CLAIMS MANAGER-JOB PLACEMENT COUNSELOR [address] [facility] [address] [address] [place] [address] 07/22/2024 9:00 AM CDT Office [place] [facility] [place] [address] [facility] [place] [address] Sonali Alexander, DISTRICT CLAIMS MANAGER-JOB PLACEMENT COUNSELOR [address] [place] [address] Procedures Procedure Name Priority Date/Time Associated Diagnosis Comments DNA ANTIBODY DOUBLE STRANDED Routine 03/16/2024 1:46 PM BIOINFORMATICS TEAM MEMBER Iron deficiency Neuropathy Osteoarthritis of multiple joints, unspecified osteoarthritis type Medication monitoring encounter Polyarthralgia Fibromyalgia Myofascial pain COMPLEMENT C3 C4 PANEL Routine 03/16/2024 1:46 PM BIOINFORMATICS TEAM MEMBER Iron deficiency Neuropathy Osteoarthritis of multiple joints, unspecified osteoarthritis type Medication monitoring encounter Polyarthralgia Fibromyalgia Myofascial pain SS-A/SS-B (SJOGREN'S) ANTIBODY PANEL Routine 03/16/2024 1:46 PM BIOINFORMATICS TEAM MEMBER Iron deficiency Neuropathy Osteoarthritis of multiple joints, unspecified osteoarthritis type Medication monitoring encounter Polyarthralgia Fibromyalgia Myofascial pain FERRITIN Routine 03/16/2024 1:46 PM BIOINFORMATICS TEAM MEMBER Iron deficiency Neuropathy Osteoarthritis of multiple joints, unspecified osteoarthritis type Medication monitoring encounter Polyarthralgia Fibromyalgia Myofascial pain IRON + TIBC PANEL Routine 03/16/2024 1:4 6 PM BIOINFORMATICS TEAM MEMBER Iron deficiency Neuropathy Osteoarthritis of multiple joints, unspecified osteoarthritis type Medication monitoring encounter Polyarthralgia Fibromyalgia Myofascial pain C-REACTIVE PROTEIN Routine 03/16/2024 1: 46 PM BIOINFORMATICS TEAM MEMBER Iron deficiency Neuropathy Osteoarthritis of multiple joints, unspecified osteoarthritis type Medication monitoring encounter Polyarthralgia Fibromyalgia Myofascial pain ERYTHROCYTE SEDIMENTATION RATE Routine 03/16/2024 1:46 PM BIOINFORMATICS TEAM MEMBER Iron deficiency Neuropathy Osteoarthritis of multiple joints, unspecified osteoarthritis type Medication monitoring encounter Polyarthralgia Fibromyalgia Myofascial pain COMPREHENSIVE METABOLIC PANEL Routine 03/16/2024 1:46 PM BIOINFORMATICS TEAM MEMBER Iron deficiency Neuropathy Osteoarthritis of multiple joints, unspecified osteoarthritis type Medication monitoring encounter Polyarthralgia Fibromyalgia Myofascial pain CBC W AUTO DIFFERENTIAL Routine 03/16/2024 1:46 PM BIOINFORMATICS TEAM MEMBER Iron deficiency Neuropathy Osteoarthritis of multiple joints, unspecified osteoarthritis type Medication monitoring encounter Polyarthralgia Fibromyalgia Myofascial pain AZ REMOVE CERUMEN IMPACTED W INSTR BAYRON Routine 03/04/2024 2:02 PM BIOINFORMATICS TEAM MEMBER Bilateral impacted cerumen AUDIOLOGY/TYMPANOMETR Y ORDER Routine 03/03/2024 12:25 PM BIOINFORMATICS TEAM MEMBER HPV DETECTION HIGH RISK LOY Routine 10/30/2021 11:31 AM CDT Cervical cancer screening from Last 3 Months or Most Recently Relevant to Health Maintenance Results * C-REACTIVE PROTEIN (CRP) (03/16/2024 1:46 PM BIOINFORMATICS TEAM MEMBER) C-Reactive Protein 5.6 <8.0 mg/L [facility] Comment: Test Performed at: [facility] [address] [address] MIREYA CATALAN MD Blood BLOOD SPECIMEN / Unknown 03/16/2024 1:46 PM BIOINFORMATICS TEAM MEMBER 03/16/2024 1:53 PM BIOINFORMATICS TEAM MEMBER Terrie Rebecca Lancaster APRN-JOB PLACEMENT COUNSELOR LAB - CHEMI STRY ORDERABLES Performing Organization Address [facility] Co de Phone Number [facility] [phone] [place] [address] * SS-A/SS-B (SJOGREN'S) ANTIBODY PANEL (03/16/2024 1:46 PM BIOINFORMATICS TEAM MEMBER) Sjogren's Antibodies (SSA) <1.0 NEG <1.0 NEG AI [facility] Sjogren's Antibodies (SSB) <1.0 NEG <1.0 NEG AI [facility] Comment: Test Performed at: [place] [address] MIREYA CATALAN MD Blood BLOOD SPECIMEN / Unknown 03/16/2024 1:46 PM BIOINFORMATICS TEAM MEMBER 03/16/2024 1:53 PM BIOINFORMATICS TEAM MEMBER Terrie Lancaster APRN-JOB PLACEMENT COUNSELOR LAB - CHEMI STRY ORDERABLES Performing Organization Address [facility] [place] [address] * DNA ANTIBODY DOUBLE STRANDED (03/16/2024 1:46 PM BIOINFORMATICS TEAM MEMBER) dsDNA Antibody <1 IU/mL [facility] Comment: IU/mL Interpretation < or = 4 Negative 5-9 Indeterminate > or = 10 Positive Test Performed at: [facility] [place] [address] MIREYA CATALAN MD Blood BLOOD SPECIMEN / Unknown 03/16/2024 1:46 PM BIOINFORMATICS TEAM MEMBER 03/16/2024 1:53 PM BIOINFORMATICS TEAM MEMBER Terrie Lancaster APRN-JOB PLACEMENT COUNSELOR LAB - HEMAT OLOGY ORDERABLES Performing Organization Address [facility] Co de Phone Number [address] [address] * (ABNORMAL) SED RATE AUTO (ESR) (03/16/2024 1:46 PM BIOINFORMATICS TEAM MEMBER) Pathologist [facility] Erythrocyte Sedimentation Rate Westergren 22(H) < OR = 20 mm/h [facility] Comment: Test Performed at: [facility] [address] MIREYA CATALAN MD Blood BLOOD SPECIMEN / Unknown 03/16/2024 1:46 PM BIOINFORMATICS TEAM MEMBER 03/16/2024 1:53 PM BIOINFORMATICS TEAM MEMBER Terrie Lancaster DISTRICT CLAIMS MANAGER-JOB PLACEMENT COUNSELOR LAB - HEMAT OLOGY ORDERABLES [address] [address] * CBC WITH DIFFERENTIAL (03/16/2024 1:46 PM BIOINFORMATICS TEAM MEMBER) [facility] White Blood Cell Count 8.3 3.8 - [...] 1.3 % [facility] Comment: Test Performed at: [facility] [address] MIREYA CATALAN MD Blood BLOOD SPECIMEN / Unknown 03/16/2024 1:46 PM BIOINFORMATICS TEAM MEMBER 03/16/2024 1:53 PM BIOINFORMATICS TEAM MEMBER Terrie Rebecca Lancaster APRN-JOB PLACEMENT COUNSELOR LAB - HEMAT OLOGY ORDERABLES Performing Organization Address [facility] Co de Phone Number [facility] [address] [place] [address] * COMPREHENSIVE METABOLIC PANEL (03/16/2024 1:46 PM BIOINFORMATICS TEAM MEMBER) Pathologist [facility] Glucose 87 65 - 99 [...] 29 U/L [facility] Comment: Test Performed at: [facility] [address] [place] [address] MIREYA CATALAN MD Blood BLOOD SPECIMEN / Unknown 03/16/2024 1:46 PM BIOINFORMATICS TEAM MEMBER 03/16/2024 1:53 PM BIOINFORMATICS TEAM MEMBER Terrie Rebecca Lancaster APRN-JOB PLACEMENT COUNSELOR LAB - CHEMI STRY ORDERABLES Performing Organization Address [facility]/[place] [address] * IRON + TIBC PANEL (03/16/2024 1:46 PM BIOINFORMATICS TEAM MEMBER) Pathologist [facility] Iron 70 45 - 160 mcg/dL [facility] TIBC 362 250 - 450 mcg/dL (calc) [facility] % Saturation 19 16 - 45 % (calc) [facility] Comment: Test Performed at: [facility] [address] [facility] [place] [address] MIREYA CATALAN MD Blood BLOOD SPECIMEN / Unknown 03/16/2024 1:46 PM BIOINFORMATICS TEAM MEMBER 03/16/2024 1:53 PM BIOINFORMATICS TEAM MEMBER Terrie AGUSTINJOB PLACEMENT COUNSELOR LAB - CHEMI STRY ORDERABLES Performing Organization Address [facility] [place] [address] * (ABNORMAL) COMPLEMENT C3 C4 PANEL (03/16/2024 1:46 PM BIOINFORMATICS TEAM MEMBER) [facility] Complement C3 205(H) 83 - 193 mg/dL [facility] Complement C4 34 15 - 57 mg/dL [facility] Comment: Test Performed at: [facility] [employer] [place] [address] MIREYA CATALAN MD Blood BLOOD SPECIMEN / Unknown 03/16/2024 1:46 PM BIOINFORMATICS TEAM MEMBER 03/16/2024 1:53 PM BIOINFORMATICS TEAM MEMBER Terrie CANO LAB - CHEMI STRY ORDERABLES Performing Organization Address City/[facility] Co de Phone Number [place] [phone] * FERRITIN (03/16/2024 1:46 PM BIOINFORMATICS TEAM MEMBER) Pathologist [facility] Ferritin 35 16 - 232 ng/mL [facility] Comment: Test Performed at: [place] [address] MIREYA CATALAN MD Blood BLOOD SPECIMEN / Unknown 03/16/2024 1:46 PM BIOINFORMATICS TEAM MEMBER 03/16/2024 1:53 PM BIOINFORMATICS TEAM MEMBER Terrie Lancaster [facility] LAB - CHEMI STRY ORDERABLES [facility] [address] [place] [address] * [place] REMOVE CERUMEN IMPACTED W INSTR BAYRON (03/04/2024 2:02 PM BIOINFORMATICS TEAM MEMBER) Narrative Tatianna Stovall, RACHAEL - 03/04/2024 2:02 PM BIOINFORMATICS TEAM MEMBER Tatianna Stovall APRN-CNP 03/04/2024 2:03 PM Procedure: [...] had normal landmarks and mobility. Tatianna Stovall [facility] PROCEDURE/MINOR SURGICAL ORDERABLES * AUDIOLOGY/TYMPANOMETRY ORDER (03/03/2024 12:25 PM BIOINFORMATICS TEAM MEMBER) [facility] O RDERABLES * HPV DETECTION HIGH RISK LOY (10/30/2021 11:31 AM CDT) High Risk Human Papilloma Result Not detected Not detected 11/02/2021 4:49 PM CDT [facility] High Risk Human Papilloma Interp 11/02/2021 4:49 PM CDT [facility] Comment:High Risk Human Narinder lloma Virus was Not Detected. Pathology/Cytolo gy VAGINA AND CERVIX, CS / Unknown 10/30/2021 11:31 AM CDT 10/31/2021 12:13 PM CDT Narrative [facility] - 11/02/2021 4:49 [...] Jovita Arteaga MD LAB - MICROBIOLOGY ORDERABLES [facility] [address] [facility] [place] [address], [facility] [[email or web address]] [phone] from Last 3 Months or Most Recently Relevant to Health Maintenance Care Teams Bone Char Puller Relationship Specialty Start Date End Date Eden Holley, DISTRICT CLAIMS MANAGER-JOB PLACEMENT COUNSELOR [address] [facility] [address] [place] [id number] PCP - General Nurse Practitioner 10/20/23 Tera Bernard MD [address] [place], [place] [id number] Obstetrics and Gynecology 06/19/23
[2024-05-22 00:42] LABS: Add Urine Microscopic? NO; Appearance Urine Clear (Clear); Bilirubin Urine Negative (Negative); Blood Urine Negative (Negative); Color Urine Yellow (Yellow); Glucose Urine UA Negative (Negative); Ketones Urine Negative (Negative); Leukocyte Esterase Ur Negative LEU/UL (Negative); Nitrate Urine Negative (Negative); Protein Urine Negative (Negative); Specific Grav Ur > 1.045 (1.001-1.035); Urobilinogen Urine 0.2 mg/dL (<2.0)
[2024-05-22 01:29] VITALS: BP 136/88; PULSE 80; RESP 18; O2SAT 100
== END 2024-05-22 01:29 | disposition home or self-care (01) ==
PROVIDERS: Registered Nurse; Emergency Provider Physician Assistant
DX: R10.9 Unspecified abdominal pain (principal); Z90.5 Acquired absence of kidney; J45.909 Unspecified asthma, uncomplicated; E03.9 Hypothyroidism, unspecified; E28.2 Polycystic ovarian syndrome; E66.01 Morbid (severe) obesity due to excess calories; Z68.41 Body mass index [BMI] 40.0-44.9, adult; N30.10 Interstitial cystitis (chronic) without hematuria; K21.9 Gastro-esophageal reflux disease without esophagitis; F41.9 Anxiety disorder, unspecified; Z86.2 Personal history of diseases of the blood and blood-forming organs and certain disorders involving the immune mechanism; Z85.528 Personal history of other malignant neoplasm of kidney; Z87.442 Personal history of urinary calculi; Z90.710 Acquired absence of both cervix and uterus; Z79.899 Other long term (current) drug therapy; R94.31 Abnormal electrocardiogram [ECG] [EKG]
CPT/HCPCS: 36415; 74177; 80053; 81003; 84484; 85025; 85610; 85730; 93005; 99284; Q9967

== ENCOUNTER 2024-06-21 01:07 | Day surgery (SDC) | payer BC, SELFPAY ==
--- NOTE | 2024-06-14 08:31 | PC.NURSE ---
Report to the Outpatient Waiting Room, entrance under the green pavilion located off [facility], at time _1145_ on date _[id number]_. Planned Procedure Time: _1245_.? Time changes happen often and if your time is changed the preop area will call you the afternoon before. - You and your visitor will be asked to self-screen and do not enter if you have any COVID symptoms. Please call surgeon if you need to reschedule. - A mask is optional within the hospital at this time. - No smoking, or chewing tobacco (or any form of nicotine). Ok for light breakfast, nothing to eat or drink after 1045am. No chewing gum, candy or mints. Take only the following medications with a SIP of water on the morning of surgery: __Medications OK DO NOT STOP ANY OF YOUR OTHER PRESCRIPTION MEDICATIONS PRIOR TO SURGERY EXCEPT THE FOLLOWING Hold all vitamins and supplements for 3 days per anesthesiologist. Medications to discontinue per physician Date to take last dose Please no make-up, nail danish, hairspray, perfume, deodorant, or body powder the day of surgery.? No jewelry (including any body piercings) or valuables the day of surgery, leave them at home.? Please take a shower or bath the night before, or the morning of, surgery with an antibacterial soap.? Wear comfortable, loose fitting clothing.? - Jewelry must be removed prior to entering the operating room.? Rings and piercings that are not removed may be cut off. - The hospital will not accept responsibility for valuables.? - Please leave all valuables, including medications, at home the day of surgery. If you are going home after surgery, a licensed trash truck driver must drive you home.? - NO public transportation without another adult if you receive anesthesia. - We recommend that an adult stay with you for 24 hours following discharge. - We also recommend that you do not drive, make important decision, drink alcoholic beverages, or take any drugs that were not prescribed by your health care provider for at least 24 hours after your discharge time. Follow any additional instructions given to you from your surgeon. Telephone instructions given to __Sana__and asked if any additional questions and then verbalized understanding. Patient advised to call surgeon office or pre surgery nurse liaison [phone] if any additional questions.
[2024-06-14 08:37] VITALS: BMI 42.5
--- NOTE | ~2024-06-21 | XR_ITS ---
XR fluoroscopy no charge Indication:bilateral L3-4 medial branch block/dorsal ramus nerve block TECHNIQUE: Fluoroscopy used during bilateral L3-4 medial branch block/dorsal ramus nerve block perfo rmed by [Shalom Adan MD] on 06/21/2024. 1 minute 14 seconds with 12 fluoroscopic images capt ured. FINDINGS: Correlate with procedure note. IMPRESSION: Fluoroscopy used during bilateral L3-4 medial branch block/dorsal ramus nerve block. Reviewed, dictated and finalized at location A. IMPRESSION: Fluoroscopy used during bilateral L3-4 medial branch block/dorsal r amus nerve block.
--- OUTSIDE RECORDS SUMMARY | 2024-06-21 01:11 | XMS_ITS | Data Portability ---
Author Organization [place] - [facility], autoContract Address [address] [place] [address] Care Team Providers Care Formula Technician Name Role Phone MYNOR ENGLE Primary Care Provider LAMBERTO VAUGHAN Art Historian Assessment Encounter Date Assessment Date Assessment LastModified [...] By Organization Details Last Modified Time 02/22/2016 [id number] Diagnosis and treatment discussed with patient. Recommend [...] example). [email or web address] Not available 02/03/2019 14:20:01 02/26/2016 [id number] The patches applied to your back will [...] applied. [email or web address] Not available 02/03/2019 14:00:22 02/28/2016 [id number] Reviewed lab results and patch test reading at 48 hours with patient who was advised of positive patch reaction to fragrance mix and amerchol (lanolin); avoidance of these products and reading product labels was advised. Keep follow up appointment tomorrow for final reading at 72 hours. [email or web address] Not available 02/03/2019 14:04:32 02/29/2016 [id number] Patch testing to a panel of common [...] IgE <0.35 kU/L 0-0.35 normal Not Available [address], [address], 02/26/2016 14:06:08 02/22/20 16 02/22/2016 aller gy panel , serum or plasm a oak (T7) IgE <0.35 kU/L 0-0.35 normal Not Available [address], [address], 02/26/2016 14:06:08 02/22/20 16 02/22/2016 aller gy panel , serum or plasm a bermuda grass (g2) IgE <0.35 kU/L 0-0.35 normal Not Available [address], [address], 02/26/2016 14:06:08 02/22/20 16 02/22/2016 aller gy panel , serum or plasm a sammi grass (g6) IgE <0.35 kU/L 0-0.35 normal Not Available [address], [address], 02/26/2016 14:06:08 02/22/20 16 02/22/2016 aller gy panel , serum or plasm a common ragweed weed <0.35 kU/L 0-0.35 normal Not Available [address], [address], 02/26/2016 14:06:08 02/22/20 16 02/22/2016 aller gy panel , serum or plasm a mugwort (W6) IgE <0.35 kU/L 0-0.35 normal Not Available [address], [address], 02/26/2016 14:06:08 02/22/20 16 02/22/2016 aller gy panel , serum or plasm a rough pigweed (W14) IgE <0.35 kU/L 0-0.35 normal Not Available [address], [address], 02/26/2016 14:06:08 02/22/20 16 02/22/2016 aller gy panel , serum or plasm a dermatophago ides farinae <0.35 kU/L 0-0.35 normal Not Available [address], [address], 02/26/2016 14:06:08 02/22/20 16 02/22/2016 aller gy panel , serum or plasm a CAT epithel. <0.35 kU/L 0-0.35 normal Not Available [address], [address], 02/26/2016 14:06:08 02/22/20 16 02/22/2016 aller gy panel , serum or plasm a dog dander (E5) IgE <0.35 kU/L 0-0.35 normal Not Available [address], [address], 02/26/2016 14:06:08 02/22/20 16 02/22/2016 aller gy panel , serum or plasm a cockroach (I6) IgE <0.35 kU/L 0-0.35 normal Not Available [facility] - [address], [address], 02/26/2016 14:06:08 02/22/20 16 02/22/2016 aller gy panel , serum or plasm a penicillium notatum (M1) <0.35 kU/L 0-0.35 normal Not Available [facility] - [address], [address], 02/26/2016 14:06:08 02/22/20 16 02/22/2016 aller gy panel , serum or plasm a cladosporium herbarum(M2) IgE <0.35 kU/L 0-0.35 normal Not Available [facility] - [address], [address], 02/26/2016 14:06:08 02/22/20 16 02/22/2016 aller gy panel , serum or plasm a aspergillus fumigatus (M3 <0.35 kU/L 0-0.35 normal Not Available [facility] - [address], [address], 02/26/2016 14:06:08 02/22/20 16 02/22/2016 aller gy panel , serum or plasm a alternaria alternata (M6) <0.35 kU/L 0-0.35 normal Not Available [facility] - [address], [address], 02/26/2016 14:06:08 02/22/20 16 02/22/2016 aller gy panel , serum or plasm a maple (box eleder)(T1)I gE <0.35 kU/L 0-0.35 normal Not Available [address], [address], 02/26/2016 14:06:08 02/22/20 16 02/22/2016 aller gy panel , serum or plasm a birch (T3) IgE <0.35 kU/L 0-0.35 normal Not Available [facility] - [address], [address], 02/26/2016 14:06:08 02/22/20 16 02/22/2016 aller gy panel , serum or plasm a mountain cedar (T6) IgE <0.35 kU/L 0-0.35 normal Not Available [facility] - [address], [address], 02/26/2016 14:06:08 02/22/20 16 02/22/2016 aller gy panel , serum or plasm a elm (T8) IgE <0.35 kU/L 0-0.35 normal Not Available [facility] - [address], [address], 02/26/2016 14:06:08 02/22/20 16 02/22/2016 aller gy panel , serum or plasm a walnut tree (T10) IgE <0.35 kU/L 0-0.35 normal Not Available [facility] - [address], [address], 02/26/2016 14:06:08 02/22/20 16 02/22/2016 aller gy panel , serum or plasm a sycamore (T11) IgE <0.35 kU/L 0-0.35 normal Not Available [facility] - [address], [address], 02/26/2016 14:06:08 02/22/20 16 02/22/2016 aller gy panel , serum or plasm a cottonwood (T14) IgE <0.35 kU/L 0-0.35 normal Not Available [facility] - [address], [address], 02/26/2016 14:06:08 02/22/20 16 02/22/2016 aller gy panel , serum or plasm a white pati (T15) IgE <0.35 kU/L 0-0.35 normal Not Available [facility] - [address], [address], 02/26/2016 14:06:08 02/22/20 16 02/22/2016 aller gy panel , serum or plasm a D. pteronys sinus(D1) IgE <0.35 kU/L 0-0.35 normal Not Available [facility] - [address], [address], 02/26/2016 14:06:08 02/22/20 16 02/22/2016 aller gy panel , serum or plasm a sheep sorrel (W18) IgE <0.35 kU/L 0-0.35 normal Not Available [address], [address], 02/26/2016 14:06:08 02/22/20 16 02/22/2016 aller gy panel , serum or plasm a mouse ur prot (E72) IgE <0.35 kU/L 0-0.35 normal Not Available [address], [address], 02/26/2016 14:06:08 02/22/20 16 02/22/2016 aller gy panel , serum or plasm a total IgE 7.61 kU/L 0-25.0 normal Not Available [facility] - [address], [address], 02/26/2016 14:06:08 02/22/20 16 02/22/2016 food aller gen panel , serum egg white (F1) IgE <0.35 kU/L 0-0.35 normal Not Available [address], [address], 02/26/2016 14:06:09 02/22/20 16 02/22/2016 food aller gen panel , serum milk (F2) IgE <0.35 kU/L 0-0.35 normal Not Available [address], [address], 02/26/2016 14:06:09 02/22/20 16 02/22/2016 food aller gen panel , serum codfish (F3) IgE <0.35 kU/L 0-0.35 normal Not Available [address], [address], 02/26/2016 14:06:09 02/22/20 16 02/22/2016 food aller gen panel , serum wheat (F4) IgE <0.35 kU/L 0-0.35 normal Not Available [address], [address], 02/26/2016 14:06:09 02/22/20 16 02/22/2016 food aller gen panel , serum maize / corn (F8) IgE <0.35 kU/L 0-0.35 normal Not Available [address], [address], 02/26/2016 14:06:09 02/22/20 16 02/22/2016 food aller gen panel , serum sesame seed (F10) IgE <0.35 kU/L 0-0.35 normal Not Available [address], [address], 02/26/2016 14:06:09 02/22/20 16 02/22/2016 food aller gen panel , serum peanut (F13) IgE <0.35 kU/L 0-0.35 normal Not Available [address], [address], 02/26/2016 14:06:09 02/22/20 16 02/22/2016 food aller gen panel , serum soybean (F14) IgE <0.35 kU/L 0-0.35 normal Not Available [address], [address], 02/26/2016 14:06:09 02/22/20 16 02/22/2016 food aller gen panel , serum shrimp (F24) IgE <0.35 kU/L 0-0.35 normal Not Available [address], [address], 02/26/2016 14:06:09 02/22/20 16 02/22/2016 food aller gen panel , serum walnut (F256) IgE <0.35 kU/L 0-0.35 normal Not Available [address], [address], 02/26/2016 14:06:09 02/22/20 16 02/22/2016 food aller gen panel , serum scallop (F338) IgE <0.35 kU/L 0-0.35 normal Speci fic IgE(k U/L) Level Class <0.35 Absen t/Und etect able 0 0.35- 0.70 Low 1 0.71- 3.50 Moder ate 2 3.51- 17.5 High 3 17.6- 50.0 Very High 4 51.0- 100.0 Very High 5 >100. 0 Very High 6 Not Available [address], [address], 02/26/2016 14:06:09 02/22/20 16 02/22/2016 food aller gen panel , serum salmon (F41) IgE <0.35 kU/L 0-0.35 normal Not Available [address], [address], 02/26/2016 14:06:09 02/22/20 16 02/22/2016 food aller gen panel , serum tuna (F40) IgE <0.35 kU/L 0-0.35 normal Not Available [facility] - [address], [address], 02/26/2016 14:06:09 02/22/20 16 02/22/2016 food aller gen panel , serum hazelnut(F17 ) IgE <0.35 kU/L 0-0.35 normal Not Available [address], [address], 02/26/2016 14:06:09 02/22/20 16 02/22/2016 food aller gen panel , serum cashew nut(F202) IgE <0.35 normal Not Available [address], [address], 02/26/2016 14:06:09 02/22/20 16 02/22/2016 food aller gen panel , serum almond (F20)IgE <0.35 0-0.35 normal Not Available [address], [address], 02/26/2016 14:06:09 02/22/20 16 02/22/2016 thyro globu henry Ab, serum thyroglobuli n IgG Ab <20.0 IU/mL <=40.0 normal Not Available [address], [address], 02/26/2016 14:06:10 02/22/20 16 02/22/2016 thyro id perox idase (tpo) Ab, serum thyroid peroxidase antibody <10.0 IU/mL <35 normal Not Available [address], [address], 02/26/2016 14:06:10 02/22/20 16 02/22/2016 TSH, ultra -sens itive , serum TSH,3rd generation 1.038 uIU/m L 0.35-5 .50 normal Pregn shay: First Trime ster: 0.30- 4.50 uIU/m L Secon d Trime ster: 0.50- 4.60 uIU/m L Third Trime ster: 0.80- 5.20 uIU/m L Not Available [facility] - [address], [address], 02/26/2016 14:06:11 02/22/20 16 02/22/2016 latex (H.br azili ensis ) latex (H.brazilien sis) <0.35 kU/L 0-0.35 normal Not Available [facility] [address] [place] [address], [address], 02/26/2016 14:06:11 Result Notes None recorded. Problems Name Problem SNOMED Code Status Onset Date Resolution Date Notes Provider Name and Address Organization Details Recorded Time Contact dermatitis 82956892 Active as per history rita Wilde MD [address] [place] [address] Rd,[address], [address], [facility] 6 12:30:40 Polycystic ovaries Active Todd Wilde MD [address] [place] [address] Rd,[facility], [place], [address], [facility] 6 12:32:31 Gastritis 6011081 Active Todd Wilde MD [address] [place] [address] Rd,[facility] [address], [place], [address], [facility] 6 12:32:49 Mood disorder 72950326 Active Todd Wilde MD [address] [place] [address] Rd,[facility] [address], [place], [address], [facility] 6 12:32:58 Insomnia 717279841 Active Todd Wilde MD [address] [place] [address] Rd,[address], [address], [facility] 6 12:33:08 Problem Notes None recorded. Procedures Surgical History Date Name Laterality Status Provider Name and Address Organization Details Recorded Time 02/29/2016 Patch Test completed Todd Wilde MD [address] [place] [address] Rd,[facility] [address], [address], [facility] 02/03/2019 14:10:42 02/28/2016 Patch Test completed Todd Wilde MD [address] [place] [address] Rd,[facility] [address], [place], [address], [facility] 02/03/2019 14:02:31 02/26/2016 Patch Test completed Todd Wilde MD [address],[facility] [address], [place], [address], [facility] 02/03/2019 13:58:56 Imaging Results None recorded. Procedure Notes None recorded. Medical Equipment None Reported. Allergies Allergen ID Allergen Name Allergen Category Reaction Reaction Severity Criticality Documentation Date Start Date Code Code System Note Provider Name and Address Organization Details Recorded Time 6270 Product containin g penicilli n (product) medicatio n hives Not available Not available 02/22/2016 38281 8001 SNOMED Todd Wilde MD [address] [place] [address] Rd,[facility] [address], [place], [address], [facility] 6 13:49:54 6271 erythromy yuly medicatio n edema Not available Not available 02/22/2016 4053 RxNorm Todd Wilde MD [address] [place] [address] Rd,[facility] [address], [address], [facility] 6 13:50:03 6272 Compazine medicatio n Not available Not available Not available 02/22/2016 08928 6 RxNorm Todd Wilde MD [address] [place] [address] Rd,[facility] [address], [address], [facility] 6 13:50:12 Medications [...] Details Last Updated DateTime 6 157.48 cm 45457.5 4 g 39.7 kg/m2 74 /min 99 % 99 % 14 /min 98.5 [degF] 122 mm[Hg] 75 mm[Hg] Todd Wilde MD [address] [facility],[place] [address], [address] [place] [address] [facility] 6 18:10:01 Date Recorded Body height Body weight Body mass index (BMI) Heart rate Respiratory rate Systolic blood pressure Diastolic blood pressure Provider Name and Address Organization Details Last Updated DateTime 6 157.48 cm 18159.5 4 g 39.7 kg/m2 78 /min 14 /min 124 mm[Hg] 77 mm[Hg] Todd Wilde MD [address] [facility],[address], [place], [address] 6 11:08:28 Date Recorded Body height Body weight Body mass index (BMI) Heart rate Respiratory rate Systolic blood pressure Diastolic blood pressure Provider Name and Address Organization Details Last Updated DateTime 6 157.48 cm 31016.5 4 g 39.7 kg/m2 70 /min 14 /min 122 mm[Hg] 75 mm[Hg] Todd Wilde MD [address], [place], [address], [facility] 6 18:00:22 Date Recorded Body height Body weight Body mass index (BMI) Heart rate Respiratory rate Systolic blood pressure Diastolic blood pressure Provider Name and Address Organization Details Last Updated DateTime 6 157.48 cm 79919.5 4 g 39.7 kg/m2 76 /min 14 /min 121 mm[Hg] 74 mm[Hg] Todd Wilde MD [address], [place], [address], [facility] 6 17:03:26 Social History Question Answer Notes LastModified by Organizat ion Details LastModified Time Tobacco Smoking Status Never Smoker Todd Wilde MD [address], [place], [address], [facility] 02/03/2019 13:29:39 What [...] Information not available 02/03/2019 Years Living In [place] Since 2011 Information not available 02/03/2019 Marital [...] available 2018 13:29:28 Medical History Condition Response Reflux/GERD Y Kidney Stones Y Sleep Disorder Y Gynecological HistoryNo gynecological history recorded. Obstetrics History GPAL:G 0 P 0 0 0 0 Past Encounters Encounter ID Performer Location Encounter Start Date Encounter Closed Date Diagnosis/Indication Diagnosis SNOMED-CT Code Diagnosis ICD10 Code Diagnosis Note [id number] Todd Wilde MD Main Office [address] [place] [address] 9 02/22/2016 13:38:18 02/22/2016 14:35:44 Contact dermatitis 58437037 L23.9 Urticaria 957871335 L50. 8 Pruritic disorder 042146 002 L20.89 [id number] Todd Wilde MD Main Office [address] [place] [address] 9 02/26/2016 10:01:03 02/26/2016 10:53:35 Contact dermatitis 05510713 L23.9 Urticaria 003079490 L50. 8 Pruritic disorder 416873 002 L20.89 [id number] Todd Wilde MD Main Office [address] [place] [address] 9 02/28/2016 16:43:04 02/28/2016 17:08:34 Contact dermatitis 90888420 L23.9 [id number] Todd Wilde MD Main Office [address] [place] [address] 9 02/29/2016 16:38:37 02/29/2016 17:02:08 Contact dermatitis 82859838 L23.9 Health Concerns Section Related Observation LastModified by Organization Detai ls LastModified Time None Recorded Concern Status LastModified by Organization Details LastModified Time None Recorded Advance Directives Directive None Recorded Payers Encounter Date Sequence Insurance Name Policy Number Policy Laurent Covered Member ID Laurent Member ID Guarantor Name 02/22/2016 1 [place] [id number] Giancarlo Connors [id number] Sana Connors 02/26/2016 1 [place] [id number] Giancarlo Connors [id number] Sana Connors 02/28/2016 1 [place] [id number] Giancarlo Connors [id number] Sana Connors 02/29/2016 1 [place] [id number] Giancarlo Connors [id number] Sana Connors Notes Date Note Type Note Provider Name and Address Organization Details Recorded Time 02/22/2016 text/html Patient describe s ongoing problems with localized pruritic rashes over the last year characterized as redness on face (today along sides of nose and behind ears) and concerned if allergy playing a role. Rashes can affect eyelids and she has seen a product/device technologist who recommended using Cetaphil and to discontinue using nail serbian. Upon review no apparent relationship to seasonal [...] or past testing. Todd Wilde MD [address], [place], [address], [facility] 02/03/2019 14:20:16 02/26/2016 text/html Patient went to lab for blood tests; here for contact allergy patch testing. Todd Wilde MD [address], [place], [address], [facility] 02/03/2019 14:18:46 02/28/2016 text/html Some mild itch a t patch test area; here for 48 hour reading of contact allergy test and review lab result. Todd Wilde MD [address], [place], [address], [facility] 02/03/2019 14:18:09 02/29/2016 text/html Here for 72 hour patch reading; itchy at a couple areas on test sites. Todd Wilde MD [address], [place], [address], [facility] 02/03/2019 14:17:28 OBGyn Episode No OBEpisode recorded.
--- OUTSIDE RECORDS SUMMARY | 2024-06-21 01:12 | XMS_ITS | Patient Health Record ---
Author Organization [facility] [place], [facility] Address [address] [place] [address] Care Team Providers Care Senior Solutions Consultant Name Role Phone Jessica Avila Primary Care [...] Linzess Active metFORMIN HCl 1000mg Active Nystatin 912175 UNIT/GM 1 application Ex ternally Twice a [...] due to excess calories (E66.01) Active confirmed 96388143272223 Problem Cervical high risk human papillomavirus (HPV) DNA test positive (R87.810) Active confirmed 353859271 Problem Body mass index (BMI) 40.0-44.9, adult (Z68.41) Active confirmed 392581637 Problem Menorrhagia with regular cycle (N92.0) Active confirmed 832990218 Problem Endometriosis (N80.9) Active confirmed 558518113 Problem PCO (polycystic ovaries) (E28.2) Active confirmed 321627901 Problem Dysmenorrhea (N94.6) Active confirmed 667046956 PLAN OF TREATMENT Pending Test Test Name [...] Insured Coverage Start Date Coverage End Date [facility] [address] [place] [address] [id number] Sana Connors Self - patient is the insured 9 MEDICAL (GENERAL) HISTORY Medical History History ICD Code PCO endometriosis, biopsy proven interstitail cystitis kidney stones Surgical History Surgery Date(Month/Year) D&C x3 c/section 2000
--- OUTSIDE RECORDS SUMMARY | 2024-06-21 01:12 | XMS_ITS | Clinical Summary ---
Author Organization [facility] Address [address] [place] [address] Care Team Providers Care Orthopaedic General Name Role Phone Unavailable Primary Care Provider [...] 10/15/2023 COVID-19 Vaccine (2023-2 5 season) 2023 Meningococcal B Vaccine Aged Out No [...]
--- OUTSIDE RECORDS SUMMARY | 2024-06-21 01:12 | XMS_ITS | Clinical Summary ---
Author Organization [facility] Address [address] [facility] [place] [address] Care Team Providers Care Coil Shaper Name Role Phone Tera Bernard MD Unavailable [phone] Eden Holley APRN-CLIENT SERVICES COORDINATOR Primary Care Provider Source Comments [facility],non-owned Affiliates and Associated Physician Practices is amultiple site organization consisting of ambulatory clinics and hospital sitesin [place], [place], [place] and [place]. This disclosure is being madepursuant to the Care Everywhere program and may not contain all information available regarding this patient. Last updated 17.[facility] Allergies Active Allergy Reactions Criticality Noted Date [...] once daily Active gabapentin (Neurontin) 300 MG capsuleIndications: Iron deficiency,Neuropat hy,Osteoarthritis of multiple joints, unspecified osteoarthritis type,Medication monitoring [...] K (VITAMIN K2-VITAMIN D3 PO) Active Thyroid (LEVOTHYROXINE-LIOT HYRONINE PO) Active PROGESTERONE-DHEA cream 120-10 MG/GM CREA compound Apply to affected area once daily Active ytxhvmw-skopkynqo-v estosterone (Biest With Testosterone) 0.125-0.5mg/mL cmpd cream Apply to affected area once daily Active TURMERIC PO Active GLUTATHIONE PO Active escitalopram (Lexapro) 10 MG tablet Take 1 (one) tablet by mouth once daily 30 tablet 03/04/2024 Active predniSONE (Deltasone) 5 MG tablet Please take 15 mg PO x 5 days, 10 mg PO x 5 days and 5 mg PO x 5 days 30 tablet 03/26/2024 Active meloxicam (Mobic) 15 MG tabletIndications:I aletha deficiency,Neuropat hy,Osteoarthritis of multiple joints, unspecified osteoarthritis type,Medication monitoring encounter TAKE 1 TABLET BY MOUTH AT BEDTIME 90 tablet 06/01/2024 Active meloxicam (Mobic) 15 MG tabletIndications:I aletha deficiency,Neuropat hy,Osteoarthritis of multiple joints, unspecified osteoarthritis type,Medication monitoring encounter Take 1 (one) tablet by mouth at bedtime 90 tablet 02/19/2024 5 Discontinued Active Problems Problem Noted Date Diagnosed Date Contact dermatitis 03/04/2024 Overview (03/04/2024): as per history costume jewelry Gastritis 03/04/2024 Insomnia 03/04/2024 Mood disorder 03/04/2024 Thyroid nodule 08/22/2023 Renal mass 07/25/2023 Encounters Date Type Department Care Team Description 06/01/2024 Refill [facility] Rheumatology [address] [facility] [address] [place] [address] Terrie Lancaster APRN-MAURILIO Refill Request 04/13/2024 Telephone [facility] [address] [facility] [address] [place] [address] Keyshawn Mota MD Procedure Prior Auth Request (CT Thoracic Spine ) 04/09/2024 Telephone [facility] [id number] [place] [address] [address] [place] [address] Terrie Lancaster APRN-CNP General from Last 3 Months Family History Medical History Relation Name Comments Cancer Maternal Great-Grandmother ? bulker Relation Name Status Comments Maternal Great-Grandmother Alive [...] Comments Blood Pressure 122/76 02/19/2024 9:46 AM NATIONAL SALES ASSOCIATE Pulse 86 02/19/2024 9:46 AM NATIONAL SALES ASSOCIATE Temperature - - Respiratory Rate 18 10/20/2023 2:51 PM CDT Oxygen Saturation 96% 10/20/2023 2:51 PM CDT Inhaled Oxygen Concentration - - Weight 106.1 kg (234 lb) 03/04/2024 10:56 AM NATIONAL SALES ASSOCIATE Height 157.5 cm (5' 2 ) 03/04/2024 10:56 AM NATIONAL SALES ASSOCIATE Body Mass Index 42.8 03/04/2024 10:56 AM NATIONAL SALES ASSOCIATE Plan of Treatment Upcoming Encounters Date Type Department Care Team (Late st Contact Info) Description 06/21/2024 9:30 AM CDT Office Visit [facility] Rheumatology [address] [facility] [address] [place] [address] Terrie Lancaster APRN-CLIENT SERVICES COORDINATOR [address] [facility] [address] [place], [place] [id number] 07/29/2024 10:15 AM CDT Office Visit [facility] ENT [address] [place] [address] Tatianna Stovall, GUIDANCE COUNSELOR-CLIENT SERVICES COORDINATOR [address] [facility] [address] [place] [address] 08/05/2024 9:30 AM CDT Office Visit [facility] [place] [address] [facility] [address] [place] [address] Sonali Alexander, GUIDANCE COUNSELOR-CLIENT SERVICES COORDINATOR [address] [facility] [address] [place] [address] Health Maintenance Due Date Last [...] VACCINE (1 - 2023-2 5 season) 2023 DEPRESSION SCREENING 03/17/2024 10/20/2023 INFLUENZA VACCINE (Season Ended) 2024 MAMMOGRAM 07/25/2025 07/26/2023 PAP with HPV 10/30/2026 10/30/2021 SCREENING FOR DIABETES 03/16/2027 , 09/25/2023, 06/19/2023 HIB VACCINE Aged Out No longer eligi ble based on patient's age to complete this topic HPV VACCINE Aged Out No longer eligi ble based on patient's age to complete this topic MENINGOCOCCAL (Group B) VACCINE SHARED DECISION-MAKING Aged Out No longer eligible based on patient's age to complete this topic MENINGOCOCCAL GROUPS A/C/Y/W VACCINE Aged Out No longer eligible b ased on patient's age to complete this topic Procedures Procedure Name Priority Date/Time Associated Diagnosis Comments COMPREHENSIVE METABOLIC PANEL Routine 03/16/2024 1:46 PM NATIONAL SALES ASSOCIATE Iron deficiency Neuropathy Osteoarthritis of multiple joints, unspecified osteoarthritis type Medication monitoring encounter Polyarthralgia Fibromyalgia Myofascial pain HPV DETECTION HIGH RISK LOY Routine 10/30/2021 11:31 AM CDT Cervical cancer screening from Last 3 Months or Most Recently Relevant to Health Maintenance Results * COMPREHENSIVE METABOLIC PANEL (03/16/2024 1:46 PM NATIONAL SALES ASSOCIATE) Glucose 87 65 - 99 mg/dL [facility] [...] 29 U/L [facility] Comment: Test Performed at: [employer] [address] MRIEYA CATALAN MD Blood BLOOD SPECIMEN / Unknown 03/16/2024 1:46 PM NATIONAL SALES ASSOCIATE 03/16/2024 1:53 PM NATIONAL SALES ASSOCIATE Terrie Lancaster GUIDANCE COUNSELOR-CLIENT SERVICES COORDINATOR LAB - CHEMI STRY ORDERABLES [facility] [address] [place] [address] * HPV DETECTION HIGH RISK LOY (10/30/2021 11:31 AM CDT) High Risk Human Papilloma Result Not detected Not detected 11/02/2021 4:49 PM CDT [facility] High Risk Human Papilloma Interp 11/02/2021 4:49 PM CDT [facility] Comment:High Risk Human Narinder lloma Virus was Not Detected. Pathology/Cytolo gy VAGINA AND CERVIX, CS / Unknown 10/30/2021 11:31 AM CDT 10/31/2021 12:13 PM CDT Narrative [facility] - 11/02/2021 4:49 PM CDT [...] LAB - MICROBIOLOGY ORDERABLES Performing Organization Address [facility] Co de Phone Number [facility] [address] [phone] from Last 3 Months or Most Recently Relevant to Health Maintenance Care Teams Coil Shaper Relationship Specialty Start Date End Date Eden Holley, GUIDANCE COUNSELOR-CLIENT SERVICES COORDINATOR [address] [place] [id number] PCP - General Nurse Practitioner 10/20/23 Tera Bernard MD [address] [place], [place] [id number] Obstetrics and Gynecology 06/19/23
--- OUTSIDE RECORDS SUMMARY | 2024-06-21 01:12 | XMS_ITS | Referral Summary ---
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
--- OUTSIDE RECORDS SUMMARY | 2024-06-21 01:12 | XMS_ITS | Clinical Summary ---
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
--- OUTSIDE RECORDS SUMMARY | 2024-06-21 01:12 | XMS_ITS | Patient Health Record ---
Author Organization [facility] Address [address] [address] Care Team Providers Care Psychometrician Name Role Phone Yasir Ward MD Primary Care Provider Elia Fournier MD, Beau Unavailable [phone] Allergies Allergen (clinical drug ingredient) Drug/Non Drug [...] Problem Status W/U Status Risk Notes Problem [id number] Chronic idiopathic constipation (K59.04) Active confirmed Plan Of Treatment No Information Insurance Providers Payer Name Payer Address Payer Phone Subscriber Number Group Number Insured Name Patient Relationship to Insured Coverage Start Date Coverage End Date [facility] BLUE [employer] PPO [address] [place], [place] [id number] Giancarlo Connors Spouse - patient is the spouse of the insured Medical (General) History Medical History History ICD Code PCOS GERD Surgical History Surgery Date(Month/Year) hemorrhoidectomy Section cystoscopy for kidney stones
[2024-06-21 12:00] VITALS: BP 137/91; PULSE 78; RESP 16; TEMP 36.7; O2SAT 100
--- NOTE | 2024-06-21 12:31 | P.HP_ITS ---
History of Present Illness History of Present Illness Consent: Risks, benefits, and alternatives have been discussed and questions answered. Patient agrees to proceed with procedure. Chief complaint: lumbosacral spondylosis, chronic low back pain [facility] Past Medical History Medical History Myalgia Otitis media Elevated BP without diagnosis of hypertension Pain of toe of left foot Ataxia Vertigo Thoracic back pain Low back pain radiating to left lower extremity Hypothyroid Constipation Pain, joint, multiple sites Low back pain radiating to both legs Anemia Recurrent kidney stones History of kidney stones PCOS (polycystic ovarian syndrome) Morbid obesity with BMI of 40.0-44.9, adult Anxiety Interstitial cystitis Chronic GERD Asthma Kidney stone Surgical History Surgical History H/O total hysterectomy Feb 2023 History of 2000 Family History Family History Father Heart disease Sibling Alcoholism Grandparent Cancer Social History Social History Smoking status: Never smoker Alcohol intake: never Substance use: never Substance use type: does not use Do You Feel Safe in your Home?: Yes Lack of Transportation: No Lack of Food: Never True Current Housing: I Have Housing Concerned About Future Housing: No Difficulty Paying Gas/Electric Bills: No Difficulty Paying for Meds: No Currently Unemployed: No Education: High School Diploma/GED Difficulty w/ Childcare or Family Care: No Living arrangements: with family Spiritual care concerns: No Meds Home Medications and Allergies Home Medications ?Medication ?Instructions ?Recorded ?Confirmed ?Type vitamin D3 250 mcg (10,000 1 cap PO DAILY 07/30/23 06/21/24 History unit)-vitamin K2 45 mcg capsule gabapentin 300 mg capsule 300 mg PO HS #90 caps 10/29/23 06/21/24 Rx linaclotide 290 mcg capsule 290 mcg PO DAILY #90 caps 10/29/23 06/21/24 Rx (Linzess) meclizine 25 mg tablet 25 mg PO BID PRN dizziness #60 tabs 12/15/23 06/21/24 Rx alprazolam 1 mg tablet 0.5 mg (1/2 x 1 mg) PO BID PRN 02/05/24 06/14/24 Rx Anxiety #60 tabs cyclobenzaprine 10 mg tablet 5 - 10 mg (0.5 - 1 x 10 mg) PO BID 02/05/24 06/14/24 Rx PRN muscle spasm #60 tabs doxepin 25 mg capsule 25 mg PO QHS #90 caps 02/05/24 06/21/24 Rx omeprazole 40 mg capsule,delayed 40 mg PO BID #180 caps 02/05/24 06/21/24 Rx release coQ10 (ubiquinol) 200 mg capsule 100 mg PO DAILY 02/23/24 06/21/24 History meloxicam 15 mg tablet 15 mg PO DAILY 02/23/24 06/21/24 History progesterone micronized 200 mg 350 mg PO DAILY 02/23/24 06/21/24 History capsule Boswellia kai extract 307 mg 614 mg PO BID 04/05/24 06/21/24 History tablet catalyn 3 cap PO DAILY 04/07/24 06/21/24 History estradiol 1 mg/gram (0.1 %) 1 packet topical DAILY 04/07/24 06/14/24 History transdermal gel packet melatonin 5 mg capsule 5 mg PO HS 04/07/24 06/21/24 History turmeric 400 mg capsule 800 mg PO DAILY 04/07/24 06/21/24 History losartan 50 mg tablet 50 mg PO DAILY #30 tabs 04/20/24 06/21/24 Rx Allergies Allergy/AdvReac Type Severity Reaction Status Date / Time Penicillins Allergy Severe Hives Verified 06/21/24 12:32 erythromycin base Allergy Unknown HIVES Verified 06/21/24 12:32 prochlorperazine AdvReac Severe Confusion Verified 06/21/24 12:32
--- NOTE | 2024-06-21 12:33 | PM.HPGS ---
History of Present Illness History of Present Illness Consent: Risks, benefits, and alternatives have been discussed and questions answered. Patient agrees to proceed with procedure. Chief complaint: lumbosacral spondylosis, chronic low back pain Narrative: Sana Connors is a 48 year old female with chronic, recalcitrant and disabling bilateral lumbosacral back pain secondary to degenerative spondylosis with failure to respond to aggressive conservative measures including PT, oral and topical analgesics, opioid and nonopioid analgesics, rest, time and activity/behavioral modification over the past 1-2 years who presents for diagnostic/prognostic medial branch blocks of the bilateral L3, L4, L5 medial branches/dorsal ramus(#2) addressing the ipsilateral L4-5, L5-S1 facet joints under fluoroscopic guidance and with contrast control. Review of Systems Review of Systems: All systems reviewed & are unremarkable except as noted in HPI. All systems reviewed & are unremarkable except as noted in HPI and below PMFSH Past Medical History Medical History Myalgia Otitis media Elevated BP without diagnosis of hypertension Pain of toe of left foot Ataxia Vertigo Thoracic back pain Low back pain radiating to left lower extremity Hypothyroid Constipation Pain, joint, multiple sites Low back pain radiating to both legs Anemia Recurrent kidney stones History of kidney stones PCOS (polycystic ovarian syndrome) Morbid obesity with BMI of 40.0-44.9, adult Anxiety Interstitial cystitis Chronic GERD Asthma Kidney stone Surgical History Surgical History H/O total hysterectomy Feb 2023 History of 2000 Family History Family History Father Heart disease Sibling Alcoholism Grandparent Cancer Social History Social History Smoking status: Never smoker Alcohol intake: never Substance use: never Substance use type: does not use Do You Feel Safe in your Home?: Yes Lack of Transportation: No Lack of Food: Never True Current Housing: I Have Housing Concerned About Future Housing: No Difficulty Paying Gas/Electric Bills: No Difficulty Paying for Meds: No Currently Unemployed: No Education: High School Diploma/GED Difficulty w/ Childcare or Family Care: No Living arrangements: with family Spiritual care concerns: No Meds Home Medications and Allergies Home Medications ?Medication ?Instructions ?Recorded ?Confirmed ?Type vitamin D3 250 mcg (10,000 1 cap PO DAILY 07/30/23 06/21/24 History unit)-vitamin K2 45 mcg capsule gabapentin 300 mg capsule 300 mg PO HS #90 caps 10/29/23 06/21/24 Rx linaclotide 290 mcg capsule 290 mcg PO DAILY #90 caps 10/29/23 06/21/24 Rx (Linzess) meclizine 25 mg tablet 25 mg PO BID PRN dizziness #60 tabs 12/15/23 06/21/24 Rx alprazolam 1 mg tablet 0.5 mg (1/2 x 1 mg) PO BID PRN 02/05/24 06/14/24 Rx Anxiety #60 tabs cyclobenzaprine 10 mg tablet 5 - 10 mg (0.5 - 1 x 10 mg) PO BID 02/05/24 06/14/24 Rx PRN muscle spasm #60 tabs doxepin 25 mg capsule 25 mg PO QHS #90 caps 02/05/24 06/21/24 Rx omeprazole 40 mg capsule,delayed 40 mg PO BID #180 caps 02/05/24 06/21/24 Rx release coQ10 (ubiquinol) 200 mg capsule 100 mg PO DAILY 02/23/24 06/21/24 History meloxicam 15 mg tablet 15 mg PO DAILY 02/23/24 06/21/24 History progesterone micronized 200 mg 350 mg PO DAILY 02/23/24 06/21/24 History capsule Boswellia kai extract 307 mg 614 mg PO BID 04/05/24 06/21/24 History tablet catalyn 3 cap PO DAILY 04/07/24 06/21/24 History estradiol 1 mg/gram (0.1 %) 1 packet topical DAILY 04/07/24 06/14/24 History transdermal gel packet melatonin 5 mg capsule 5 mg PO HS 04/07/24 06/21/24 History turmeric 400 mg capsule 800 mg PO DAILY 04/07/24 06/21/24 History losartan 50 mg tablet 50 mg PO DAILY #30 tabs 04/20/24 06/21/24 Rx Allergies Allergy/AdvReac Type Severity Reaction Status Date / Time Penicillins Allergy Severe Hives Verified 06/21/24 12:32 erythromycin base Allergy Unknown HIVES Verified 06/21/24 12:32 prochlorperazine AdvReac Severe Confusion Verified 06/21/24 12:32 Exam Narrative: The patient's physical exam is essentially unchanged from prior examination on 05/03/24. Specifically, patient demonstrates normal lung capacity, tidal volume and respiratory rate without wheezes, crackles, rales or rubs. Heart rate and rhythm are regular without murmurs, gallops or rubs. No JVD. Pulses 2+ globally without increasing peripheral edema. AAOx3 with no evidence of confusion, intoxication or altered mental state, NC/AT without acute distress or altered consciousness. Speech, cognition, mood, insight and judgment at baseline and within normal limits. Assessment and Plan Assessment and plan (1) Lumbosacral spondylosis: Code(s): M47.817 - Spondylosis without myelopathy or radiculopathy, lumbosacral region Status: Acute Assessment and Plan: Proceed as planned with diagnostic/prognostic medial branch blocks of the bilateral L3, L4, L5 medial branches/dorsal ramus(#2) addressing the bilateral L4-5, L5-S1 facet joints under fluoroscopic guidance and with contrast control. (2) Dorsalgia of lumbosacral region: Code(s): M54.50 - Low back pain, unspecified Status: Acute (3) Chronic pain: Code(s): G89.29 - Other chronic pain Status: Acute
--- NOTE | 2024-06-21 12:34 | WPDHPUPDATE1 ---
History and Physical Update Update Date/Time: 06/21/24 12:34 History and Physical has been reviewed, including an updated exam of the patient. There are NO changes in the patient's condition. Risks, benefits, and alternatives have been discussed and questions answered. Patient agrees to proceed with procedure.
--- NOTE | 2024-06-21 12:35 | W.PM.PROC2 ---
Procedure Note - Detailed Date of Procedure 06/21/24 Pre-op Diagnosis lumbosacral spondylosis, chronic low back pain Post-op Diagnosis Same Procedure Performed Diagnostic Bilateral Lumbar Medial Branch/Dorsal Ramus Blocks at L3, L4, L5 Treating the Ipsilateral L4-5, L5-S1 Facet Joints Under Fluoroscopic Guidance and with Contrast Control. (4 levels blocked). Surgeon Shalom Adan MD Supervisor Network Control Operators None. Anesthesia Local Description of Procedure INFORMED CONSENT: Risks, benefits and alternatives to the procedure were discussed in detail with the patient who expressed explicit understanding and consent to proceed. Patient was informed verbally and in written form regarding the risks associated with the procedure including the low risk of serious infection, bleeding/bruising, allergic reaction, nerve or organ injury, paralysis, procedural site pain or discomfort, worsening pain and/or mobility, failure to treat and/or disfigurement. The patient expressed explicit understanding and consent to proceed. All materials required for the procedure were available prior to procedure start. Site and side were marked prior to procedure and confirmed in the presence of the patient. PROCEDURE IN DETAIL: The patient was brought to the procedural suite and placed in the prone position. Patient was made comfortable with use of pillows under the head/chest, hips and ankles. Skin overlying the injection site on the affected side(s) was prepared broadly with ChloraPrep applicator and draped in a sterile manner. Aseptic technique was used throughout. The endplates of the vertebral bodies at the site(s) of interest were aligned in the AP view. Ipsilateral oblique angulation was utilized to optimize visualization of the intersection between the superior articulating process and transverse process at each target site. Local anesthesia was established by infiltration with approximately 5 mL of 1% lidocaine via a 1-1/2 inch 27-gauge needle. A 25-gauge 5.0 inch Quincke spinal needle was advanced until the needle tip contacted periosteum at the target site, right L3. Lateral view was utilized to confirm the appropriate placement of the needle tip just anterior to the facet line and superior to the pedicle. In the Lateral view, 0.25 mL of Omnipaque 300 contrast medium was injected after negative aspiration for CSF, blood or other bodily fluid, showing appropriate extra-articular spread of contrast without evidence of intravascular, foraminal or intrathecal placement. A 0.5 mL solution of 2.0% PF Lidocaine was injected after negative repeat aspiration. Appropriate spread of the injectate was confirmed with washout of previously injected contrast. No parasthesias were elicited. Needle was removed completely intact without difficulty. The same exact procedure was repeated for all remaining levels on the ipsilateral side, right L4, L5 medial branches/dorsal ramus, modified as necessary to accommodate for the new target location with identical findings and results and no evidence of complication. The same exact procedure was repeated for all remaining levels on the contralateral side, left L3, L4, L5 medial branches/dorsal ramus, modified as necessary to accommodate for the new target location with identical findings and results and no evidence of complication. Images were saved and documented in the patient chart. Patient's skin was cleaned and sterile bandage applied. The patient tolerated the procedure well. The patient was transported to the recovery area in stable condition where they were observed for an appropriate amount of time prior to discharge, without evidence of complication. Patient was instructed on the appropriate completion of a pain diary over the next 12-24 hours. The patient was instructed to avoid excessive activity for the next 48 hours, including climbing and frequent use of stairs. Showers only for 48 hours. They were instructed not to drive or operate heavy machinery for 24 hours. They are to monitor for severe headaches, fevers, chills, night sweats, erythema/swelling at the site or any other signs of infection, bleeding/bruising, bowel or bladder changes as well as new pain, weakness or numbness in the upper or lower extremity. Should they notice these changes, they are instructed to call our office immediately or report directly to the nearest Emergency Department if no answer or if after posted office hours. COMPLICATIONS: None COMMENTS: None CONTRAST WASTED: 28.5mL Omnipaque 300. Complications No immediate complications Condition Stable Disposition Same day [facility] Billing Surgery - Charge Forward: Surgery Billing
[2024-06-21 12:36] VITALS: BMI 42.1
[2024-06-21 12:49] VITALS: BP 163/87; PULSE 70; RESP 16; O2SAT 99
[2024-06-21] MEDS: LIDOCAINE 2% LOCAL INJ 20 ML VIAL 3 ML INFILTRATE (12:55)
[2024-06-21 12:59] VITALS: BP 167/95; PULSE 75; RESP 16; O2SAT 100
[2024-06-21 13:09] VITALS: BP 152/72; PULSE 90; RESP 16; O2SAT 98
[2024-06-21 13:13] VITALS: BP 132/69; PULSE 72; RESP 16; TEMP 36.1; O2SAT 99
== END 2024-06-21 13:35 | disposition home or self-care (01) ==
PROVIDERS: PCP Nurse Practitioner Family; Visit Provider Anesthesiology Pain Medicine
PROC: (CPT 64493; principal; 2024-06-21 12:45)
DX: M47.817 Spondylosis without myelopathy or radiculopathy, lumbosacral region (principal); G89.29 Other chronic pain; E03.9 Hypothyroidism, unspecified; E28.2 Polycystic ovarian syndrome; K21.9 Gastro-esophageal reflux disease without esophagitis; J45.909 Unspecified asthma, uncomplicated; D64.9 Anemia, unspecified; R03.0 Elevated blood-pressure reading, without diagnosis of hypertension; F41.9 Anxiety disorder, unspecified; Z98.890 Other specified postprocedural states; Z87.442 Personal history of urinary calculi; Z80.9 Family history of malignant neoplasm, unspecified; Z82.49 Family history of ischemic heart disease and other diseases of the circulatory system
CPT/HCPCS: 64493; 64494; 64495; 99199; J2003; Q9965

== ENCOUNTER 2024-08-12 13:15 | Outpatient (CLI) | payer BC, SELFPAY ==
--- NOTE | ~2024-08-12 | CT_ITS ---
Noncontrast CT scan of the thoracic spine CLINICAL HISTORY: Back pain TECHNIQUE: Axial noncontrast imaging of the thoracic spine was performed. Sagittal and coronal reform atted images were constructed. Dose reduction technique was used on this scan by utilizing automated exposure control and iterative reconstruction technique. The dose-length product (DLP) was 995.36 mGy -cm. FINDINGS: There is no fracture or subluxation of the thoracic spine. Vertebral bodies maintain normal height and alignment. There is moderate to advanced degenerative disc narrowing from T4 through T10. No significant disc bulge or herniation identified on noncontrast CT imaging. No distinct appearance of canal stenosis or cord compression in the thoracic spine. Neural foramina appear preserved through out the thoracic spine. Paravertebral soft tissues are unremarkable. Impression: Moderate to advanced degenerative disc narrowing from T4 through T10. Reviewed, dictated and finalized at [facility]. Impression: Moderate to advanced degenerative disc narrowing from T4 through T10.
== END 2024-08-12 13:16 | disposition home or self-care (01) ==
LOC: MICIMG 13:17
PROVIDERS: PCP Nurse Practitioner Family
DX: M54.9 Dorsalgia, unspecified (principal); G89.29 Other chronic pain
CPT/HCPCS: 72128

== ENCOUNTER 2024-12-30 15:29 | Outpatient (CLI) | payer BC, SELFPAY ==
--- NOTE | ~2024-12-30 | MM_ITS ---
EXAMINATION: MM screening kami BI w renetta HISTORY: Screening TECHNIQUE: Craniocaudal and mediolateral oblique 3-D tomosynthesis images were obtained and synthetic 2-D images were generated. CAD analysis was submitted and interpreted. COMPARISON: 12/29/2023 BREAST PARENCHYMAL COMPOSITION: There are scattered areas of fibroglandular density. FINDINGS: There is no evidence of suspicious mass, calcification, or architectural distortion in either breast to suggest malignancy. There has been no significant interval change. IMPRESSION: 1. No mammographic evidence of malignancy. Recommend routine screening mammography in one year. BI-RADS Category 1: Negative Reviewed, dictated and finalized at location Q. IMPRESSION: 1. No mammographic evidence of malignancy. Recommend routine screening mammogra phy in one year. BI-RADS Category 1: Negative
== END 2024-12-30 15:30 | disposition home or self-care (01) ==
LOC: MICIMG 15:29
PROVIDERS: PCP Nurse Practitioner Family; Visit Provider Obstetrics & Gynecology
DX: Z12.31 Encounter for screening mammogram for malignant neoplasm of breast (principal)
CPT/HCPCS: 77063; 77067